=== PATIENT | male | born 1945 | race Caucasian/White ===

== ENCOUNTER 2023-09-05 00:23 | Inpatient (IN) | payer MEDICARE, OTHER, SELFPAY ==
[2023-09-03] VITALS (10 sets, daily range): BP systolic 79–156; BP diastolic 50–70; BMI 25.1
[2023-09-03 11:57] LABS: Glucose - Point of Care 108 mg/dl (70-99)
[2023-09-03 14:53] LABS: % Basophils 0.3 % (0-2); % Eosinophils 0.7 % (0-6); % Lymphocytes 8.3 % (20.5-51.1); % Monocytes 6.4 % (1.7-9.3); % Neutrophils 83.3 % (42.2-75.2); Absolute Basophils 0.1 10^3/uL (0-0.2); Absolute Eosinophils 0.1 10^3/uL (0-0.7); Absolute Immature Granulocytes 0.2 10^3/uL (0-0.05); Absolute Lymphocytes 1.2 10^3/uL (1.2-3.4); Absolute Neutrophils 12.3 10^3/uL (1.4-6.5); Hematocrit 35.5 % (39.0-52.0); Hemoglobin 12.4 g/dL (13.0-18.0); Mean Corp Hgb Conc. 34.9 g/dL (33.0-37.0); Mean Corpuscular Hgb 29.6 pg (27.0-31.0); Mean Corpuscular Volume 84.7 fL (80.0-94.0); Mean Platelet Volume 9.3 fL (7.4-10.4); Nucleated Red Blood Cells % 0 % (-); Platelet Count 219 10^3/uL (130-400); Red Blood Cell Count 4.19 10^6/uL (4.70-6.10); Red Cell Dist. Width 13.7 % (11.5-14.5); White Blood Cell Count 14.8 10^3/uL (4.8-10.8)
[2023-09-03 15:13] LABS: ALT (SGPT) 17 U/L (0-50); AST (SGOT) 15 U/L (17-59); Albumin 3.1 g/dl (3.5-5.0); Alkaline Phosphatase 83 U/L (38-126); Blood Urea Nitrogen 43 mg/dl (9-20); Carbon Dioxide 17 mmol/L (22-30); Chloride 103 mmol/L (98-107); Glucose 116 mg/dl (70-99); Potassium 3.7 mmol/L (3.5-5.1); Sodium 131 mmol/L (135-145); Total Bilirubin 0.8 mg/dl (0.2-1.3); Total Protein 5.5 g/dl (6.3-8.2); eGFR 36.33
--- NOTE | 2023-09-03 15:18 | ED.GENMED ---
History of Present Illness
General
Chief Complaint: Weakness
Source: patient and family
Time Seen by Provider: 09/03/23 14:58
History of Present Illness
History of Present Illness:
77yoM with a history of coronary artery disease status post CABG x 5 and PCI, type 2 diabetes, peripheral artery disease on Xarelto presenting with his for evaluation of generalized weakness. Patient began experiencing diarrhea about 3 days
ago. He reports 6-8 explosive bowel movements daily. He has been extremely weak and fatigued. He had an episode of dizziness 2 days ago while at the grocery store. During the episode, patient reports that he was having difficulty with his
vision. His drove him home and upon getting out of the car, patient had a witnessed syncopal episode. His daughter is a nurse and took his vitals and SBP was reportedly in the 60s at that time. He has had several low blood pressure readings
since then. He denies any visual disturbance currently. He continues to have dizziness with position changes. He denies any chest pain, shortness of breath, vomiting, fevers.
Past History
Past History
ED Past Medical History: CAD, GERD, HTN, Hypercholesterolemia, NIDDM, AR and Other (DVT)
ED Past Surgical History: Cardiac (bypass, stents) and Cholecystectomy
Social History
Tobacco: Former smoker (quit x 22 years)
Alcohol: None
Drug: None
Personal:
Living: with family
Phy Exam
Physical Exam
Physical Exam:
Appears fatigued, non-toxic
General Physical Exam
General Skin: warm and dry
General Habitus: normal
General Mental: alert
Cardiovascular Exam
Cardiovascular Exam: regular rate/rhythm and no murmur
Pulmonary Exam
Pulmonary Exam: lungs clear, no respiratory distress and no crackles
Gastrointestinal Exam
Gastrointestinal Exam: soft and non distended
Palpation: left lower quadrant: Mild tenderness and right lower quadrant: Mild tenderness
Leon Coma Scale
Eye Opening: Spontaneous
Verbal Response: Oriented
Motor Response: Obeys Commands
GCS Total Score: 15
Skin Exam
Skin Exam: normal color and warm/dry
Course
Orders/Labs/Results
Orders:
Orders
09/03/23 11:57
Electrocardiogram (*1) Urgent
Reason for Study: Syncope
EKG- Treatment ONCE
09/03/23 14:41
Complete Blood Count/With Diff Urgent
Comprehensive Metabolic Panel Urgent
Lipase Urgent
Comment: MAG & LIPASE ADDED ON BY FLOOR 3:20PM 09-03-23
Magnesium Urgent
09/03/23 Dinner
NPO
Allow oral meds: Yes
Allow clear liquids: Sips of Clears
09/03/23 15:17
Add On- LAB Urgent
Tests Added?: magnesium, lipase
CT Abd/pel Without Iv Or Oral Urgent
Comment:
Reason For Exam: Abd pain, diarrhea, SUMMER
Stool Culture Urgent
MEKHI Source: Feces/Stool
Specimen Description:
Date Specimen was Collected: 09/03/23
Time Specimen was Collected: 15:57
0.9% Sodium Chloride 1000 ml [Nss] 1,000 ml IV BOLUS
09/03/23 15:58
Magnesium Sulfate 2 Gram/50 ml [Magnesium Sulfate] 2 gram in 50 ml IV NOW
09/03/23 16:08
Lactate Level [Lactic Acid] Urgent
Troponin I Urgent
09/03/23 17:14
CDIFF [C difficile Antigen & Toxins] Urgent
MEKHI Source: Feces/Stool
Specimen Description:
Date Specimen was Collected: 09/03/23
Time Specimen was Collected: 17:16
09/03/23 18:22
Admit/Transfer Patient As Directed
Co-Sign Provider:
Level of Care: Observation services
Assign to:: Telemetry
Physician / Group: mannie
Diagnosis: gastroenteritis
Reason for Telemetry: Arrhythmia
Date to Stop Telemetry: 09/06/23
Time to Stop Telemetry: 11:00
09/03/23 18:23
Code Status As Directed
Resuscitation Status: Full Code
09/03/23 18:24
Norovirus by PCR Urgent
MEKHI Source: Feces/Stool
Specimen Description:
09/03/23 20:02
0.9% Sodium Chloride 1000 ml [Nss] 1,000 ml IV 80 mls/hr
Cilostazol [Pletal] 100 mg PO BID
Cyclobenzaprine HCl [Flexeril] 10 mg PO HSPRN PRN
Dextrose 50%-Water [Dextrose 50% Syringe] 12.5 grams IV [id number] PRN
Glucagon [GlucaGen] 1 mg IM PRN PRN
Ondansetron Injectable [Zofran] 4 mg IV Q6HPRN PRN
Rivaroxaban [Xarelto] 2.5 mg PO BID
09/03/23 20:02
VTE Contraindication Routine
VTE Mechanical Device Contraindication: Medical Contraindication
Pharmocologic Contraindication: Medical Contraindication
Activity As Directed
Activity Level: As Tolerated
Bedside Glucose Monitoring As Directed
Frequency: AC&HS
Additional Instructions:: Change to q6h if pt on TPN, tube feeding or not eating
Vital Signs As Directed
Frequency: Per unit guidelines
09/03/23 20:08
Oxycodone [Roxicodone] 10 mg PO Q8HPRN PRN
09/03/23 22:00
Fenofibrate 145 [Tricor] 145 mg PO HS
Pregabalin [Lyrica] 150 mg PO HS
Rosuvastatin Calcium [Crestor] 40 mg PO HS
09/03/23 22:10
Troponin I Q6H
09/04/23 02:02
Troponin I Q6H
09/04/23 06:00
Complete Blood Count/With Diff IN AM
Comprehensive Metabolic Panel IN AM
Glycohemoglobin (HgbA1c) IN AM
09/04/23 07:30
Insulin Aspart Corrective Low [Novolog Flexpen-Low Resistance] See Protocol SC AC
09/04/23 08:00
Aspirin Low Dose EC [Aspir Low (Enteric Coated)] 81 mg PO DAILY
ISOSORBIDE MONOnitrate [Ismo] 10 mg PO DAILY
ISOSORBIDE MONOnitrate [Ismo] 20 mg PO DAILY
Pregabalin [Lyrica] 300 mg PO DAILY
09/04/23 08:02
Troponin I Q6H
09/04/23 14:02
Troponin I Q6H
09/04/23 18:00
Tamsulosin [Flomax] 0.4 mg PO QPM
09/06/23 11:00
DC Protocol for Telemetry ONCE
Abnormal Lab Results
09/03/23 09/03/23 09/03/23
11:55 14:41 16:08
WBC 14.8 H 10^3/uL
(4.8-10.8)
RBC 4.19 L 10^6/uL
(4.70-6.10)
Hgb 12.4 L g/dL
(13.0-18.0)
Hct 35.5 L %
(39.0-52.0)
Abs Immat Gran (auto) 0.2 H 10^3/uL
(0-0.05)
Absolute Neuts (auto) 12.3 H 10^3/uL
(1.4-6.5)
Absolute Monos (auto) 1.0 H 10^3/uL
(0.1-0.6)
Immature Gran % 1.0 H %
(0-0.5)
Neutrophils % 83.3 H %
(42.2-75.2)
Lymphocytes % 8.3 L %
(20.5-51.1)
Sodium 131 L mmol/L
(135-145)
Carbon Dioxide 17 L mmol/L
(22-30)
BUN 43 H mg/dl
(9-20)
Creatinine 1.9 H mg/dL
(0.7-1.3)
Glucose 116 H mg/dl
(70-99)
Magnesium 1.2 L mg/dl
(1.6-2.3)
AST 15 L U/L
(17-59)
Troponin I 0.074 H* ng/ml
Total Protein 5.5 L g/dl
(6.3-8.2)
Albumin 3.1 L g/dl
(3.5-5.0)
POC Glucose 108 H mg/dl
(70-99)
09/03/23 14:41
09/03/23 14:41
Vital Signs
Initial and Last Documented VS:
Initial Vital Signs
Temp Pulse Resp BP Pulse Ox
100.0 F 95 18 114/70 97
09/03/23 11:52 09/03/23 11:52 09/03/23 11:52 09/03/23 11:52 09/03/23 11:52
Last Documented Vital Signs
Temp Pulse Resp BP Pulse Ox
97.8 F 72 16 129/61 96
09/03/23 23:00 09/03/23 23:00 09/03/23 23:00 09/03/23 23:00 09/03/23 23:00
MDM/Problems Addressed
Differential Diagnosis Includes:
77yoM presenting for diarrhea and generalized weakness x 3 days. Syncopal episode 2 days ago with intermittent episodes of hypotension at home. Temperature is 100 on arrival. Remainder of vitals are stable. Patient appears fatigued but is
nontoxic-appearing. Differential diagnosis includes but is not limited to: Gastroenteritis, dehydration, SUMMER, orthostatic hypotension, ACS
Initial ED plan: Check cardiac labs, lactate, magnesium, stool studies, EKG, and CT abdomen. IV fluid bolus.
*EKG
Interpreted by ED Provider?: Yes
EKG Intrepretation Date: 09/03/23
Heart Rate: 107
Rate: tachycardiac
Rhythm: sinus
[place]: normal axis
QRS Pattern: normal QRS
Ischemia: non-specific ST changes
*Critical Care Note
Total Time (30-74mins, 75-104mins- exclusive of procedures): Not Applicable
Update Note
Update Note:
Labs reveal a leukocytosis with a white count of 14.8. Lactate is normal. Creatinine 1.9, up from baseline of 0.8. Troponin elevated at 0.[address] changes present on EKG. CT abdomen is negative for acute findings. Patient admitted
for further management.
ED Attending Note
-
Portions of this chart may have been created with voice recognition software.� Occasional wrong word or��sound alike� substitutions may have occurred due to the inherent limitations of voice recognition software.
Discharge Plan
Departure
Patient Disposition: Admit
Date of Disposition: 09/03/23
Time of Disposition: 18:09
Presentation/result/management discussed w/ accepting MD/DO: Hospitalist
Discharge Problem:
Generalized weakness, Diarrhea, Acute kidney injury, Elevated troponin
Interventions
Interventions:
*Risk Screen - Suicide Last Done: 09/03/23 17:13
*General Assessment Last Done: 09/03/23 17:13
*Neglect/Abuse Screening Last Done: 09/03/23 17:13
*ED COVID-19 Vaccine History Last Done: 09/03/23 20:51
*Nursing Disposition Last Done: 09/03/23 20:15
ED- Cardiac Assessment Last Done: 09/03/23 14:45
ED- Neurological Assessment Last Done: 09/03/23 14:45
ED- Pulmonary Assessment Last Done: 09/03/23 14:45
Discharge Date and Time
Discharge Date/Time: 09/03/23 20:16
[2023-09-03 15:34] LABS: Lipase 98 U/L (23-300); Magnesium 1.2 mg/dl (1.6-2.3)
[2023-09-03] MEDS: NSS 1000 IV ×2 (16:06→20:39)
[2023-09-03] MEDS: MAGNESIUM SULFATE 50 IV (16:07)
[2023-09-03 16:50] LABS: Troponin I 0.074 ng/ml
--- NOTE | 2023-09-03 18:26 | HPS.HSE ---
Family Physician
-
Family Physician: Magno Khan
Chief Complaint
-
diarrhea
History of Present Illness
77-year-old male past medical history of CAD status post CABG x 5, type 2 diabetes, peripheral arterial disease on Xarelto, hypertension, GERD, hypercholesterolemia, presenting with generalized weakness and diarrhea for 3 days. He has been having
6-8 explosive bowel movements daily. He is extremely weak and fatigued. He had dizziness 2 days ago while at the grocery store. At that time he was having difficulty with vision. His drove him home and upon getting out of the car he had a
syncopal episode. His blood pressures was checked by his daughter who is a nurse blood pressure was 60s at that time. He has had several low blood pressure since then. He has dizziness with positional changes. He denies any chest pain, shortness
of breath, vomiting or fever. He denies any sick contacts. He denies any recent travel or attending events/parties or eating outside food.
She denies smoking or alcohol use.
Medical History
Past Medical History
Past Medical History: Reports Other (CAD status post CABG x 5, type 2 diabetes, peripheral arterial disease on Xarelto, hypertension, GERD, hypercholesterolemia,)
Past Surgical History: Reports None
Social History
Tobacco: Non-smoker
Alcohol: None
Drug: None
Family History
Family History: Not pertinent
Allergies / Home Medications
Allergies reflects when Allergies were last updated in [facility].
Home Medications with original date entered in [facility]
Allergy/Medication List:
Allergies
Allergy/AdvReac Type Severity Reaction Status Date / Time
No Known Allergies Allergy Verified 09/03/23 11:55
Home Medications
alogliptin 25 mg tablet 25 mg PO DAILY Diabetes 08/20/20
fenofibrate nanocrystallized 145 mg tablet 145 mg PO HS High cholesterol 08/20/20
glimepiride 2 mg tablet 2 mg PO BID@0800,1700 Diabetes 08/20/20
metformin 1,000 mg tablet 1,000 mg PO BID@0800,1700 Diabetes 08/20/20
pregabalin 150 mg capsule (Lyrica) 300 mg PO DAILY Pain 08/20/20
rosuvastatin 40 mg tablet (Crestor) 40 mg PO DAILY High cholesterol 08/20/20
cilostazol 100 mg tablet 100 mg PO BID Blood clot prevention/tx 05/16/22
famotidine 20 mg tablet 20 mg PO HS Gastrointestinal issue 05/16/22
lidocaine 5 % topical patch 1 patch topical DAILYPRN PRN to back and/or both feet for pain 05/16/22
metoprolol succinate 25 mg tablet,extended release 24 hr 25 mg PO HS Blood pressure 05/16/22
pantoprazole 40 mg tablet,delayed release 40 mg PO DAILY Gastrointestinal issue 05/16/22
pregabalin 150 mg capsule (Lyrica) 150 mg PO HS Pain 05/16/22
rivaroxaban 2.5 mg tablet (Xarelto) 2.5 mg PO BID Blood clot prevention/tx 05/16/22
amoxicillin 875 mg-potassium clavulanate 125 mg tablet 1 tab PO Q12 #14 tabs 05/19/22
hydrocodone 5 mg-acetaminophen 325 mg tablet 1 tab PO Q4HPRN PRN moderate/severe pain #10 tabs 05/19/22
Review of Systems
-
History Source: Patient
A 12 point ROS was completed and negative except as noted: Yes
Constitutional: Reports No Symptoms
EENT: Reports No Symptoms
Respiratory: Reports No Symptoms
Cardiac: Reports No Symptoms
Abdomen/GI: Reports See HPI
: Reports No Symptoms
Musculoskeletal: Reports No Symptoms
Skin: Reports No Symptoms
Neurological: Reports No Symptoms
Endocrine: Reports No Symptoms
Hematologic/Lymphatic: Reports No Symptoms
Psych: Reports No Symptoms
Physical Exam
Vital Signs
Vital Signs
Temp Pulse Resp BP Pulse Ox
100.0 F 74 14 109/62 98
09/03/23 11:52 09/03/23 17:09 09/03/23 17:09 09/03/23 17:09 09/03/23 17:09
Physical Exam
General: Well Developed, Well Nourished and No Apparent Distress
HEENT: NormoCephalic, Moist mucous membranes and Atraumatic
Respiratory: Clear
Cardiac: S1/S2 and Regular Rhythm; No Murmur or Rub
GI: Soft, Non Distended, Normal Bowel Sounds and Tender; No Organomegaly
Rectal: Deferred by Provider
Musculoskeletal: No Clubbing, No Cyanosis and No Edema
Skin: No Rash
Neuro: Nonfocal/grossly intact
Laboratory Results
-
09/03/23 14:41
09/03/23 14:41
Laboratory Results
Lactic Acid 1.0 mmol/L (0.7-2.0) 09/03/23 16:08
Total Bilirubin 0.8 mg/dl (0.2-1.3) 09/03/23 14:41
AST 15 U/L (17-59) L 09/03/23 14:41
ALT 17 U/L (0-50) 09/03/23 14:41
Alkaline Phosphatase 83 U/L (38-126) 09/03/23 14:41
Troponin I 0.074 ng/ml H* 09/03/23 16:08
Lipase 98 U/L (23-300) 09/03/23 14:41
Data Reviewed
-
Lab Data: Labs Reviewed by me
Old Records: Reviewed
Impression/Plan
-
IMPRESSION:
PLAN:
# Hypovolemia/syncope secondary to acute gastroenteritis
-N.p.o.
-IV fluids
-Check stool culture, C. difficile, norovirus
# Hypomagnesemia
-Replete magnesium
# Acute kidney injury
-IV fluids
# Nonischemic myocardial injury secondary to hypotension
-Troponin 0.074
-EKG shows sinus tachycardia
-Trend troponins
Coronary artery disease status post CABG x 5
Peripheral arterial disease
-Continue Xarelto
-Continue cilostazol
Type 2 diabetes
-Hold alogliptin, glimepiride, metformin
-Insulin sliding scale
Peripheral arterial disease
Essential hypertension
-Hold metoprolol
GERD
-Continue famotidine, Protonix
Hypercholesterolemia
-Continue statin, fenofibrate
Full code
DVT prophylaxis�Xarelto
N.p.o.
[2023-09-03] MEDS: PLETAL 100 MG PO (20:47)
[2023-09-03] MEDS: XARELTO 2.5 MG PO (20:47)
[2023-09-03] MEDS: LYRICA 150 MG PO (21:18)
[2023-09-03] MEDS: CRESTOR 40 MG PO (21:18)
[2023-09-03] MEDS: TRICOR 145 MG PO (21:18)
[2023-09-03 22:02] LABS: Glucose - Point of Care 181 mg/dl (70-99)
[2023-09-03 22:41] LABS: Troponin I 0.043 ng/ml
[2023-09-04 03:00] VITALS: BP 123/61
[2023-09-04 04:49] LABS: % Basophils 0.3 % (0-2); % Eosinophils 0.9 % (0-6); % Immature Granulocytes 1.2 % (0-0.5); % Lymphocytes 8.3 % (20.5-51.1); % Monocytes 6.9 % (1.7-9.3); % Neutrophils 82.4 % (42.2-75.2); Absolute Eosinophils 0.1 10^3/uL (0-0.7); Absolute Immature Granulocytes 0.1 10^3/uL (0-0.05); Absolute Lymphocytes 0.8 10^3/uL (1.2-3.4); Absolute Monocytes 0.7 10^3/uL (0.1-0.6); Absolute Neutrophils 8.2 10^3/uL (1.4-6.5); Hematocrit 33.2 % (39.0-52.0); Hemoglobin 11.7 g/dL (13.0-18.0); Mean Corp Hgb Conc. 35.2 g/dL (33.0-37.0); Mean Corpuscular Hgb 30.2 pg (27.0-31.0); Mean Corpuscular Volume 85.6 fL (80.0-94.0); Mean Platelet Volume 9.7 fL (7.4-10.4); Nucleated Red Blood Cells % 0 % (-); Platelet Count 190 10^3/uL (130-400); Red Blood Cell Count 3.88 10^6/uL (4.70-6.10); Red Cell Dist. Width 13.7 % (11.5-14.5); White Blood Cell Count 9.9 10^3/uL (4.8-10.8)
--- NOTE | 2023-09-04 04:49 | PTCARENOTE ---
Pt admitted from ED. AAOx3, no c/o pain. Pt afebrile, VSS. R AC IV C/D/I, infusing without issues. Lungs clear, pt on R/A. No N/V or stools, good UOP. Pt NPO at this time. Accucheck q6 while NPO. Call grider within reach.
[2023-09-04 05:11] LABS: ALT (SGPT) 14 U/L (0-50); AST (SGOT) 13 U/L (17-59); Albumin 2.9 g/dl (3.5-5.0); Alkaline Phosphatase 59 U/L (38-126); Blood Urea Nitrogen 31 mg/dl (9-20); Calcium 8.9 mg/dl (8.4-10.2); Carbon Dioxide 19 mmol/L (22-30); Chloride 110 mmol/L (98-107); Estimated Creatinine Clearance 74 ml/min; Glucose 107 mg/dl (70-99); Potassium 4.1 mmol/L (3.5-5.1); Sodium 136 mmol/L (135-145); Total Bilirubin 0.5 mg/dl (0.2-1.3); Total Protein 5.3 g/dl (6.3-8.2); eGFR > 60.00
[2023-09-04 05:12] LABS: Troponin I 0.033 ng/ml
[2023-09-04 06:37] LABS: Glucose - Point of Care 90 mg/dl (70-99)
--- NOTE | 2023-09-04 06:54 | W.PN.HOSP.TC ---
Today's Communication/Plan
-
diet as tolerated
stool studies when available
glcyemic control
monitor bp
Assessment / Plan
Assessment / Plan
Physical Exam
General: Well Developed, Well Nourished and No Apparent Distress
HEENT: NormoCephalic, Moist mucous membranes and Atraumatic
Respiratory: Clear
Cardiac: S1/S2 and Regular Rhythm; No Murmur or Rub
GI: Soft, Non Distended, Normal Bowel Sounds and mild Tenderness; No Organomegaly
Musculoskeletal: No Clubbing, No Cyanosis and No Edema
Skin: No Rash
Neuro: Nonfocal/grossly intact
HPI: 77-year-old male past medical history of CAD status post CABG x 5, type 2 diabetes, peripheral arterial disease on Xarelto, hypertension, GERD, hypercholesterolemia, presenting with generalized weakness and diarrhea for 3 days. He has been
having 6-8 explosive bowel movements daily. He is extremely weak and fatigued. He had dizziness 2 days ago while at the grocery store. At that time he was having difficulty with vision. His drove him home and upon getting out of the car he
had a syncopal episode. His blood pressures was checked by his daughter who is a nurse blood pressure was 60s at that time. He has had several low blood pressure since then. He has dizziness with positional changes. He denies any chest pain,
shortness of breath, vomiting or fever. He denies any sick contacts. He denies any recent travel or attending events/parties or eating outside food.
# Hypovolemia/syncope secondary to acute gastroenteritis
-diet resumed tolerating
-IV fluids
-Check stool culture, C. difficile, norovirus
# Hypomagnesemia
-monitor and replete as necessary
# Acute kidney injury
-IV fluids
-resolved
# Nonischemic myocardial injury secondary to hypotension
-Troponin 0.074
-EKG shows sinus tachycardia
-Tachycardia since resolved, troponins trended down
Coronary artery disease status post CABG x 5
Peripheral arterial disease
-Continue Xarelto
-Continue cilostazol
Type 2 diabetes
-Hold alogliptin, glimepiride, metformin
-Insulin sliding scale
Peripheral arterial disease
Essential hypertension
-Hold metoprolol
GERD
-Continue famotidine, Protonix
Hypercholesterolemia
-Continue statin, fenofibrate
Full code
DVT prophylaxis�Xarelto
I spent a total of 50 minutes with the patient or on the floor. More than 50% of this time involved counseling and coordination of care.
Anticipated Discharge: 24 - 48 hours
Subjective/Interval History
-
Date of Service: September 04, 2023
Diarrhea since resolved. Tolerating diet. Symptoms improved.
Objective Data
-
Labs:
Laboratory Results
09/04/23
04:18
WBC 9.9
Hgb 11.7 L
Hct 33.2 L
Plt Count 190
Sodium 136
Potassium 4.1
Chloride 110 H
Carbon Dioxide 19 L
BUN 31 H
Creatinine 1.0
Glucose 107 H
Calcium 8.9
Total Bilirubin 0.5
AST 13 L
ALT 14
Alkaline Phosphatase 59
Vital Signs:
Vital Signs
Temp Pulse Resp BP Pulse Ox
97.7 F 72 18 123/61 96
09/04/23 03:00 09/04/23 03:00 09/04/23 03:00 09/04/23 03:00 09/04/23 03:00
I&O
09/02/23 09/03/23 09/04/23
06:59 06:59 06:59
Output Total 700 / 700
Balance -700 / -700
[2023-09-04 07:00] VITALS: BP 145/81
[2023-09-04] MEDS: LYRICA 300 MG PO (08:43)
[2023-09-04] MEDS: PLETAL 100 MG PO ×2 (08:44→21:18)
[2023-09-04] MEDS: ASPIR LOW (ENTERIC COATED) 81 MG PO (08:44)
[2023-09-04] MEDS: ISMO 20 MG PO (08:44)
[2023-09-04] MEDS: ISMO 10 MG PO (08:44)
[2023-09-04] MEDS: XARELTO 2.5 MG PO ×2 (08:44→21:18)
[2023-09-04 09:08] LABS: Glucose - Point of Care 110 mg/dl (70-99)
[2023-09-04 09:37] LABS: Troponin I 0.028 ng/ml
[2023-09-04 09:41] LABS: Glycohemoglobin (HgbA1c) 7.2 % (4.0-5.6)
[2023-09-04] MEDS: NOVOLOG FLEXPEN-LOW RESISTANCE SC (10:08)
[2023-09-04 11:30] VITALS: BP 129/57
[2023-09-04 12:00] LABS: Glucose - Point of Care 269 mg/dl (70-99)
[2023-09-04] MEDS: NOVOLOG FLEXPEN-LOW RESISTANCE 3 UNITS SC (12:26)
[2023-09-04] MEDS: NSS 1000 IV (14:18)
--- NOTE | 2023-09-04 15:58 | CM ---
Patient seen at bedside. Patient stated that he lives with his in a 2 story home. Patent has no DME at home and was independent prior to admission of ADL's and IADL's. Patient stated that his PCP is Dr. Khan and he uses the [facility] in
[facility]. CM will review with patient status of OBS/ALLISON and continue to follow for discharge planning needs.
Plan; home with no needs anticipated.
[2023-09-04 16:00] VITALS: BP 127/71
[2023-09-04] MEDS: FLOMAX 0.4 MG PO (17:03)
[2023-09-04 18:54] LABS: Glucose - Point of Care 233 mg/dl (70-99)
[2023-09-04] MEDS: NOVOLOG FLEXPEN-LOW RESISTANCE 2 UNITS SC (19:18)
[2023-09-04 19:57] VITALS: BP 137/69
[2023-09-04 20:57] LABS: Glucose - Point of Care 167 mg/dl (70-99)
[2023-09-04] MEDS: TRICOR 145 MG PO (21:18)
[2023-09-04] MEDS: CRESTOR 40 MG PO (21:18)
[2023-09-04] MEDS: LYRICA 150 MG PO (21:19)
[2023-09-04 23:37] VITALS: BP 136/66
[2023-09-05] MEDS: NSS IV (02:03)
[2023-09-05 03:52] VITALS: BP 129/72
[2023-09-05] MEDS: ROXICODONE 10 MG PO ×2 (03:55→20:17)
[2023-09-05] MEDS: TYLENOL 325 MG PO ×2 (03:55→20:17)
[2023-09-05 05:40] LABS: Hematocrit 29.3 % (39.0-52.0); Hemoglobin 10.5 g/dL (13.0-18.0); Mean Corp Hgb Conc. 35.8 g/dL (33.0-37.0); Mean Corpuscular Hgb 29.4 pg (27.0-31.0); Mean Corpuscular Volume 82.1 fL (80.0-94.0); Mean Platelet Volume 9.3 fL (7.4-10.4); Platelet Count 197 10^3/uL (130-400); Red Blood Cell Count 3.57 10^6/uL (4.70-6.10); Red Cell Dist. Width 13.3 % (11.5-14.5); White Blood Cell Count 7.8 10^3/uL (4.8-10.8)
[2023-09-05 06:31] LABS: Blood Urea Nitrogen 17 mg/dl (9-20); Calcium 8.2 mg/dl (8.4-10.2); Carbon Dioxide 23 mmol/L (22-30); Chloride 107 mmol/L (98-107); Estimated Creatinine Clearance 106 ml/min; Glucose 139 mg/dl (70-99); Phosphorus 1.9 mg/dl (2.5-4.5); Potassium 3.9 mmol/L (3.5-5.1); Sodium 134 mmol/L (135-145); eGFR > 60.00
--- NOTE | 2023-09-05 07:17 | W.PN.HOSP.TC ---
Today's Communication/Plan
-
replete mag phosphate
follow stool cultures
likely discharge tomorrow if electrolyte abn's resolve/significantly improve and patient remains stable/cont to improve
Assessment / Plan
Assessment / Plan
Physical Exam
General: Well Developed, Well Nourished and No Apparent Distress
HEENT: NormoCephalic, Moist mucous membranes and Atraumatic
Respiratory: Clear
Cardiac: S1/S2 and Regular Rhythm; No Murmur or Rub
GI: Soft, Non Distended, Normal Bowel Sounds and mild Tenderness; No Organomegaly
Musculoskeletal: No Clubbing, No Cyanosis and No Edema
Skin: No Rash
Neuro: Nonfocal/grossly intact
HPI: 77-year-old male past medical history of CAD status post CABG x 5, type 2 diabetes, peripheral arterial disease on Xarelto, hypertension, GERD, hypercholesterolemia, presenting with generalized weakness and diarrhea for 3 days. He has been
having 6-8 explosive bowel movements daily. He is extremely weak and fatigued. He had dizziness 2 days ago while at the grocery store. At that time he was having difficulty with vision. His drove him home and upon getting out of the car he
had a syncopal episode. His blood pressures was checked by his daughter who is a nurse blood pressure was 60s at that time. He has had several low blood pressure since then. He has dizziness with positional changes. He denies any chest pain,
shortness of breath, vomiting or fever. He denies any sick contacts. He denies any recent travel or attending events/parties or eating outside food.
# Hypovolemia/syncope secondary to acute gastroenteritis
-diet resumed tolerating
-IV fluids completed
-norovirus neg
-cdiff antigen pos but toxin neg (doubt active cdiff infxn given resolution diarrhea)
#Severe Hypomagnesemia
#Hypophosphatemia
-electrolyte abn's likely d/t recent diarrhea
-repleted
-cont to monitor
# Acute kidney injury
-resolved
-IV fluids completed
# Nonischemic myocardial injury secondary to hypotension
-Troponin 0.074
-EKG shows sinus tachycardia
-Tachycardia since resolved, troponins trended down
Coronary artery disease status post CABG x 5
Peripheral arterial disease
-Continue Xarelto
-Continue cilostazol
Type 2 diabetes
-Hold alogliptin, glimepiride, metformin
-Insulin sliding scale
Peripheral arterial disease
Essential hypertension
-Hold metoprolol
GERD
-Continue famotidine, Protonix
Hypercholesterolemia
-Continue statin, fenofibrate
Full code
DVT prophylaxis�Xarelto
I spent a total of 50 minutes with the patient or on the floor. More than 50% of this time involved counseling and coordination of care.
Anticipated Discharge: Within 24 hours
Subjective/Interval History
-
Date of Service: September 05, 2023
Reports overall feeling well. Stools more formed. No further instance of diarrhea.
Objective Data
-
Labs:
Laboratory Results
09/05/23
05:23
WBC 7.8
Hgb 10.5 L
Hct 29.3 L
Plt Count 197
Sodium 134 L
Potassium 3.9
Chloride 107
Carbon Dioxide 23
BUN 17
Creatinine 0.7
Glucose 139 H
Calcium 8.2 L
Vital Signs:
Vital Signs
Temp Pulse Resp BP Pulse Ox
97.9 F 92 20 129/72 93
09/05/23 03:52 09/05/23 03:52 09/05/23 03:52 09/05/23 03:52 09/05/23 03:52
I&O
09/04/23 09/05/23 09/06/23
06:59 06:59 06:59
Intake Total 2320 / 2320
Output Total 700 / 700
Balance -700 / -700 2320 / 2320
[2023-09-05 07:25] LABS: Glucose - Point of Care 121 mg/dl (70-99)
[2023-09-05] MEDS: NOVOLOG FLEXPEN-LOW RESISTANCE SC (07:39)
[2023-09-05] MEDS: LYRICA 300 MG PO (07:41)
[2023-09-05] MEDS: XARELTO 2.5 MG PO ×2 (07:41→20:09)
[2023-09-05] MEDS: PLETAL 100 MG PO ×2 (07:41→20:09)
[2023-09-05] MEDS: ASPIR LOW (ENTERIC COATED) 81 MG PO (07:41)
[2023-09-05] MEDS: ISMO 10 MG PO (07:42)
[2023-09-05] MEDS: ISMO 20 MG PO (07:42)
[2023-09-05 07:58] VITALS: BP 156/80
--- NOTE | 2023-09-05 09:00 | PN.CDI ---
CDI
- -
CDI:
Physician Documentation Request
Admit Date: 09/05/23 00:23
Dear Doctor Kate,
Please review the following and provide your response in the progress notes.
Clinical Indicators:
- 09/02 ER Physician 'experiencing diarrhea about 3 days ago...6-8 explosive bowel movements daily'
- 'extremely weak and fatigued...dizziness...syncope'
- 09/02-09/03 3L IVF NSS
Laboratory Tests
09/03/23 09/04/23 09/05/23
14:41 04:18 05:23
Sodium 131 L 136 134 L
Please provide a diagnosis for the above lab values that were monitored and treatment rendered:
Hyponatremia
Clinically insignificant abnormal lab value
Other
Use of terms such as suspected, likely, concern for, or probable (associated with a specific diagnosis that is being evaluated, monitored, or treated as if it exists) are acceptable and can be coded in the inpatient setting, when documented at the
time of discharge.
Thank you,
Renetta Rivas RN
CDI Specialist
Please use your independent medical judgment in providing your response.
[2023-09-05 11:20] VITALS: BP 131/70
--- NOTE | 2023-09-05 11:22 | CM ---
Patient seen at bedside, patient now changed to INP status and patient updated. CM will continue to follow for discharge planning needs.
Plan; home with no needs anticipated
[2023-09-05] MEDS: MAGNESIUM SULFATE 100 IV (11:36)
[2023-09-05 11:40] LABS: Glucose - Point of Care 153 mg/dl (70-99)
[2023-09-05] MEDS: NOVOLOG FLEXPEN-LOW RESISTANCE 1 UNITS SC ×2 (11:44→17:43)
[2023-09-05] MEDS: SODIUM PHOSPHATE 255 MEQ IV (12:19)
[2023-09-05 15:32] VITALS: BP 140/74
[2023-09-05 16:38] LABS: Glucose - Point of Care 181 mg/dl (70-99)
[2023-09-05] MEDS: FLOMAX 0.4 MG PO (17:43)
[2023-09-05 19:38] VITALS: BP 133/77
[2023-09-05 21:27] LABS: Glucose - Point of Care 193 mg/dl (70-99)
[2023-09-05] MEDS: CRESTOR 40 MG PO (21:39)
[2023-09-05] MEDS: LYRICA 150 MG PO (21:39)
[2023-09-05] MEDS: TRICOR 145 MG PO (21:39)
[2023-09-05 23:00] VITALS: BP 140/75
[2023-09-06 03:00] VITALS: BP 117/73
[2023-09-06 06:46] LABS: Hematocrit 32.7 % (39.0-52.0); Hemoglobin 11.7 g/dL (13.0-18.0); Mean Corp Hgb Conc. 35.8 g/dL (33.0-37.0); Mean Corpuscular Hgb 29.7 pg (27.0-31.0); Mean Platelet Volume 9.3 fL (7.4-10.4); Platelet Count 214 10^3/uL (130-400); Red Blood Cell Count 3.94 10^6/uL (4.70-6.10); Red Cell Dist. Width 13.2 % (11.5-14.5); White Blood Cell Count 6.2 10^3/uL (4.8-10.8)
--- NOTE | 2023-09-06 06:49 | W.PN.HOSP.TC ---
Addendum entered and electronically signed by Vernon Love MD 09/06/23 23:47:
intermittent mild hyponatremia non-significant
Addendum entered and electronically signed by Vernon Love MD 09/06/23 23:44:
Mild Hyponatremia
Original Note:
Today's Communication/Plan
-
discharge
Assessment / Plan
Assessment / Plan
Physical Exam
General: Well Developed, Well Nourished and No Apparent Distress
HEENT: NormoCephalic, Moist mucous membranes and Atraumatic
Respiratory: Clear
Cardiac: S1/S2 and Regular Rhythm; No Murmur or Rub
GI: Soft, Non Distended, Normal Bowel Sounds and mild Tenderness; No Organomegaly
Musculoskeletal: No Clubbing, No Cyanosis and No Edema
Skin: No Rash
Neuro: AOx3
HPI: 77-year-old male past medical history of CAD status post CABG x 5, type 2 diabetes, peripheral arterial disease on Xarelto, hypertension, GERD, hypercholesterolemia, presenting with generalized weakness and diarrhea for 3 days. He has been
having 6-8 explosive bowel movements daily. He is extremely weak and fatigued. He had dizziness 2 days ago while at the grocery store. At that time he was having difficulty with vision. His drove him home and upon getting out of the car he
had a syncopal episode. His blood pressures was checked by his daughter who is a nurse blood pressure was 60s at that time. He has had several low blood pressure since then. He has dizziness with positional changes. He denies any chest pain,
shortness of breath, vomiting or fever. He denies any sick contacts. He denies any recent travel or attending events/parties or eating outside food.
# Hypovolemia/syncope secondary to acute gastroenteritis
-diet resumed tolerating
-IV fluids completed
-norovirus neg
-cdiff antigen pos but toxin neg (doubt active cdiff infxn given resolution diarrhea)
#Severe Hypomagnesemia
#Hypophosphatemia
-electrolyte abn's likely d/t recent diarrhea
-repleted
-will start scheduled oral magnesium on discharge. outpatient follow up with primary for repeat Mg level in 1 week.
# Acute kidney injury
-resolved
-IV fluids completed
# Nonischemic myocardial injury secondary to hypotension
-Troponin 0.074
-EKG shows sinus tachycardia
-Tachycardia since resolved, troponins trended down
Coronary artery disease status post CABG x 5
Peripheral arterial disease
-Continue Xarelto
-Continue cilostazol
Type 2 diabetes
-Hold alogliptin, glimepiride, metformin
-Insulin sliding scale
Peripheral arterial disease
Essential hypertension
-resume metoprolol
GERD
-Continue famotidine, Protonix
Hypercholesterolemia
-Continue statin, fenofibrate
Full code
DVT prophylaxis�Xarelto
Medically stable for discharge home with outpatient follow up recommendations.
I spent a total of 50 minutes with the patient or on the floor. More than 50% of this time involved counseling and coordination of care.
Anticipated Discharge: Today
Subjective/Interval History
-
Date of Service: September 06, 2023
Seen and examined at bedside in no acute distress. Ambulating well. Reports some watery diarrhea interspersed with formed stools. Otherwise reports feeling well. Eager to go home.
Objective Data
-
Labs:
Laboratory Results
09/06/23
06:25
WBC Pending
Hgb Pending
Hct Pending
Plt Count Pending
Sodium Pending
Potassium Pending
Chloride Pending
Carbon Dioxide Pending
BUN Pending
Creatinine Pending
Glucose Pending
Calcium Pending
Vital Signs:
Vital Signs
Temp Pulse Resp BP Pulse Ox
97.7 F 95 18 117/73 96
07/11/24 03:00 09/06/23 03:00 09/06/23 03:00 09/06/23 03:00 09/06/23 03:00
I&O
09/04/23 09/05/23 09/06/23
06:59 06:59 06:59
Intake Total 2320 / 2320 535 / 535
Output Total 700 / 700
Balance -700 / -700 2320 / 2320 535 / 535
[2023-09-06 07:08] LABS: Glucose - Point of Care 138 mg/dl (70-99)
[2023-09-06] MEDS: NOVOLOG FLEXPEN-LOW RESISTANCE SC (07:24)
[2023-09-06] MEDS: LYRICA 300 MG PO (07:27)
[2023-09-06] MEDS: ISMO 10 MG PO (07:27)
[2023-09-06] MEDS: PLETAL 100 MG PO (07:28)
[2023-09-06] MEDS: ASPIR LOW (ENTERIC COATED) 81 MG PO (07:28)
[2023-09-06] MEDS: ISMO 20 MG PO (07:28)
[2023-09-06 07:29] VITALS: BP 159/87
[2023-09-06] MEDS: XARELTO 2.5 MG PO (07:29)
[2023-09-06 07:39] LABS: Blood Urea Nitrogen 14 mg/dl (9-20); Calcium 8.6 mg/dl (8.4-10.2); Carbon Dioxide 26 mmol/L (22-30); Chloride 103 mmol/L (98-107); Estimated Creatinine Clearance 106 ml/min; Glucose 138 mg/dl (70-99); Magnesium 1.3 mg/dl (1.6-2.3); Phosphorus 2.5 mg/dl (2.5-4.5); Potassium 3.9 mmol/L (3.5-5.1); Sodium 135 mmol/L (135-145); eGFR > 60.00
[2023-09-06] MEDS: MAGNESIUM SULFATE 100 IV (09:22)
--- NOTE | 2023-09-06 11:07 | VATNOTE ---
During routine assessment, IV site in pt's L forearm appears red and inflamed. Pt c/o mild pain. IV discontinued and heat applied.
[2023-09-06 11:12] VITALS: BP 156/78
[2023-09-06 11:42] LABS: Glucose - Point of Care 178 mg/dl (70-99)
[2023-09-06] MEDS: NOVOLOG FLEXPEN-LOW RESISTANCE 1 UNITS SC (11:51)
--- NOTE | 2023-09-06 12:47 | CM ---
Patient seen at bedside, IMM completed and patient stated that he would update his about picking him up when he was finished with his IV medication. Patient does not feel that he needs VN supports. CM will continue to follow for discharge
planning needs.
Plan; home with no needs anticipated
--- NOTE | 2023-09-06 14:08 | W.DCSUMMARY ---
Discharge Summary
Discharge Data
Date of Admission: 09/05/23
Date of Discharge: 09/06/23
-
Pending Results: Yes (stool studies)
Discharge Plan
-
Patient Disposition: Home (Routine Discharge)
Discharge Diagnosis/Procedures: Severe diarrhea suspect food poisoning vs viral gastroenteritis (largely resolved, significantly improved)
Hypomagnesemia likely secondary to severe diarrhea episode (improving)
Acute Kidney Injury Resolved
Hypophosphatemia resolved
Diabetes
Hypertension
Peripheral Artery Disease
Hyperlipidemia
GERD
coronary artery disease
Condition: Fair
Diet: Low Residue and Diabetic, Carb Controlled
Additional Diets: Continue with low residue diet for 3 days. Advance as tolerated afterward.
Activity: As tolerated
Driving Restrictions: As prior to admission
Bathing Restrictions: None
Blood Work: Repeat CBC BMP and Magnesium level with primary care provider in 1 week of discharge.
Activity Restrictions/Additional Instructions:
Please follow up with primary care provider in 1 week of discharge.
Magnesium supplementation has been prescribed for low magnesium. This is also available over the counter.
Please take medications as prescribed/recommended and follow up with primary care provider and/or other healthcare provider involved in your care for refills and/or further adjustment to your medication regimen as necessary.
Referrals:
Magno Khan MD [Family Provider] - in one week
Prescriptions:
New
magnesium oxide 500 mg capsule
500 mg PO DAILY 30 Days Qty: 30 0RF
Continued
glimepiride 2 MG tablet
2 mg PO BID@0800,1700
metformin 1,000 MG tablet
1,000 mg PO BID@0800,1700
rosuvastatin [Crestor] 40 MG tablet
40 mg PO HS
pregabalin [Lyrica] 150 MG capsule
300 mg PO DAILY
Patient Comments:
08/20/2020: last filled 08/02/20, 60 tabs for 30 days from [facility]
fenofibrate nanocrystallized 145 MG tablet
145 mg PO HS
alogliptin 25 MG tablet
25 mg PO DAILY
cilostazol 100 mg Tablet
100 mg PO BID
metoprolol succinate 25 mg Tablet Extended Release 24 Hr
25 mg PO HS
pregabalin [Lyrica] 150 mg Capsule
150 mg PO HS
Xarelto 2.5 mg Tablet
2.5 mg PO BID
pantoprazole 40 MG tablet,delayed release (DR/EC)
40 mg PO DAILY
cyclobenzaprine 10 mg tablet
10 mg PO HSPRN PRN (Reason: muscle spasms)
isosorbide mononitrate 20 mg Tablet
20 mg PO DAILY
aspirin 81 mg Tablet,Delayed Release (Dr/Ec)
81 mg PO DAILY
oxycodone-acetaminophen 10-325 mg tablet
1 tab PO Q8HPRN PRN (Reason: moderate pain)
Patient Comments:
09/03/2023: last filled 08/16/23, 90 tabs for 30 days from [facility]
tamsulosin 0.4 mg capsule
0.4 mg PO QPM
isosorbide mononitrate 10 mg Tablet
10 mg PO DAILY
Discharge Orders:
Discharge Patient (As Directed); Ordered 09/06/23
Ordered By: Vernon Love
Discharge Date and Time
Discharge Date/Time: 09/06/23 14:47
Print Language: [place]
== END 2023-09-06 14:47 | disposition home or self-care (01) | DRG 683 ==
LOC: 3 WEST ACU 00:23
PROVIDERS: Emergency Medicine; Physician Assistant; ADMITTING PHYSICIAN Hospitalist; ATTENDING PHYSICIAN Internal Medicine; EMERGENCY PHYSICIAN Emergency Medicine; FAMILY PHYSICIAN Internal Medicine
DX: N17.9 Acute kidney failure, unspecified (principal); E87.1 Hypo-osmolality and hyponatremia; I5A Non-ischemic myocardial injury (non-traumatic); A05.9 Bacterial foodborne intoxication, unspecified; A08.4 Viral intestinal infection, unspecified; E83.42 Hypomagnesemia; E83.39 Other disorders of phosphorus metabolism; E11.51 Type 2 diabetes mellitus with diabetic peripheral angiopathy without gangrene; K21.9 Gastro-esophageal reflux disease without esophagitis; I10 Essential (primary) hypertension; I25.10 Atherosclerotic heart disease of native coronary artery without angina pectoris; E78.00 Pure hypercholesterolemia, unspecified; I95.9 Hypotension, unspecified; E86.1 Hypovolemia; Z95.1 Presence of aortocoronary bypass graft; Z95.5 Presence of coronary angioplasty implant and graft; Z79.01 Long term (current) use of anticoagulants; I25.2 Old myocardial infarction; Z86.718 Personal history of other venous thrombosis and embolism; Z87.891 Personal history of nicotine dependence; Z79.84 Long term (current) use of oral hypoglycemic drugs
CPT/HCPCS: 74176; 80048; 80053; 82962; 83036; 83605; 83690; 83735; 84100; 84484; 85025; 85027; 87045; 87046; 87324; 87427; 87449; 87798; 93005; 96365; 96366; 99285

== ENCOUNTER → 2023-09-28 07:41 | Outpatient (REF) | payer MEDICARE, OTHER, SELFPAY | LOC: HWRAD 07:41 | PROVIDERS: ATTENDING PHYSICIAN Internal Medicine Gastroenterology; FAMILY PHYSICIAN Internal Medicine | DX: K52.9 Noninfective gastroenteritis and colitis, unspecified (principal) | CPT/HCPCS: 74018 ==

== ENCOUNTER 2023-11-22 13:53 | Emergency (ER) | payer MEDICARE, OTHER, SELFPAY ==
[2023-11-22 13:54] VITALS: BP 152/79
[2023-11-22 14:46] LABS: % Basophils 0.7 % (0-2); % Eosinophils 1.5 % (0-6); % Immature Granulocytes 0.9 % (0-0.5); % Lymphocytes 14.2 % (20.5-51.1); % Monocytes 7.7 % (1.7-9.3); Absolute Basophils 0.1 10^3/uL (0-0.2); Absolute Eosinophils 0.2 10^3/uL (0-0.7); Absolute Immature Granulocytes 0.1 10^3/uL (0-0.05); Absolute Lymphocytes 1.4 10^3/uL (1.2-3.4); Absolute Monocytes 0.8 10^3/uL (0.1-0.6); Absolute Neutrophils 7.4 10^3/uL (1.4-6.5); Hemoglobin 12.9 g/dL (13.0-18.0); Mean Corp Hgb Conc. 34.9 g/dL (33.0-37.0); Mean Corpuscular Hgb 29.7 pg (27.0-31.0); Mean Corpuscular Volume 85.1 fL (80.0-94.0); Mean Platelet Volume 9.2 fL (7.4-10.4); Nucleated Red Blood Cells % 0 % (-); Platelet Count 230 10^3/uL (130-400); Red Blood Cell Count 4.35 10^6/uL (4.70-6.10); Red Cell Dist. Width 13.8 % (11.5-14.5); White Blood Cell Count 9.9 10^3/uL (4.8-10.8)
[2023-11-22 14:58] LABS: INR 1.16; PT 14.9 Sec (11.4-14.6)
[2023-11-22 14:59] LABS: ALT (SGPT) 18 U/L (0-50); AST (SGOT) 18 U/L (17-59); Albumin 3.9 g/dl (3.5-5.0); Alkaline Phosphatase 77 U/L (38-126); Blood Urea Nitrogen 13 mg/dl (9-20); Calcium 9.4 mg/dl (8.4-10.2); Carbon Dioxide 22 mmol/L (22-30); Chloride 104 mmol/L (98-107); Creatine Phosphokinase 41 U/L (55-170); Glucose 156 mg/dl (70-99); Sodium 138 mmol/L (135-145); Total Bilirubin 0.5 mg/dl (0.2-1.3); Total Protein 6.3 g/dl (6.3-8.2); eGFR > 60.00
[2023-11-22 15:12] VITALS: BMI 25.3
--- NOTE | 2023-11-22 15:19 | ED.GENMED ---
History of Present Illness
General
Chief Complaint: Swelling
Time Seen by Provider: 11/22/23 13:58
History of Present Illness
History of Present Illness:
78-year-old male with history of peripheral or vascular disease on Xarelto, CAD status post CABG, history of DVT, hypertension, hyperlipidemia, diabetes presenting to the emergency department for right leg pain. Patient reports pain from the knee
down. Reports that pain started about 2 days ago. He went to his doctor today who advised that he come to the hospital for further evaluation. Patient feels that his leg is hot and swollen. Reports baseline neuropathy, denies any increased
numbness. Denies fever. Patient was recently taken off Plavix. Does note preceding his symptoms, he was [place] a lot at the beach, pain started that night. Denies chest pain, difficulty breathing, or additional acute medical complaints
Past History
Past History
ED Past Medical History: CAD, GERD, HTN, Hypercholesterolemia, NIDDM, [place] and Other (DVT)
ED Past Surgical History: Cardiac (bypass, stents) and Cholecystectomy
Social History
Tobacco: Former smoker (quit x 22 years)
Alcohol: None
Drug: None
Personal:
Living: with family
Phy Exam
Physical Exam
Physical Exam:
General: Well-appearing, no clinical signs of dehydration, nontoxic and in no acute distress
HEENT: protecting airway
Neck: appears supple
CV: Normal heart rate
Resp: No accessory muscle use, no increased work of breathing
Abd: No distention
Extremities: No asymmetrical swelling. Mild tenderness to the right calf. No erythema or warmth. Dopplerable pulses bilaterally. Sensation intact
Neuro: alert, no focal neurologic deficit
: deferred
Rectal: deferred
Psych: Normal affect
Skin: Intact
Course
Orders/Labs/Results
Orders:
Orders
11/22/23 14:26
Venous Doppler Lwr Ext Bilat [US Perip Venous LOWER Ext Jero] Urgent
Comment:
Reason For Exam: pain, hx DVT, on xeralto
11/22/23 14:38
CPK [Creatine Phosphokinase] Urgent
Complete Blood Count/With Diff Urgent
Comprehensive Metabolic Panel Urgent
Prothrombin Time Urgent
Abnormal Lab Results
11/22/23
14:38
RBC 4.35 L 10^6/uL
(4.70-6.10)
Hgb 12.9 L g/dL
(13.0-18.0)
Hct 37.0 L %
(39.0-52.0)
Abs Immat Gran (auto) 0.1 H 10^3/uL
(0-0.05)
Absolute Neuts (auto) 7.4 H 10^3/uL
(1.4-6.5)
Absolute Monos (auto) 0.8 H 10^3/uL
(0.1-0.6)
Immature Gran % 0.9 H %
(0-0.5)
Lymphocytes % 14.2 L %
(20.5-51.1)
PT 14.9 H Sec
(11.4-14.6)
Glucose 156 H mg/dl
(70-99)
Creatine Kinase 41 L U/L
(55-170)
11/22/23 14:38
11/22/23 14:38
Vital Signs
Initial and Last Documented VS:
Initial Vital Signs
Temp Pulse Resp BP Pulse Ox
97.9 F 52 20 152/79 99
11/22/23 13:54 11/22/23 13:54 11/22/23 13:54 11/22/23 13:54 11/22/23 13:54
Last Documented Vital Signs
Temp Pulse Resp BP Pulse Ox
97.9 F 52 20 152/79 99
11/22/23 13:54 11/22/23 13:54 11/22/23 13:54 11/22/23 13:54 11/22/23 13:54
MDM/Problems Addressed
MDM/Problems Addressed:
78-year-old male with history of peripheral or vascular disease on Xarelto, CAD status post CABG, history of DVT, hypertension, hyperlipidemia, diabetes presenting to the emergency department for right lower extremity pain. Vital signs on arrival
significant for mild hypertension.
On exam, patient is well-appearing, with relatively benign examination of the right lower extremity. No significant swelling, no asymmetry. No erythema or warmth. No neurovascular compromise. Dopplerable pulses bilaterally. Patient was sent by
primary care doctor to ensure no DVT, given prior history in the past. Will obtain DVT. Suspect possible musculoskeletal quality to symptoms. Preceding pain, patient notes that he had increased activity and walking.
16:10 -patient's labs are unremarkable. Ultrasound without evidence of DVT. Continue to suspect muscular strain. CPK checked, normal. No concern for rhabdo. Compartments are soft. At this time, feel patient is stable for discharge with
continued outpatient follow-up. Recommending vascular surgery follow-up, patient has not seen a vascular surgeon in some time, no claudication. Supportive therapy discussed. Return precautions discussed and patient verbalized understanding
*Critical Care Note
Total Time (30-74mins, 75-104mins- exclusive of procedures): Not Applicable
ED Attending Note
-
Portions of this chart may have been created with voice recognition software.� Occasional wrong word or��sound alike� substitutions may have occurred due to the inherent limitations of voice recognition software.
Discharge Plan
Departure
Prescriptions:
No Action
glimepiride 2 MG tablet
2 mg PO BID@0800,1700
metformin 1,000 MG tablet
1,000 mg PO BID@0800,1700
rosuvastatin [Crestor] 40 MG tablet
40 mg PO HS
pregabalin [Lyrica] 150 MG capsule
300 mg PO DAILY
Patient Comments:
08/20/2020: last filled 08/02/20, 60 tabs for 30 days from [facility]
fenofibrate nanocrystallized 145 MG tablet
145 mg PO HS
alogliptin 25 MG tablet
25 mg PO DAILY
cilostazol 100 mg Tablet
100 mg PO BID
metoprolol succinate 25 mg Tablet Extended Release 24 Hr
25 mg PO HS
pregabalin [Lyrica] 150 mg Capsule
150 mg PO HS
Xarelto 2.5 mg Tablet
2.5 mg PO BID
pantoprazole 40 MG tablet,delayed release (DR/EC)
40 mg PO DAILY
cyclobenzaprine 10 mg tablet
10 mg PO HSPRN PRN (Reason: muscle spasms)
isosorbide mononitrate 20 mg Tablet
20 mg PO DAILY
aspirin 81 mg Tablet,Delayed Release (Dr/Ec)
81 mg PO DAILY
oxycodone-acetaminophen 10-325 mg tablet
1 tab PO Q8HPRN PRN (Reason: moderate pain)
Patient Comments:
09/03/2023: last filled 08/16/23, 90 tabs for 30 days from [facility]
tamsulosin 0.4 mg capsule
0.4 mg PO QPM
isosorbide mononitrate 10 mg Tablet
10 mg PO DAILY
magnesium oxide 500 mg capsule
500 mg PO DAILY 30 Days Qty: 30 0RF
Referrals:
Magno Khan MD [Family Provider] -
Interventions
Interventions:
*Risk Screen - Suicide Last Done: 11/22/23 13:54
*General Assessment Last Done: 11/22/23 13:54
*Neglect/Abuse Screening Last Done: 11/22/23 13:54
ED- Cardiac Assessment Last Done: 11/22/23 15:00
ED- Pulmonary Assessment Last Done: 11/22/23 15:00
ED-Skin Assessment Last Done: 11/22/23 15:00
Discharge Date and Time
Print Language: HUNGARIAN
== END 2023-11-22 16:31 | disposition home or self-care (01) ==
LOC: EMR 13:53
PROVIDERS: EMERGENCY PHYSICIAN Student in an Organized Health Care Education/Training Program; FAMILY PHYSICIAN Internal Medicine
DX: M79.661 Pain in right lower leg (principal); Z86.718 Personal history of other venous thrombosis and embolism; Z79.01 Long term (current) use of anticoagulants; I10 Essential (primary) hypertension
CPT/HCPCS: 99284; 80053; 82550; 85025; 85610; 93970

== ENCOUNTER → 2023-12-21 10:18 | Outpatient (REF) | payer MEDICARE, OTHER, SELFPAY | LOC: RAD 10:18 | PROVIDERS: ATTENDING PHYSICIAN Registered Nurse; FAMILY PHYSICIAN Internal Medicine | DX: I73.9 Peripheral vascular disease, unspecified (principal); I65.9 Occlusion and stenosis of unspecified precerebral artery; I65.23 Occlusion and stenosis of bilateral carotid arteries | CPT/HCPCS: 93880; 93922; 93925 ==

== ENCOUNTER → 2023-12-31 12:03 | Outpatient (REF) | payer MEDICARE, OTHER, SELFPAY | LOC: RAD 12:03 | PROVIDERS: ATTENDING PHYSICIAN Surgery Vascular Surgery; FAMILY PHYSICIAN Internal Medicine | DX: I73.9 Peripheral vascular disease, unspecified (principal); Z01.818 Encounter for other preprocedural examination; M79.661 Pain in right lower leg | CPT/HCPCS: 75635; 93970; Q9967 ==

== ENCOUNTER 2024-01-08 08:16 | Day surgery (SDC) | payer MEDICARE, OTHER, SELFPAY ==
[2024-01-04 11:00] VITALS: BMI 26.1
[2024-01-08] VITALS (23 sets, daily range): BP systolic 85–151; BP diastolic 60–74
[2024-01-08 08:52] LABS: Glucose - Point of Care 156 mg/dl (70-99)
[2024-01-08] MEDS: NSS 500 IV ×2 (08:52→11:13)
--- NOTE | 2024-01-08 09:08 | W.SUR.PREOP ---
Pre-Operative Surgical Note
-
I have examined this patient prior to the performance of the scheduled procedure.
The patient's condition is unchanged from the time of the current History and
Physical and the patient is able to undergo the scheduled procedure.
--- NOTE | 2024-01-08 09:53 | W.IMMPOSTOP ---
Surgical Immed Post Op Note
-
Primary Surgeon: Dr. Panda Spence III, MD
Assisting Surgeon: Joe Robertson MD, PhD (PGY-2)
Pre-op Diagnosis: RLE popliteal artery aneurysm
Post-op Diagnosis: RLE popliteal artery aneurysm
Procedure Performed: RLE diagnostic arteriogram, venous mapping of saphenous vein in RLE
Anesthesia Type: MAC
Specimen / Cultures: None
Estimated Blood Loss: 2cc
Complications: None
Operative Findings: The patient was brought to the OR, positioned, prepped, and draped in usual sterile fashion. Fluoroscopy was used to yamil the superior and inferior aspects of the femoral head. Ultrasound guidance was used to identify the left
common femoral artery. Micropuncture kit was used to access the left common femoral artery. This was upsized to a 5Fr sheath over a [employer] wire. Then a ibanez's hook catheter was advanced over a guidewire. Diagnostic arteriogram showed an ectatic
segment of the distal abdominal aorta and patent iliofemoral system bilaterally. The right common iliac was selected with the guidewire and the catheter was advanced to the contralateral left common femoral artery. Diagnostic arteriogram showed
patent SFA and profunda branches. The aneurysm on the popliteal artery was identified as well as an area with two focal ectatic segments located about 15cm from the median condyle on the RLE. Distally, arteriogram showed a patent segment of distal
popliteal artery for a potential distal anastomosis site. However, there was only single vessel run off (PT artery). The anterior tibial and peroneal arteries were occluded with reconstitution of flow distally due to extensive collaterals. The
posterior tibial artery was patent proximally, but occludes at the mid segment and is reconstituted distally with collateral flow. Ultrasound was used to perform mapping of the RLE saphenous vein to evaluate as conduit for bypass. At the conclusion
of the case, the patient had doppler signals at their distal DP and at their PT. The patient was transported to the PACU in stable condition.
--- NOTE | 2024-01-08 10:41 | OR.RPT ---
Operative Report
Operative Report
Date of Operation: 01/08/2024
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
Procedure:
1.) Selective catheterization of third order lower extremity artery
2.) Diagnostic aortobiiliac arteriogram
3.) Diagnostic right lower extremity arteriogram
4.) Ultrasound-guided percutaneous access to the left common femoral artery
Surgeon: Panda Spence III, MD
Motion Picture Set Grip: Joe Robertson MD PhD, PGY2
Anesthesia: Sedation with local
Complications: None
Estimated Blood Loss: Less than 5 cc
History and Indications for Procedure: 78-year-old male with right popliteal artery aneurysm and suspected distal embolization
Procedure in Detail: Tadeo Choi was correctly identified and placed supine on the operating table. After adequate induction of anesthesia the bilateral groins were prepped and draped in the usual sterile fashion. A timeout was performed with the
nursing and anesthesia staff confirming the patient's identity as well as the nature and laterality of the procedure.
The left common femoral artery was identified under ultrasound guidance. The artery was patent. The superior and inferior aspects of the femoral head were identified with radiographic guidance and marked at the skin level. The proposed puncture site
was infiltrated with local anesthesia. Under ultrasound guidance we accessed the left common femoral artery with a micropuncture needle and upsized to a 5 Fr sheath over a Bentson wire. The wire and a Shepherds hook flush catheter were advanced into
the distal abdominal aorta and a diagnostic aorto-biiliac arteriogram was performed:
AORTO-ILIAC ARTERIOGRAM:
Aorta: Patent with no stenosis identified. Ectasia of the infrarenal abdominal aorta was identified
Right common iliac artery: Patent with no stenosis identified
Right external iliac artery: Patent with no stenosis identified
Left common iliac artery: Patent with no stenosis identified
Left external iliac artery: Patent with no stenosis identified
Under roadmap guidance using a Glidewire and the Shepherds hook catheter we selected the right common iliac artery and then the external iliac artery. A catheter was tracked up and over the aortic bifurcation and placed in the distal external iliac
artery. A diagnostic right lower extremity arteriogram was then performed which demonstrated the following:
RIGHT LOWER EXTREMITY:
Common femoral artery: Patent with no stenosis identified
Profunda femoral artery: Patent with no stenosis identified
Superficial femoral artery: Patent with no stenosis identified. Focal aneurysmal degeneration involving the distal SFA
In order to best visualize the popliteal artery and distal tibial runoff I then selected the superficial femoral artery with the Glidewire and ibanez's hook catheter. The ibanez's hook catheter was advanced over the wire to the mid SFA and the
remainder of the right lower extremity arteriogram was performed with the catheter in this position.
Popliteal artery: Patent. Obvious popliteal artery aneurysm identified behind the knee. Popliteal artery below the knee patent, nonaneurysmal and no stenosis identified.
Anterior tibial artery: Short patent stump but occluded thereafter. Reconstituted dorsalis pedis near the ankle sulcus from distal posterior tibial artery collaterals. DP is patent and supplies flow to the foot.
Tibioperoneal trunk: Short length but patent with no stenosis identified
Peroneal artery: Occluded
Posterior tibial artery: Patent proximal and midportion. Occludes distally with segmental reconstitution at the ankle. Occludes again and severe small vessel occlusive disease is identified in the plantar distribution. Significant
collateralization is identified around the distal posterior tibial artery occlusion. These collaterals reconstitute the dorsalis pedis artery in the foot
Satisfied with this result we concluded the procedure. The catheter was pulled. The 5 Turkish sheath was secured in place with the plan to pull it in the recovery room.
The patient tolerated the procedure well and was taken to the recovery area in stable condition.
Attestation: I was present and responsible for the entire procedure.
Signed:
Panda Spence III, MD
[facility]
[phone] ([phone])
[2024-01-08 11:02] LABS: Glucose - Point of Care 165 mg/dl (70-99)
== END 2024-01-08 15:16 | disposition home or self-care (01) ==
LOC: CATH 08:16
PROVIDERS: ATTENDING PHYSICIAN Surgery Vascular Surgery; FAMILY PHYSICIAN Internal Medicine
DX: I72.8 Aneurysm of other specified arteries (principal); Z79.82 Long term (current) use of aspirin; I70.201 Unspecified atherosclerosis of native arteries of extremities, right leg; Z79.01 Long term (current) use of anticoagulants; Z79.899 Other long term (current) drug therapy; E11.9 Type 2 diabetes mellitus without complications; K21.9 Gastro-esophageal reflux disease without esophagitis; Z86.718 Personal history of other venous thrombosis and embolism; Z95.820 Peripheral vascular angioplasty status with implants and grafts; E78.00 Pure hypercholesterolemia, unspecified
CPT/HCPCS: 36247; 75716; 75625; 82962; C1769; C1894; Q9967

== ENCOUNTER → 2024-01-23 09:09 | Outpatient (REF) | payer MEDICARE, OTHER, SELFPAY | LOC: HWRCS 09:09 | PROVIDERS: ATTENDING PHYSICIAN Internal Medicine Interventional Cardiology; FAMILY PHYSICIAN Internal Medicine | DX: I25.10 Atherosclerotic heart disease of native coronary artery without angina pectoris (principal) | CPT/HCPCS: 93306 ==

== ENCOUNTER 2024-01-28 06:59 | Inpatient (IN) | payer MEDICARE, OTHER, SELFPAY ==
[2024-01-21 09:22] VITALS: BMI 24.4
[2024-01-21 10:00] LABS: % Basophils 0.7 % (0-2); % Eosinophils 0.6 % (0-6); % Lymphocytes 10.5 % (20.5-51.1); % Monocytes 6.6 % (1.7-9.3); % Neutrophils 80.6 % (42.2-75.2); Absolute Basophils 0.1 10^3/uL (0-0.2); Absolute Eosinophils 0.1 10^3/uL (0-0.7); Absolute Immature Granulocytes 0.1 10^3/uL (0-0.05); Absolute Lymphocytes 1.2 10^3/uL (1.2-3.4); Absolute Monocytes 0.8 10^3/uL (0.1-0.6); Absolute Neutrophils 9.3 10^3/uL (1.4-6.5); Hematocrit 47.2 % (39.0-52.0); Hemoglobin 16.3 g/dL (13.0-18.0); Mean Corp Hgb Conc. 34.5 g/dL (33.0-37.0); Mean Corpuscular Hgb 29.4 pg (27.0-31.0); Mean Corpuscular Volume 85.2 fL (80.0-94.0); Mean Platelet Volume 9.6 fL (7.4-10.4); Nucleated Red Blood Cells % 0 % (-); Platelet Count 223 10^3/uL (130-400); Red Blood Cell Count 5.54 10^6/uL (4.70-6.10); Red Cell Dist. Width 13.4 % (11.5-14.5); White Blood Cell Count 11.5 10^3/uL (4.8-10.8)
[2024-01-21 10:01] LABS: Blood Urea Nitrogen 14 mg/dl (9-20); Calcium 9.9 mg/dl (8.4-10.2); Carbon Dioxide 26 mmol/L (22-30); Chloride 104 mmol/L (98-107); Estimated Creatinine Clearance 91 ml/min; Glucose 179 mg/dl (70-99); Potassium 3.9 mmol/L (3.5-5.1); Sodium 142 mmol/L (135-145); eGFR > 60.00
[2024-01-21 10:04] LABS: INR 1.07; PT 14.2 Sec (11.4-14.6)
[2024-01-21 10:05] LABS: APTT 38.4 Sec (23.4-35.0)
[2024-01-28] VITALS (22 sets, daily range): BP systolic 10–139; BP diastolic 59–77
[2024-01-28 08:09] LABS: Glucose - Point of Care 157 mg/dl (70-99)
[2024-01-28] MEDS: BACTROBAN NASAL 1 GRAM NASAL (08:10)
[2024-01-28] MEDS: PERIDEX 0.12% ORAL RINSE 15 ML PO (08:11)
[2024-01-28] MEDS: NSS 500 IV (08:12)
[2024-01-28 12:26] LABS: ACT-LR - POC 255 Seconds (116-155)
[2024-01-28 12:36] LABS: ACT-LR - POC 290 Seconds (116-155)
[2024-01-28 13:32] LABS: ACT-LR - POC 223 Seconds (116-155)
--- NOTE | 2024-01-28 14:31 | CON.INTV ---
Consultation
Consultation Request
Date/Time Consultation Requested: 01/28/2024 - 140
Date/Time Consultation Performed: 01/28/2024 - 1430
Requesting Provider: DARVIN Pearce
Performing Provider: Markus Rushing MD
Reason for Consultation: s/p RLE bypass
Medical History
-
Chief Complaint: Elective right lower extremity vascular bypass
History of Present Illness:
78-year-old male former light tobacco smoker with a past medical history of CAD s/p coronary stents + CABG x 5, PAD s/p stents, peripheral neuropathy, DM type II, hypertension, hypercholesterolemia, history of DVT and GERD who presents with elective
right lower extremity surgical revascularization. Patient known to the vascular surgery service with last visit on 01/03/[address] Spence. 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
cm with a mural thrombus. He also has tibial occlusions bilaterally and it is suspected that the popliteal artery aneurysm is embolizing. Diagnostic arteriogram with plan for aneurysm exclusion and revascularization with its risks and benefits
were discussed. Today he underwent a right superficial femoral artery to below-knee popliteal artery bypass with ipsilateral reverse great saphenous vein with ligation and exclusion of the right popliteal artery aneurysm. There were no
complications with EBL of 100 cc. He was transferred to the ICU postoperatively for further care. Hypo Dipper/pulmonary service is now consulted for additional management/recommendations.
When I saw the patient he was resting in bed in no acute distress. He complains of pain in the right groin site. Currently, heart rate 71, BP via right radial A-line: 141/58, and saturating 96% on room air.
PMHx: DM type II, hypertension, GERD, hypercholesterolemia, history of DVT, CAD s/p coronary stents + CABG x 5 (10/2003), history of dysphagia, PAD s/p stents, feet/hand neuropathy
PSHx: CABG x 5 (10/2003), coronary stents, right popliteal and tibial artery thrombectomy with patch angioplasty (03/2017), cholecystectomy, right popliteal aneurysm repair
Past Medical History
Past Medical History: Other (Above as per HPI)
Past Surgical History: Other (Above as per HPI)
Social History
Tobacco: Former Smoker (Quit 30 years ago, smoked 1-2 cigarettes/day for 10 years))
Alcohol: Occasional (Rare use)
Drug: None
Family History
Family History: Reviewed & Not Pertinent
Allergies / Home Medications
Allergies
Allergy/AdvReac Type Severity Reaction Status Date / Time
No Known Allergies Allergy Verified 01/28/24 08:22
Home Medications
�Medication �Instructions �Recorded �Confirmed �Last Taken �Type
glimepiride 2 mg tablet 2 mg PO BID@0800,1700 Diabetes 08/20/20 01/28/24 01/24/24 20:00 History
rosuvastatin 40 mg tablet (Crestor) 40 mg PO DAILY High cholesterol 08/20/20 01/28/24 01/24/24 20:00 History
cilostazol 100 mg tablet 100 mg PO BID Blood clot 05/16/22 01/28/24 01/24/24 20:00 History
prevention/tx
pantoprazole 40 mg tablet,delayed 40 mg PO DAILY Gastrointestinal 05/16/22 01/28/24 01/24/24 09:00 History
release issue
rivaroxaban 2.5 mg tablet (Xarelto) 2.5 mg PO BID Blood clot 05/16/22 01/28/24 01/24/24 21:00 History
prevention/tx
aspirin 81 mg tablet,delayed 81 mg PO DAILY Blood Clot 09/03/23 01/28/24 01/24/24 08:00 History
release Prevention/Tx
cyclobenzaprine 10 mg tablet 10 mg PO HSPRN PRN back pain 09/03/23 01/16/24 Unknown History
oxycodone-acetaminophen 10 mg-325 1 tab PO PRN PRN back pain 09/03/23 01/28/24 01/27/24 10:00 History
mg tablet
tamsulosin 0.4 mg capsule 0.4 mg PO QPM PRN Urinary Issue 09/03/23 01/28/24 01/23/24 20:00 History
cholestyramine-aspartame 4 gram 4 g PO BID 01/07/24 01/28/24 01/27/24 21:00 History
oral powder (Cholestyramine Light)
empagliflozin 25 mg tablet 12.5 mg PO DAILY 01/07/24 01/28/24 01/24/24 08:00 History
(Jardiance)
irbesartan 300 mg tablet 300 mg PO DAILY 01/07/24 01/28/24 01/24/24 09:00 History
isosorbide mononitrate 30 mg 30 mg PO DAILY 01/07/24 01/28/24 01/28/24 06:00 History
tablet,extended release 24 hr
pregabalin 100 mg capsule (Lyrica) 100 mg PO QPM 01/07/24 01/16/24 01/05/24 19:00 History
pregabalin 100 mg capsule (Lyrica) 200 mg PO DAILY 01/07/24 01/28/24 01/24/24 21:00 History
sitagliptin 100 mg tablet 100 mg PO DAILY 01/07/24 01/28/24 01/24/24 09:00 History
furosemide 40 mg tablet (Lasix) 40 mg PO DAILY PRN fluid retention 01/28/24 01/28/24 Unknown History
Review of Systems
-
History Source: Patient
All other systems: Negative unless noted
Vitals / Labs / Diagnostic Testing
Vital Signs
Temp Pulse Resp BP Pulse Ox
98.1 F 59 20 125/67 96
01/28/24 16:18 01/28/24 18:15 01/28/24 18:15 01/28/24 18:00 01/28/24 18:15
Lab Data
01/28/24 14:36
01/28/24 14:36
Laboratory Results
01/28/24
14:36
PT 15.4 H
INR 1.19
APTT 156.0 H*
Diagnostic Testing:
Physical Exam
-
HEENT: Normocephalic and Anicteric
Cardiovascular: S1/S2 and Peripheral Edema (negative)
Respiratory: Wheeze (negative), Rales (Bibasilar), Rhonchi (negative) and Non-Labored Respirations
GI: Soft, Non Distended, Non Tender and Normal Bowel Sounds
Neurology: AO x 3 and Tremors (negative)
Skin: Warm and Dry
General: Respiratory Distress (negative), Pain (Right groin site), Fever (negative) and Chills (negative)
Assessment
-
Assessment: 78-year-old male non-smoker with a past medical history of CAD s/p coronary stents + CABG x 5, PAD s/p stents, peripheral neuropathy, DM type II, hypertension, hypercholesterolemia, history of DVT and GERD who presents with elective
right lower extremity surgical revascularization. Patient known to the vascular surgery service with last visit on 01/03/[address] Spence. 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
cm with a mural thrombus. He also has tibial occlusions bilaterally and it is suspected that the popliteal artery aneurysm is embolizing. Diagnostic arteriogram with plan for aneurysm exclusion and revascularization with its risks and benefits
were discussed. Today he underwent a right superficial femoral artery to below-knee popliteal artery bypass with ipsilateral reverse great saphenous vein with ligation and exclusion of the right popliteal artery aneurysm. There were no
complications with EBL of 100 cc. He was transferred to the ICU postoperatively for further care. Hypo Dipper/pulmonary service is now consulted for additional management/recommendations.
Chronic conditions [employer]: DM type II, hypertension, GERD, hypercholesterolemia, history of DVT, CAD s/p coronary stents + CABG x 5 (10/2003), history of dysphagia, PAD s/p stents, feet/hand neuropathy
Impression:
#Right lower extremity popliteal artery aneurysm s/p right SFA to below-knee popliteal artery surgical bypass with ligation and exclusion of the right popliteal artery aneurysm (POD #0)
#Leukocytosis likely reactive
# DM type II c/b hyperglycemia (HbA1c: 7.2 on 09/04/2023)
#Subpleural reticular opacities in the bases + posterolateral right middle lobe and inferior lingula seen on CTA abdominal aorta with runoff from 12/31/2023
#Former light tobacco smoker (quit 30 years ago, smoked 1-2 cigarettes/day for 10 years)
#CAD s/p coronary stents + CABG x 5 (10/2003)
#PAD s/p stents
#Peripheral neuropathy
#Hypertension
#Hypercholesterolemia
#GERD
Plan:
Postoperative surgical intensive care unit monitoring
Supplemental oxygen as needed to maintain SpO2 >90-94%
prn nebulized bronchodilators - not currently bronchospastic
Incentive spirometry encouraged 10x per hour for at least 4 hrs a day
Aspiration precautions
Pain control
Neuro and vascular checks per protocol
Maintain MAP>65
Replete electrolytes with K>4, Mg>2
Maintain euglycemia with goal BG 140-180
Vascular surgery following-correspondence and operative notes reviewed
Transfuse blood products as needed to keep Hb>7g/dL, and plt>50k (given post-operative status)
DVT prophylaxis
Early nutrition
Early mobilization
Given his subpleural reticular opacities/interstitial lung changes seen on lung bases from CTA abdominal aorta from 12/31/2023, this is concerning for early ILD. Would recommend outpatient dedicated CT chest to further evaluate for this as well as
PFTs to assess for presence of restrictive lung disease. He currently denies a bothersome cough or shortness of breath. He says he does have frequent throat clearing but again this is not bothersome to him. Also denies any history of autoimmune
disease (RA, SLE, scleroderma, dermatomyositis, etc.) I will arrange for outpatient office follow-up to discuss this further.
Critical care statement: A total of 44 minutes of critical care time was provided for this patient today. This includes management of unstable vital signs, evaluation of the patient at bedside, reviewing the patient's pertinent medical records
including radiographs, microbiology, laboratory evaluations, and discussion with primary team, consultants, pharmacy, nutrition, physical therapy, case management, charge nurse, critical care nursing, and respiratory therapy.
[2024-01-28 14:39] LABS: Glucose - Point of Care 224 mg/dl (70-99)
--- NOTE | 2024-01-28 14:40 | W.IMMPOSTOP ---
Surgical Immed Post Op Note
-
Primary Surgeon: Dr. Panda Spence III, MD
Assisting Surgeon: Joe Robertson MD, PhD (PGY-2)
Pre-op Diagnosis: Right lower extremity popliteal artery aneurysm
Post-op Diagnosis: Right lower extremity popliteal artery aneurysm
Procedure Performed: Right SFA to below knee popliteal artery surgical bypass with SVG, right lower extremity saphenous vein harvest, ultrasound mapping of right lower extremity saphenous vein
Anesthesia Type: General
Specimen / Cultures: None
Estimated Blood Loss: 100cc
Complications: None
Operative Findings: The patient was brought to the OR and placed in the supine position. After induction of general anesthesia and placement of a right radial artery line, the patient was prepped and draped in usual sterile fashion. Ultrasound was
used to map the course of the right lower extremity saphenous vein. Incision was made over the right SFA proximal to two foci of aneurysmal segments seen on previous arteriogram. A separate incision was made on the right calf above the below knee
popliteal artery distal anastomosis site. A combination of electrocautery and sharp dissection was used to expose the right SFA and below knee popliteal artery. Proximal and distal control of these sites was obtained with vessel loops. Then a
separate incision was made overlying the right saphenous vein. Electrocautery and sharp dissection was performed to expose the saphenous vein from the SFJ to the above knee vein. Branches of the vein were ligated with silk ties and small clips.
After the vein was circumferentially dissected, it was transected and filled with heparinized saline. Proximal anastomosis was performed with 5-0 prolene suture using a running end-to-side anastomosis technique. The distal anastomosis was then
performed with a 6-0 prolene suture using a running end-to-side anastomosis technique. The proximal and distal segments of the aneurysmal popliteal artery were ligated with silk ties and multiple clips to yamil the sites, this ensured that there was
not continued flow to the aneurysmal segment. At the completion of the anastomosis, doppler signals were noted in the SVG and beyond the distal anastomosis. There was also doppler signal noted in the right DP and PT. All wound beds were irrigated
and closed with 2-0, 3-0 suture and ynes at the skin. Dressings were applied to all incision sites as well as the patient's previous wound on the right tate. The patient was transported to the PACU in stable condition.
[2024-01-28 14:44] LABS: Hematocrit 39.3 % (39.0-52.0); Hemoglobin 13.3 g/dL (13.0-18.0); Mean Corp Hgb Conc. 33.8 g/dL (33.0-37.0); Mean Corpuscular Hgb 29.1 pg (27.0-31.0); Mean Platelet Volume 9.3 fL (7.4-10.4); Platelet Count 203 10^3/uL (130-400); Red Blood Cell Count 4.57 10^6/uL (4.70-6.10); White Blood Cell Count 11.6 10^3/uL (4.8-10.8)
[2024-01-28 14:53] LABS: INR 1.19; PT 15.4 Sec (11.4-14.6)
[2024-01-28] MEDS: NOVOLOG vial 2 UNITS SC (14:54)
[2024-01-28 14:59] LABS: Blood Urea Nitrogen 10 mg/dl (9-20); Calcium 8.4 mg/dl (8.4-10.2); Carbon Dioxide 24 mmol/L (22-30); Chloride 107 mmol/L (98-107); Estimated Creatinine Clearance 122 ml/min; Glucose 233 mg/dl (70-99); Potassium 4.6 mmol/L (3.5-5.1); Sodium 138 mmol/L (135-145); eGFR > 60.00
[2024-01-28] MEDS: HEPARIN 25000 UNITS/250 ML IV (15:00)
[2024-01-28] MEDS: DILAUDID 0.5 MG IV ×2 (15:05→21:17)
--- NOTE | 2024-01-28 15:17 | OR.RPT ---
Operative Report
Operative Report
Date of Operation: January 28, 2024
Pre Op Diagnosis:
1.) Right popliteal artery aneurysm with mural thrombus and suspected distal embolic events
2.) Severe tibial artery occlusive disease
Post Op Diagnosis:
1.) Right popliteal artery aneurysm with mural thrombus and suspected distal embolic events
2.) Severe tibial artery occlusive disease
Procedure:
1.) RIGHT superficial femoral artery to below knee popliteal artery bypass with ipsilateral reversed great saphenous vein.
2.) Ligation and exclusion of right popliteal artery aneurysm
3.) Reoperative surgery, right below the knee popliteal artery exposure
Surgeon: Panda Spence III, MD
Accounts Collector: Joe Robertson MD PhD, PGY2
Anesthesia: General
Complications: None
Estimated Blood Loss: 100 cc
History and Indications for Procedure: 78-year-old male with right popliteal artery aneurysm and symptoms of disabling claudication and rest pain. Recent CT angiogram and lower extremity arteriogram demonstrated a right popliteal artery aneurysm
with mural thrombus along with severe tibial artery occlusive disease. I brought him to the operating room for exclusion of the popliteal artery aneurysm and lower extremity bypass.
Procedure in Detail: Tadeo Choi was correctly identified and placed supine on the operating table. After adequate induction of anesthesia the right greater saphenous vein was imaged with ultrasound and marked. The abdomen pelvis and right lower
extremity were then positioned, prepped and draped in the usual sterile fashion. Preoperative antibiotics were administered. A timeout procedure was performed with the nursing and anesthesia staff confirming the patients identity as well as the
nature and laterality of the procedure.
An incision was made from the groin to the knee over the right greater saphenous vein yamil. The vein was harvested along this entire course. All branches were ligated and divided between ties and clips. The vein appeared to be of adequate caliber
and quality to be used as a bypass conduit.
The mid superficial femoral artery was also imaged with ultrasound guidance. The normal-appearing superficial femoral artery segment in the mid thigh was marked at the skin level. This was proximal to an area of ectasia seen on recent arteriogram.
An incision was made over the mid thigh. Electrocautery and sharp dissection were used to expose the superficial femoral artery. Proximal and distal control was obtained with vessel loops.
The below-knee popliteal artery was chosen as the distal target and was sharply exposed through a proximal medial calf incision. Proximal and distal control was obtained with vessel loops. This was a reoperative field and the exposure was somewhat
challenging due to previous scar. The distal aspect of the suture line from a prior patch angioplasty repair that was done at [facility] on the popliteal artery behind the knee was visualized.
A tunnel was then created an anatomic plane between the below the knee popliteal artery and the mid thigh superficial femoral artery. The distal end of the vein was ligated with a silk tie and clip. The distal end of the vein was transected and then
the vein was dilated with heparinized saline. All branch points were closely inspected. The vein was marked for proper orientation. A clamp was placed at the sapheno-femoral junction and the proximal end of the vein was transected. The SFJ stump was
ligated with a silk suture ligature.
The vein was reversed and carefully brought through the tunnel, taking great care to keep proper orientation.
The patient was systemically heparinized.
The proximal and distal vessel loops on the superficial femoral artery were secured. An arteriotomy was made in the superficial femoral artery and extended proximally and distally with Edmonds scissors. The proximal end of the vein was spatulated and
an end-to-side anastomosis was created with a running 5-0 Prolene suture. The anastomosis was completed and the vessel loops were released. There was excellent pulsatile bleeding from the distal end of the vein conduit. The proximal suture line was
inspected for hemostasis and was achieved. A bulldog clamp was placed on the proximal end of the vein just off of the anastomosis.
The below-knee popliteal artery proximal and distal vessel loops were secured. The vein was temporarily pressurized and shortened appropriately. An arteriotomy was made in the popliteal artery and extended proximally and distally with Edmonds
scissors. The proximal and distal artery was flushed with heparinized saline. The end of the vein conduit was spatulated and an end-to-side anastomosis created with a running 6-0 Prolene suture. Prior to the completion of the anastomosis the
proximal bulldog clamp was temporarily released and the vein flushed. The area under the anastomosis was irrigated with heparinized saline and the anastomosis completed. The proximal bulldog and then the vessel loops on the popliteal artery were
released. Immediately there was a pulse in the vein conduit and the distal popliteal artery beyond the distal anastomosis. The suture lines were both inspected and hemostasis achieved.
0 silk ties were then used to ligate and exclude the popliteal artery aneurysm. A silk tie was placed around the superficial femoral artery distal to our proximal anastomosis and secured. Another silk tie was placed around the below the knee
popliteal artery proximal to our distal anastomosis and secured.
Hemostasis was achieved in the wound beds. A #10 SANJU drain was left in the right thigh saphenectomy site and secured in place at the skin with a Nylon suture. The wounds were irrigated with warm saline solution. The wounds were closed in layers.
Sterile dressings were applied.
The patient tolerated the procedure well and was taken to the PACU in stable condition. The patient had Doppler signals present at the posterior tibial and dorsalis pedis locations in the right ankle and foot, respectively. These were marked at
the skin.
Attestation: I was present and responsible for the entire procedure
Signed:
Panda Spence III, MD
[facility] Vascular Surgery
[phone] (tkcr)
[2024-01-28] MEDS: DILAUDID 0.25 MG IV ×2 (15:51→19:53)
[2024-01-28] MEDS: NSS 1000 IV (16:00)
[2024-01-28] MEDS: ROXICODONE 10 MG PO ×2 (17:02→22:04)
[2024-01-28] MEDS: LYRICA 100 MG PO (17:02)
[2024-01-28] MEDS: AMARYL 2 MG PO (17:05)
[2024-01-28] MEDS: NOVOLOG FLEXPEN-LOW RESISTANCE 2 UNITS SC (17:11)
[2024-01-28 17:21] LABS: Glucose - Point of Care 219 mg/dl (70-99)
--- NOTE | 2024-01-28 18:21 | PTCARENOTE ---
1534-Received pt from PACU via bed.Pt is awake and alert.Speech is appropriate.+DIGGS.Pt c/o right leg pain at site of incision. Requested and received pain medication.Bedrest maintained.SR with 1st degree AVB noted.Right radial A Line intact,zeroed
and maintained at mid axillary level.IVF and Heparin gtt maintained.Right leg with + Doppler PT and DP pulses.Lungs CTA.POX 96% on RA.Appetite good.Spence draining yellow urine.Right leg with incision and ynes intact with scant drainage on
Primseal.Pt's and son at bedside.Plan of care discussed.
--- NOTE | 2024-01-28 20:34 | PTCARENOTE ---
Assumed care of pt at 1900. Pt is A/O x4, pleasant and cooperative with care. Neurovascular checks to RLE Q1 hour ongoing, done at shift change in tandem with offgoing RN, see neurovascular assessment flowsheet for full details. Reports severe pain
to right groin, PRN pain meds given, see EMAR for details. Heparin drip infusing at 500 units/hr (not titrating). See nursing shift assessment flowsheet for full physical assessment details. SR 60s on monitor, SpO2 96% on RA.
[2024-01-28 21:38] LABS: Glucose - Point of Care 189 mg/dl (70-99)
[2024-01-29] VITALS (19 sets, daily range): BP systolic 91–153; BP diastolic 42–78; PULSE 67; BMI 25.0
[2024-01-29] MEDS: DILAUDID 0.5 MG IV ×6 (00:25→22:47)
--- NOTE | 2024-01-29 00:30 | PTCARENOTE ---
Midnight assessment unchanged, strong doppler signals for right DP and PT pulses, neurovascular assessment unchanged as well. Medicated for pain with PRN Dilaudid and Oxycodone, see EMAR. SR 60s on monitor.
[2024-01-29] MEDS: ROXICODONE 10 MG PO ×3 (03:45→20:11)
[2024-01-29] MEDS: NSS 1000 IV (03:45)
[2024-01-29 04:10] LABS: Hematocrit 35.5 % (39.0-52.0); Hemoglobin 12.5 g/dL (13.0-18.0); Mean Corp Hgb Conc. 35.2 g/dL (33.0-37.0); Mean Corpuscular Hgb 29.6 pg (27.0-31.0); Mean Corpuscular Volume 84.1 fL (80.0-94.0); Mean Platelet Volume 9.4 fL (7.4-10.4); Platelet Count 202 10^3/uL (130-400); Red Blood Cell Count 4.22 10^6/uL (4.70-6.10); Red Cell Dist. Width 13.7 % (11.5-14.5); White Blood Cell Count 12.4 10^3/uL (4.8-10.8)
[2024-01-29 04:20] LABS: INR 1.06; PT 14.1 Sec (11.4-14.6)
[2024-01-29 04:21] LABS: APTT 35.5 Sec (23.4-35.0)
[2024-01-29 04:32] LABS: Blood Urea Nitrogen 11 mg/dl (9-20); Calcium 8.5 mg/dl (8.4-10.2); Carbon Dioxide 21 mmol/L (22-30); Chloride 108 mmol/L (98-107); Estimated Creatinine Clearance 122 ml/min; Glucose 143 mg/dl (70-99); Sodium 137 mmol/L (135-145); eGFR > 60.00
--- NOTE | 2024-01-29 05:48 | PTCARENOTE ---
Physical and neurovascular assessments unchanged from previous. Has received Dilaudid x4 doses this shift and Oxycodone x2 this shift, see EMAR for details. Pt able to reach 2500 on I.S. CHG cloth bath done. SR 60s/SB 50s on monitor.
[2024-01-29] MEDS: IMDUR (EXTENDED RELEASE) 30 MG PO (06:19)
--- NOTE | 2024-01-29 06:20 | PTCARENOTE ---
Pt's arterial BP starting to sustain in 160s, at times up to 170s. Discussed with Luann BOSTON, ok to give pt's AM dose of Imdur at this time.
[2024-01-29 07:46] LABS: Glucose - Point of Care 121 mg/dl (70-99)
--- NOTE | 2024-01-29 08:00 | PTCARENOTE ---
Received pt awake and alert.Speech is appropriate.+DIGGS.c/o cramping pain in right leg.SR with 1st degree AVB noted.IVF and Heparin gtt infusing.POX 96% on RA.Lungs CTA.Appetite excellent.No BM.Spence draining yellow urine.Skin integrity as
documented.Plan of care discussed.
--- NOTE | 2024-01-29 08:28 | W.PN.INTV ---
Today's Communication / Plan
Recommendations
Pain control
Up OOB as tolerated
Encourage incentive spirometer
Postoperative management as per vascular surgery
Maintain SpO2 >90-94%
PT/OT
Heparin drip as per vascular surgery
Assessment
-
Assessment: 78-year-old male non-smoker with a past medical history of CAD s/p coronary stents + CABG x 5, PAD s/p stents, peripheral neuropathy, DM type II, hypertension, hypercholesterolemia, history of DVT and GERD who presents with elective
right lower extremity surgical revascularization. Patient known to the vascular surgery service with last visit on 01/03/[address] Spence. 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
cm with a mural thrombus. He also has tibial occlusions bilaterally and it is suspected that the popliteal artery aneurysm is embolizing. Diagnostic arteriogram with plan for aneurysm exclusion and revascularization with its risks and benefits
were discussed. Today he underwent a right superficial femoral artery to below-knee popliteal artery bypass with ipsilateral reverse great saphenous vein with ligation and exclusion of the right popliteal artery aneurysm. There were no
complications with EBL of 100 cc. He was transferred to the ICU postoperatively for further care. Engine Cowling Installer/pulmonary service is now consulted for additional management/recommendations.
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
Impression:
#Right lower extremity popliteal artery aneurysm s/p right SFA to below-knee popliteal artery surgical bypass with ligation and exclusion of the right popliteal artery aneurysm (POD #1)
#Leukocytosis likely reactive
#DM type II c/b hyperglycemia (HbA1c: 7.2 on 09/04/2023)
#Subpleural reticular opacities in the bases + posterolateral right middle lobe and inferior lingula seen on CTA abdominal aorta with runoff from 12/31/2023
#Former light tobacco smoker (quit 30 years ago, smoked 1-2 cigarettes/day for 10 years)
#CAD s/p coronary stents + CABG x 5 (10/2003)
#PAD s/p stents
#Peripheral neuropathy
#Hypertension
#Hypercholesterolemia
#GERD
Plan:
Postoperative surgical intensive care unit monitoring
Supplemental oxygen as needed to maintain SpO2 >90-94%
prn nebulized bronchodilators - not currently bronchospastic
Incentive spirometry encouraged 10x per hour for at least 4 hrs a day
Aspiration precautions
Pain control
Neuro and vascular checks per protocol
Maintain MAP>65
Replete electrolytes with K>4, Mg>2
Maintain euglycemia with goal BG 140-180
Vascular surgery following-correspondence and operative notes reviewed
Transfuse blood products as needed to keep Hb>7g/dL, and plt>50k (given post-operative status)
DVT prophylaxis: currently on heparin gtt
Early nutrition
Early mobilization/PT and OT
Given his subpleural reticular opacities/interstitial lung changes seen on lung bases from CTA abdominal aorta from 12/31/2023, this is concerning for early ILD. Would recommend outpatient dedicated CT chest to further evaluate for this as well as
PFTs to assess for presence of restrictive lung disease. He currently denies a bothersome cough or shortness of breath. He says he does have frequent throat clearing but again this is not bothersome to him. Also denies any history of autoimmune
disease (RA, SLE, scleroderma, dermatomyositis, etc.) I will arrange for outpatient office follow-up to discuss this further.
Total time spent today was 76 minutes for this encounter. Time includes reviewing laboratory test/imaging results, reviewing pertinent medical records, obtaining and reviewing medical history, performing an appropriate exam, ordering medications,
tests and procedures. Time also includes documentation of this encounter, coordinating patient care and communicating with other healthcare professionals. Total time does not include separately billed tests performed on this date of service.
Subjective Dataa
Subjective Data
Date of Service:
Date of Service: January 29, 2024
Chief Complaint: Engine Cowling Installer Follow Up
Subjective:
Pt seen and evaluated this AM. Remains on heparin gtt. Sitting in a chair in NAD on RA breathing comfortably. Heart rate 60, BP 136/67 and saturating 95% on room air. He says he did not sleep well due to right groin pain and right calf muscle
spasm. He currently denies chest pain, TYLER, abdominal pain, nausea, fevers/chills.
Review of Systems
General: Other (negative unless mentioned above)
Objective Data
Data Reviewed
Vital Signs / I&O / Oxygen:
Vital Signs
Temp Pulse Resp BP Pulse Ox
97.8 F 67 14 142/73 96
01/29/24 08:03 01/29/24 06:05 01/29/24 06:05 01/29/24 06:05 01/29/24 06:05
Intake and Output
01/28/24 01/29/24 01/30/24
06:59 06:59 06:59
Intake Total 1855 / 1855
Output Total 1597 / 1597
Balance 258 / 258
SaO2 96
Physical Exam
General: Respiratory Distress (negative), Comfortable, Chills (negative) and Sweats (negative)
HEENT: Normocephalic and Anicteric
Cardiovascular: S1-S2 and Peripheral Edema (negative)
Respiratory: Wheeze (negative), Crackles (negative), Rhonchi (negative) and Non-Labored Respirations
GI: Soft, Non Distended, Non Tender and Normal Bowel Sounds
Neurology: AO x 3 and Tremors (negative)
Skin: Warm, Dry, Cyanosis (negative) and Jaundice (negative)
Labs/Micro/Reports
Lab Data
01/29/24 03:53
01/29/24 03:53
Laboratory Results
01/28/24 01/29/24
14:36 03:53
PT 15.4 H 14.1
INR 1.19 1.06
APTT 156.0 H* 35.5 H
[2024-01-29] MEDS: NOVOLOG FLEXPEN-LOW RESISTANCE SC ×3 (08:39→16:38)
[2024-01-29] MEDS: ASPIR LOW (ENTERIC COATED) 81 MG PO (08:40)
[2024-01-29] MEDS: AMARYL 2 MG PO ×2 (08:40→16:27)
[2024-01-29] MEDS: FARXIGA 10 MG PO (08:40)
[2024-01-29] MEDS: LYRICA 200 MG PO (08:40)
[2024-01-29] MEDS: JANUVIA 100 MG PO (08:40)
[2024-01-29] MEDS: PROTONIX 40 MG PO (08:40)
[2024-01-29] MEDS: CRESTOR 40 MG PO (08:40)
[2024-01-29] MEDS: AVAPRO 300 MG PO (08:43)
--- NOTE | 2024-01-29 08:46 | W.PN.VS ---
Addendum entered and electronically signed by Panda Spence III, MD 01/29/24 11:01:
This patient was seen and examined with DARVIN Parish. I agree with the history and physical exam as well as the assessment and plan.
Signed:
Panda Spence III, MD
[facility] Vascular Surgery
[phone] (xrll)
Original Note:
Today's Communication / Plan
-
Patient seen and assessed with Dr. Panda Spence III, below plan reviewed with attending.
Assessment/Plan
-
Assessment: 78 year old male POD#1 RIGHT superficial femoral artery to below knee popliteal artery bypass with ipsilateral reversed great saphenous vein. 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 Reoperative surgery, right below the
knee popliteal artery exposure.
Plan:
Discontinue Spence catheter
Discontinue arterial line
Continue heparin infusion at standing rate
OOB to chair
Continue SANJU drain
Continue ICU level care
Subjective Data
-
Date of Service: January 29, 2024
Patient seen and examined at bedside, reports well managed post operative pain. Denies nausea, vomiting, fever, and chills.
Objective Data
-
Vital Signs
Temp Pulse Resp BP Pulse Ox
97.8 F 67 14 142/73 96
01/29/24 08:03 01/29/24 06:05 01/29/24 06:05 01/29/24 06:05 01/29/24 06:05
Intake and Output
01/28/24 01/29/24 01/30/24
06:59 06:59 06:59
Intake Total 1855 / 1855
Output Total 1597 / 1597
Balance 258 / 258
Intake:
Oral fluids 480 / 480
IV fluids (Total) 1375 / 1375
Heparin 75 / 75
Nss 1,000 ml @ 80 mls/hr IV . 1200 / 1200
[id number] [facility] Rx#:[id number]
normal saline 100 / 100
Output:
Drain Output (Total)
Right Leg Julien-Rand A
Urine, Spence 1562 / 1562
Lab Results
01/29/24 03:53
01/29/24 03:53
Calcium 8.5 mg/dl (8.4-10.2) 01/29/24 03:53
Physical Exam
-
AAOx3, NAD
No tachycardia
No dyspnea
ABD flat, non-tender, non-distended
RLE dressing CDI, all soft, SANJU drain with minimal serosanguineous output, right foot warm, right DP and PT by doppler
[2024-01-29 08:58] LABS: Glycohemoglobin (HgbA1c) 7.3 % (4.0-5.6)
--- NOTE | 2024-01-29 09:15 | PTCARENOTE ---
A Line,IVF and Spence discontinued as ordered.Pt assisted OOB to chair with 1 person minimal assist. Heparin gtt maintained.
--- NOTE | 2024-01-29 10:05 | CM ---
CM following re: discharge planning.
Reviewed pt's chart, met with pt.
Pt is a 78 year old male, admitted with primary dx of POD#1 RIGHT superficial femoral artery to below knee popliteal artery bypass. Pt reports he feels better. Vascular surgery following.
Pt reports he lives with spouse 2SH, 2 steps to enter, has 2 supportive children. 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 No DME, VN or SNF history. 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
Pt stated his Dr Anastacio Arriaga from [place] [facility] requested medical record at discharge. phone: [phone], fax: [phone]
PCP: Magno Khan
Pharmacy: [facility].
D/C plan: home with anticipated no needs. Family to transport at discharge.
CM will follow with discharge plan updates as hospitalization progresses
[2024-01-29 11:53] LABS: Glucose - Point of Care 136 mg/dl (70-99)
[2024-01-29] MEDS: QUESTRAN 4 GRAM PO ×2 (12:02→21:57)
--- NOTE | 2024-01-29 12:30 | PTCARENOTE ---
Pt assessed.No change in assessment noted.
[2024-01-29] MEDS: FLEXERIL 5 MG PO (14:41)
--- NOTE | 2024-01-29 16:12 | PTCARENOTE ---
Pt assessed.No change in assessment noted.Pt voided in bathroom.Gait is steady.
[2024-01-29] MEDS: SENOKOT-S 1 TABLET PO (16:27)
[2024-01-29 16:44] LABS: Glucose - Point of Care 122 mg/dl (70-99)
[2024-01-29] MEDS: LYRICA 100 MG PO (17:10)
--- NOTE | 2024-01-29 19:43 | PTCARENOTE ---
On assessment pt AAOX3, c/o pain the RLE, SR on the monitor, hep gtt infusing per orders, weak RLE pulses, good with Doppler, RA, denies SOB, good appetite today per pt, voids in urinal, R groin with post op dressing, SANJU with minimal drainage noted,
ambulated back to bed X1 assist with walker, call grider in reach.
[2024-01-29] MEDS: SENOKOT-S PO (20:10)
[2024-01-29 22:15] LABS: Glucose - Point of Care 150 mg/dl (70-99)
[2024-01-30] VITALS (19 sets, daily range): BP systolic 89–134; BP diastolic 51–72; PULSE 66; BMI 25.6
--- NOTE | 2024-01-30 00:30 | PTCARENOTE ---
Pt had to stand at bedside to void x2, pain in RLE per meds given see APR, call grider in reach
[2024-01-30] MEDS: ROXICODONE 10 MG PO ×3 (03:49→20:17)
[2024-01-30 04:27] LABS: Hematocrit 34.3 % (39.0-52.0); Hemoglobin 11.7 g/dL (13.0-18.0); Mean Corp Hgb Conc. 34.1 g/dL (33.0-37.0); Mean Corpuscular Hgb 29.8 pg (27.0-31.0); Mean Corpuscular Volume 87.3 fL (80.0-94.0); Platelet Count 205 10^3/uL (130-400); Red Blood Cell Count 3.93 10^6/uL (4.70-6.10); Red Cell Dist. Width 14.3 % (11.5-14.5); White Blood Cell Count 9.2 10^3/uL (4.8-10.8)
[2024-01-30 04:35] LABS: APTT 35.3 Sec (23.4-35.0)
[2024-01-30 04:59] LABS: Blood Urea Nitrogen 15 mg/dl (9-20); Calcium 8.3 mg/dl (8.4-10.2); Carbon Dioxide 23 mmol/L (22-30); Chloride 106 mmol/L (98-107); Estimated Creatinine Clearance 122 ml/min; Glucose 123 mg/dl (70-99); Potassium 3.7 mmol/L (3.5-5.1); Sodium 138 mmol/L (135-145); eGFR > 60.00
[2024-01-30] MEDS: NOVOLOG FLEXPEN-LOW RESISTANCE SC ×3 (07:34→16:55)
[2024-01-30] MEDS: JANUVIA 100 MG PO (07:35)
[2024-01-30] MEDS: FARXIGA 10 MG PO (07:35)
[2024-01-30] MEDS: LYRICA 200 MG PO (07:35)
[2024-01-30] MEDS: AMARYL 2 MG PO ×2 (07:35→17:31)
[2024-01-30] MEDS: SENOKOT-S 1 TABLET PO (07:35)
[2024-01-30] MEDS: QUESTRAN 4 GRAM PO ×2 (07:36→22:09)
[2024-01-30] MEDS: IMDUR (EXTENDED RELEASE) 30 MG PO (07:36)
[2024-01-30] MEDS: AVAPRO 300 MG PO (07:36)
[2024-01-30] MEDS: ASPIR LOW (ENTERIC COATED) 81 MG PO (07:36)
[2024-01-30] MEDS: CRESTOR 40 MG PO (07:36)
[2024-01-30] MEDS: PROTONIX 40 MG PO (07:36)
--- NOTE | 2024-01-30 07:57 | W.PN.VS ---
Addendum entered and electronically signed by Christophe Daniel MD 01/30/24 10:43:
Seen and examined with MADDI Luke. Agree with findings as noted below. Right lower extremity dressings clean dry and intact. SANJU minimal drainage. Foot warm with excellent dopplerable signals. Plan/as discussed and noted below.
Original Note:
Today's Communication / Plan
-
Patient seen at bedside this a.m. with Dr. Daniel
Assessment/Plan
-
Assessment: 78 year old male POD#2 RIGHT superficial femoral artery to below knee popliteal artery bypass with ipsilateral reversed great saphenous vein. 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 Reoperative surgery, right below the
knee popliteal artery exposure.
Plan:
I will return to DC drain and change dressings this morning
Physical therapy consult
Transfer to 2 N., 2 S.
Subjective Data
-
Date of Service: January 30, 2024
Patient seen at bedside exam with Dr. Daniel. Patient offers no complaints at this time. No events overnight.
Objective Data
-
Vital Signs
Temp Pulse Resp BP Pulse Ox
98.1 F 87 14 110/58 96
01/30/24 07:45 01/30/24 07:36 01/30/24 06:00 01/30/24 07:36 01/30/24 00:29
Intake and Output
01/29/24 01/30/24 01/31/24
06:59 06:59 06:59
Intake Total 1855 / 1940 1535 / 1535
Output Total 1597 / 1657 1155 / 1155
Balance 258 / 283 380 / 380
Intake:
Oral fluids 480 / 480 1260 / 1260
IV fluids (Total) 1375 / 1460 275 / 275
Heparin 75 / 80 115 / 115
Nss 1,000 ml @ 80 mls/hr IV . 1200 / 1280 160 / 160
[id number] [facility] Rx#:[id number]
normal saline 100 / 100
Output:
Drain Output (Total) 0 / 0
Right Leg Julien-Rand A 35 0 / 0
Urine, Spence 1562 / 1622 60 / 60
Urine, Voided 1095 / 1095
Other:
Number of approximated MODERATE 1
amounts of urine
Lab Results
01/30/24 03:47
01/30/24 03:47
Calcium 8.3 mg/dl (8.4-10.2) L 01/30/24 03:47
Physical Exam
-
AAOx3, NAD
No tachycardia
No dyspnea
ABD flat, non-tender, non-distended
RLE dressing CDI, all soft, SANJU drain with minimal serosanguineous output, right foot warm, right DP and PT by doppler
--- NOTE | 2024-01-30 08:27 | W.PN.INTV ---
Today's Communication / Plan
Recommendations
Pain control
Up OOB as tolerated
Encourage incentive spirometer
Postoperative management as per vascular surgery
Maintain SpO2 >90-94%
PT/OT
Heparin drip as per vascular surgery
Outpatient office follow-up for discussion of interstitial lung changes seen on CT chest imaging + PFTs
Patient is stable for downgrade out of ICU to telemetry. No additional recommendations at this time. Red Lead Burner/Pulmonary service will now sign off. Please reconsult if there are any additional questions/concerns, or if patient's respiratory
status deteriorates.
Assessment
-
Assessment: 78-year-old male non-smoker with a past medical history of CAD s/p coronary stents + CABG x 5, PAD s/p stents, peripheral neuropathy, DM type II, hypertension, hypercholesterolemia, history of DVT and GERD who presents with elective
right lower extremity surgical revascularization. Patient known to the vascular surgery service with last visit on 01/03/[address] Spence. 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
cm with a mural thrombus. He also has tibial occlusions bilaterally and it is suspected that the popliteal artery aneurysm is embolizing. Diagnostic arteriogram with plan for aneurysm exclusion and revascularization with its risks and benefits
were discussed. Today he underwent a right superficial femoral artery to below-knee popliteal artery bypass with ipsilateral reverse great saphenous vein with ligation and exclusion of the right popliteal artery aneurysm. There were no
complications with EBL of 100 cc. He was transferred to the ICU postoperatively for further care. Red Lead Burner/pulmonary service is now consulted for additional management/recommendations.
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
Impression:
#Right lower extremity popliteal artery aneurysm s/p right SFA to below-knee popliteal artery surgical bypass with ligation and exclusion of the right popliteal artery aneurysm (POD #2)
#Leukocytosis likely reactive - WBC now normalized
#DM type II c/b hyperglycemia (HbA1c: 7.2 on 09/04/2023) - now euglycemic
#Subpleural reticular opacities in the bases + posterolateral right middle lobe and inferior lingula seen on CTA abdominal aorta with runoff from 12/31/2023
#Former light tobacco smoker (quit 30 years ago, smoked 1-2 cigarettes/day for 10 years)
#CAD s/p coronary stents + CABG x 5 (10/2003)
#PAD s/p stents
#Peripheral neuropathy
#Hypertension
#Hypercholesterolemia
#GERD
Plan:
Postoperative surgical intensive care unit monitoring
Supplemental oxygen as needed to maintain SpO2 >90-94%
prn nebulized bronchodilators - not currently bronchospastic
Incentive spirometry encouraged 10x per hour for at least 4 hrs a day
Aspiration precautions
Pain control
Neuro and vascular checks per protocol
Maintain MAP>65
Replete electrolytes with K>4, Mg>2
Maintain euglycemia with goal BG 140-180
Vascular surgery following-correspondence and operative notes reviewed
Transfuse blood products as needed to keep Hb>7g/dL, and plt>50k (given post-operative status)
DVT prophylaxis: currently on heparin gtt
Early nutrition
Early mobilization/PT and OT
Given his subpleural reticular opacities/interstitial lung changes seen on lung bases from CTA abdominal aorta from 12/31/2023, this is concerning for early ILD. Would recommend outpatient dedicated CT chest to further evaluate for this as well as
PFTs to assess for presence of restrictive lung disease. He currently denies a bothersome cough or shortness of breath. He says he does have frequent throat clearing but again this is not bothersome to him. Also denies any history of autoimmune
disease (RA, SLE, scleroderma, dermatomyositis, etc.) I will arrange for outpatient office follow-up to discuss this further.
Patient is stable for downgrade out of ICU to telemetry. No additional recommendations at this time. Red Lead Burner/Pulmonary service will now sign off. Thank you for allowing us to be involved in the care of this patient. Please reconsult if there
are any additional questions/concerns, or if patient's respiratory status deteriorates.
Total time spent today was 36 minutes for this encounter. Time includes reviewing laboratory test/imaging results, reviewing pertinent medical records, obtaining and reviewing medical history, performing an appropriate exam, ordering medications,
tests and procedures. Time also includes documentation of this encounter, coordinating patient care and communicating with other healthcare professionals. Total time does not include separately billed tests performed on this date of service.
Subjective Dataa
Subjective Data
Date of Service:
Date of Service: January 30, 2024
Chief Complaint: Red Lead Burner Follow Up
Subjective:
Patient seen and evaluated this morning. Heart rate 82, BP 110/54 and room air in no acute distress. Remains on heparin drip. No acute events reported overnight. He denies chest pain, TYLER, nausea, fevers or chills. He is being downgraded today
to telemetry.
Review of Systems
General: Other (Negative unless mentioned above)
Objective Data
Data Reviewed
Vital Signs / I&O / Oxygen:
Vital Signs
Temp Pulse Resp BP Pulse Ox
98.1 F 77 13 89/51 97
01/30/24 07:45 01/30/24 09:11 01/30/24 09:11 01/30/24 09:11 01/30/24 08:43
Intake and Output
01/29/24 01/30/24 01/31/24
06:59 06:59 06:59
Intake Total 1855 / 1940 1535 / 1780 615 / 615
Output Total 1597 / 1657 1155 / 1155
Balance 258 / 283 380 / 625 615 / 615
SaO2 97
Physical Exam
General: Respiratory Distress (negative), Comfortable, Chills (negative) and Sweats (negative)
HEENT: Normocephalic and Anicteric
Cardiovascular: S1-S2 and Peripheral Edema (negative)
Respiratory: Clear, Wheeze (negative), Crackles (negative), Rhonchi (negative) and Non-Labored Respirations
GI: Soft, Non Distended, Non Tender and Normal Bowel Sounds
Neurology: AO x 3 and Tremors (negative)
Skin: Warm, Dry, Cyanosis (negative) and Jaundice (negative)
Labs/Micro/Reports
Lab Data
01/30/24 03:47
01/30/24 03:47
Laboratory Results
01/30/24
03:47
APTT 35.3 H
--- NOTE | 2024-01-30 09:29 | PTCARENOTE ---
Update this am with vascular team. Continue PT/OT plan of cares and reinforcement. Ambulate with rolling walker one person assist to bathroom. Continue vital sign trends, assessment trends ongoing and as documented. Presently out of bed to chair
this am with breakfast. Update plan of care with dispensary clerk team. Continue with post op teaching and post op recovery cares.
--- NOTE | 2024-01-30 09:47 | PN.CDI ---
CDI
- -
CDI:
Physician Documentation Request
Admit Date: 01/28/24 06:59
Dear Vascular Surgery,
Patient admitted for popliteal artery aneurysm.
01/27 Operative Report:'RIGHT superficial femoral artery to below knee popliteal artery bypass with ipsilateral reversed great saphenous vein. 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
01/27 Anesthesia with graphs: 'Input...Total Fluid (mL): 1450....Output Blood Loss: 100 mL'
Laboratory Tests
01/21/24 01/29/24 01/30/24
09:33 03:53 03:47
Hgb 16.3 12.5 L 11.7 L
Hct 47.2 35.5 L 34.3 L
Based on the above, could you clarify in the progress notes, the appropriate diagnosis, if significant, that supports the above abnormalities and additional evaluation, monitoring and/or treatment rendered:
Acute anemia multifactorial hemodilution and blood loss
Acute blood loss anemia
Hemodilution
Other
Use of terms such as suspected, likely, concern for, or probable (associated with a specific diagnosis that is being evaluated, monitored, or treated as if it exists) are acceptable and can be coded in the inpatient setting, when documented at the
time of discharge.
Thank you,
Yahaira García RN, BSN
CDI Specialist
Available via [place] text
Please use your independent medical judgment in providing your response.
--- NOTE | 2024-01-30 10:32 | PTCARENOTE ---
Update in am rounds with critical care team. PT/OT at bedside working with patient. Continue to follow and update plan of cares.
--- NOTE | 2024-01-30 10:33 | CM ---
CM following re: discharge planning.
Discussed in Rounds, reviewed pt's chart, met with pt. per MD, pt will be downgraded from ICU level of care.
IMM reviewed, placed on chart, pt has a copy.
PT and OT evaluations noted - home PT/OT recommended. Pt is aware, expressed his agreement. A list of VN vendors provided, pt preferred [facility]. A referral to [facility] made.
Per pt's request, please fax pt's medical record at discharge to Dr Anastacio Arriaga from [place] [facility] phone: [phone], fax: [phone]
Please fax discharge instructions to [facility] at [phone]
D/C plan: home with [facility] and family support.
CM will follow with discharge plan updates as hospitalization progresses
[2024-01-30] MEDS: DILAUDID 0.5 MG IV ×4 (10:53→21:45)
--- NOTE | 2024-01-30 11:23 | W.PN.UPDATE ---
Update Note
Progress Note Update
SANJU drain DC'd at bedside. Patient tolerated well. All sites dressings removed and redressed. No drainage noted.
[2024-01-30 11:45] LABS: Glucose - Point of Care 127 mg/dl (70-99)
--- NOTE | 2024-01-30 11:58 | VNURNOTE ---
Home Health Liaison met with patient and spouse at bedside to discuss [facility] nurse/therapy, visits, schedule and homebound status. Patient and spouse agreeable and understand that visits at home will be 2-3 x per week to assess and teach medical
management. [facility] brochure provided with contact information. Patient and spouse aware that [facility] will contact them for start of care in 1-2 days after discharge from .
[facility] referral completed in [facility].
--- NOTE | 2024-01-30 12:18 | PTCARENOTE ---
No noted assessment changes. VSS. SANJU dc'd and site redressed as per vascular team. updated at bedside. Review plan of transfer await report update. Continue with teaching and supportive cares.
[2024-01-30] MEDS: HEPARIN 25000 UNITS/250 ML IV (15:09)
[2024-01-30 16:54] LABS: Glucose - Point of Care 127 mg/dl (70-99)
[2024-01-30] MEDS: LYRICA 100 MG PO (17:32)
[2024-01-30] MEDS: SENOKOT-S PO (20:19)
[2024-01-30 22:29] LABS: Glucose - Point of Care 128 mg/dl (70-99)
[2024-01-31] VITALS (8 sets, daily range): BP systolic 106–136; BP diastolic 65–93; PULSE 100; O2SAT 97; BMI 25.0
[2024-01-31] MEDS: DILAUDID 0.5 MG IV ×4 (01:27→20:15)
[2024-01-31] MEDS: ROXICODONE 10 MG PO ×3 (02:58→15:19)
[2024-01-31 06:35] LABS: Hematocrit 34.5 % (39.0-52.0); Hemoglobin 11.8 g/dL (13.0-18.0); Mean Corp Hgb Conc. 34.2 g/dL (33.0-37.0); Mean Corpuscular Hgb 30.4 pg (27.0-31.0); Mean Corpuscular Volume 88.9 fL (80.0-94.0); Platelet Count 206 10^3/uL (130-400); Red Blood Cell Count 3.88 10^6/uL (4.70-6.10); Red Cell Dist. Width 14.3 % (11.5-14.5); White Blood Cell Count 9.4 10^3/uL (4.8-10.8)
[2024-01-31 07:02] LABS: Blood Urea Nitrogen 17 mg/dl (9-20); Calcium 8.4 mg/dl (8.4-10.2); Carbon Dioxide 24 mmol/L (22-30); Chloride 102 mmol/L (98-107); Estimated Creatinine Clearance 104 ml/min; Glucose 108 mg/dl (70-99); Potassium 3.8 mmol/L (3.5-5.1); Sodium 136 mmol/L (135-145); eGFR > 60.00
[2024-01-31] MEDS: AVAPRO 300 MG PO (08:34)
[2024-01-31] MEDS: CRESTOR 40 MG PO (08:35)
[2024-01-31] MEDS: PROTONIX 40 MG PO (08:35)
[2024-01-31] MEDS: LYRICA 200 MG PO (08:35)
[2024-01-31] MEDS: FARXIGA 10 MG PO (08:35)
[2024-01-31] MEDS: JANUVIA 100 MG PO (08:35)
[2024-01-31] MEDS: AMARYL 2 MG PO ×2 (08:35→16:34)
[2024-01-31] MEDS: IMDUR (EXTENDED RELEASE) 30 MG PO (08:35)
[2024-01-31] MEDS: ASPIR LOW (ENTERIC COATED) 81 MG PO (08:35)
[2024-01-31] MEDS: QUESTRAN PO ×2 (08:37→20:17)
[2024-01-31] MEDS: SENOKOT-S PO ×2 (08:37→20:16)
[2024-01-31] MEDS: NOVOLOG FLEXPEN-LOW RESISTANCE SC ×3 (08:47→16:37)
[2024-01-31 08:49] LABS: Glucose - Point of Care 98 mg/dl (70-99)
--- NOTE | 2024-01-31 10:54 | W.PN.VS ---
Addendum entered and electronically signed by DARVIN Parish 01/31/24 15:28:
Patient refuses SNF. Would like to go home with home health as recommended per PT as well. Seen by case management, home health set up. Rolling walker prescription on chart.
Addendum entered and electronically signed by Christophe Daniel MD 01/31/24 14:35:
Seen and examined with CONTACT LENS EDGE BUFFER earlier this AM. Late entry. Agree with findings and plan as noted below. RLE inc all c/d/i. Foot warm, good doppler signals. Plan/ As discussed and noted below.
Original Note:
Today's Communication / Plan
-
Seen and assessed with Dr Daniel
Assessment/Plan
-
Assessment: 78 year old male POD#3 RIGHT superficial femoral artery to below knee popliteal artery bypass with ipsilateral reversed great saphenous vein. 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 Reoperative surgery, right below the
knee popliteal artery exposure.
Plan:
CM per patient request for rehab placement d/t lack of support at home
OK for DC when placement ready
Restart xarelto
Subjective Data
-
Date of Service: January 31, 2024
Pt seen at bedside this am with Dr Daniel. Pt offers no complaints at this time. No events overnight.
Objective Data
-
Vital Signs
Temp Pulse Resp BP Pulse Ox
98.2 F 75 18 122/66 95
01/31/24 07:15 01/31/24 08:34 01/31/24 07:15 01/31/24 08:34 01/31/24 07:15
Intake and Output
01/30/24 01/31/24 02/01/24
06:59 06:59 06:59
Intake Total 1535 / 1780 1230 / 1230
Output Total 1155 / 1155 300 / 300
Balance 380 / 625 930 / 930
Intake:
Oral fluids 1260 / 1500 1200 / 1200
IV fluids (Total) 275 / 280 30 / 30
Heparin 115 / 120 30 / 30
Nss 1,000 ml @ 80 mls/hr IV . 160 / 160
[id number] [facility] Rx#:[id number]
Output:
Drain Output (Total) 0 / 0
Right Leg Julien-Rand A 0 / 0
Urine, Spence 60 / 60
Urine, Voided 1095 / 1095 300 / 300
Other:
Number of approximated MODERATE 1 3
amounts of urine
Number of approximated LARGE 1
amounts of urine
How many times incontinent 1
MODERATE amount urine
Lab Results
01/31/24 05:11
01/31/24 05:11
Calcium 8.4 mg/dl (8.4-10.2) 01/31/24 05:11
Physical Exam
-
AAOx3, NAD
No tachycardia
No dyspnea
ABD flat, non-tender, non-distended
RLE dressing removed, moderate drainage noted, all soft, redressed at medial knee for scant drainage
right foot warm, right DP and PT by doppler
[2024-01-31 12:02] LABS: Glucose - Point of Care 115 mg/dl (70-99)
--- NOTE | 2024-01-31 15:03 | CM ---
Patient seen at bedside.
PT rec HH, OT rec SNF
Patient declining SNF, wants HH
[facility].
PLAN: home, [facility] - declines SNF
to transport
[2024-01-31 16:34] LABS: Glucose - Point of Care 141 mg/dl (70-99)
[2024-01-31] MEDS: DILAUDID 2 MG PO (16:35)
--- NOTE | 2024-01-31 16:57 | W.PN.UPDATE ---
Update Note
Progress Note Update
CDI:
Physician Documentation Request
Admit Date: 01/28/24 06:5
Patient admitted for popliteal artery aneurysm.
01/27 Operative Report:'RIGHT superficial femoral artery to below knee popliteal artery bypass with ipsilateral reversed great saphenous vein. 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
01/27 Anesthesia with graphs: 'Input...Total Fluid (mL): 1450....Output Blood Loss: 100 mL'
Laboratory Tests
01/21/24 01/29/24 01/30/24
09:33 03:53 03:47
Hgb 16.3 12.5 L 11.7 L
Hct 47.2 35.5 L 34.3 L
Based on the above, could you clarify in the progress notes, the appropriate diagnosis, if significant, that supports the above abnormalities and additional evaluation, monitoring and/or treatment rendered:
Acute anemia multifactorial hemodilution and blood loss
.
[2024-01-31] MEDS: LYRICA 100 MG PO (17:03)
[2024-01-31] MEDS: XARELTO 2.5 MG PO (20:13)
[2024-01-31] MEDS: TYLENOL 650 MG PO (20:16)
[2024-01-31 21:58] LABS: Glucose - Point of Care 203 mg/dl (70-99)
[2024-02-01] VITALS (7 sets, daily range): BP systolic 107–129; BP diastolic 59–74; PULSE 91; O2SAT 97; BMI 24.7
[2024-02-01] MEDS: DILAUDID 0.5 MG IV ×5 (00:31→16:45)
[2024-02-01] MEDS: TYLENOL 650 MG PO ×6 (00:32→20:30)
[2024-02-01 06:54] LABS: Blood Urea Nitrogen 21 mg/dl (9-20); Calcium 8.5 mg/dl (8.4-10.2); Carbon Dioxide 26 mmol/L (22-30); Chloride 101 mmol/L (98-107); Estimated Creatinine Clearance 91 ml/min; Glucose 122 mg/dl (70-99); Magnesium 1.8 mg/dl (1.6-2.3); Potassium 3.8 mmol/L (3.5-5.1); Sodium 135 mmol/L (135-145); eGFR > 60.00
[2024-02-01 08:18] LABS: Glucose - Point of Care 111 mg/dl (70-99)
[2024-02-01] MEDS: NOVOLOG FLEXPEN-LOW RESISTANCE SC ×4 (08:22→16:22)
[2024-02-01] MEDS: LYRICA 200 MG PO (08:25)
[2024-02-01] MEDS: AVAPRO 300 MG PO (08:25)
[2024-02-01] MEDS: IMDUR (EXTENDED RELEASE) 30 MG PO (08:25)
[2024-02-01] MEDS: JANUVIA 100 MG PO (08:25)
[2024-02-01] MEDS: ASPIR LOW (ENTERIC COATED) 81 MG PO (08:25)
[2024-02-01] MEDS: XARELTO 2.5 MG PO ×2 (08:26→20:31)
[2024-02-01] MEDS: AMARYL 2 MG PO ×2 (08:26→16:09)
[2024-02-01] MEDS: PROTONIX 40 MG PO (08:26)
[2024-02-01] MEDS: FARXIGA 10 MG PO (08:26)
[2024-02-01] MEDS: CRESTOR 40 MG PO (08:26)
[2024-02-01] MEDS: QUESTRAN PO ×2 (08:27→20:40)
--- NOTE | 2024-02-01 09:39 | W.PN.VS ---
Addendum entered and electronically signed by Panda Spence III, MD 02/01/24 10:19:
This patient was seen and examined with DARVIN Cohen. I agree with the history and physical exam as well as the assessment and plan. I have the following additions:
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
Some serous drainage from the right thigh saphenectomy site
No erythema
Robust DP/PT dopp signals right foot/ankle
Incisions intact x 3
Discussed discharge planning with patient and his daughter Dayan via telephone
I explained to him that I think it would be best for him to either go to a senior living facility or have Dayan, who is a nurse, provide daily care for him. I explained to Dayan the needs that would be required for her to address. She feels
comfortable with this and is okay with having him home.
Would like to watch drainage from the thigh today start
Prophylactic antibiotics given drainage (Augmentin twice daily x 10 days)
PT/OT
Compass protocol
Potential discharge 02/02/24
Signed:
Panda Spence III, MD
[facility]
[phone] (mifo)
Original Note:
Today's Communication / Plan
-
Patient seen and examined at bedside Dr. Panda Spence III, below plan reviewed with attending.
Assessment/Plan
-
Assessment: 78 year old male POD#4 RIGHT superficial femoral artery to below knee popliteal artery bypass with ipsilateral reversed great saphenous vein. 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 Reoperative surgery, right below the
knee popliteal artery exposure.
Plan:
Given pitting edema and scant drainage noted at right lower extremity will give 1 dose of IV Lasix 1 mg today
Patient is again unclear if he feels he can be discharged to home, he is requested that we speak to his daughter Dayan who is a nurse and may be able to help care for him at which case then he will feels comfortable with the idea of going home
versus senior living facility. Dr. Spence will reach out to his daughter Dayan.
Continue Compass protocol of Xarelto 2.5 mg twice daily and aspirin 81 mg p.o. daily
Continue to encourage incentive spirometry
Likely will discharge tomorrow in order to establish discharge planning of senior living facility versus home with aid of daughter
Subjective Data
-
Date of Service: February 01, 2024
Patient seen and examined at bedside, reports well-managed postoperative pain. Now indicates concern for discharge as he is unclear if he can manage his postoperative surgical sites at home, since his will likely not be able to help him. He
is unclear if his daughter who is a nurse can help, if she can then he would like to go home if not he is now agreeable again to SNF versus rehab placement. Denies nausea, vomiting, fever, and chills.
Objective Data
-
Vital Signs
Temp Pulse Resp BP Pulse Ox
98.2 F 61 17 112/60 96
02/01/24 07:05 02/01/24 08:25 02/01/24 07:05 02/01/24 08:25 02/01/24 07:05
Intake and Output
01/31/24 02/01/24 02/02/24
06:59 06:59 06:59
Intake Total 1230 / 1230 1240 / 1240
Output Total 300 / 300
Balance 930 / 930 1240 / 1240
Intake:
Oral fluids 1200 / 1200 1240 / 1240
IV fluids (Total) 30 / 30
Heparin 30 / 30
Output:
Urine, Voided 300 / 300
Other:
Number of approximated MODERATE 3 2
amounts of urine
Number of approximated LARGE 1 1
amounts of urine
How many times incontinent 1
MODERATE amount urine
Lab Results
01/31/24 05:11
02/01/24 05:19
Calcium 8.5 mg/dl (8.4-10.2) 02/01/24 05:19
Magnesium 1.8 mg/dl (1.6-2.3) 02/01/24 05:19
Physical Exam
-
AAOx3, NAD
No tachycardia
No dyspnea
ABD flat, non-tender, non-distended
RLE dressing removed, moderate drainage noted, all soft, redressed at medial knee for scant drainage, +1 pitting edema
Right foot warm, right DP and PT by doppler
[2024-02-01] MEDS: KCL 20 MEQ PO (10:02)
[2024-02-01] MEDS: LASIX 20 MG IV (10:02)
[2024-02-01] MEDS: AUGMENTIN 500 MG/125 MG 1 TABLET PO ×2 (10:02→20:30)
--- NOTE | 2024-02-01 10:11 | CM ---
Patient seen at bedside.
IMM explained & signed.
Patient agreeable with [facility]-referral in [facility].
States his daughter Dayan is a nurse & also will assist
[facility] accepted. Notified liaison
Script for walker on chart.
PLAN: Home with [facility]
family to transport
[2024-02-01 11:40] LABS: Glucose - Point of Care 158 mg/dl (70-99)
[2024-02-01] MEDS: DILAUDID 2 MG PO ×3 (14:40→23:40)
--- NOTE | 2024-02-01 15:17 | W.[place]-PDMP ---
[place]
-
Checked the [place]- Prescription Drug Monitoring Program website, no red flags identified; safe to proceed with prescription. Patient does follow with a pain management provider where he regularly receives oxycodone 10 mg with 325 mgTylenol. He has
endorsed to me that he does not believe he has any pills left from his last supply which was picked up on 12/10/2023 and per PDMP the prescription was for a 30-day supply. Provided explicit instructions to not take short 0 refill prescription for
p.o. Dilaudid 2 mg with oxycodone 10 mg with 325 mg Tylenol (if he were to have any remaining pills at home of the oxycodone). Patient verbalizes understanding, out of an abundance of caution we will also prescribe as needed Narcan.
[2024-02-01 16:23] LABS: Glucose - Point of Care 145 mg/dl (70-99)
[2024-02-01] MEDS: COLACE 100 MG PO (16:46)
[2024-02-01] MEDS: LYRICA 100 MG PO (17:21)
[2024-02-01 21:24] LABS: Glucose - Point of Care 155 mg/dl (70-99)
[2024-02-01] MEDS: ROXICODONE 10 MG PO (22:22)
[2024-02-02] MEDS: TYLENOL PO ×2 (00:01→04:02)
[2024-02-02 03:46] VITALS: BP 113/62
[2024-02-02] MEDS: DILAUDID 2 MG PO ×2 (03:55→13:22)
[2024-02-02 06:00] VITALS: BMI 24.7
[2024-02-02 07:04] LABS: Hematocrit 34.7 % (39.0-52.0); Hemoglobin 11.6 g/dL (13.0-18.0); Mean Corp Hgb Conc. 33.4 g/dL (33.0-37.0); Mean Corpuscular Hgb 29.4 pg (27.0-31.0); Mean Corpuscular Volume 87.8 fL (80.0-94.0); Mean Platelet Volume 10.2 fL (7.4-10.4); Platelet Count 232 10^3/uL (130-400); Red Blood Cell Count 3.95 10^6/uL (4.70-6.10); Red Cell Dist. Width 14.2 % (11.5-14.5); White Blood Cell Count 10.8 10^3/uL (4.8-10.8)
[2024-02-02 07:25] VITALS: BP 115/69
[2024-02-02 07:28] LABS: Blood Urea Nitrogen 26 mg/dl (9-20); Calcium 8.6 mg/dl (8.4-10.2); Carbon Dioxide 26 mmol/L (22-30); Chloride 101 mmol/L (98-107); Estimated Creatinine Clearance 91 ml/min; Glucose 118 mg/dl (70-99); Potassium 4.2 mmol/L (3.5-5.1); Sodium 137 mmol/L (135-145); eGFR > 60.00
[2024-02-02 07:37] LABS: Glucose - Point of Care 113 mg/dl (70-99)
[2024-02-02] MEDS: ROXICODONE 10 MG PO (08:27)
[2024-02-02] MEDS: ASPIR LOW (ENTERIC COATED) 81 MG PO (08:28)
[2024-02-02] MEDS: LYRICA 200 MG PO (08:28)
[2024-02-02] MEDS: IMDUR (EXTENDED RELEASE) 30 MG PO (08:28)
[2024-02-02] MEDS: PROTONIX 40 MG PO (08:28)
[2024-02-02] MEDS: LASIX 20 MG PO (08:28)
[2024-02-02] MEDS: AVAPRO 300 MG PO (08:28)
[2024-02-02] MEDS: CRESTOR 40 MG PO (08:29)
[2024-02-02] MEDS: FARXIGA 10 MG PO (08:29)
[2024-02-02] MEDS: JANUVIA 100 MG PO (08:29)
[2024-02-02] MEDS: XARELTO 2.5 MG PO (08:29)
[2024-02-02] MEDS: VISBIOME 1 CAP PO (08:29)
[2024-02-02] MEDS: KCL 10 MEQ PO (08:29)
[2024-02-02] MEDS: AMARYL 2 MG PO (08:29)
[2024-02-02] MEDS: AUGMENTIN 500 MG/125 MG 1 TABLET PO (08:29)
[2024-02-02] MEDS: TYLENOL 650 MG PO ×2 (08:29→13:07)
[2024-02-02] MEDS: QUESTRAN PO (08:30)
[2024-02-02] MEDS: NOVOLOG FLEXPEN-LOW RESISTANCE SC (08:45)
[2024-02-02] MEDS: DILAUDID 0.5 MG IV (10:42)
[2024-02-02 11:00] VITALS: BP 102/52
[2024-02-02 11:27] LABS: Glucose - Point of Care 182 mg/dl (70-99)
[2024-02-02] MEDS: NOVOLOG FLEXPEN-LOW RESISTANCE 1 UNITS SC (13:08)
--- NOTE | 2024-02-02 14:32 | CM ---
Pt for discharge today
Family to transport
Plan - Home with [facility]
family to transport
--- NOTE | 2024-02-02 14:35 | W.PN.VS ---
Today's Communication / Plan
-
see plan below for today 02/02/24
Assessment/Plan
-
Assessment: POD#5
Plan:
Discharge home.
Extensively discussed instructions with patient and his . Discussed indications to call office. Went through many other questions including Lasix. This was added by Dr. Spence for a couple days. Discussed that with them. Only a couple days
prescription has been given. We discussed pain medicines. He has been given a prescription for Dilaudid but only limited amount. Discussed that we will not be giving Percocet as likely should not need that. We discussed all other questions and
answered to their satisfaction.
-
Total Time Spent with Patient (in minutes): 20
Subjective Data
-
Date of Service: February 02, 2024
Seen and examined. Patient without significant complaints. He is without any new complaints. His family was concerned about swelling in his right calf. I discussed with patient he notes that it is stable/slightly improved. No pain in the foot.
He notes that he ambulated.
Objective Data
-
Vital Signs
Temp Pulse Resp BP Pulse Ox
97.8 F 67 16 102/52 96
02/02/24 11:00 02/02/24 11:00 02/02/24 11:00 02/02/24 11:00 02/02/24 11:00
Intake and Output
02/01/24 02/02/24 02/03/24
06:59 06:59 06:59
Intake Total 1240 / 1240 1140 / 1140
Output Total
Balance 1240 / 1240 945 / 945
Intake:
Oral fluids 1240 / 1240 1140 / 1140
Output:
Urine, Voided
Other:
Number of approximated MODERATE 2 1
amounts of urine
Number of approximated LARGE 1 1
amounts of urine
Lab Results
02/02/24 05:55
02/02/24 05:55
Calcium 8.6 mg/dl (8.4-10.2) 02/02/24 05:55
Magnesium 1.8 mg/dl (1.6-2.3) 02/01/24 05:19
Physical Exam
-
Afebrile.
Awake and alert.
Right lower extremity incisions all clean dry and intact. Small serous drainage on one of the dressings. Appears dry.
Palpable graft pulse behind the knee. Foot is warm and pink.
[2024-02-02 15:00] VITALS: BP 136/69
== END 2024-02-02 15:58 | disposition home health service (06) | DRG 253 ==
LOC: 2 NORTH 06:59
PROVIDERS: Nurse Practitioner; Nurse Practitioner Acute Care; Nurse Practitioner Gerontology; ADMITTING PHYSICIAN Surgery Vascular Surgery; CONSULT PHYSICIAN Internal Medicine Critical Care Medicine; FAMILY PHYSICIAN Internal Medicine
PROC: 041K09L Bypass Right Femoral Artery to Popliteal Artery with Autologous Venous Tissue, Open Approach (ICD-10-PCS; 2024-01-28)
PROC: 06BP0ZZ Excision of Right Saphenous Vein, Open Approach (ICD-10-PCS; 2024-01-28)
DX: I72.4 Aneurysm of artery of lower extremity (principal); D62 Acute posthemorrhagic anemia; J84.9 Interstitial pulmonary disease, unspecified; I74.3 Embolism and thrombosis of arteries of the lower extremities; E11.51 Type 2 diabetes mellitus with diabetic peripheral angiopathy without gangrene; I70.221 Atherosclerosis of native arteries of extremities with rest pain, right leg; E11.42 Type 2 diabetes mellitus with diabetic polyneuropathy; I10 Essential (primary) hypertension; I25.10 Atherosclerotic heart disease of native coronary artery without angina pectoris; K21.9 Gastro-esophageal reflux disease without esophagitis; E78.2 Mixed hyperlipidemia; Z79.01 Long term (current) use of anticoagulants; Z86.718 Personal history of other venous thrombosis and embolism; Z87.891 Personal history of nicotine dependence; Z95.1 Presence of aortocoronary bypass graft; Z95.5 Presence of coronary angioplasty implant and graft; Z79.899 Other long term (current) drug therapy; Z79.84 Long term (current) use of oral hypoglycemic drugs; Z79.82 Long term (current) use of aspirin
CPT/HCPCS: 35151; 36415; 71046; 80048; 82962; 83036; 83735; 85025; 85027; 85610; 85730; 86850; 86900; 86901; 97116; 97163; 97167; 97530; 97535

== ENCOUNTER → 2024-03-04 10:27 | Outpatient (REF) | payer MEDICARE, OTHER, SELFPAY | LOC: RAD 10:27 | PROVIDERS: ATTENDING PHYSICIAN Registered Nurse; FAMILY PHYSICIAN Internal Medicine | DX: I73.9 Peripheral vascular disease, unspecified (principal) | CPT/HCPCS: 93922; 93925 ==

== ENCOUNTER → 2024-05-05 08:06 | Outpatient (REF) | payer MEDICARE, OTHER, SELFPAY | LOC: HWRCS 08:06 | PROVIDERS: ATTENDING PHYSICIAN Internal Medicine Interventional Cardiology; FAMILY PHYSICIAN Internal Medicine | DX: I95.9 Hypotension, unspecified (principal); I25.10 Atherosclerotic heart disease of native coronary artery without angina pectoris; I10 Essential (primary) hypertension; Z95.1 Presence of aortocoronary bypass graft | CPT/HCPCS: 78452; 93017; A9500; J2785 ==

== ENCOUNTER → 2024-05-21 11:07 | Outpatient (REF) | payer MEDICARE, OTHER, SELFPAY | LOC: RAD 11:07 | PROVIDERS: ATTENDING PHYSICIAN Internal Medicine | DX: I73.9 Peripheral vascular disease, unspecified (principal); R22.41 Localized swelling, mass and lump, right lower limb | CPT/HCPCS: 93971 ==

== ENCOUNTER → 2024-06-18 13:09 | Outpatient (REF) | payer MEDICARE, OTHER, SELFPAY | LOC: RAD 13:09 | PROVIDERS: ATTENDING PHYSICIAN Surgery Vascular Surgery; FAMILY PHYSICIAN Internal Medicine | DX: I73.9 Peripheral vascular disease, unspecified (principal) | CPT/HCPCS: 93922; 93925 ==

== ENCOUNTER → 2024-06-26 06:57 | Outpatient (REF) | payer MEDICARE, OTHER, SELFPAY | LOC: MRI 3T 06:57 | PROVIDERS: ATTENDING PHYSICIAN Anesthesiology; FAMILY PHYSICIAN Internal Medicine | DX: M54.12 Radiculopathy, cervical region (principal) | CPT/HCPCS: 72141 ==

== ENCOUNTER 2024-09-12 04:51 | Inpatient (IN) | payer MEDICARE, OTHER, SELFPAY ==
[2024-09-12] VITALS (19 sets, daily range): BP systolic 87–148; BP diastolic 47–83; BMI 26.5; BMI 26.8
[2024-09-12 00:57] LABS: Hematocrit 36.4 % (39.0-52.0); Hemoglobin 12.7 g/dL (13.0-18.0); Mean Corp Hgb Conc. 34.9 g/dL (33.0-37.0); Mean Corpuscular Volume 83.3 fL (80.0-94.0); Nucleated Red Blood Cells % 0 % (-); Platelet Count 216 10^3/uL (130-400); Red Cell Dist. Width 15.7 % (11.5-14.5)
[2024-09-12 01:20] LABS: ALT (SGPT) 259 U/L (0-50); AST (SGOT) 420 U/L (17-59); Albumin 3.3 g/dl (3.5-5.0); Alkaline Phosphatase 382 U/L (38-126); Blood Urea Nitrogen 24 mg/dl (9-20); Calcium 9.0 mg/dl (8.4-10.2); Carbon Dioxide 20 mmol/L (22-30); Chloride 108 mmol/L (98-107); Estimated Creatinine Clearance 66 ml/min; Glucose 244 mg/dl (70-99); Potassium 3.5 mmol/L (3.5-5.1); Sodium 138 mmol/L (135-145); Total Protein 5.8 g/dl (6.3-8.2); eGFR > 60.00
--- NOTE | 2024-09-12 01:34 | ED.GENMED ---
History of Present Illness
<Davion Rlaph DO - Last Filed: 09/12/24 23:13>
General
Chief Complaint: Fever
Source: patient, records and spouse
Exam Limitations: none
Time Seen by Provider: 09/12/24 00:52
Nursing documentation reviewed up to this point in time: agreed with
History of Present Illness
History of Present Illness:
78-year-old male presents with fever and chills onset late this afternoon, feeling well until then, no cough no vomiting, no dysuria or frequency is diabetic history CAD status post bypass surgery history of peripheral vascular disease, prior stroke,
Past History
<Davion Ralph DO - Last Filed: 09/12/24 23:13>
Past History
ED Past Medical History: CAD, CVA, GERD, HTN, Hypercholesterolemia, NIDDM, PA and Other (DVT)
ED Past Surgical History: Cardiac (bypass, stents) and Cholecystectomy
Social History
Tobacco: Former smoker (quit x 22 years)
Alcohol: None
Drug: None
Personal:
Living: with family
Employment: Retired
Phy Exam
<Davion Ralph DO - Last Filed: 09/12/24 23:13>
Physical Exam
Physical Exam:
Physical Exam
General: Ill-appearing male
Neck: Dry lips no jaw
Heart: Tachycardia
Lungs: No wheeze
Abdomen: Soft without guarding or
Neuro: alert and oriented. no focal neurological deficits
Skin: no rash
Psychiatric: well kept. interactive and cooperative
Extremities: No edema
Course
<Davion Ralph DO - Last Filed: 09/12/24 23:13>
Orders/Labs/Results
Orders:
Orders
09/12/24 00:32
EKG [Electrocardiogram (*1)] Urgent
Reason for Study: Tachycardia
09/12/24 00:33
EKG- Treatment ONCE
09/12/24 00:35
Cardiac Monitoring- Treatment ONCE
IV Insert/Care/Rem.- Treatment PRN
Pulse Ox/cont/shift [RESP] Urgent
Quantity: 1
Special Instructions: CONTINUOUS
09/12/24 00:41
Complete Blood Count/With Diff Urgent
Comprehensive Metabolic Panel Urgent
Lactic Acid Q4H
Comment: ON ICE, CANCEL 2ND ORDER IF FIRST LACTIC ACID LEVEL <2
Lipase Urgent
Comment: ADD ON
Blood Culture Q20M
MEKHI Source: Blood/Venous
Specimen Description:
Comment: Urgent from separate sites. If patient screens positive for possible sepsis
09/12/24 01:03
0.9% Sodium Chloride 1000 ml [Nss] 2,800 ml IV NOW STA
CR Chest Portable - 1 View Urgent
Comment:
Reason For Exam: sepsis
Reason Study Needs to be Portable: Patient Unstable
09/12/24 01:04
Piperacillin/Tazo 3.375 Gram [Zosyn] 3.375 gram in 50 ml IV NOW
09/12/24 01:05
Blood Culture Q20M
MEKHI Source: Blood/Venous
Specimen Description:
Comment: Urgent from separate sites. If patient screens positive for possible sepsis
09/12/24 01:25
CT Abd/Pel (IV only)-[facility] only Urgent
Comment:
Reason For Exam: Fever LFTs elevated
09/12/24 01:30
COVID-19 Antigen Urgent
Source: Nasal Swab
Influenza A+B Rapid Molecular Urgent
MEKHI Source: Nasal Swab
Specimen Description:
09/12/24 01:31
Blood Culture Q30M
MEKHI Source: Blood/Venous
Specimen Description:
09/12/24 02:30
NORepinephrine 4 MG/250 ML [Levophed] 4 mg in 250 ml IV PER PROTOCOL
Initial dose in mcg/min, then titrate:: 2
Titrate to keep:: MAP > 65 mmHg
Titrate by mcg/min:: 1-2 mcg/min
Frequency of titrations (minutes):: 5
Maximum dose in ICU in mcg/min:: 30
Maximum dose in IMU in mcg/min:: 8
Maximum dose in IVU in mcg/min:: 4
Begin to taper infusion when:: Remained at goal for 4hrs
Taper by mcg/min:: 1-2 mcg/min
Frequency of taper (minutes) if patient maintains goal:: 30
Taper to off?: Yes
If infusion off & no longer maintaining goal:: Contact Provider
09/12/24 02:45
Add On- LAB Urgent
Tests Added?: lipase
09/12/24 04:19
Admit/Transfer Patient As Directed
Co-Sign Provider:
Level of Care: Inpatient admission
Assign to:: Medical/Surgical
Physician / Group: [facility]
Diagnosis: Fever
Reason for Hospitalization: fever of unknown source
Expected length of stay greater than two midnights?: Yes
ELOS- Estimated Length of Stay in days: 2
I certify the patient meets the requirements for IP care: Yes
PRN Pain Medication Management As Directed
May give lesser potent ordered pain med per pt: Yes
preference::
Protocol:: Medication orders for pain may be administered in a
manner that supports deferring to patient preference
when the pt is:
- Requesting an ordered lesser potent pain medication.
Least to most potent pain medications are defined
as: acetaminophen < NSAID < tramadol < opioids
(morphine, oxycodone, hydromorphone).
- Requesting a lesser dose of the same medication IF
ORDERED.
- Requesting a less intrusive route of administration
if both routes are prescribed by the provider (PO <
IV).
09/12/24 04:21
Code Status As Directed
Resuscitation Status: Full Code
09/12/24 04:23
Lactic Acid Q4H
Comment: ON ICE, CANCEL 2ND ORDER IF FIRST LACTIC ACID LEVEL <2
09/12/24 04:24
Urinalysis Reflex To Culture Urgent
Date Specimen was Collected: 09/12/24
Time Specimen was Collected: 04:21
Urine Microscopic Reflex Cult Urgent
09/12/24 04:26
0.9% Sodium Chloride 500 ml [Nss] 500 ml IV BOLUS
09/12/24 Breakfast
1800 calorie (15 carb) Diabetic
At Your Request: Full Participation
Does patient need a safe tray?: No
09/12/24 06:30
Acetaminophen [Tylenol] 650 mg PO Q4HPRN PRN
Bisacodyl [Dulcolax] 10 mg RECTAL [id number] PRN
Cyclobenzaprine HCl [Flexeril] 10 mg PO HSPRN PRN back pain
Docusate W/Senna [Senokot-S] 1 tablet PO BIDPRN PRN
Lactated Ringers [Lr] 1,000 ml IV 80 mls/hr
Ondansetron Injectable [Zofran] 4 mg IV Q6HPRN PRN
Oxycodone [Roxicodone] 5 mg PO Q4HPRN PRN
Polyethylene Glycol Powder [Miralax] 17 grams PO DAILYPRN PRN
Tamsulosin [Flomax] 0.4 mg PO QPM PRN Urinary Issue
09/12/24 06:30
Consult Notification Routine
Specialty to Notify: Gastroenterology
Date consulting provider notified: 09/12/24
Time consulting provider notified: 07:16
Notified:: Provider
Comment: TT
GASTROINTESTINAL CONSULT Routine
Consulting Provider: Coral Cary
Was physician already notified: No
Reason for consult: transaminitis, suspected choledocholithiasis/cholangitis
VTE Contraindication Routine
VTE Mechanical Device Contraindication: Medical Contraindication
Pharmocologic Contraindication: Medical Contraindication
MR Abdomen W/o & W Contrast Routine
Comment:
Reason For Exam: transaminitis,mrcp possible biliary stone on CT ap
Recent pill cam endoscopy?: No
Activity As Directed
Activity Level: With Assistance
Bedside Glucose Monitoring As Directed
Frequency: AC&HS
Vital Signs As Directed
Frequency: Per unit guidelines
09/12/24 07:30
Insulin Aspart Corrective Low [Novolog Flexpen-Low Resistance] See Protocol SC AC
09/12/24 08:00
Aspirin Low Dose EC [Aspir Low (Enteric Coated)] 81 mg PO DAILY
ISOSORBIDE MONOnitrate ER [Imdur (Extended Release)] 30 mg PO DAILY
Pantoprazole [Protonix] 40 mg PO DAILY
Piperacillin/Tazo 3.375 Gram [Zosyn] 3.375 gram in 50 ml IV Q6H
Pregabalin [Lyrica] 200 mg PO DAILY
Rivaroxaban [Xarelto] 2.5 mg PO BID
Rosuvastatin Calcium [Crestor] 40 mg PO DAILY
Sitagliptin Phosphate [Januvia] 100 mg PO DAILY
cilostazol See Dose Instructions PO BID
09/12/24 09:00
Cholestyramine [Questran] 4 gram PO BID@0900,2100
09/12/24 18:00
Pregabalin [Lyrica] 100 mg PO QPM
Abnormal Lab Results
09/12/24 09/12/24
00:41 04:24
WBC 12.6 H 10^3/uL
(4.8-10.8)
RBC 4.37 L 10^6/uL
(4.70-6.10)
Hgb 12.7 L g/dL
(13.0-18.0)
Hct 36.4 L %
(39.0-52.0)
RDW 15.7 H %
(11.5-14.5)
Abs Immat Gran (auto) 0.1 H 10^3/uL
(0-0.05)
Absolute Neuts (auto) 11.2 H 10^3/uL
(1.4-6.5)
Absolute Lymphs (auto) 0.4 L 10^3/uL
(1.2-3.4)
Absolute Monos (auto) 0.9 H 10^3/uL
(0.1-0.6)
Immature Gran % 0.7 H %
(0-0.5)
Neutrophils % 88.7 H %
(42.2-75.2)
Lymphocytes % 3.1 L %
(20.5-51.1)
Chloride 108 H mmol/L
(98-107)
Carbon Dioxide 20 L mmol/L
(22-30)
BUN 24 H mg/dl
(9-20)
Glucose 244 H mg/dl
(70-99)
Lactic Acid 2.1 H mmol/L
(0.7-2.0)
Total Bilirubin 2.9 H mg/dl
(0.2-1.3)
AST 420 H U/L
(17-59)
ALT 259 H U/L
(0-50)
Alkaline Phosphatase 382 H U/L
(38-126)
Total Protein 5.8 L g/dl
(6.3-8.2)
Albumin 3.3 L g/dl
(3.5-5.0)
Urine Glucose 4+ A
(Negative)
Urine Albumin (Reflex) 1+ A
(Neg - Trace)
09/12/24 00:41
09/12/24 00:41
Vital Signs
Initial and Last Documented VS:
Initial Vital Signs
Temp Pulse Resp BP Pulse Ox
99.6 F 110 20 89/49 94
09/12/24 00:28 09/12/24 00:28 09/12/24 00:28 09/12/24 00:28 09/12/24 00:28
Last Documented Vital Signs
Temp Pulse Resp BP Pulse Ox
99 F 75 16 127/64 97
09/12/24 19:00 09/12/24 19:00 09/12/24 19:00 09/12/24 19:00 09/12/24 19:00
<Alia Spence MD - Last Filed: 09/12/24 02:59>
Orders/Labs/Results
Orders:
Orders
09/12/24 00:32
EKG [Electrocardiogram (*1)] Urgent
Reason for Study: Tachycardia
09/12/24 00:33
EKG- Treatment ONCE
09/12/24 00:35
Cardiac Monitoring- Treatment ONCE
IV Insert/Care/Rem.- Treatment PRN
Pulse Ox/cont/shift [RESP] Urgent
Quantity: 1
Special Instructions: CONTINUOUS
09/12/24 00:41
Complete Blood Count/With Diff Urgent
Comprehensive Metabolic Panel Urgent
Lactic Acid Q4H
Comment: ON ICE, CANCEL 2ND ORDER IF FIRST LACTIC ACID LEVEL <2
Lipase Urgent
Comment: ADD ON
Blood Culture Q20M
MEKHI Source: Blood/Venous
Specimen Description:
Comment: Urgent from separate sites. If patient screens positive for possible sepsis
09/12/24 01:03
0.9% Sodium Chloride 1000 ml [Nss] 2,800 ml IV NOW STA
CR Chest Portable - 1 View Urgent
Comment:
Reason For Exam: sepsis
Reason Study Needs to be Portable: Patient Unstable
09/12/24 01:04
Piperacillin/Tazo 3.375 Gram [Zosyn] 3.375 gram in 50 ml IV NOW
09/12/24 01:05
Blood Culture Q20M
MEKHI Source: Blood/Venous
Specimen Description:
Comment: Urgent from separate sites. If patient screens positive for possible sepsis
09/12/24 01:25
CT Abd/Pel (IV only)-[facility] only Urgent
Comment:
Reason For Exam: Fever LFTs elevated
09/12/24 01:30
COVID-19 Antigen Urgent
Source: Nasal Swab
Influenza A+B Rapid Molecular Urgent
MEKHI Source: Nasal Swab
Specimen Description:
09/12/24 01:31
Blood Culture Q30M
MEKHI Source: Blood/Venous
Specimen Description:
09/12/24 02:30
NORepinephrine 4 MG/250 ML [Levophed] 4 mg in 250 ml IV PER PROTOCOL
Initial dose in mcg/min, then titrate:: 2
Titrate to keep:: MAP > 65 mmHg
Titrate by mcg/min:: 1-2 mcg/min
Frequency of titrations (minutes):: 5
Maximum dose in ICU in mcg/min:: 30
Maximum dose in IMU in mcg/min:: 8
Maximum dose in IVU in mcg/min:: 4
Begin to taper infusion when:: Remained at goal for 4hrs
Taper by mcg/min:: 1-2 mcg/min
Frequency of taper (minutes) if patient maintains goal:: 30
Taper to off?: Yes
If infusion off & no longer maintaining goal:: Contact Provider
09/12/24 02:45
Add On- LAB Urgent
Tests Added?: lipase
09/12/24 04:19
Admit/Transfer Patient As Directed
Co-Sign Provider:
Level of Care: Inpatient admission
Assign to:: Medical/Surgical
Physician / Group: Raymond
Diagnosis: Fever
Reason for Hospitalization: fever of unknown source
Expected length of stay greater than two midnights?: Yes
ELOS- Estimated Length of Stay in days: 2
I certify the patient meets the requirements for IP care: Yes
PRN Pain Medication Management As Directed
May give lesser potent ordered pain med per pt: Yes
preference::
Protocol:: Medication orders for pain may be administered in a
manner that supports deferring to patient preference
when the pt is:
- Requesting an ordered lesser potent pain medication.
Least to most potent pain medications are defined
as: acetaminophen < NSAID < tramadol < opioids
(morphine, oxycodone, hydromorphone).
- Requesting a lesser dose of the same medication IF
ORDERED.
- Requesting a less intrusive route of administration
if both routes are prescribed by the provider (PO <
IV).
09/12/24 04:21
Code Status As Directed
Resuscitation Status: Full Code
09/12/24 04:23
Lactic Acid Q4H
Comment: ON ICE, CANCEL 2ND ORDER IF FIRST LACTIC ACID LEVEL <2
09/12/24 04:24
Urinalysis Reflex To Culture Urgent
Date Specimen was Collected: 09/12/24
Time Specimen was Collected: 04:21
Urine Microscopic Reflex Cult Urgent
09/12/24 04:26
0.9% Sodium Chloride 500 ml [Nss] 500 ml IV BOLUS
09/12/24 Breakfast
1800 calorie (15 carb) Diabetic
At Your Request: Full Participation
Does patient need a safe tray?: No
09/12/24 06:30
Acetaminophen [Tylenol] 650 mg PO Q4HPRN PRN
Bisacodyl [Dulcolax] 10 mg RECTAL [id number] PRN
Cyclobenzaprine HCl [Flexeril] 10 mg PO HSPRN PRN back pain
Docusate W/Senna [Senokot-S] 1 tablet PO BIDPRN PRN
Lactated Ringers [Lr] 1,000 ml IV 80 mls/hr
Ondansetron Injectable [Zofran] 4 mg IV Q6HPRN PRN
Oxycodone [Roxicodone] 5 mg PO Q4HPRN PRN
Polyethylene Glycol Powder [Miralax] 17 grams PO DAILYPRN PRN
Tamsulosin [Flomax] 0.4 mg PO QPM PRN Urinary Issue
09/12/24 06:30
Consult Notification Routine
Specialty to Notify: Gastroenterology
Date consulting provider notified: 09/12/24
Time consulting provider notified: 07:16
Notified:: Provider
Comment: TT
GASTROINTESTINAL CONSULT Routine
Consulting Provider: Coral Cary
Was physician already notified: No
Reason for consult: transaminitis, suspected choledocholithiasis/cholangitis
VTE Contraindication Routine
VTE Mechanical Device Contraindication: Medical Contraindication
Pharmocologic Contraindication: Medical Contraindication
MR Abdomen W/o & W Contrast Routine
Comment:
Reason For Exam: transaminitis,mrcp possible biliary stone on CT ap
Recent pill cam endoscopy?: No
Activity As Directed
Activity Level: With Assistance
Bedside Glucose Monitoring As Directed
Frequency: AC&HS
Vital Signs As Directed
Frequency: Per unit guidelines
09/12/24 07:30
Insulin Aspart Corrective Low [Novolog Flexpen-Low Resistance] See Protocol SC AC
09/12/24 08:00
Aspirin Low Dose EC [Aspir Low (Enteric Coated)] 81 mg PO DAILY
ISOSORBIDE MONOnitrate ER [Imdur (Extended Release)] 30 mg PO DAILY
Pantoprazole [Protonix] 40 mg PO DAILY
Piperacillin/Tazo 3.375 Gram [Zosyn] 3.375 gram in 50 ml IV Q6H
Pregabalin [Lyrica] 200 mg PO DAILY
Rivaroxaban [Xarelto] 2.5 mg PO BID
Rosuvastatin Calcium [Crestor] 40 mg PO DAILY
Sitagliptin Phosphate [Januvia] 100 mg PO DAILY
cilostazol See Dose Instructions PO BID
09/12/24 09:00
Cholestyramine [Questran] 4 gram PO BID@0900,2100
09/12/24 18:00
Pregabalin [Lyrica] 100 mg PO QPM
Abnormal Lab Results
09/12/24 09/12/24
00:41 04:24
WBC 12.6 H 10^3/uL
(4.8-10.8)
RBC 4.37 L 10^6/uL
(4.70-6.10)
Hgb 12.7 L g/dL
(13.0-18.0)
Hct 36.4 L %
(39.0-52.0)
RDW 15.7 H %
(11.5-14.5)
Abs Immat Gran (auto) 0.1 H 10^3/uL
(0-0.05)
Absolute Neuts (auto) 11.2 H 10^3/uL
(1.4-6.5)
Absolute Lymphs (auto) 0.4 L 10^3/uL
(1.2-3.4)
Absolute Monos (auto) 0.9 H 10^3/uL
(0.1-0.6)
Immature Gran % 0.7 H %
(0-0.5)
Neutrophils % 88.7 H %
(42.2-75.2)
Lymphocytes % 3.1 L %
(20.5-51.1)
Chloride 108 H mmol/L
(98-107)
Carbon Dioxide 20 L mmol/L
(22-30)
BUN 24 H mg/dl
(9-20)
Glucose 244 H mg/dl
(70-99)
Lactic Acid 2.1 H mmol/L
(0.7-2.0)
Total Bilirubin 2.9 H mg/dl
(0.2-1.3)
AST 420 H U/L
(17-59)
ALT 259 H U/L
(0-50)
Alkaline Phosphatase 382 H U/L
(38-126)
Total Protein 5.8 L g/dl
(6.3-8.2)
Albumin 3.3 L g/dl
(3.5-5.0)
Urine Glucose 4+ A
(Negative)
Urine Albumin (Reflex) 1+ A
(Neg - Trace)
09/12/24 00:41
09/12/24 00:41
Vital Signs
Initial and Last Documented VS:
Initial Vital Signs
Temp Pulse Resp BP Pulse Ox
99.6 F 110 20 89/49 94
09/12/24 00:28 09/12/24 00:28 09/12/24 00:28 09/12/24 00:28 09/12/24 00:28
Last Documented Vital Signs
Temp Pulse Resp BP Pulse Ox
99 F 75 16 127/64 97
09/12/24 19:00 09/12/24 19:00 09/12/24 19:00 09/12/24 19:00 09/12/24 19:00
<Davion Ralph, DO - Last Filed: 09/12/24 23:13>
MDM/Problems Addressed
Differential Diagnosis Includes:
Bacteremia pneumonia UTI urinary tract pathology biliary tract pathology viral syndrome
MDM/Problems Addressed:
Fever low blood pressure
Chronic conditions affecting care: DM, HTN, CAD, PVD and Neurological disorder
Acute Exacerbation and/or Progression of Chronic Illness: DM, HTN, CAD, PVD and Neurological disorder
<Davion Ralph DO - Last Filed: 09/12/24 23:13>
*Radiology
Radiology exam reviewed: radiology read reviewed
*Pulse Oximetry
SaO2: 94
Oxygen Mode of Delivery: Room air
Patient hypoxic: no
*EKG
Interpreted by ED Provider?: Yes
Interpretation: abnormal
Comparison EKG: no comparison EKG present
Rate: normal
Rhythm: sinus
Ischemia: non-specific ST changes
*[employer]illing [employer] Operator Interpretation
Rate: normal
Interpretation: normal
Heart Rate: 78
Rhythm: sinus
*Critical Care Note
Total Time (30-74mins, 75-104mins- exclusive of procedures): 32
Data Reviewed
Review of Other/Old Records Reveals: Labs and Radiology Studies
Source: patient, records and spouse
<Davion Ralph DO - Last Filed: 09/12/24 23:13>
Update Note
Update Note:
Patient with signs of sepsis of sepsis, labs are noted patient gallbladder has been removed, will check CT scan, started on antibiotics, blood cultures, volume resuscitation, chest x-ray urine
2:15 AM update chest x-ray noted question of infiltrate CT noted full report pending patient's mental status appears to be improved resuscitation urine pending
<Alia Spence MD - Last Filed: 09/12/24 02:59>
Update Note
Update Note:
Patient with signs of sepsis of sepsis, labs are noted patient gallbladder has been removed, will check CT scan, started on antibiotics, blood cultures, volume resuscitation, chest x-ray urine
2:15 AM update chest x-ray noted question of infiltrate CT noted full report pending patient's mental status appears to be improved resuscitation urine pending
[address] vision report communicated to hospitalist: 'CT abd report suggest distal CBD stone (less likely mass)...maybe was also there in 2023. Given sepsis and lft abnl, I am thinking we need to talk to GI, consider MRCP, treat for cholangitis in
meantime? Let me know if you need me to help out. Thanks'
ED Attending Note
<Davion Ralph DO - Last Filed: 09/12/24 23:13>
-
Portions of this chart may have been created with voice recognition software.� Occasional wrong word or��sound alike� substitutions may have occurred due to the inherent limitations of voice recognition software.
Discharge Plan
Departure
Patient Disposition: Admit
Date of Disposition: 09/12/24
Time of Disposition: 02:27
Admit to: ICU
Presentation/result/management discussed w/ accepting MD/DO: Hospitalist
Patient with high blood pressure during this ER visit?: No
Condition: Critical
Covid-19: Negative COVID-19
Discharge Problem:
Septic shock
Interventions
Interventions:
*Risk Screen - Suicide Last Done: 09/12/24 00:38
*General Assessment Last Done: 09/12/24 00:38
*Neglect/Abuse Screening Last Done: 09/12/24 00:38
*ED- Fall Risk Assessment Last Done: 09/12/24 00:38
*ED COVID-19 Vaccine History Last Done: 09/12/24 00:38
*Nursing Disposition Last Done: 09/12/24 06:03
ED- Neurological Assessment Last Done: 09/12/24 01:00
Discharge Date and Time
Discharge Date/Time: 09/12/24 06:03
[2024-09-12] MEDS: NSS 2800 ML IV (01:44)
[2024-09-12 01:58] LABS: COVID-19 Antigen Negative (Negative)
[2024-09-12] MEDS: ZOSYN 50 IV ×4 (02:59→20:48)
[2024-09-12 03:20] LABS: Lipase 182 U/L (23-300)
--- NOTE | 2024-09-12 03:54 | HPS.HSE ---
Family Physician
-
Family Physician: Magno Khan
Chief Complaint
-
Fever of unknown source
History of Present Illness
This is a 78-year-old with past medical history significant for ovx-zwrnutr-[id number] diabetes, hypertension, hyperlipidemia, CAD, eripheral vascular disease status post prior bypass surgery, BPH presenting to the emergency department with episode
of fever and chills.
Patient reports sudden onset of fever and chills late in the afternoon. He denied any prior symptoms. Denied having any cough. He denied any shortness of breath. He denies any abdominal pain and nausea or vomiting. He denies having any
diarrhea. Denies any rash. Patient denies any headache or neck stiffness or neck pain. He denies any urinary symptoms.
Spouse reported that the time he had just had a chicken sandwich and had some nausea. Denied any vomiting. Denies any abdominal pain. He was also found to have low blood pressure when he was tachycardic at home. He was weak and irritable. He
was brought to the emergency department.
In the emergency department he had a temp of 99.6, he was tachycardic to 100 with a blood pressure of 116/67 and a oxygen saturation of 91.
Chest x-ray shows increased cephalization of the blood vessels. ECG shows sinus tachycardia with PVCs.
WBC was 10.6 rest of the CBC was unremarkable stop electrolytes BUN/creatinine were all unremarkable.
Patient had a lactic acid of 2.1.
He did have elevations in AST to 420 ALT to 259 and alk phos to 380.
Patient had a CT of the abdomen pelvis showing:
Moderate dilation of the bile duct up to 15.4 mm and moderate intrahepatic biliary rotation related to prior cholecystectomy, there is some suspicion of subtle stone or mass possibly measuring up to 12 mm in diameter. Pancreatic duct is within
normal limits.
Medical History
Past Medical History
Past Medical History: Reports Other (CAD status post CABG x 5, type 2 diabetes, peripheral arterial disease on Xarelto, hypertension, GERD, hypercholesterolemia,)
Past Surgical History: Reports None
Social History
Tobacco: Non-smoker
Alcohol: None
Drug: None
Family History
Family History: Not pertinent
Allergies / Home Medications
Allergies reflects when Allergies were last updated in [facility].
Home Medications with original date entered in [facility]
Allergy/Medication List:
Allergies
Allergy/AdvReac Type Severity Reaction Status Date / Time
No Known Allergies Allergy Verified 09/03/23 11:55
Home Medications
alogliptin 25 mg tablet 25 mg PO DAILY Diabetes 08/20/20
fenofibrate nanocrystallized 145 mg tablet 145 mg PO HS High cholesterol 08/20/20
glimepiride 2 mg tablet 2 mg PO BID@0800,1700 Diabetes 08/20/20
metformin 1,000 mg tablet 1,000 mg PO BID@0800,1700 Diabetes 08/20/20
pregabalin 150 mg capsule (Lyrica) 300 mg PO DAILY Pain 08/20/20
rosuvastatin 40 mg tablet (Crestor) 40 mg PO DAILY High cholesterol 08/20/20
cilostazol 100 mg tablet 100 mg PO BID Blood clot prevention/tx 05/16/22
famotidine 20 mg tablet 20 mg PO HS Gastrointestinal issue 05/16/22
lidocaine 5 % topical patch 1 patch topical DAILYPRN PRN to back and/or both feet for pain 05/16/22
metoprolol succinate 25 mg tablet,extended release 24 hr 25 mg PO HS Blood pressure 05/16/22
pantoprazole 40 mg tablet,delayed release 40 mg PO DAILY Gastrointestinal issue 05/16/22
pregabalin 150 mg capsule (Lyrica) 150 mg PO HS Pain 05/16/22
rivaroxaban 2.5 mg tablet (Xarelto) 2.5 mg PO BID Blood clot prevention/tx 05/16/22
amoxicillin 875 mg-potassium clavulanate 125 mg tablet 1 tab PO Q12 #14 tabs 05/19/22
hydrocodone 5 mg-acetaminophen 325 mg tablet 1 tab PO Q4HPRN PRN moderate/severe pain #10 tabs 05/19/22
Review of Systems
-
History Source: Patient
Constitutional: Reports Fever
EENT: Reports No Symptoms
Respiratory: Reports No Symptoms
Cardiac: Reports No Symptoms
Abdomen/GI: Reports No Symptoms
: Reports No Symptoms
Musculoskeletal: Reports No Symptoms
Skin: Reports No Symptoms
Neurological: Reports No Symptoms
Endocrine: Reports No Symptoms
Hematologic/Lymphatic: Reports No Symptoms
Psych: Reports No Symptoms
Physical Exam
Vital Signs
Vital Signs
Temp Pulse Resp BP Pulse Ox
99.5 F 100 17 116/67 91
09/12/24 00:30 09/12/24 03:15 09/12/24 03:15 09/12/24 03:00 09/12/24 03:15
Physical Exam
General: Well Developed, Well Nourished and No Apparent Distress
HEENT: NormoCephalic, Moist mucous membranes and Atraumatic
Respiratory: Clear
Cardiac: S1/S2 and Regular Rhythm; No Murmur or Rub
GI: Soft, Non Distended, Normal Bowel Sounds and Tender; No Organomegaly
Rectal: Deferred by Provider
Musculoskeletal: No Clubbing, No Cyanosis and No Edema
Skin: No Rash
Neuro: Nonfocal/grossly intact
Laboratory Results
-
09/12/24 00:41
09/12/24 00:41
Laboratory Results
Lactic Acid 2.1 mmol/L (0.7-2.0) H 09/12/24 00:41
Total Bilirubin 2.9 mg/dl (0.2-1.3) H 09/12/24 00:41
AST 420 U/L (17-59) H 09/12/24 00:41
ALT 259 U/L (0-50) H 09/12/24 00:41
Alkaline Phosphatase 382 U/L (38-126) H 09/12/24 00:41
Lipase 182 U/L (23-300) 09/12/24 00:41
Data Reviewed
-
CT Scan: Report Reviewed by me
Medical Tests (Nuc Med, Echo, EKG etc): Image Personally Visualized and interpreted
Lab Data: Labs Reviewed by me
Old Records: Reviewed
Impression/Plan
-
IMPRESSION:
Acute onset of fevers and chills with leukocytosis without any other localizing signs or symptoms. He has signs of sepsis including weakness, tachycardia and slightly altered mental status. Patient found to have elevated AST and ALT as well as
moderate biliary ductal dilatation despite status post cholecystectomy. UA is pending. Viral panel was negative.
PLAN:
1. Fever -source unclear, still considering urinary source despite lack of classic symptoms. h/o bph Cannot rule out biliary source
- Admit to med/surg
- Status post 30 cc/kg, continue with 500 mL bolus and LR at 75 ml/hr
- Blood cultures sent
- Urine cultures pending, UA pending
- Will continue with Zosyn for now
- Hold irbesartan for now, hold furosemide
2. Transaminitis�elevated LFTs alk phos but normal lipase. CT abdomen pelvis concerning for biliary ductal dilation and suspicion of subtle stone or mass measuring 12 mm in diameter.
- mrcp
- diet as tolerated for now
- GI consultation
3. DM II
- Sliding scale insulin, hold Jardiance
- Continue sitagliptin
4. CAD / PAD
- Continue Imdur with hold parameters
- Continue aspirin and statin
- continue cilostazol
DVT PPX - lovenox sq
Code status - Full Code
[2024-09-12 04:38] LABS: Urine Character Clear (Clear)
[2024-09-12 04:49] LABS: Urine Red Blood Cell None Seen /HPF (0-2); Urine Squamous Cell 0-2 /LPF (Few)
[2024-09-12] MEDS: NSS 500 IV (04:50)
--- NOTE | 2024-09-12 06:13 | PTCARENOTE ---
Pt arrived onto floor @0613. Pt AAOx3 and able to walk into room with minimal assistance. Pt with no complaints of pain or SOB at this time. Pt oriented to room and call grider; will continue to monitor
--- NOTE | 2024-09-12 07:29 | CON.GI ---
Addendum entered and electronically signed by Coral Ridley Do, MD 09/12/24 16:57:
I saw and evaluated the patient. I reviewed the resident�s note and agree with findings and plan as documented in the resident�s note.
Tadeo is a 78yo M with h/o CAD s/p CABG, PAD and DM who was admitted for fever, chills and abd discomfort. He has h/o CYY done 20yrs ago. Vitals AF HR 79 BP 112/63 95% on RA. Exam obese mildly TTP in RUQ. No jaundice. Imaging reviewed. CTAP
done IV only contrast with CBD 15 and possible 1.2cm lesion adjacent to CBD.
Impression
- Cholangitis with Ecoli bacteremia
- Dilated CBD
- S/p CYY
- DM
- PAD
- CAD
- CABG
- Chronic AC last xarelto 7 AM
Recommendations
- C/w zosyn
- Repeat BC
- Await MRI/MRCP
- Ok to have low fat diet post MRI
- Serial LFTs
- Anticipate ERCP sunday after xarelto washout. IF clinical picture changes over weekend can do it more urgently
Will follow with you
Original Note:
Consultation
-
Date/Time Consultation Requested: 09/12/2024
Date/Time Consultation Performed: 09/12/2024
Medical History
Chief Complaint / HPI
Chief Complaint: Fever and chills
History of Present Illness:
Mr. Choi is a 78-year-old male former smoker with a past medical history of coronary artery disease s/p coronary stents/CABG x 5, peripheral arterial disease s/p stents, peripheral neuropathy, diabetes mellitus type 2, hypertension,
hypercholesterolemia, history of DVT and GERD who, was in in usual state of health yesterday afternoon, he had a home prepared chicken sandwich around 1 PM yesterday and then he started to feel that his stomach was upset causing nausea and then he
felt a little bit warm which escalated to high-grade fever of 104 �F, was associated with chills. As per the , when she felt that he was warm she went out to look for a thermometer and when she came back she found him curled up in blanket and
he was shivering and appeared confused. She called her primary care physician after trying Tylenol at home who suggested that patient should go to the ER for further evaluation.
He denied any symptoms prior to that, denies any diarrhea, vomiting, cough, shortness of breath, burning of urine, chest pain, palpitations, skin changes, headaches, or any other issues.
At the time of arrival in ER, he had a blood pressure of 80 /40 and he was tachycardic with a heart rate of 110 and fever of 99.6.On further evaluation he had leukocytosis on lab work along with elevated liver enzymes. CT abdomen done that showed
dilatation of the common bile duct suspected stone. Patient has had cholecystectomy done about 20 years ago and has been on cholestyramine for chronic diarrhea.
Past Medical History
Past Medical History: Other (CAD status post CABG x 5, type 2 diabetes, History of DVT, peripheral arterial disease on Xarelto, hypertension, GERD, hypercholesterolemia, chronic cerebellar infarct, neuropathy of feet and hands)
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
Social History
Tobacco: Former Smoker (Quit 30 years ago, smoked 1 to 2 cigarettes/day for approximately 10 years)
Alcohol: Occasional (Very rare use)
Drug: None
Personal:
Living: With Family (Lives with his and a rescue dog named debra)
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
Family History
Family History: Reviewed & Not Pertinent
Allergies / Home Medications
Allergy/AdvReac Type Severity Reaction Status Date / Time
No Known Allergies Allergy Verified 01/28/24 08:22
�Medication �Instructions �Recorded
glimepiride 2 mg tablet 2 mg PO BID@0800,1700 Diabetes 08/20/20
rosuvastatin 40 mg tablet (Crestor) 40 mg PO DAILY High cholesterol 08/20/20
cilostazol 100 mg tablet 100 mg PO BID Blood clot 05/16/22
prevention/tx
pantoprazole 40 mg tablet,delayed 40 mg PO DAILY Gastrointestinal 05/16/22
release issue
rivaroxaban 2.5 mg tablet (Xarelto) 2.5 mg PO BID Blood clot 05/16/22
prevention/tx
aspirin 81 mg tablet,delayed 81 mg PO DAILY Blood Clot 09/03/23
release Prevention/Tx
cyclobenzaprine 10 mg tablet 10 mg PO HSPRN PRN back pain 09/03/23
oxycodone-acetaminophen 10 mg-325 1 tab PO PRN PRN back pain 09/03/23
mg tablet
Held on 02/01/24.
Instructions: DO NOT TAKE
WHILE USING POST OPERATIVE
PAIN NARCOTIC MEDICATION
(DILAUDID).
tamsulosin 0.4 mg capsule 0.4 mg PO QPM PRN Urinary Issue 09/03/23
cholestyramine-aspartame 4 gram 4 g PO BID High Cholesterol 01/07/24
oral powder (Cholestyramine Light)
empagliflozin 25 mg tablet 12.5 mg PO DAILY Diabetes 01/07/24
(Jardiance)
irbesartan 300 mg tablet 300 mg PO DAILY Blood Pressure 01/07/24
isosorbide mononitrate 30 mg 30 mg PO DAILY Heart 01/07/24
tablet,extended release 24 hr Disease/Condition
pregabalin 100 mg capsule (Lyrica) 100 mg PO QPM Pain 01/07/24
pregabalin 100 mg capsule (Lyrica) 200 mg PO DAILY Pain 01/07/24
sitagliptin 100 mg tablet 100 mg PO DAILY Diabetes 01/07/24
furosemide 40 mg tablet (Lasix) 40 mg PO DAILY PRN fluid retention 01/28/24
Held on 02/01/24.
Instructions: Resume on
02/05/24.
Lactobac/Bifidobac [Visbiome] 1 cap PO DAILY 14 days 02/01/24
amoxicillin 500 mg-potassium 1 tab PO Q12 9 days #18 tabs 02/01/24
clavulanate 125 mg tablet
furosemide 20 mg tablet 20 mg PO DAILY 2 days #2 tabs 02/01/24
hydromorphone 2 mg tablet 2 mg PO Q6HPRN PRN moderate pain 02/01/24
#10 tabs
naloxone 4 mg/actuation nasal 4 mg intranasal Q3M PRN opioid 02/01/24
spray (Narcan) overdose #2 ea
potassium chloride 10 mEq 10 meq PO DAILY 3 days #3 tabs 02/01/24
tablet,extended release(part/cryst)
Review of Systems
-
All other systems: A 12 pt ROS was Negative except as stated above in HPI
Vital Signs
Temp Pulse Resp BP Pulse Ox
98.7 F 98 16 129/82 95
09/12/24 06:13 09/12/24 06:13 09/12/24 06:13 09/12/24 06:13 09/12/24 06:13
Physical Exam
Exam
General: No Apparent Distress and Comfortable
HEENT: Anicteric
Respiratory: Clear
Cardiac: S1/S2 and Regular Rhythm
GI: Soft, Non Tender, Non Distended and Normal Bowel Sounds
Musculoskeletal: No Clubbing, No Cyanosis and No Edema
Neuro: Awake and Nonfocal/Grossly Intact
Psych: Calm
Results
WBC 12.6 10^3/uL (4.8-10.8) H 09/12/24 00:41
Hgb 12.7 g/dL (13.0-18.0) L 09/12/24 00:41
Hct 36.4 % (39.0-52.0) L 09/12/24 00:41
MCV 83.3 fL (80.0-94.0) 09/12/24 00:41
Plt Count 216 10^3/uL (130-400) 09/12/24 00:41
Absolute Neuts (auto) 11.2 10^3/uL (1.4-6.5) H 09/12/24 00:41
Sodium 138 mmol/L (135-145) 09/12/24 00:41
Potassium 3.5 mmol/L (3.5-5.1) 09/12/24 00:41
Chloride 108 mmol/L (98-107) H 09/12/24 00:41
Carbon Dioxide 20 mmol/L (22-30) L 09/12/24 00:41
BUN 24 mg/dl (9-20) H 09/12/24 00:41
Creatinine 1.1 mg/dL (0.7-1.3) 09/12/24 00:41
Calcium 9.0 mg/dl (8.4-10.2) 09/12/24 00:41
Total Bilirubin 2.9 mg/dl (0.2-1.3) H 09/12/24 00:41
AST 420 U/L (17-59) H 09/12/24 00:41
ALT 259 U/L (0-50) H 09/12/24 00:41
Alkaline Phosphatase 382 U/L (38-126) H 09/12/24 00:41
Lipase 182 U/L (23-300) 09/12/24 00:41
Diagnostic Image Results:
CT A/P 09/12/2024
Moderate dilation of the bile duct up to 15.4 mm and moderate intrahepatic biliary rotation related to prior cholecystectomy, there is some suspicion of subtle stone or mass possibly measuring up to 12 mm in diameter. Pancreatic duct is within
normal limits.
Prior GI Procedures:
EGD:
2020 for dysphagia
Impression: - Normal mucosa was found in the entire esophagus.
Several biopsies were obtained for evaluation of
eosinophilic esophagitis.
- Z-line irregular, 40 cm from the incisors. Biopsied.
- Moderate antral gastritis. Biopsied.
- Normal examined duodenum. Biopsied.
Mild to moderate gastritis on pathology
Colonoscopy:
Last colonoscopy was in 2017 at [facility] and showed a normal colon with biopsies that were negative for microscopic colitis
Assessment / Plan
-
Impression
78-year-old male, with history of cholecystectomy presenting with fever of unknown origin, elevated liver enzymes and common bile duct dilatation on CT abdomen/pelvis requiring further investigation by GI to determine cause of CBD dilatation and
management for suspected CBD stone.
Assessment/plan
Leukocytosis
Hemoconcentration and mild elevation in BUN secondary to dehydration
Elevated liver enzymes with a total bilirubin of 2.9, AST 420, ALT 259, ALP 382, hypoalbuminemia
Urine analysis negative for any UTI
Lactic acidosis resolved
Blood cultures pending
CT abdomen/pelvis 09/13/2019
Moderate dilation of the bile duct up to 15.4 mm and moderate intrahepatic biliary rotation related to prior cholecystectomy, there is some suspicion of subtle stone or mass possibly measuring up to 12 mm in diameter. Pancreatic duct is within
normal limits.
Plan
CBD dilation noted on CT A/P-could be [id number], sepsis, postcholecystectomy
Check fractionated sharlene
Continue Zosyn
Hold Xarelto
Follow-up blood culture results
Trend liver enzymes
MRCP to confirm choledocholithiasis-if positive-consider ERCP
If liver enzymes trending down-consider hypoxic elevation of liver enzymes-no further workup needed
If liver enzymes continue to trend up-will consider screening for hepatitis A, B and C, ferritin levels and transferrin saturation, autoimmune profile, EUS for pancreatic cancer
DVT prophylaxis-SCDs
CODE STATUS-full code
-
-
Thank you for consultation and allowing me to participate in the patient's care. Please call the residential construction instructor GI physician during the after hours with any questions or concerns.
[2024-09-12] MEDS: LR 1000 IV (07:30)
[2024-09-12 07:40] LABS: Glucose - Point of Care 135 mg/dl (70-99)
[2024-09-12] MEDS: NOVOLOG FLEXPEN-LOW RESISTANCE SC ×2 (07:54→17:26)
[2024-09-12] MEDS: LYRICA 200 MG PO (07:59)
[2024-09-12] MEDS: JANUVIA 100 MG PO (08:00)
[2024-09-12] MEDS: QUESTRAN 4 GRAM PO ×2 (08:02→20:51)
[2024-09-12] MEDS: IMDUR (EXTENDED RELEASE) 30 MG PO (08:02)
[2024-09-12] MEDS: CRESTOR 40 MG PO (08:02)
[2024-09-12] MEDS: PROTONIX 40 MG PO (08:03)
[2024-09-12] MEDS: ASPIR LOW (ENTERIC COATED) 81 MG PO (08:03)
[2024-09-12 11:17] LABS: Glucose - Point of Care 169 mg/dl (70-99)
--- NOTE | 2024-09-12 12:10 | PTCARENOTE ---
Pt's meds were not confirmed in the ER, when asking the pt if he new his meds he stated, 'that I don't know my med list, my does;' currently waiting for his to bring in his med list so we can confirm his meds. The MD called the and
she did not answer.
--- NOTE | 2024-09-12 12:24 | W.PN.HOSP.TC ---
Addendum entered and electronically signed by Jl Parrish MD 09/12/24 14:45:
Blood culture gram-positive gram-negative rods. GI made aware. Will put patient n.p.o. for now. MRI pending. ID evaluation
Original Note:
Today's Communication/Plan
-
Monitor vital signs see plan
Nonbillable note
Med rec
MRI
Monitor LFTs
GI
Continue antibiotic
Assessment / Plan
Assessment / Plan
General: Well Developed, Well Nourished and No Apparent Distress
HEENT: NormoCephalic, Moist mucous membranes and Atraumatic
Respiratory: Clear
Cardiac: S1/S2 and Regular Rhythm; No Murmur or Rub
GI: Soft, Non Distended, Normal Bowel Sounds and Tender
Musculoskeletal: No Edema
Neuro: Nonfocal/grossly intact
Fever, chills at home suspect secondary to sepsis
Suspect biliary source given elevated LFTs and CT scan with intra next hepatic ductal dilation
MRI pending
Continue with fluids
Blood culture pending
UA not suggestive of UTI
Do not suspect pneumonia on chest x-ray, denies any cough
Continue with Zosyn for now
- Hold irbesartan for now, hold furosemide
Transaminitis�elevated LFTs alk phos but normal lipase. CT abdomen pelvis concerning for biliary ductal dilation
- mrcp
- diet as tolerated for now
- GI following
DM II
- Sliding scale insulin, hold Jardiance
- Continue sitagliptin
CAD / PAD
Known right lower extremity lymphedema
History of right superficial femoral artery to below knee popliteal artery bypass with ipsilateral reversed great saphenous vein
- Continue Imdur with hold parameters
- Continue aspirin and statin
- continue cilostazol
DVT PPX - lovenox sq
Code status - Full Code
Anticipated Discharge: > 48 hours
Subjective/Interval History
-
Date of Service: September 12, 2024
Denies nausea
Objective Data
-
Labs:
Laboratory Results
09/12/24 09/12/24
00:41 10:25
WBC 12.6 H
Hgb 12.7 L
Hct 36.4 L
Plt Count 216
Sodium 138
Potassium 3.5
Chloride 108 H
Carbon Dioxide 20 L
BUN 24 H
Creatinine 1.1
Glucose 244 H
Calcium 9.0
Total Bilirubin 2.9 H 4.0 H
AST 420 H
ALT 259 H
Alkaline Phosphatase 382 H
Vital Signs:
Vital Signs
Temp Pulse Resp BP Pulse Ox
97.8 F 80 18 111/64 96
09/12/24 11:17 09/12/24 11:17 09/12/24 11:17 09/12/24 11:17 09/12/24 11:17
I&O
09/11/24 09/12/24 09/13/24
06:59 06:59 06:59
Intake Total 320 / 320
Output Total 600 / 600
Balance -600 / -600 320 / 320
[2024-09-12] MEDS: NOVOLOG FLEXPEN-LOW RESISTANCE 1 UNITS SC (13:02)
--- NOTE | 2024-09-12 15:58 | CON.ID ---
Consultation
-
Date/Time Consultation Requested: 09/12/2024 1415
Date/Time Consultation Performed: 09/12/2024 1547
Requesting Provider: Dr. Parrish
Performing Provider: Dr. Andrade
Reason for Consultation: Bacteremia
Chief Complaint / Past History
History of Present Illness
Tadeo Choi is a 78-year-old man with a significant past medical history of CAD and DM being evaluated at the request of Dr. Parrish in regards to bacteremia. History is obtained from chart review, along with patient interview.
The patient reports that he was in his usual state of health until yesterday around 4 PM when he had the acute onset of fevers, with associated chills. He recalls that his teeth were chattering. He states that the episode lasted several hours.
Ultimately he came to the emergency room for further evaluation. Here, he was found to have a leukocytosis. Distal common bile duct abnormality. The patient was started on empiric antibiotics. Infectious Diseases asked to comment upon further
antimicrobial management.
At present, the patient continues to feel weak although somewhat improved. He admits to some diffuse abdominal discomfort, but nothing especially focal. He denies any nausea or vomiting. He denies any diarrhea. He denies any dysuria.
Past History
Additional Past Medical History:
CAD; Hx KS
Hx CVA
GERD
HTN
HLD
NIDDM
DVT
Additional Past Surgical History:
CABG
PCI with stenting
Cholecystectomy (~2004)
Allergy History:
No Known Allergies Allergy (Verified 01/28/24 08:22)
Medications Reviewed: Yes
Current Antibiotics:
Zosyn 3.375 gm IV q.6 hours
Social History
Tobacco: Former Smoker
Alcohol: None
Drug: None
Personal:
Living: With Family
Employment: Retired
Family History
Family History: Not Pertinent
Review of Systems
Vital Signs
Temp Pulse Resp BP Pulse Ox
98.5 F 79 20 112/63 95
09/12/24 15:22 09/12/24 15:22 09/12/24 15:22 09/12/24 15:22 09/12/24 15:22
Physical Exam
Physical Exam
Constitutional: No Acute Distress, Comfortable and Non-toxic
Eyes: No Conjunctival Hemorrhage and Sclera Anicteric
Cardiovascular: Regular Rate and S1/S2; Negative S3/S4
Pulmonary: Clear; Negative Wheezes, Rales or Rhonchi
Gastrointestinal: Soft, Tender (Mild; diffuse), Non Distended and Normal Bowel Sounds
Genito-Urinary: Negative Suprapubic Tenderness
Extremities: Edema (Left lower extremity); Negative Erythema
Skin: Warm and Dry; Negative Rash or Jaundice
Neurological: Awake, Alert and Oriented
Lab / Diagnostic Study Results
09/12/24 00:41
09/12/24 00:41
Abs Immat Gran (auto) 0.1 10^3/uL (0-0.05) H 09/12/24 00:41
Absolute Neuts (auto) 11.2 10^3/uL (1.4-6.5) H 09/12/24 00:41
Absolute Lymphs (auto) 0.4 10^3/uL (1.2-3.4) L 09/12/24 00:41
Absolute Monos (auto) 0.9 10^3/uL (0.1-0.6) H 09/12/24 00:41
Absolute Basos (auto) 0.0 10^3/uL (0-0.2) 09/12/24 00:41
Immature Gran % 0.7 % (0-0.5) H 09/12/24 00:41
Neutrophils % 88.7 % (42.2-75.2) H 09/12/24 00:41
Lymphocytes % 3.1 % (20.5-51.1) L 09/12/24 00:41
Monocytes % 7.0 % (1.7-9.3) 09/12/24 00:41
Eosinophils % 0.2 % (0-6) 09/12/24 00:41
Basophils % 0.3 % (0-2) 09/12/24 00:41
Lactic Acid Cancelled 09/12/24 05:15
Ur Squamous Epith Cells 0-2 /LPF (Few) 09/12/24 04:24
Microbiology Results
Micro:
09/12/24 00:41 Blood Culture - Preliminary
Blood/Venous Escherichia coli
Gram Stain - Preliminary
09/12/24 01:31 Blood Culture - Pending
Blood/Venous
09/12/24 01:30 Influenza Types A & B (DWAYNE) - Final
Nasal Swab Negative for Influenza A & B, NAAT
Negative results must be combined with clinical observations
and patient history.
Nucleic Acid Amplification test (NAAT)performed on the
[employer] platform.
Imaging:
09/12/2024 CT abdomen/pelvis: 1. Dilation of the intra and extrahepatic bile ducts, new compared to prior CT dated 12/31/2023. Tapering of the distal common bile duct, and possible 1.2 cm soft tissue lesion adjacent to the distal common bile duct on
coronal image 28. Consider contrast-enhanced MRI and MRCP for further evaluation.
2. Given history of fevers and sepsis, cholangitis should also be considered.
Assessment / Plan
E. coli bacteremia
Suspected ascending cholangitis
Leukocytosis
Fever
CAD; Hx KS
Hx CVA
GERD
HTN
HLD
NIDDM
DVT
Recommendations:
Continue with empiric Zosyn.
Await further susceptibility data from recovered blood culture to guide additional antibiotic selection and potential de-escalation
Monitor white count and temperature curve.
Await abdominal MRI to further evaluate abnormality seen on CT.
Further recommendations as additional data is returned.
--- NOTE | 2024-09-12 16:33 | PHANOTE ---
med rec note- left message with to call back. [facility] but when i talked to the patient he stated that he takes Imdur 30mg daily but the [facility] appointment show discontinue. [facility] also did
not give me Flomax but patient stated he takes it
[2024-09-12 16:55] LABS: Glucose - Point of Care 138 mg/dl (70-99)
[2024-09-12] MEDS: LYRICA 100 MG PO (17:26)
[2024-09-12] MEDS: HEPARIN 5000 UNITS SC (20:47)
[2024-09-12 22:03] LABS: Glucose - Point of Care 112 mg/dl (70-99)
[2024-09-12] MEDS: ROXICODONE 10 MG PO (22:29)
[2024-09-12] MEDS: FLOMAX 0.4 MG PO (22:30)
[2024-09-13] MEDS: HEPARIN SC (01:58)
[2024-09-13] MEDS: ZOSYN 50 IV ×4 (01:59→19:53)
[2024-09-13 03:00] VITALS: BP 117/71
[2024-09-13 07:00] VITALS: BP 148/83
[2024-09-13 08:05] LABS: Hematocrit 36.7 % (39.0-52.0); Hemoglobin 12.4 g/dL (13.0-18.0); Mean Corp Hgb Conc. 33.8 g/dL (33.0-37.0); Mean Corpuscular Volume 85.9 fL (80.0-94.0); Nucleated Red Blood Cells % 0 % (-); Platelet Count 196 10^3/uL (130-400); Red Cell Dist. Width 16.3 % (11.5-14.5)
[2024-09-13] MEDS: NOVOLOG FLEXPEN-LOW RESISTANCE SC ×3 (08:31→17:02)
[2024-09-13 08:32] LABS: Glucose - Point of Care 111 mg/dl (70-99)
[2024-09-13 08:39] LABS: ALT (SGPT) 240 U/L (0-50); AST (SGOT) 132 U/L (17-59); Albumin 3.1 g/dl (3.5-5.0); Alkaline Phosphatase 310 U/L (38-126); Blood Urea Nitrogen 13 mg/dl (9-20); Calcium 8.6 mg/dl (8.4-10.2); Carbon Dioxide 24 mmol/L (22-30); Chloride 108 mmol/L (98-107); Estimated Creatinine Clearance 90 ml/min; Glucose 115 mg/dl (70-99); Potassium 3.9 mmol/L (3.5-5.1); Sodium 136 mmol/L (135-145); Total Protein 5.7 g/dl (6.3-8.2); eGFR > 60.00
[2024-09-13] MEDS: QUESTRAN 4 GRAM PO ×2 (08:44→22:57)
[2024-09-13] MEDS: CRESTOR 40 MG PO (08:45)
[2024-09-13] MEDS: LYRICA 200 MG PO (08:45)
[2024-09-13] MEDS: ASPIR LOW (ENTERIC COATED) 81 MG PO (08:46)
[2024-09-13] MEDS: PROTONIX 40 MG PO (08:46)
[2024-09-13] MEDS: IMDUR (EXTENDED RELEASE) 30 MG PO (08:46)
[2024-09-13] MEDS: HEPARIN 5000 UNITS SC ×3 (08:47→23:00)
[2024-09-13 11:45] VITALS: BP 126/63
[2024-09-13 12:15] LABS: Glucose - Point of Care 116 mg/dl (70-99)
--- NOTE | 2024-09-13 12:24 | W.PN.HOSP.TC ---
Today's Communication/Plan
-
Monitor vital signs see plan
MRI pending
Low-fat diet after MRI per GI
Continue with antibiotics
Follow cultures
Assessment / Plan
Assessment / Plan
General: Well Developed, Well Nourished and No Apparent Distress
HEENT: NormoCephalic, Moist mucous membranes and Atraumatic
Respiratory: Clear
Cardiac: S1/S2 and Regular Rhythm; No Murmur or Rub
GI: Soft, Non Distended, Normal Bowel Sounds and Tender
Musculoskeletal: No Edema
Neuro: Nonfocal/grossly intact
Fever, chills at home suspect secondary to sepsis
Suspect biliary source given elevated LFTs and CT scan with intra and extra hepatic ductal dilation
MRI pending
Continue with fluids
Blood culture positive for gram-negative rods, ID following. Repeat blood cultures 09/13 pending
Discussed with GI, plan for possible ERCP Sunday +/-EUS 09/15
UA not suggestive of UTI
Do not suspect pneumonia on chest x-ray, denies any cough
Continue with Zosyn for now
- Hold irbesartan for now, hold furosemide
Transaminitis�elevated LFTs alk phos but normal lipase. CT abdomen pelvis concerning for biliary ductal dilation
- mrcp pending
- low fat diet after MRI if ok with GI
- GI following
DM II
- Sliding scale insulin, hold Jardiance
- hold sitagliptin
HTN
Restart irbesartan
CAD / PAD
Known right lower extremity lymphedema
History of right superficial femoral artery to below knee popliteal artery bypass with ipsilateral reversed great saphenous vein
- Continue Imdur with hold parameters
- Continue aspirin and statin
- continue cilostazol
also on xarelto
DVT PPX -heparin
Code status - Full Code
I spent a total of 52 minutes with the patient or on the floor. More than 50% of this time involved counseling and coordination of care.
Anticipated Discharge: > 48 hours
Subjective/Interval History
-
Date of Service: September 13, 2024
Denies nausea
Objective Data
-
Labs:
Laboratory Results
09/13/24
06:57
WBC 8.8
Hgb 12.4 L
Hct 36.7 L
Plt Count 196
Sodium 136
Potassium 3.9
Chloride 108 H
Carbon Dioxide 24
BUN 13
Creatinine 0.8
Glucose 115 H
Calcium 8.6
Total Bilirubin 3.4 H
AST 132 H
ALT 240 H
Alkaline Phosphatase 310 H
Vital Signs:
Vital Signs
Temp Pulse Resp BP Pulse Ox
98.9 F 83 16 148/83 92
09/13/24 07:00 09/13/24 07:00 09/13/24 07:00 09/13/24 07:00 09/13/24 07:00
I&O
09/12/24 09/13/24 09/14/24
06:59 06:59 06:59
Intake Total 620 / 620
Output Total 600 / 600
Balance -600 / -600 620 / 620
--- NOTE | 2024-09-13 12:38 | W.PN.GI.CBS2 ---
Addendum entered and electronically signed by Coral Ridley Do, MD 09/13/24 13:29:
I saw and evaluated the patient. I reviewed the resident�s note and agree with findings and plan as documented in the resident�s note.
Luis had no acute events overnight. He did complete his MRI today. It [birth year] also [birth year] today. Some abd discomfort but no nausea/vomiting Vitals stable, obese mildly TTP RUQ no guarding rebound. Labs LFTs slightly downtrending. BC Ecoli
bacteremia now on repeat thus far NGTD. WBC now normalized.
Recommendations
- C/w zosyn appreciate ID recs
- Repeat BC pending thus far no growth
- Serial LFTs
- Continue to hold xarelto
- MRI reviewed and confirms choledocholithiasis without soft tissue mass. He is already s/p CYY 20yrs ago
- Anticipate ERCP on Sunday (EUS not needed)
- Adv to low fat diet today
Will follow with you.
Original Note:
Today's Communication / Plan
-
Low-fat diet
Assessment / Plan
-
Impression
78-year-old male, with history of cholecystectomy presenting with fever of unknown origin, elevated liver enzymes and common bile duct dilatation on CT abdomen/pelvis requiring further investigation by GI to determine cause of CBD dilatation and
management for suspected CBD stone.
Assessment/plan
Cholangitis with E. coli bacteremia
Choledocholithiasis
Remote history of cholecystectomy
On chronic anticoagulation-Xarelto on hold, last dose 09/11 AM
BILE DUCTS: There are approximately 3-4 stones within the mid to distal common bile duct, largest measuring up to 12 mm in size. The proximal common bile duct measures up to 14 mm. There is diffuse intrahepatic ductal dilatation, worse within the
main left hepatic duct measuring up to 15 mm. Additional stone in the remnant cystic duct measures up to [address] abdomen/pelvis 09/13/2019
Moderate dilation of the bile duct up to 15.4 mm and moderate intrahepatic biliary rotation related to prior cholecystectomy, there is some suspicion of subtle stone or mass possibly measuring up to 12 mm in diameter. Pancreatic duct is within
normal limits.
Plan
Continue Zosyn
ERCP on 09/15/2024
Trend liver enzymes
Low-fat diet
Symptomatic management
DVT prophylaxis-SCDs
CODE STATUS-full code
Subjective
Subjective
Date of Service: September 13, 2024
Patient seen and examined at bedside
Feeling well, no fevers overnight
Objective
Data Reviewed
Laboratory Data:
Laboratory Results
09/13/24 06:57
09/13/24 06:57
Laboratory Results
Total Bilirubin 3.4 mg/dl (0.2-1.3) H 09/13/24 06:57
AST 132 U/L (17-59) H 09/13/24 06:57
ALT 240 U/L (0-50) H 09/13/24 06:57
Alkaline Phosphatase 310 U/L (38-126) H 09/13/24 06:57
Lipase 182 U/L (23-300) 09/12/24 00:41
Vital Signs and I&O:
Vital Signs
Temp Pulse Resp BP Pulse Ox
98.9 F 83 16 148/83 92
09/13/24 07:00 09/13/24 07:00 09/13/24 07:00 09/13/24 07:00 09/13/24 07:00
I&O
09/12/24 09/13/24 09/14/24
06:59 06:59 06:59
Intake Total 620 / 620
Output Total 600 / 600
Balance -600 / -600 620 / 620
Physical Exam
Physical Exam
HEENT: Anicteric and Moist mucous membranes
Cardiology: Normal Sinus Rhythm, S1 and S2
Pulmonary: Clear
GI: Soft, Non Distended, Non Tender and Normal Bowel Sounds
[2024-09-13 16:00] VITALS: BP 117/68
[2024-09-13 17:00] LABS: Glucose - Point of Care 241 mg/dl (70-99)
[2024-09-13] MEDS: LYRICA 100 MG PO (17:02)
--- NOTE | 2024-09-13 17:07 | PTCARENOTE ---
Patient blood sugar 240 post dinner, refused insulin coverage. Stated he would call prior to eating next time .
[2024-09-13 19:00] VITALS: BP 127/67
[2024-09-13] MEDS: ROXICODONE 10 MG PO (19:53)
[2024-09-13 21:34] LABS: Glucose - Point of Care 220 mg/dl (70-99)
[2024-09-13] MEDS: FLOMAX 0.4 MG PO (22:57)
[2024-09-13 23:00] VITALS: BP 114/68
[2024-09-14] MEDS: ZOSYN 50 IV ×3 (01:57→13:25)
[2024-09-14 03:00] VITALS: BP 132/62
[2024-09-14 07:12] LABS: Hematocrit 35.8 % (39.0-52.0); Hemoglobin 12.5 g/dL (13.0-18.0); Mean Corp Hgb Conc. 34.9 g/dL (33.0-37.0); Mean Corpuscular Volume 84.2 fL (80.0-94.0); Nucleated Red Blood Cells % 0 % (-); Platelet Count 203 10^3/uL (130-400); Red Cell Dist. Width 15.9 % (11.5-14.5)
[2024-09-14 07:32] LABS: Alkaline Phosphatase 312 U/L (38-126); Blood Urea Nitrogen 11 mg/dl (9-20); Calcium 9.0 mg/dl (8.4-10.2); Carbon Dioxide 23 mmol/L (22-30); Chloride 109 mmol/L (98-107); Estimated Creatinine Clearance 120 ml/min; Glucose 158 mg/dl (70-99); Potassium 3.8 mmol/L (3.5-5.1); Sodium 136 mmol/L (135-145); Total Protein 5.6 g/dl (6.3-8.2); eGFR > 60.00
[2024-09-14 07:33] LABS: ALT (SGPT) 155 U/L (0-50); AST (SGOT) 46 U/L (17-59); Albumin 2.9 g/dl (3.5-5.0)
[2024-09-14 07:38] LABS: Glucose - Point of Care 153 mg/dl (70-99)
[2024-09-14 08:00] VITALS: BP 139/69
[2024-09-14] MEDS: NOVOLOG FLEXPEN-LOW RESISTANCE 1 UNITS SC (08:29)
[2024-09-14] MEDS: ROXICODONE 10 MG PO ×2 (08:30→18:38)
[2024-09-14] MEDS: QUESTRAN 4 GRAM PO ×2 (08:33→20:07)
[2024-09-14] MEDS: IMDUR (EXTENDED RELEASE) 30 MG PO (08:33)
[2024-09-14] MEDS: AVAPRO 300 MG PO (08:33)
[2024-09-14] MEDS: CRESTOR 40 MG PO (08:34)
[2024-09-14] MEDS: LYRICA 200 MG PO (08:34)
[2024-09-14] MEDS: PROTONIX 40 MG PO (08:34)
[2024-09-14] MEDS: ASPIR LOW (ENTERIC COATED) 81 MG PO (08:34)
[2024-09-14] MEDS: HEPARIN 5000 UNITS SC ×3 (08:35→22:54)
--- NOTE | 2024-09-14 10:00 | CM ---
rental manager reviewed patient's chart and met with patient and patient lives with his spouse in a 2 story home, patient is independent with adl's and ambulation, no dme, patient drives, home when stable no needs.
PCP: Dr Magno Khan
Pharmacy: [facility] in [place]
[2024-09-14 11:00] VITALS: BP 94/56
--- NOTE | 2024-09-14 11:07 | PTCARENOTE ---
Francis Tran initiated via Right midline. Pt stated her nausea was better this am, drank 4 oz milk , 8 oz applejuice and 1 cup orange slices . Family visiting at present .
--- NOTE | 2024-09-14 11:09 | W.PN.GI.CBS2 ---
Today's Communication / Plan
-
NPO at [facility] for ERCP tomorrow 09/15
Results of MRI d/w pt
Assessment / Plan
-
Tadeo is a 78yo M with h/o CAD s/p CABG, PAD and DM who was admitted for fever, chills and abd discomfort. He has h/o CYY done 20yrs ago. Vitals AF HR 79 BP 112/63 95% on RA. Exam obese mildly TTP in RUQ. No jaundice. Imaging reviewed. CTAP
done IV only contrast with CBD 15 and possible 1.2cm lesion adjacent to CBD.
Impression
- Cholangitis with Ecoli bacteremia
- Dilated CBD
- S/p CYY
- DM
- PAD
- CAD
- CABG
- Chronic AC last xarelto 09/11 AM
Recommendations
- C/w zosyn
- Repeat BC no growth
- Results of MRI/MRCP d/w patient no soft tissue mass
- C/w low fat diet, NPO at [facility] for ERCP tomorrow
- Serial LFTs currently downtrending
Will follow with you
Subjective
Subjective
Date of Service: September 14, 2024
He is tolerating low fat diet. No abd pain, N/V no fever
Objective
Data Reviewed
Laboratory Data:
Laboratory Results
09/14/24 06:54
09/14/24 06:54
Laboratory Results
Total Bilirubin 1.8 mg/dl (0.2-1.3) H D 09/14/24 06:54
AST 46 U/L (17-59) 09/14/24 06:54
ALT 155 U/L (0-50) H 09/14/24 06:54
Alkaline Phosphatase 312 U/L (38-126) H 09/14/24 06:54
Lipase 182 U/L (23-300) 09/12/24 00:41
Vital Signs and I&O:
Vital Signs
Temp Pulse Resp BP Pulse Ox
98.3 F 65 18 139/69 96
09/14/24 08:00 09/14/24 08:00 09/14/24 08:00 09/14/24 08:00 09/14/24 08:00
I&O
09/13/24 09/14/24 09/15/24
06:59 06:59 06:59
Intake Total 620 / 620 360 / 360
Balance 620 / 620 360 / 360
Physical Exam
Physical Exam
GEN: No acute distress, conversant, pleasant
HEENT: anicteric, extraocular movements intact, clear oropharynx without exudates
GI: soft, obese non-distended, not tender to palpation, normal active bowel sounds, no hepatosplenomegaly
EXT: warm, well perfused, no edema bilaterally
NEURO: AAOx3, non-focal
[2024-09-14 11:25] LABS: Glucose - Point of Care 265 mg/dl (70-99)
[2024-09-14] MEDS: NOVOLOG FLEXPEN-LOW RESISTANCE 3 UNITS SC (12:12)
--- NOTE | 2024-09-14 12:14 | W.PN.HOSP.TC ---
Today's Communication/Plan
-
By monitor vital signs see plan
Follow cultures
N.p.o. past midnight for ERCP tomorrow
Monitor LFT's
Assessment / Plan
Assessment / Plan
General: Well Developed, Well Nourished and No Apparent Distress
HEENT: NormoCephalic, Moist mucous membranes and Atraumatic
Respiratory: Clear
Cardiac: S1/S2 and Regular Rhythm; No Murmur or Rub
GI: Soft, Non Distended, Normal Bowel Sounds and Tender
Musculoskeletal: No Edema
Neuro: Nonfocal/grossly intact
Fever, chills at home suspect secondary to sepsis
Suspect biliary source given elevated LFTs and CT scan with intra and extra hepatic ductal dilation
MRI suggestive of cholelithiasis
Blood culture positive for ecoli, ID following. Repeat blood cultures 09/13 NGTD
Discussed with GI, plan for ERCP Friday 09/15
UA not suggestive of UTI
Do not suspect pneumonia on chest x-ray, denies any cough
cw abx per ID
- Hold irbesartan for now, hold furosemide
Transaminitis�elevated LFTs alk phos but normal lipase. CT abdomen pelvis concerning for biliary ductal dilation
- MRI 8 with cholelithiasis.
- GI following
DM II
- Sliding scale insulin, hold Jardiance
- hold sitagliptin
HTN
Restart irbesartan
CAD / PAD
Known right lower extremity lymphedema
History of right superficial femoral artery to below knee popliteal artery bypass with ipsilateral reversed great saphenous vein
- Continue Imdur with hold parameters
- Continue aspirin and statin
- continue cilostazol
also on xarelto which is held for ERCP
DVT PPX -heparin
Code status - Full Code
Anticipated Discharge: 24 - 48 hours
Subjective/Interval History
-
Date of Service: September 14, 2024
Denies pain
Objective Data
-
Labs:
Laboratory Results
09/14/24
06:54
WBC 7.0
Hgb 12.5 L
Hct 35.8 L
Plt Count 203
Sodium 136
Potassium 3.8
Chloride 109 H
Carbon Dioxide 23
BUN 11
Creatinine 0.6 L
Glucose 158 H
Calcium 9.0
Total Bilirubin 1.8 H D
AST 46
ALT 155 H
Alkaline Phosphatase 312 H
Vital Signs:
Vital Signs
Temp Pulse Resp BP Pulse Ox
98.0 F 91 16 94/56 96
09/14/24 11:00 09/14/24 11:00 09/14/24 11:00 09/14/24 11:00 09/14/24 11:00
I&O
09/13/24 09/14/24 09/15/24
06:59 06:59 06:59
Intake Total 620 / 620 360 / 360
Balance 620 / 620 360 / 360
[2024-09-14 15:00] VITALS: BP 101/60
--- NOTE | 2024-09-14 15:47 | W.PN.ID1 ---
Date of Service
Date of Service: September 14, 2024
Today's Communication
Continue antibiotics. Narrow to Unasyn.
Assessment / Plan
E. coli bacteremia
Suspected ascending cholangitis
Leukocytosis
Fever
CAD; Hx [place]
Hx CVA
GERD
HTN
HLD
NIDDM
DVT
Recommendations:
Susceptibilities of E. coli reviewed. Narrow to Unasyn.
Monitor white count and temperature curve.
Patient for ERCP tomorrow.
����������������������������������������������������������
Chief Complaint
-: Bacteremia
Subjective / Review of Systems
Review of Systems: No Fever and No Chills
Vital Signs / Physical Exam
Vital Signs
Vital Signs
Temp Pulse Resp BP Pulse Ox
98.0 F 91 16 94/56 96
09/14/24 11:00 09/14/24 11:00 09/14/24 11:00 09/14/24 11:00 09/14/24 11:00
Physical Exam
Constitutional: No Acute Distress, Comfortable and Non-toxic
Eyes: No Conjunctival Hemorrhage and Sclera Anicteric
Cardiovascular: S1/S2; Negative S3/S4
Pulmonary: Non Labored
Gastrointestinal: Soft, Non Tender and Non Distended
Extremities: Negative Edema, Cyanosis or Erythema
Neurological: Awake and Alert
Psychological: Calm
Objective Data
Lab Data
Lab Results
09/14/24 06:54
09/14/24 06:54
Estimated Creat Clear 120 ml/min 09/14/24 06:54
Lactic Acid Cancelled 09/12/24 05:15
Total Bilirubin 1.8 mg/dl (0.2-1.3) H D 09/14/24 06:54
AST 46 U/L (17-59) 09/14/24 06:54
ALT 155 U/L (0-50) H 09/14/24 06:54
Alkaline Phosphatase 312 U/L (38-126) H 09/14/24 06:54
Most recent labs reviewed.
Micro Results:
09/12/24 00:41 Blood Culture - Preliminary
Blood/Venous Escherichia coli
Gram Stain - Preliminary
09/13/24 08:10 Blood Culture - Preliminary
Blood/Venous No Growth in 24 hours- Final report to follow
09/13/24 06:57 Blood Culture - Preliminary
Blood/Venous No Growth in 24 hours- Final report to follow
09/12/24 01:31 Blood Culture - Preliminary
Blood/Venous No Growth in 48 hours- Final report to follow
09/12/24 01:30 Influenza Types A & B (DWAYNE) - Final
Nasal Swab Negative for Influenza A & B, NAAT
Negative results must be combined with clinical observations
and patient history.
Nucleic Acid Amplification test (NAAT)performed on the
[employer] platform.
Imaging:
09/13/2024 MRI abdomen: Choledocholithiasis with biliary dilatation, as described. No suspicious soft tissue mass.
09/12/2024 CT abdomen/pelvis: 1. Dilation of the intra and extrahepatic bile ducts, new compared to prior CT dated 12/31/2023. Tapering of the distal common bile duct, and possible 1.2 cm soft tissue lesion adjacent to the distal common bile duct on
coronal image 28. Consider contrast-enhanced MRI and MRCP for further evaluation.
2. Given history of fevers and sepsis, cholangitis should also be considered.
[2024-09-14] MEDS: UNASYN IV ×2 (16:28→22:54)
[2024-09-14 16:49] LABS: Glucose - Point of Care 315 mg/dl (70-99)
[2024-09-14] MEDS: NOVOLOG FLEXPEN-LOW RESISTANCE 4 UNITS SC (17:15)
[2024-09-14] MEDS: LYRICA 100 MG PO (17:16)
[2024-09-14 19:00] VITALS: BP 140/72
[2024-09-14 21:11] LABS: Glucose - Point of Care 271 mg/dl (70-99)
[2024-09-14] MEDS: FLOMAX 0.4 MG PO (22:54)
[2024-09-14 23:15] VITALS: BP 140/73
[2024-09-15] VITALS (8 sets, daily range): BP systolic 115–151; BP diastolic 65–82
[2024-09-15] MEDS: ROXICODONE 10 MG PO ×2 (03:26→16:49)
[2024-09-15] MEDS: UNASYN IV ×4 (03:26→23:04)
[2024-09-15 05:54] LABS: Glucose - Point of Care 166 mg/dl (70-99)
[2024-09-15 08:08] LABS: Hematocrit 37.8 % (39.0-52.0); Hemoglobin 12.9 g/dL (13.0-18.0); Mean Corp Hgb Conc. 34.1 g/dL (33.0-37.0); Mean Corpuscular Volume 85.1 fL (80.0-94.0); Nucleated Red Blood Cells % 0 % (-); Platelet Count 213 10^3/uL (130-400); Red Cell Dist. Width 15.9 % (11.5-14.5)
[2024-09-15 08:51] LABS: ALT (SGPT) 115 U/L (0-50); AST (SGOT) 30 U/L (17-59); Albumin 3.2 g/dl (3.5-5.0); Alkaline Phosphatase 326 U/L (38-126); Blood Urea Nitrogen 12 mg/dl (9-20); Calcium 8.8 mg/dl (8.4-10.2); Carbon Dioxide 26 mmol/L (22-30); Chloride 105 mmol/L (98-107); Estimated Creatinine Clearance 103 ml/min; Glucose 170 mg/dl (70-99); Potassium 3.9 mmol/L (3.5-5.1); Sodium 135 mmol/L (135-145); Total Protein 5.8 g/dl (6.3-8.2); eGFR > 60.00
[2024-09-15] MEDS: PROTONIX 40 MG PO (09:09)
[2024-09-15] MEDS: NOVOLOG FLEXPEN-LOW RESISTANCE SC ×2 (09:09→12:29)
[2024-09-15] MEDS: IMDUR (EXTENDED RELEASE) 30 MG PO (09:09)
[2024-09-15] MEDS: ASPIR LOW (ENTERIC COATED) 81 MG PO (09:09)
[2024-09-15] MEDS: CRESTOR 40 MG PO (09:09)
[2024-09-15] MEDS: HEPARIN 5000 UNITS SC ×3 (09:10→23:04)
[2024-09-15] MEDS: QUESTRAN 4 GRAM PO ×2 (09:11→20:07)
[2024-09-15] MEDS: LYRICA 200 MG PO (09:11)
--- NOTE | 2024-09-15 11:43 | CM ---
Chart reviewed and plan is to home no needs, when stable.
Plan; Home no needs when stable.
[2024-09-15 11:56] LABS: Glucose - Point of Care 164 mg/dl (70-99)
--- NOTE | 2024-09-15 14:15 | VATNOTE ---
Routine rounds: pt's IV site appears red and swollen, pt describes feeling of soreness. IV discontinued and heat applied to area. New PIV established, see documentation. Will continue to monitor.
--- NOTE | 2024-09-15 14:55 | W.PN.HOSP.TC ---
Today's Communication/Plan
-
recheck labs in AM
IV abx to continue for now as per GI/ID timing of stopping
Assessment / Plan
Assessment / Plan
Fever, chills at home suspect secondary to sepsis
Suspect biliary source given elevated LFTs and CT scan with intra and extra hepatic ductal dilation
MRI suggestive of cholelithiasis
Blood culture positive for ecoli, ID following. Repeat blood cultures 09/13 NGTD
Discussed with GI, plan for ERCP Friday 09/15
UA not suggestive of UTI
Do not suspect pneumonia on chest x-ray, denies any cough
cw abx per ID
WBC 12.6-->8.8-->7.0-->7.5
Transaminitis�elevated LFTs alk phos but normal lipase. CT abdomen pelvis concerning for biliary ductal dilation
- MRI 09/13: Choledocholithiasis with biliary dilatation, as described. No suspicious soft tissue mass.
- GI following
DM II
- Sliding scale insulin, hold Jardiance
- hold sitagliptin
HTN
Restart irbesartan
CAD / PAD
Known right lower extremity lymphedema
History of right superficial femoral artery to below knee popliteal artery bypass with ipsilateral reversed great saphenous vein
- Continue Imdur with hold parameters
- Continue aspirin and statin
- continue cilostazol
also on xarelto which is held for ERCP
DVT PPX -heparin
Code status - Full Code
Anticipated Discharge: 24 - 48 hours
Subjective/Interval History
-
Date of Service: September 15, 2024
Awake, alert, awaiting ERCP
Objective Data
-
Labs:
Laboratory Results
09/15/24
07:48
WBC 7.5
Hgb 12.9 L
Hct 37.8 L
Plt Count 213
Sodium 135
Potassium 3.9
Chloride 105
Carbon Dioxide 26
BUN 12
Creatinine 0.7
Glucose 170 H
Calcium 8.8
Total Bilirubin 1.1
AST 30
ALT 115 H
Alkaline Phosphatase 326 H
Vital Signs:
Vital Signs
Temp Pulse Resp BP Pulse Ox
98.6 F 79 18 115/65 97
09/15/24 11:00 09/15/24 11:00 09/15/24 11:00 09/15/24 11:00 09/15/24 11:00
I&O
09/14/24 09/15/24 09/16/24
06:59 06:59 06:59
Intake Total 360 / 360 480 / 480
Output Total 0 / 0
Balance 360 / 360 480 / 480
Review of Systems
-
History Source: Patient and Coordinated Provider
Constitutional: Denies Fever
EENT: Reports No Symptoms Reported
Respiratory: Reports No Symptoms
Cardiac: Reports No Symptoms
Abdomen/GI: Reports Abdominal Pain (minimal) and Constipated (had BM yesterday)
Neuro: Reports No Symptoms
Physical Exam
-
General: Well Developed, Well Nourished and No Apparent Distress
HEENT: Normocephalic, Atraumatic and Moist Mucous Membranes
Respiratory: Clear to Auscultation; Negative Wheezes, Rales or Rhonchi
Cardiac: Regular Rhythm and S1/S2
GI: Soft, Normal Bowel Sounds and Tender
[2024-09-15 15:02] LABS: Glucose - Point of Care 157 mg/dl (70-99)
--- NOTE | 2024-09-15 15:10 | W.PN.UPDATE ---
Update Note
Progress Note Update
s/p ERCP w/ multiple large calculi extraction. resume xarelto after 48 hours, will need repeat EGD in 6-8 weeks for biliary stent removal.
--- NOTE | 2024-09-15 15:34 | W.PN.ID1 ---
Date of Service
Date of Service: September 15, 2024
Today's Communication
Continue antibiotics. See below�
Assessment / Plan
E. coli bacteremia
Suspected ascending cholangitis
Choledocholithiasis s/p ERCP
Leukocytosis
Fever
CAD; Hx [place]
Hx CVA
GERD
HTN
HLD
NIDDM
DVT
Recommendations:
Susceptibilities of E. coli reviewed. Narrow to Unasyn.
Monitor white count and temperature curve.
Successful ERCP today with recovery of several stones and stent placement.
Repeat blood cultures negative thus far.
At time of discharge, can transition to cephalexin 500 mg p.o. QID, to continue therapy through 09/27/2024
����������������������������������������������������������
Chief Complaint
-: Bacteremia
Subjective / Review of Systems
Review of Systems: No Fever and No Chills
Vital Signs / Physical Exam
Vital Signs
Vital Signs
Temp Pulse Resp BP Pulse Ox
97.0 F 76 15 127/66 93
09/15/24 15:17 09/15/24 15:15 09/15/24 15:15 09/15/24 15:15 09/15/24 15:15
Physical Exam
Constitutional: No Acute Distress
Eyes: No Conjunctival Hemorrhage and Sclera Anicteric
Cardiovascular: S1/S2; Negative S3/S4
Pulmonary: Non Labored
Gastrointestinal: Soft, Non Tender and Non Distended
Extremities: Negative Edema, Cyanosis or Erythema
Neurological: Awake and Alert
Psychological: Calm
Objective Data
Lab Data
Lab Results
09/15/24 07:48
09/15/24 07:48
Estimated Creat Clear 103 ml/min 09/15/24 07:48
Lactic Acid Cancelled 09/12/24 05:15
Total Bilirubin 1.1 mg/dl (0.2-1.3) 09/15/24 07:48
AST 30 U/L (17-59) 09/15/24 07:48
ALT 115 U/L (0-50) H 09/15/24 07:48
Alkaline Phosphatase 326 U/L (38-126) H 09/15/24 07:48
Most recent labs reviewed.
Micro Results:
09/13/24 08:10 Blood Culture - Preliminary
Blood/Venous No Growth in 48 hours- Final report to follow
09/13/24 06:57 Blood Culture - Preliminary
Blood/Venous No Growth in 48 hours- Final report to follow
09/12/24 01:31 Blood Culture - Preliminary
Blood/Venous No Growth in 72 hours- Final report to follow
09/12/24 00:41 Blood Culture - Preliminary
Blood/Venous Escherichia coli
Gram Stain - Preliminary
09/12/24 01:30 Influenza Types A & B (DWAYNE) - Final
Nasal Swab Negative for Influenza A & B, NAAT
Negative results must be combined with clinical observations
and patient history.
Nucleic Acid Amplification test (NAAT)performed on the
[employer] platform.
Imaging:
09/13/2024 MRI abdomen: Choledocholithiasis with biliary dilatation, as described. No suspicious soft tissue mass.
09/12/2024 CT abdomen/pelvis: 1. Dilation of the intra and extrahepatic bile ducts, new compared to prior CT dated 12/31/2023. Tapering of the distal common bile duct, and possible 1.2 cm soft tissue lesion adjacent to the distal common bile duct on
coronal image 28. Consider contrast-enhanced MRI and MRCP for further evaluation.
2. Given history of fevers and sepsis, cholangitis should also be considered.
[2024-09-15 16:35] LABS: Glucose - Point of Care 230 mg/dl (70-99)
[2024-09-15] MEDS: NOVOLOG FLEXPEN-LOW RESISTANCE 2 UNITS SC (16:40)
[2024-09-15] MEDS: LYRICA 100 MG PO (16:41)
[2024-09-15 20:53] LABS: Glucose - Point of Care 348 mg/dl (70-99)
[2024-09-15] MEDS: FLOMAX 0.4 MG PO (23:04)
[2024-09-16] MEDS: ROXICODONE 10 MG PO ×2 (00:45→12:45)
--- NOTE | 2024-09-16 03:42 | DOWNTIME ---
There was a [employer] Downtime on 09/16/2024 from 0100 to 09/16/2024 at 0220. Downtime documentation of patient's care, including medication administrations, has been reconciled in the electronic record per guidelines. Refer to the
patient's paper chart under the miscellaneous tab to see printed paper medication records and downtime forms.
[2024-09-16] MEDS: UNASYN IV ×3 (04:13→16:06)
[2024-09-16 07:36] LABS: Glucose - Point of Care 211 mg/dl (70-99)
[2024-09-16 08:02] LABS: Hematocrit 39.4 % (39.0-52.0); Hemoglobin 13.4 g/dL (13.0-18.0); Mean Corp Hgb Conc. 34.0 g/dL (33.0-37.0); Mean Corpuscular Volume 84.7 fL (80.0-94.0); Nucleated Red Blood Cells % 0 % (-); Platelet Count 242 10^3/uL (130-400); Red Cell Dist. Width 15.6 % (11.5-14.5)
[2024-09-16 08:18] VITALS: BP 142/71
[2024-09-16 08:29] LABS: ALT (SGPT) 92 U/L (0-50); AST (SGOT) 31 U/L (17-59); Albumin 3.2 g/dl (3.5-5.0); Alkaline Phosphatase 297 U/L (38-126); Blood Urea Nitrogen 15 mg/dl (9-20); Calcium 8.8 mg/dl (8.4-10.2); Carbon Dioxide 26 mmol/L (22-30); Chloride 104 mmol/L (98-107); Estimated Creatinine Clearance 103 ml/min; Glucose 223 mg/dl (70-99); Lipase 65 U/L (23-300); Potassium 4.4 mmol/L (3.5-5.1); Sodium 136 mmol/L (135-145); Total Protein 5.8 g/dl (6.3-8.2); eGFR > 60.00
[2024-09-16] MEDS: NOVOLOG FLEXPEN-LOW RESISTANCE 2 UNITS SC (08:31)
[2024-09-16] MEDS: IMDUR (EXTENDED RELEASE) 30 MG PO (08:32)
[2024-09-16] MEDS: PROTONIX 40 MG PO (08:33)
[2024-09-16] MEDS: HEPARIN 5000 UNITS SC (08:33)
[2024-09-16] MEDS: ASPIR LOW (ENTERIC COATED) 81 MG PO (08:33)
[2024-09-16] MEDS: LYRICA 200 MG PO (08:33)
[2024-09-16] MEDS: CRESTOR 40 MG PO (08:33)
[2024-09-16] MEDS: QUESTRAN 4 GRAM PO (08:34)
--- NOTE | 2024-09-16 11:33 | W.PN.GI.CBS2 ---
Today's Communication / Plan
-
stable for discharge today
LFT's trending down, no fever, no abdominal pain and tolerating diet
ok for resume 48 hour post procedure 09/17 PM
office will call pt to schedule 6-8 week sent removal
cont abx course to transition to PO dosing per review with Dr. Sargent
Pt also to schedule routine follow up for general GI care-- in several months
reviewed with Dr. Sargent
Assessment / Plan
-
Tadeo is a 78yo M with h/o CAD s/p CABG, PAD and DM who was admitted for fever, chills and abd discomfort. He has h/o CYY done 20yrs ago. Vitals AF HR 79 BP 112/63 95% on RA. Exam obese mildly TTP in RUQ. No jaundice. Imaging reviewed. CTAP
done IV only contrast with CBD 15 and possible 1.2cm lesion adjacent to CBD.
Impression
- Cholangitis with Ecoli bacteremia
- Dilated CBD
- S/p CYY
- DM
- PAD
- CAD
- CABG
- Chronic AC last xarelto 7 AM
Recommendations
stable for discharge today
LFT's trending down, no fever, no abdominal pain and tolerating diet
office will call pt to schedule 6-8 week sent removal
ok for resume 48 hour post procedure 09/17 PM
cont abx course to transition to PO dosing per review with Dr. Sargent
Pt also to schedule routine follow up for general GI care-- in several months
reviewed with Dr. Sargent
Subjective
Subjective
Date of Service: September 16, 2024
pt feeling well post procedure tolerating diet, asking about discharge
Objective
Data Reviewed
Laboratory Data:
Laboratory Results
09/16/24 07:38
09/16/24 07:38
Laboratory Results
Total Bilirubin 1.1 mg/dl (0.2-1.3) 09/16/24 07:38
AST 31 U/L (17-59) 09/16/24 07:38
ALT 92 U/L (0-50) H 09/16/24 07:38
Alkaline Phosphatase 297 U/L (38-126) H 09/16/24 07:38
Lipase 65 U/L (23-300) 09/16/24 07:38
Vital Signs and I&O:
Vital Signs
Temp Pulse Resp BP Pulse Ox
97.7 F 59 16 142/71 97
09/16/24 08:18 09/16/24 08:18 09/16/24 08:18 09/16/24 08:18 09/16/24 10:59
I&O
09/15/24 09/16/24 09/17/24
06:59 06:59 06:59
Intake Total 480 / 480 590 / 590 480 / 480
Output Total 0 / 0 500 / 500 200 / 200
Balance 480 / 480 90 / 90 280 / 280
Physical Exam
Physical Exam
HEENT: Anicteric and Moist mucous membranes
Cardiology: Normal Sinus Rhythm
Pulmonary: Clear
GI: Soft, Non Distended and Non Tender
Extremities: No Edema
Neuro: Non Focal
[2024-09-16 12:12] LABS: Glucose - Point of Care 266 mg/dl (70-99)
--- NOTE | 2024-09-16 12:22 | VATNOTE ---
Patient with reported right forearm phlebitis from a previous IV site. Area red and swollen, warm to touch. Minimal cord palpated. Patient states area is 'much better' since yesterday. No drainage noted.
[2024-09-16] MEDS: NOVOLOG FLEXPEN-LOW RESISTANCE 3 UNITS SC (12:45)
--- NOTE | 2024-09-16 14:03 | CM ---
Patient seen bedside.
Patient denies home care needs.
IMM completed.
If patient is d/c home, son will transport.
Plan: home no needs.
--- NOTE | 2024-09-16 15:42 | W.PN.HOSP.TC ---
Today's Communication/Plan
-
dc to home
Assessment / Plan
Assessment / Plan
Fever, chills at home suspect secondary to sepsis
biliary source given elevated LFTs and CT scan with intra and extra hepatic ductal dilation
MRI suggestive of cholelithiasis
Blood culture positive for ecoli, ID following. Repeat blood cultures 09/13 NGTD
Discussed with GI, underwent ERCP Friday 09/15
UA not suggestive of UTI
Do not suspect pneumonia on chest x-ray, denies any cough
cw abx per ID
WBC 12.6-->8.8-->7.0-->7.5-->9.5
Transaminitis�elevated LFTs alk phos but normal lipase. CT abdomen pelvis concerning for biliary ductal dilation
- MRI 09/13: Choledocholithiasis with biliary dilatation, as described. No suspicious soft tissue mass.
- GI following
DM II
- Sliding scale insulin, hold Jardiance
- hold sitagliptin
HTN
Restart irbesartan
CAD / PAD
Known right lower extremity lymphedema
History of right superficial femoral artery to below knee popliteal artery bypass with ipsilateral reversed great saphenous vein
- Continue Imdur with hold parameters
- Continue aspirin and statin
- continue cilostazol
also on xarelto which is held for ERCP, to be resumed 09/17 PM
DVT PPX -heparin
Code status - Full Code
More than 30 minutes spent in discharge including
Final examination of the patient
Summarizing hospital stay
Instructions for continuing care to all relevant caregivers
Preparation of discharge records, prescriptions, and referral forms
Total time spent (in minutes): 45
Anticipated Discharge: Today
Subjective/Interval History
-
Date of Service: September 16, 2024
Feels much better, tolerating diet and is anxiously awaiting dc
Objective Data
-
Labs:
Laboratory Results
09/16/24
07:38
WBC 9.5
Hgb 13.4
Hct 39.4
Plt Count 242
Sodium 136
Potassium 4.4
Chloride 104
Carbon Dioxide 26
BUN 15
Creatinine 0.7
Glucose 223 H
Calcium 8.8
Total Bilirubin 1.1
AST 31
ALT 92 H
Alkaline Phosphatase 297 H
Vital Signs:
Vital Signs
Temp Pulse Resp BP Pulse Ox
97.7 F 59 16 142/71 97
09/16/24 08:18 09/16/24 08:18 09/16/24 08:18 09/16/24 08:18 09/16/24 10:59
I&O
09/15/24 09/16/24 09/17/24
06:59 06:59 06:59
Intake Total 480 / 480 590 / 590 480 / 480
Output Total 0 / 0 500 / 500 200 / 200
Balance 480 / 480 90 / 90 280 / 280
Review of Systems
-
History Source: Patient and Coordinated Provider
Constitutional: Denies Fever
EENT: Reports No Symptoms Reported
Respiratory: Reports No Symptoms
Cardiac: Reports No Symptoms
Abdomen/GI: Denies Abdominal Pain (resolved) or Constipated
Neuro: Reports No Symptoms
Physical Exam
-
General: Well Developed, Well Nourished and No Apparent Distress
HEENT: Normocephalic, Atraumatic and Moist Mucous Membranes
Respiratory: Clear to Auscultation; Negative Wheezes, Rales or Rhonchi
Cardiac: Regular Rhythm and S1/S2
GI: Soft and Normal Bowel Sounds; Negative Tender
[2024-09-16 15:49] VITALS: BP 117/88
[2024-09-16] MEDS: HEPARIN SC (16:06)
--- NOTE | 2024-09-16 16:49 | W.DS.TRANS ---
DC Summary - [employer]
-
Discharge Instructions:
Discharge Diagnosis/Procedures Cholangitis, Septic Shock, Bacteremia
Diet Low Fat,Low Residue
Activity No strenuous activity
Driving Restrictions Not until seen by your Dr
Bathing Restrictions None
Blood Work CBC, CMP
Instructions:
Stand-Alone Forms:
Changes to Home Medications: Yes
Discharge Medications:
DC Medications w/original date entered in [email or web address]
glimepiride 2 mg tablet 2 mg PO BID@0800,1700 Diabetes 08/20/20
rosuvastatin 40 mg tablet (Crestor) 40 mg PO DAILY High cholesterol 08/20/20
cilostazol 100 mg tablet 100 mg PO BID Blood clot prevention/tx 05/16/22
pantoprazole 40 mg tablet,delayed release 40 mg PO DAILY Gastrointestinal issue 05/16/22
rivaroxaban 2.5 mg tablet (Xarelto) 2.5 mg PO BID Blood clot prevention/tx 05/16/22
tamsulosin 0.4 mg capsule 0.4 mg PO QPM Urinary Issue 09/03/23
empagliflozin 25 mg tablet (Jardiance) 12.5 mg PO DAILY Diabetes 01/07/24
irbesartan 300 mg tablet 300 mg PO DAILY Blood Pressure 01/07/24
pregabalin 100 mg capsule (Lyrica) 100 mg PO QPM Pain 01/07/24
pregabalin 100 mg capsule (Lyrica) 200 mg PO DAILY Pain 01/07/24
sitagliptin 100 mg tablet 100 mg PO DAILY Diabetes 01/07/24
isosorbide mononitrate 30 mg tablet,extended release 24 hr 30 mg PO DAILY 09/12/24
lidocaine 5 % topical patch 1 patch topical DAILYPRN PRN lower back pain 09/12/24
oxycodone-acetaminophen 10 mg-325 mg tablet 1 tab PO Q8HPRN PRN severe pains 09/12/24
aspirin 81 mg tablet,delayed release 81 mg PO DAILY #0 tabs 09/16/24
cephalexin 500 mg capsule 500 mg PO QID 10 days #40 caps 09/16/24
cholestyramine (with sugar) 4 gram powder for susp in a packet 1 ea PO BID@0900,2100 #0 ea 09/16/24
cyclobenzaprine 10 mg tablet 10 mg PO HSPRN PRN back pain #0 tabs 09/16/24
isosorbide mononitrate 30 mg tablet,extended release 24 hr 30 mg PO DAILY #30 tabs 09/16/24
Home Medication Changes
Keflex added
Pending Results: No
== END 2024-09-16 17:44 | disposition home or self-care (01) | DRG 871 ==
LOC: 4 WEST ACU 04:51
PROVIDERS: Emergency Medicine; Internal Medicine; Internal Medicine Gastroenterology; ADMITTING PHYSICIAN Internal Medicine; ATTENDING PHYSICIAN Internal Medicine; CONSULT PHYSICIAN Internal Medicine Gastroenterology; CONSULT PHYSICIAN Internal Medicine Infectious Disease; EMERGENCY PHYSICIAN Emergency Medicine; FAMILY PHYSICIAN Internal Medicine
PROC: 0FC98ZZ Extirpation of Matter from Common Bile Duct, Via Natural or Artificial Opening Endoscopic (ICD-10-PCS; 2024-09-15)
PROC: BF141ZZ Fluoroscopy of Gallbladder, Bile Ducts and Pancreatic Ducts using Low Osmolar Contrast (ICD-10-PCS; 2024-09-15)
PROC: 0F798DZ Dilation of Common Bile Duct with Intraluminal Device, Via Natural or Artificial Opening Endoscopic (ICD-10-PCS; 2024-09-15)
DX: A41.51 Sepsis due to Escherichia coli [E. coli] (principal); R65.21 Severe sepsis with septic shock; K80.30 Calculus of bile duct with cholangitis, unspecified, without obstruction; E87.20 Acidosis, unspecified; E11.42 Type 2 diabetes mellitus with diabetic polyneuropathy; Z79.84 Long term (current) use of oral hypoglycemic drugs; I25.10 Atherosclerotic heart disease of native coronary artery without angina pectoris; E78.00 Pure hypercholesterolemia, unspecified; Z87.891 Personal history of nicotine dependence; Z90.49 Acquired absence of other specified parts of digestive tract; I10 Essential (primary) hypertension; E11.51 Type 2 diabetes mellitus with diabetic peripheral angiopathy without gangrene; E86.0 Dehydration; E88.09 Other disorders of plasma-protein metabolism, not elsewhere classified; I25.2 Old myocardial infarction; I49.3 Ventricular premature depolarization; K21.9 Gastro-esophageal reflux disease without esophagitis; K29.70 Gastritis, unspecified, without bleeding; N40.0 Benign prostatic hyperplasia without lower urinary tract symptoms; Z79.01 Long term (current) use of anticoagulants; Z79.02 Long term (current) use of antithrombotics/antiplatelets; Z79.82 Long term (current) use of aspirin; Z86.718 Personal history of other venous thrombosis and embolism; Z86.73 Personal history of transient ischemic attack (TIA), and cerebral infarction without residual deficits; Z95.1 Presence of aortocoronary bypass graft; Z95.5 Presence of coronary angioplasty implant and graft; Z95.820 Peripheral vascular angioplasty status with implants and grafts
CPT/HCPCS: 71045; 74177; 74183; 74330; 76000; 80053; 81003; 81015; 82247; 82248; 82962; 83605; 83690; 85025; 87040; 87077; 87154; 87186; 87205; 87502; 87811; 93005; 96361; 96365; 99291; A9575; C1769; C2625; Q9967

== ENCOUNTER 2024-09-22 13:49 | Inpatient (IN) | payer MEDICARE, OTHER, SELFPAY ==
[2024-09-22] VITALS (10 sets, daily range): BP systolic 131–155; BP diastolic 68–87; BMI 26.1
[2024-09-22] MEDS: DILAUDID 0.5 MG IV ×4 (09:31→19:53)
[2024-09-22 09:38] LABS: Hematocrit 42.5 % (39.0-52.0); Hemoglobin 14.5 g/dL (13.0-18.0); Mean Corp Hgb Conc. 34.1 g/dL (33.0-37.0); Mean Corpuscular Volume 85.9 fL (80.0-94.0); Nucleated Red Blood Cells % 0 % (-); Platelet Count 283 10^3/uL (130-400); Red Cell Dist. Width 15.9 % (11.5-14.5)
[2024-09-22] MEDS: ZOFRAN 4 MG IV (09:41)
[2024-09-22 10:02] LABS: Blood Urea Nitrogen 11 mg/dl (9-20); Calcium 9.5 mg/dl (8.4-10.2); Carbon Dioxide 23 mmol/L (22-30); Chloride 106 mmol/L (98-107); Estimated Creatinine Clearance 120 ml/min; Glucose 272 mg/dl (70-99); Lipase 151 U/L (23-300); Sodium 135 mmol/L (135-145); eGFR > 60.00
--- NOTE | 2024-09-22 11:27 | ED.GENMED ---
History of Present Illness
General
Chief Complaint: Abdominal Pain
Time Seen by Provider: 09/22/24 09:02
History of Present Illness
History of Present Illness:
see MDM
Past History
Past History
ED Past Medical History: CAD, CVA, GERD, HTN, Hypercholesterolemia, NIDDM, SC and Other (DVT)
ED Past Surgical History: Cardiac (bypass, stents) and Cholecystectomy
Social History
Tobacco: Former smoker (quit x 22 years)
Alcohol: None
Drug: None
Personal:
Living: with family
Employment: Retired
Phy Exam
Physical Exam
Physical Exam:
GENERAL: Alert , in no apparent distress, generally weak, pale
EYE: pupils equal and reactive
NECK: Supple
ENT: o/p clr, mmm.
CARDIAC: Ectopy on the monitor, no murmur appreciated
LUNGS: Clear breath sounds bilaterally, no acute respiratory distress, no wheezes/rales/rhonchi
ABDOMEN: Soft, moderate lower abdominal tenderness, mild guarding, no r/g, no cvat, normal bowel sounds
NEUROLOGICAL: Alert and oriented, no focal neuro deficits but seems to be delayed in answering questions, he is otherwise oriented
SKIN: Warm and dry, skin intact.
MUSCULOSKELETAL: No edema, well perfused. neg sanya's sign
PSYCH: Normal and appropriate interaction.
Course
Orders/Labs/Results
Orders:
Orders
09/22/24 09:15
Electrocardiogram (*1) Urgent
Reason for Study: Abdominal Pain
EKG- Treatment ONCE
HYDROmorphone [Dilaudid] 0.5 mg IV NOW STA
09/22/24 09:26
Basic Metabolic Panel Urgent
Complete Blood Count/With Diff Urgent
Lactic Acid Urgent
Lipase Urgent
09/22/24 09:39
Ondansetron Injectable [Zofran] 4 mg .ROUTE .STK-MED ONE
09/22/24 09:40
Ondansetron Injectable [Zofran] 4 mg IV NOW STA
09/22/24 10:04
CT Abd/Pel (IV only)-DH only Urgent
Comment:
Reason For Exam: abd pain, h/o cholangitis recently ercp
09/22/24 11:04
HYDROmorphone [Dilaudid] 0.5 mg .ROUTE .STK-MED ONE
09/22/24 11:06
HYDROmorphone [Dilaudid] 0.5 mg IV NOW STA
09/22/24 11:33
STOOL [C difficile Antigen & Toxins] Urgent
MEKHI Source: Feces/Stool
Specimen Description:
Stool Culture Urgent
MEKHI Source: Feces/Stool
Specimen Description:
09/22/24 12:20
Comprehensive Metabolic Panel Urgent
09/22/24 12:28
Bladder Scan- Treatment ONCE
0.9% Sodium Chloride 1000 ml [Nss] 1,000 ml IV BOLUS
09/22/24 13:05
Admit/Transfer Patient As Directed
Co-Sign Provider:
Level of Care: Inpatient admission
Assign to:: Medical/Surgical
Physician / Group: mannie
Diagnosis: cdif
Reason for Hospitalization: cdif
Expected length of stay greater than two midnights?: Yes
ELOS- Estimated Length of Stay in days: 2
I certify the patient meets the requirements for IP care: Yes
Code Status As Directed
Resuscitation Status: Full Code
PRN Pain Medication Management As Directed
May give lesser potent ordered pain med per pt: Yes
preference::
Protocol:: Medication orders for pain may be administered in a
manner that supports deferring to patient preference
when the pt is:
- Requesting an ordered lesser potent pain medication.
Least to most potent pain medications are defined
as: acetaminophen < NSAID < tramadol < opioids
(morphine, oxycodone, hydromorphone).
- Requesting a lesser dose of the same medication IF
ORDERED.
- Requesting a less intrusive route of administration
if both routes are prescribed by the provider (PO <
IV).
09/22/24 13:40
HYDROmorphone [Dilaudid] 0.5 mg IV Q4HPRN PRN
09/22/24 13:45
Vancomycin HCl [Firvanq] 125 mg PO Q6
09/22/24 14:00
Flush (0.9% Sodium Chloride) [Flush (Nss)] See Dose Instructions IV PER PROTOCOL
09/22/24 14:21
Urinalysis Reflex To Culture Urgent
Date Specimen was Collected: 09/22/24
Time Specimen was Collected: 14:20
Abnormal Lab Results
09/22/24 09/22/24
09:26 12:20
RDW 15.9 H %
(11.5-14.5)
Abs Immat Gran (auto) 0.2 H 10^3/uL
(0-0.05)
Absolute Neuts (auto) 7.1 H 10^3/uL
(1.4-6.5)
Absolute Monos (auto) 0.8 H 10^3/uL
(0.1-0.6)
Immature Gran % 1.9 H %
(0-0.5)
Neutrophils % 76.1 H %
(42.2-75.2)
Lymphocytes % 12.3 L %
(20.5-51.1)
Creatinine 0.5 L mg/dL 0.5 L mg/dL
(0.7-1.3) (0.7-1.3)
Glucose 272 H mg/dl 259 H mg/dl
(70-99) (70-99)
Alkaline Phosphatase 211 H U/L
(38-126)
09/22/24 09:26
09/22/24 12:20
Vital Signs
Initial and Last Documented VS:
Initial Vital Signs
Temp Pulse Resp BP Pulse Ox
36.9 C 72 15 133/80 97
09/22/24 09:10 09/22/24 09:10 09/22/24 09:10 09/22/24 09:10 09/22/24 09:10
Last Documented Vital Signs
Temp Pulse Resp BP Pulse Ox
36.7 C 65 13 131/81 97
09/22/24 12:25 09/22/24 13:00 09/22/24 13:00 09/22/24 12:00 09/22/24 13:00
MDM/Problems Addressed
Differential Diagnosis Includes:
see MDM
MDM/Problems Addressed:
Note:
CHIEF COMPLAINT(S)
Fever, chills, abdominal pain, and diarrhea.
HISTORY OF PRESENT ILLNESS
The patient, a male, with recent hospitalization for choledocholithiasis/cholangitis s/p ERCP
here with abd pain and chills. He reports a feeling of being unwell and states these symptoms are similar to those experienced during a recent procedure for gallstones removal from his bile duct performed a few weeks ago. The patient denies any
cough but complains of abdominal pain localized to the lower abdomen which i smoderate. He describes experiencing severe yellow diarrhea, occurring at least five times daily, which is a new symptom for him. The diarrhea is not overly foul-smelling.
The patient has been taking antibiotic keflex since discharge. He denies any history of colitis, infectious diarrhea, or diabetes and reports normal urination without dysuria. Despite these symptoms, the patient has a measured temperature of
approximately 97 degrees Fahrenheit, although he states he felt feverish. He denies any chest pain. The patient also reports feeling weak and emotionally distressed due to fear of his current condition.
ADDITIONAL HISTORY OBTAINED FROM SOURCES OTHER THAN THE PATIENT
Not applicable.
EXTERNAL RECORDS REVIEWED
Not applicable.
CHRONIC MEDICAL CONDITIONS SIGNIFICANTLY AFFECTING CARE
The patient has a history of a coronary artery bypass grafting (CABG) performed 20 years ago. He mentions having been managed by his primary care provider and sap solution manager consultant for episodes of extra beats, described as atrial fibrillation, though they
reassured it was not concerning.
SOCIAL DETERMINANTS AFFECTING HEALTH
Not applicable.
ALLERGIES
The patient reports no known allergies.
PHYSICAL EXAM
- General: The patient appears uncomfortable.
- Abdomen: Tenderness noted in the lower abdomen.
Nursing notes reviewed and vital signs reviewed.
PROBLEM LIST
- Acute Problems:
- Fever and chills
- Lower abdominal pain
- Severe yellow diarrhea
- Weakness
- Emotional distress
- Chronic Problems:
- History of coronary artery bypass grafting
- History of atrial fibrillation
PLAN
- Complete blood work and imaging of the abdomen to evaluate potential pancreatitis or colon infection.
- Collect a urine sample for analysis.
- Administer intravenous pain medication.
- Continue monitoring symptoms and provide reassurance.
DIFFERENTIAL DIAGNOSIS
The Differential Diagnosis includes, in no particular order and is not limited to:
1. Pancreatitis
2. Infection from recent gallstone removal
3. Antibiotic-associated colitis
4. Viral gastroenteritis
5. Cholecystitis
6. Biliary tract infection
7. Diverticulitis
8. Clostridioides difficile infection
9. Gastroesophageal reflux disease
10. Stress-related gastrointestinal symptoms
09/22/24 - 12:19
The patient presents with persistent abdominal pain and has not had a bowel movement since admission. Imaging results indicate colitis, suggesting inflammation of the colon, potentially linked to recent antibiotic use and the risk of C. difficile
infection. There is a need to confirm this diagnosis with stool testing, which is pending. His current condition, characterized by significant pain, fatigue, and altered cognition, suggests he needs continued hospitalization for supportive care,
including IV fluids and pain management. pt has yet to give urine, bladder scan 280; will have pt try again.
.The treatment plan includes awaiting stool culture results before modifying antibiotics, as the condition could also be viral or bacterial in origin, with possibilities including norovirus, E. coli, or salmonella. Further monitoring of his
cognition and responsiveness to questions will be necessary, given the noted changes since his hospital discharge.
given his continued pain despite m,jennifer rounds pain meds, will admit
*Pulse Oximetry
SaO2: 94
Oxygen Mode of Delivery: Room air
Patient hypoxic: no (97)
*Critical Care Note
Total Time (30-74mins, 75-104mins- exclusive of procedures): Not Applicable
ED Attending Note
-
Portions of this chart may have been created with voice recognition software.� Occasional wrong word or��sound alike� substitutions may have occurred due to the inherent limitations of voice recognition software.
Discharge Plan
Departure
Patient Disposition: Admit
Date of Disposition: 09/22/24
Time of Disposition: 12:25
Admit to: Med/Surg
Presentation/result/management discussed w/ accepting MD/DO: Hospitalist
Discharge Problem:
Pancolitis
Interventions
Interventions:
*Risk Screen - Suicide Last Done: 09/22/24 09:10
*General Assessment Last Done: 09/22/24 09:10
*Neglect/Abuse Screening Last Done: 09/22/24 09:10
*ED- Fall Risk Assessment Last Done: 09/22/24 09:10
BK-Bdybvy-Visltvxdiz Assessment Last Done: 09/22/24 09:45
[2024-09-22 12:44] LABS: ALT (SGPT) 41 U/L (0-50); AST (SGOT) 27 U/L (17-59); Albumin 3.8 g/dl (3.5-5.0); Alkaline Phosphatase 211 U/L (38-126); Blood Urea Nitrogen 11 mg/dl (9-20); Calcium 9.5 mg/dl (8.4-10.2); Carbon Dioxide 25 mmol/L (22-30); Chloride 104 mmol/L (98-107); Estimated Creatinine Clearance 120 ml/min; Glucose 259 mg/dl (70-99); Potassium 4.2 mmol/L (3.5-5.1); Sodium 137 mmol/L (135-145); Total Protein 6.6 g/dl (6.3-8.2); eGFR > 60.00
[2024-09-22] MEDS: NSS 1000 IV ×2 (12:56→16:23)
--- NOTE | 2024-09-22 13:15 | HPS.HSE ---
Family Physician
-
Family Physician: Magno Khan
Chief Complaint
-
abdominal pain
History of Present Illness
79-year-old male past medical history of C. difficile 2 years ago, sepsis secondary to E. coli bacteremia secondary to suspected biliary source, choledocholithiasis, diabetes, hypertension, CAD, PAD on Xarelto, known lower extremity lymphedema,
right superficial femoral artery to below-knee popliteal artery bypass with ipsilateral reversed great saphenous vein, presenting with fatigue, chills, diffuse abdominal pain starting few days ago associated multiple episodes of diarrhea per day
nonbloody with yellow mucus and watery. Denies nausea or vomiting. His last diarrhea episode was this morning he did not have any in the emergency room.
Patient was recently admitted from 09/12 to 09/16 for septic shock and E. coli bacteremia suspected secondary to cholangitis. He underwent ERCP with sweeping of the biliary duct and removal of multiple stones. He was treated with Zosyn transition to
Keflex.
He had an episode of C. difficile 2 years ago.
Denies smoking or alcohol use.
Medical History
Past Medical History
Past Medical History: Reports Other (C. difficile 2 years ago, sepsis secondary to E. coli bacteremia secondary to suspected biliary source, choledocholithiasis, diabetes, hypertension, CAD, PAD on Xarelto, known lower extremity lymphedema, right
superficial femoral artery to below-knee popliteal artery bypass with ipsilateral reversed)
Past Surgical History: Reports Other (Cardiac (bypass, stents) and Cholecystectomy)
Social History
Tobacco: Non-smoker
Alcohol: None
Drug: None
Family History
Family History: Not pertinent
Allergies / Home Medications
Allergies reflects when Allergies were last updated in [employer].
Home Medications with original date entered in [employer]
Allergy/Medication List:
Allergies
Allergy/AdvReac Type Severity Reaction Status Date / Time
No Known Allergies Allergy Verified 09/22/24 09:19
Home Medications
glimepiride 2 mg tablet 2 mg PO BID@0800,1700 Diabetes 08/20/20
rosuvastatin 40 mg tablet (Crestor) 40 mg PO DAILY High cholesterol 08/20/20
cilostazol 100 mg tablet 100 mg PO BID Blood clot prevention/tx 05/16/22
pantoprazole 40 mg tablet,delayed release 40 mg PO DAILY Gastrointestinal issue 05/16/22
tamsulosin 0.4 mg capsule 0.4 mg PO QPM Urinary Issue 09/03/23
empagliflozin 25 mg tablet (Jardiance) 12.5 mg PO DAILY Diabetes 01/07/24
irbesartan 300 mg tablet 300 mg PO DAILY Blood Pressure 01/07/24
pregabalin 100 mg capsule (Lyrica) 100 mg PO QPM Pain 01/07/24
pregabalin 100 mg capsule (Lyrica) 200 mg PO DAILY Pain 01/07/24
sitagliptin 100 mg tablet 100 mg PO DAILY Diabetes 01/07/24
isosorbide mononitrate 30 mg tablet,extended release 24 hr 30 mg PO DAILY 09/12/24
lidocaine 5 % topical patch 1 patch topical DAILYPRN PRN lower back pain 09/12/24
oxycodone-acetaminophen 10 mg-325 mg tablet 1 tab PO Q8HPRN PRN severe pains 09/12/24
aspirin 81 mg tablet,delayed release 81 mg PO DAILY #0 tabs 09/16/24
cephalexin 500 mg capsule 500 mg PO QID 10 days #40 caps 09/16/24
cholestyramine (with sugar) 4 gram powder for susp in a packet 1 ea PO BID@0900,2100 #0 ea 09/16/24
cyclobenzaprine 10 mg tablet 10 mg PO HSPRN PRN back pain #0 tabs 09/16/24
rivaroxaban 2.5 mg tablet (Xarelto) 2.5 mg PO BID 09/22/24
Review of Systems
-
History Source: Patient
A 12 point ROS was completed and negative except as noted: Yes
Constitutional: Reports No Symptoms
EENT: Reports No Symptoms
Respiratory: Reports No Symptoms
Cardiac: Reports No Symptoms
Abdomen/GI: Reports See HPI
: Reports No Symptoms
Musculoskeletal: Reports No Symptoms
Skin: Reports No Symptoms
Neurological: Reports No Symptoms
Endocrine: Reports No Symptoms
Hematologic/Lymphatic: Reports No Symptoms
Psych: Reports No Symptoms
Physical Exam
Vital Signs
Vital Signs
Temp Pulse Resp BP Pulse Ox
98.1 F 65 13 131/81 97
09/22/24 12:25 09/22/24 13:00 09/22/24 13:00 09/22/24 12:00 09/22/24 13:00
Physical Exam
General: Well Developed, Well Nourished and No Apparent Distress
HEENT: NormoCephalic, Moist mucous membranes and Atraumatic
Respiratory: Clear
Cardiac: S1/S2 and Regular Rhythm; No Murmur or Rub
GI: Soft, Non Distended, Normal Bowel Sounds and Tender (diffusely ); No Organomegaly
Rectal: Deferred by Provider
Musculoskeletal: No Clubbing, No Cyanosis and No Edema
Skin: No Rash
Neuro: Nonfocal/grossly intact
Laboratory Results
-
09/22/24 09:26
09/22/24 12:20
Laboratory Results
Lactic Acid 1.6 mmol/L (0.7-2.0) 09/22/24 09:26
Total Bilirubin 1.1 mg/dl (0.2-1.3) 09/22/24 12:20
AST 27 U/L (17-59) 09/22/24 12:20
ALT 41 U/L (0-50) 09/22/24 12:20
Alkaline Phosphatase 211 U/L (38-126) H 09/22/24 12:20
Lipase 151 U/L (23-300) 09/22/24 09:26
Data Reviewed
-
Lab Data: Labs Reviewed by me
Old Records: Reviewed
Impression/Plan
-
IMPRESSION:
PLAN:
# Pancolitis likely infectious likely secondary to C. difficile given recent antibiotic
# History of C. difficile 2 years ago
-CT scan shows thickening and enhancement of the wall of the colon which appears to involve the entire colon new from previously, suggesting diffuse colitis, infectious colitis possible, inflammatory bowel disease also possible,
- Stool culture, C. difficile pending
- IV fluids
- Start oral vancomycin 125 mg 4 times daily
- N.p.o. for now, advance diet as tolerated
- Dilaudid for pain
- Infectious disease consulted
#Recent septic shock secondary to E. coli bacteremia secondary to suspected cholangitis
Choledocholithiasis status post ERCP with sweeping of biliary tract/removal of stones
History of cholecystectomy
- Underwent ERCP status post sweeping of the biliary duct and removal of multiple stones
- Continue Keflex, has 4 more days to finish 10-day course
- Continue cholestyramine
#Hyperglycemia secondary to infection
Type 2 diabetes
-Blood sugar 259
- Hold glimepiride, Jardiance, sitagliptin
- Insulin sliding scale
Essential hypertension
- Continue irbesartan
CAD status post CABG
- Continue aspirin
- Continue isosorbide mononitrate
- Continue statin
PAD
- Continue cilostazol
- Continue Xarelto
Known lower extremity lymphedema
Right superficial femoral artery to below-knee popliteal artery bypass with ipsilateral reversed great saphenous vein
BPH
-continue tamsulosin
Chronic back pain
- Continue pregabalin
Full code
DVT prophylaxis�Xarelto
N.p.o.
[2024-09-22] MEDS: FIRVANQ 125 MG PO ×2 (14:03→17:57)
[2024-09-22 14:35] LABS: Urine Character Clear (Clear)
--- NOTE | 2024-09-22 14:57 | CON.ID ---
Consultation
-
Date/Time Consultation Requested: September 22, 2024 1415
Date/Time Consultation Performed: September 22, 2024 1500
Requesting Provider: Dr. Anatoly Rivero
Performing Provider: Dr. Ann-Marie Veliz
Reason for Consultation: Pancolitis
Chief Complaint / Past History
Chief Complaint
Abdominal pain
History of Present Illness
79-year-old male with history of diabetes mellitus, CAD, PAD, remote history of cholecystectomy who was recently hospitalized from September 12 - September 16 with E. coli bacteremia from cholangitis and found to have choledocholithiasis. September 15 he
underwent ERCP status post common bile duct stent placement. He was on IV Unasyn in the hospital then discharged on cephalexin till September 27. Two days ago, patient developed chills and abdominal pain located central abdomen. Also with diarrhea
about 4 times a day. Stool is mucous and yellow. He came to the ER today. Last bowel movement was this morning. Afebrile. White count normal. CT of the abdomen and pelvis shows new pancolitis. He was started on oral vancomycin. He states he
had history of C. diff x 1 in 2022. He has not eaten restaurant food recently.
Past History
Additional Past Medical History:
NIDDM
Neuropathy
HTN
HLD
CAD s/p CABG x 5
CVA
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
GERD
DVT
hx C. difficile
E. coli cholangitis, choledocholithiasis s/p CBD stent 09/15/24
Cholecystectomy (~2004)
Allergy History:
No Known Allergies Allergy (Verified 09/22/24 09:19)
Medications Reviewed: Yes
Current Antibiotics:
Vancomycin 125 mg p.o. every 6, day 1
Cephalexin 500 mg p.o. 4 times daily
Social History
Tobacco: Former Smoker
Alcohol: None
Drug: None
Personal:
Living: With Family
Employment: Retired
Family History
Family History: Not Pertinent
Review of Systems
Review of Systems
General: Chills and Change in Appetite; Negative Fever
HEENT: Negative Sinus Problems, Headache or Pharyngitis
Cardiovascular: Negative Chest Pain or Dyspnea
Respiratory: Negative Dyspnea or Cough
Gasteroenterology: Diarrhea; Negative Nausea or Vomiting
Genital / Urological: Negative Dysuria or Flank Pain
Endocrine: Weakness
All systems: All other systems were reviewed and were negative
Vital Signs
Temp Pulse Resp BP Pulse Ox
98.1 F 65 13 131/81 97
09/22/24 12:25 09/22/24 13:00 09/22/24 13:00 09/22/24 12:00 09/22/24 13:00
Physical Exam
Physical Exam
Constitutional: No Acute Distress
Eyes: No Conjunctival Hemorrhage and Sclera Anicteric
Cardiovascular: Regular Rate and S1/S2
Pulmonary: Clear
Gastrointestinal: Soft, Tender (Diffuse), Non Distended and Normal Bowel Sounds
Genito-Urinary: Negative CVA Tenderness
Extremities: Negative Edema
Skin: Negative Jaundice
Neurological: AO x 3
Lab / Diagnostic Study Results
09/22/24 09:26
09/22/24 12:20
Abs Immat Gran (auto) 0.2 10^3/uL (0-0.05) H 09/22/24 09:26
Absolute Neuts (auto) 7.1 10^3/uL (1.4-6.5) H 09/22/24 09:26
Absolute Lymphs (auto) 1.2 10^3/uL (1.2-3.4) 09/22/24 09:26
Absolute Monos (auto) 0.8 10^3/uL (0.1-0.6) H 09/22/24 09:26
Absolute Basos (auto) 0.1 10^3/uL (0-0.2) 09/22/24 09:
Immature Gran % 1.9 % (0-0.5) H 09/22/24 09:26
Neutrophils % 76.1 % (42.2-75.2) H 09/22/24 09:
Lymphocytes % 12.3 % (20.5-51.1) L 09/22/24 09:
Monocytes % 8.0 % (1.7-9.3) 09/22/24 09:
Eosinophils % 1.1 % (0-6) 09/22/24 09:
Basophils % 0.6 % (0-2) 09/22/24 09:
Lactic Acid 1.6 mmol/L (0.7-2.0) 09/22/24 09:
Microbiology Results
09/22/24 CT a/p: Thickening and enhancement of the wall the colon, which appears to involve the entire colon and is new from previous CT examination.
Assessment / Plan
# Acute zimmer-colitis
# Diarrhea
# hx of C. diff x 1
# Recent hx C. diff colonization
- Suspect C. diff colitis, with recent abx exposure
- Await stool for C. diff and culture.
- Agree with empiric po vancomycin.
# Recent E. coli bacteremia/cholangitis s/p ERCP 09/15/24
- Continue cephalexin to complete on 09/27.
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
NIDDM
Neuropathy
HTN
HLD
CAD s/p CABG x 5
CVA
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
GERD
DVT
hx C. difficile
E. coli cholangitis, choledocholithiasis s/p CBD stent 09/15/24
Cholecystectomy (~2004)
[2024-09-22 15:11] LABS: Urine Red Blood Cell 0-2 /HPF (0-2); Urine White Cell 0-2 /HPF (0-5)
[2024-09-22 16:26] LABS: Glucose - Point of Care 196 mg/dl (70-99)
[2024-09-22] MEDS: NOVOLOG FLEXPEN-LOW RESISTANCE SC (16:27)
[2024-09-22] MEDS: FLOMAX 0.4 MG PO (17:54)
[2024-09-22] MEDS: KEFLEX 500 MG PO ×2 (17:55→22:20)
[2024-09-22] MEDS: LYRICA 100 MG PO (17:56)
--- NOTE | 2024-09-22 19:24 | PTCARENOTE ---
Received pt from ED at 1820. Pt did a stand pivot from stretcher to bed. Vitals taken, pt orientated to unit/room, urinal at bedside. Patient has no current complaints, plan of care ongoing.
[2024-09-22] MEDS: XARELTO 2.5 MG PO (20:50)
[2024-09-22] MEDS: QUESTRAN PO (21:12)
[2024-09-22 23:59] LABS: Glucose - Point of Care 157 mg/dl (70-99)
[2024-09-23] MEDS: FIRVANQ 125 MG PO ×4 (00:40→17:04)
[2024-09-23] MEDS: DILAUDID 0.5 MG IV ×5 (00:46→20:54)
[2024-09-23] MEDS: NSS 1000 IV ×3 (02:42→22:16)
[2024-09-23 06:07] LABS: Glucose - Point of Care 160 mg/dl (70-99)
[2024-09-23 06:34] LABS: Hematocrit 37.3 % (39.0-52.0); Hemoglobin 12.6 g/dL (13.0-18.0); Mean Corp Hgb Conc. 33.8 g/dL (33.0-37.0); Mean Corpuscular Volume 86.7 fL (80.0-94.0); Nucleated Red Blood Cells % 0 % (-); Platelet Count 239 10^3/uL (130-400); Red Cell Dist. Width 15.8 % (11.5-14.5)
[2024-09-23 06:52] LABS: ALT (SGPT) 34 U/L (0-50); AST (SGOT) 27 U/L (17-59); Albumin 3.1 g/dl (3.5-5.0); Alkaline Phosphatase 175 U/L (38-126); Blood Urea Nitrogen 8 mg/dl (9-20); Calcium 8.5 mg/dl (8.4-10.2); Carbon Dioxide 25 mmol/L (22-30); Chloride 107 mmol/L (98-107); Estimated Creatinine Clearance 120 ml/min; Glucose 181 mg/dl (70-99); Potassium 4.1 mmol/L (3.5-5.1); Sodium 136 mmol/L (135-145); Total Protein 5.5 g/dl (6.3-8.2); eGFR > 60.00
[2024-09-23 07:24] VITALS: BP 140/82
[2024-09-23] MEDS: IMDUR (EXTENDED RELEASE) 30 MG PO (07:42)
[2024-09-23] MEDS: KEFLEX 500 MG PO ×4 (07:43→21:03)
[2024-09-23] MEDS: PROTONIX 40 MG PO (07:43)
[2024-09-23] MEDS: LYRICA 200 MG PO (07:43)
[2024-09-23] MEDS: CRESTOR 40 MG PO (07:43)
[2024-09-23] MEDS: XARELTO 2.5 MG PO ×2 (07:43→20:55)
[2024-09-23] MEDS: LIDOCAINE 4% PATCH 1 PATCH TOPICAL (07:44)
[2024-09-23] MEDS: ASPIR LOW (ENTERIC COATED) 81 MG PO (07:44)
[2024-09-23 08:42] LABS: Glucose - Point of Care 179 mg/dl (70-99)
[2024-09-23] MEDS: QUESTRAN 4 GRAM PO ×2 (08:42→22:14)
[2024-09-23] MEDS: NOVOLOG FLEXPEN-LOW RESISTANCE 1 UNITS SC (08:43)
[2024-09-23 10:16] LABS: Glycohemoglobin (HgbA1c) 8.6 % (4.0-5.6)
--- NOTE | 2024-09-23 11:51 | W.PN.HOSP.TC ---
Today's Communication/Plan
-
Monitor vital signs see plan
Continue with vancomycin
Follow cultures
N.p.o. currently, if improving later today then possibly can start clears
If symptoms do not improve then will need GI evaluation
Assessment / Plan
Assessment / Plan
General: Well Developed, Well Nourished and No Apparent Distress
HEENT: NormoCephalic, Moist mucous membranes and Atraumatic
Respiratory: Clear
Cardiac: S1/S2 and Regular Rhythm; No Murmur or Rub
GI: Soft, Non Distended, Normal Bowel Sounds and Tender (diffusely )
Musculoskeletal: No Edema
Neuro: Nonfocal/grossly intact
Pancolitis likely infectious likely secondary to C. difficile given recent antibiotic and hospitalization
# History of C. difficile 2 years ago
-CT scan shows thickening and enhancement of the wall of the colon which appears to involve the entire colon new from previously, suggesting diffuse colitis, infectious colitis possible, inflammatory bowel disease also possible,
- Stool studies pending, C. difficile antigen positive however toxin negative
- IV fluids
- Started oral vancomycin 125 mg 4 times daily
- N.p.o. for now, if symptoms improved later today then can initiate clears
- Dilaudid for pain
- Infectious disease following
If symptoms do not improve then will need GI evaluation
#Recent septic shock secondary to E. coli bacteremia secondary to suspected cholangitis
Choledocholithiasis status post ERCP with sweeping of biliary tract/removal of stones
History of cholecystectomy
- Underwent ERCP status post sweeping of the biliary duct and removal of multiple stones
- Continue Keflex, has 4 more days to finish 10-day course per ID
- Continue cholestyramine
#Hyperglycemia secondary to infection
Type 2 diabetes
- Hold glimepiride, Jardiance, sitagliptin
- Insulin sliding scale
Essential hypertension
- Continue irbesartan
CAD status post CABG
- Continue aspirin
- Continue isosorbide mononitrate
- Continue statin
PAD
- Continue cilostazol
- Continue Xarelto
Known lower extremity lymphedema
Right superficial femoral artery to below-knee popliteal artery bypass with ipsilateral reversed great saphenous vein
BPH
-continue tamsulosin
Chronic back pain
- Continue pregabalin
Full code
DVT prophylaxis�Xarelto
I spent a total of 52 minutes with the patient or on the floor. More than 50% of this time involved counseling and coordination of care.
Anticipated Discharge: 24 - 48 hours
Subjective/Interval History
-
Date of Service: September 23, 2024
denies nausea
Objective Data
-
Labs:
Laboratory Results
09/23/24
06:09
WBC 7.8
Hgb 12.6 L
Hct 37.3 L
Plt Count 239
Sodium 136
Potassium 4.1
Chloride 107
Carbon Dioxide 25
BUN 8 L
Creatinine 0.5 L
Glucose 181 H
Calcium 8.5
Total Bilirubin 1.1
AST 27
ALT 34
Alkaline Phosphatase 175 H
Vital Signs:
Vital Signs
Temp Pulse Resp BP Pulse Ox
98.3 F 64 17 140/82 98
09/23/24 07:24 09/23/24 07:24 09/23/24 07:24 09/23/24 07:24 09/23/24 07:24
[2024-09-23 11:59] LABS: Glucose - Point of Care 213 mg/dl (70-99)
[2024-09-23] MEDS: NOVOLOG FLEXPEN-LOW RESISTANCE 2 UNITS SC (12:16)
--- NOTE | 2024-09-23 13:34 | W.PN.ID1 ---
Date of Service
Date of Service: September 23, 2024
Today's Communication
- Treat with empiric po vancomycin 125mg qid x 10d.
Assessment / Plan
# Acute zimmer-colitis
# Diarrhea, improving
# hx of C. diff x 1
# Recent hx C. diff colonization
- Stool: no wbc; cx pending
- C. diff antigen positive, toxin negative.
- Treat with empiric po vancomycin 125mg qid x 10d.
# Recent E. coli bacteremia/cholangitis s/p ERCP 09/15/24
- Continue cephalexin to complete on 09/27.
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
NIDDM
Neuropathy
HTN
HLD
CAD s/p CABG x 5
CVA
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
GERD
DVT
hx C. difficile
E. coli cholangitis, choledocholithiasis s/p CBD stent 09/15/24
Cholecystectomy (~2004)
Chief Complaint
-: Other (Abd pain and diarrhea)
Subjective / Review of Systems
Diarrhea improving.
Still with abdominal pain.
Vital Signs / Physical Exam
Vital Signs
Vital Signs
Temp Pulse Resp BP Pulse Ox
98.3 F 64 17 140/82 98
09/23/24 07:24 09/23/24 07:24 09/23/24 07:24 09/23/24 07:24 09/23/24 07:24
Physical Exam
Constitutional: No Acute Distress
Cardiovascular: Regular Rate and S1/S2
Pulmonary: Clear
Gastrointestinal: Soft, Tender (diffuse, more so mid abd) and Non Distended
Extremities: Negative Edema
Neurological: AO x 3
Objective Data
Lab Data
Lab Results
09/23/24 06:09
09/23/24 06:09
Estimated Creat Clear 120 ml/min 09/23/24 06:09
Lactic Acid 1.6 mmol/L (0.7-2.0) 09/22/24 09:26
Total Bilirubin 1.1 mg/dl (0.2-1.3) 09/23/24 06:09
AST 27 U/L (17-59) 09/23/24 06:09
ALT 34 U/L (0-50) 09/23/24 06:09
Alkaline Phosphatase 175 U/L (38-126) H 09/23/24 06:09
Most recent labs reviewed.
Micro Results:
09/23/24 09:34 Stool Leukocytes - Final
Feces/Stool
09/23/24 09:34 C. difficile GDH Antigen & Toxins - Final
Feces/Stool C. difficile antigen positive, toxin negative.
Clostridium difficile present, but toxin not detected.
Patient may be a carrier, colonized with nontoxinogenic
strain or the level of toxin in sample is below detection
limits. This information should be used in conjunction with
the patient's clinical history.
09/23/24 09:34 Salmonella/Shigella Culture - Pending
Feces/Stool Campylobacter Culture - Pending
Shiga Toxin Test - Pending
09/22/24 CT a/p: Thickening and enhancement of the wall the colon, which appears to involve the entire colon and is new from previous CT examination.
[2024-09-23 14:58] VITALS: BP 119/67
--- NOTE | 2024-09-23 15:21 | CM ---
Patient seen at bedside
IA completed
Lives with in a 2 story home, 2 steps to enter
PLOF: Independent
DME: [employer]
Has had [facility] in past, had [facility] outpatient lymphedema therapy in past
PCP: Magno Khan
Pharmacy: [facility] [place], [place]
PLAN: home, no needs when stable
[2024-09-23] MEDS: LYRICA 100 MG PO (17:04)
[2024-09-23] MEDS: FLOMAX 0.4 MG PO (17:04)
[2024-09-23] MEDS: NOVOLOG FLEXPEN-LOW RESISTANCE SC (17:07)
[2024-09-23 17:08] LABS: Glucose - Point of Care 136 mg/dl (70-99)
[2024-09-23] MEDS: REMOVE LIDOCAINE PATCH 1 PATCH REMOVE (20:55)
[2024-09-23] MEDS: AVAPRO 300 MG PO (20:56)
[2024-09-23 23:00] VITALS: BP 130/64
[2024-09-24] MEDS: FIRVANQ 125 MG PO ×4 (00:09→17:35)
[2024-09-24 00:14] LABS: Glucose - Point of Care 133 mg/dl (70-99)
[2024-09-24] MEDS: NOVOLOG FLEXPEN-LOW RESISTANCE SC ×3 (00:14→16:47)
[2024-09-24 05:46] LABS: Glucose - Point of Care 135 mg/dl (70-99)
[2024-09-24 07:26] LABS: ALT (SGPT) 29 U/L (0-50); AST (SGOT) 23 U/L (17-59); Albumin 3.2 g/dl (3.5-5.0); Alkaline Phosphatase 154 U/L (38-126); Blood Urea Nitrogen 6 mg/dl (9-20); Calcium 8.8 mg/dl (8.4-10.2); Carbon Dioxide 22 mmol/L (22-30); Chloride 109 mmol/L (98-107); Estimated Creatinine Clearance 120 ml/min; Glucose 144 mg/dl (70-99); Potassium 4.0 mmol/L (3.5-5.1); Sodium 138 mmol/L (135-145); Total Protein 5.7 g/dl (6.3-8.2); eGFR > 60.00
[2024-09-24 07:37] LABS: Hematocrit 37.1 % (39.0-52.0); Hemoglobin 12.6 g/dL (13.0-18.0); Mean Corp Hgb Conc. 34.0 g/dL (33.0-37.0); Mean Corpuscular Volume 86.5 fL (80.0-94.0); Nucleated Red Blood Cells % 0 % (-); Platelet Count 249 10^3/uL (130-400); Red Cell Dist. Width 15.5 % (11.5-14.5)
[2024-09-24 07:41] VITALS: BP 142/63
[2024-09-24] MEDS: PROTONIX 40 MG PO (08:34)
[2024-09-24] MEDS: IMDUR (EXTENDED RELEASE) 30 MG PO (08:34)
[2024-09-24] MEDS: ASPIR LOW (ENTERIC COATED) 81 MG PO (08:34)
[2024-09-24] MEDS: CRESTOR 40 MG PO (08:34)
[2024-09-24] MEDS: LYRICA 200 MG PO (08:35)
[2024-09-24] MEDS: KEFLEX 500 MG PO ×4 (08:35→21:15)
[2024-09-24] MEDS: LIDOCAINE 4% PATCH TOPICAL ×2 (08:36→08:50)
[2024-09-24] MEDS: DILAUDID 0.5 MG IV ×4 (08:36→21:03)
[2024-09-24] MEDS: NSS 1000 IV ×2 (08:39→18:30)
[2024-09-24] MEDS: XARELTO 2.5 MG PO ×2 (08:51→21:02)
--- NOTE | 2024-09-24 10:32 | PTCARENOTE ---
patient refused lidocaine patch to lower back as ordered and requested lidocaine patches for b/l feet for c/o 10/05 'neuropathy pain'. he reports at home he cuts lidocaine patch in half for both feet. Dr. Parrish notified and requested lidocaine
patch for b/l feet and he will order, will continue to monitor.
[2024-09-24] MEDS: LIDOCAINE 4% PATCH 1 PATCH TOPICAL ×2 (10:54)
[2024-09-24] MEDS: QUESTRAN 4 GRAM PO ×2 (10:56→21:03)
--- NOTE | 2024-09-24 12:11 | W.PN.HOSP.TC ---
Today's Communication/Plan
-
Monitor vital signs
see plan
Trial of clears
If symptoms do not improve then will need GI evaluation
Continue with oral vancomycin
ID following
Assessment / Plan
Assessment / Plan
General: Well Developed, Well Nourished and No Apparent Distress
HEENT: NormoCephalic, Moist mucous membranes and Atraumatic
Respiratory: Clear
Cardiac: S1/S2 and Regular Rhythm; No Murmur or Rub
GI: Soft, Non Distended, Normal Bowel Sounds and Tender (diffusely )
Musculoskeletal: No Edema
Neuro: Nonfocal/grossly intact
Pancolitis likely infectious likely secondary to C. difficile given recent antibiotic and hospitalization
# History of C. difficile 2 years ago
-CT scan shows thickening and enhancement of the wall of the colon which appears to involve the entire colon new from previously, suggesting diffuse colitis, infectious colitis possible, inflammatory bowel disease also possible,
- Stool studies pending, C. difficile antigen positive however toxin negative
- IV fluids
- Started oral vancomycin 125 mg 4 times daily, discussed with infectious disease and will treated as C. difficile. Patient will need GI follow-up outpatient if improves here for colonoscopy. If symptoms do not improve then will need GI evaluation
inpatient
Trial of clears
- Dilaudid for pain
- Infectious disease following
If symptoms do not improve then will need GI evaluation
#Recent septic shock secondary to E. coli bacteremia secondary to suspected cholangitis
Choledocholithiasis status post ERCP with sweeping of biliary tract/removal of stones
History of cholecystectomy
- Underwent ERCP status post sweeping of the biliary duct and removal of multiple stones
- cephalexin to complete on 09/27
- Continue cholestyramine
#Hyperglycemia secondary to infection
Type 2 diabetes
- Hold glimepiride, Jardiance, sitagliptin
- Insulin sliding scale
Essential hypertension
- Continue irbesartan
CAD status post CABG
- Continue aspirin
- Continue isosorbide mononitrate
- Continue statin
PAD
- Continue cilostazol
- Continue Xarelto
Known lower extremity lymphedema
Right superficial femoral artery to below-knee popliteal artery bypass with ipsilateral reversed great saphenous vein
BPH
-continue tamsulosin
Chronic back pain
- Continue pregabalin
Full code
DVT prophylaxis�Xarelto
Anticipated Discharge: > 48 hours
Subjective/Interval History
-
Date of Service: September 24, 2024
Still has some pain
Objective Data
-
Labs:
Laboratory Results
09/24/24
06:24
WBC 8.1
Hgb 12.6 L
Hct 37.1 L
Plt Count 249
Sodium 138
Potassium 4.0
Chloride 109 H
Carbon Dioxide 22
BUN 6 L
Creatinine 0.6 L
Glucose 144 H
Calcium 8.8
Total Bilirubin 1.0
AST 23
ALT 29
Alkaline Phosphatase 154 H
Vital Signs:
Vital Signs
Temp Pulse Resp BP Pulse Ox
97.4 F 58 15 142/63 99
09/24/24 07:41 09/24/24 07:41 09/24/24 07:41 09/24/24 07:41 09/24/24 07:41
I&O
09/23/24 09/24/24 09/25/24
06:59 06:59 06:59
Intake Total 1200 / 1200
Output Total 750 / 750
Balance 450 / 450
[2024-09-24 12:13] LABS: Glucose - Point of Care 150 mg/dl (70-99)
[2024-09-24] MEDS: NOVOLOG FLEXPEN-LOW RESISTANCE 1 UNITS SC (12:47)
--- NOTE | 2024-09-24 13:34 | PTCARENOTE ---
patient receiving PRN Dilaudid for c/o lower abd pain more so in lower to mid abdomen with diffuse tenderness. ALso, now reporting left posterior back pain/under rib area. He reports moderate yellow loose stool x1 today. ordered clear liquids.
Francois updated via tiger text. he will consult GI, will continue to monitor.
--- NOTE | 2024-09-24 14:00 | CON.GI ---
Addendum entered and electronically signed by Jean Pierre Corea MD 09/24/24 16:52:
Patient seen and examined, agree with nurse practitioner note. The patient is a 78-year-old male with past medical history as noted who presents with increasing pain and diarrhea. He had recent admission for cholangitis, and underwent ERCP with
sphincterotomy, stone removal and stent placement. He was discharged on antibiotics and was having some diarrhea at home though yesterday he started develop more severe lower crampy abdominal pain. On admission he was found to have no significant
white count or fever. Stool studies were positive for C. difficile though toxin was negative. He does have a history of C. difficile in the past, last was 2 years ago. He denies any bloody diarrhea, fever. Overall he is feeling better since
admission. On exam he has mild diffuse tenderness, more in the suprapubic/left lower quadrant, though without rebound. CT scan suggested colitis, though pneumobilia suggesting patency of stent.
1. Diarrhea : Consistent with C. difficile given recent antibiotics, history of C. difficile in the past, despite toxin being negative. He is currently improving on empiric vancomycin per ID and will continue this and await other stool studies.
2. Cholangitis : Status post recent ERCP with sphincterotomy, stone removal and stent placement. His LFTs are overall improved and pneumobilia imply stent patency. He will follow-up as planned for stent removal in the future.
Original Note:
Consultation
-
Date/Time Consultation Requested: 09/24/24 1343
Date/Time Consultation Performed: 09/24/24 1400
Requesting Provider: Jl Parrish MD
Performing Provider: DARVIN Rubalcava, Phil Oconnor DO
Reason for Consultation: colitis
Medical History
Chief Complaint / HPI
Chief Complaint: Fever and chills
History of Present Illness:
Mr. Choi is a 78-year-old male former smoker with a past medical history of prior c-diff 2 years ago, kodi 20 years ago coronary artery disease s/p coronary stents/CABG x 5, peripheral arterial disease with prior bypass, thrombectomy on Xarelto,
peripheral neuropathy, diabetes mellitus type 2, hypertension, hypercholesterolemia, history of DVT and GERD with admission 09/12- 09/16 with sepsis shock, hypotension requiring pressors, Ecoli bacteremia with concern for cholangitis. Pt proceeded to
ERCP with removal of multiple large stones with Sphincterotomy with balloon extraction, biliary tree was swept and CBD stent was placed. Pt was to repeat EGD in 6-8 weeks for stent removal and OP follow up for general GI care. He was also treated
with course of Zosyn then Keflex. Pt now returns with fatigue, chills, abdominal pain with diarrhea. On admission c-diff ag + tox neg with no WBC's seen. CT on admission with thickening and enhancement of wall of colon appears to be entire colon
and new from prior CT. Note biliary stent with air suggesting patency.
In review with patient he admits to diarrhea on discharge with antibiotics but on Sunday began with pain. Diarrhea was loose about 4 times per day. He otherwise denies dysphagia, GERD, vomiting, blood or black in stools. but admits to some
decrease appetite. Hx colonoscopy years ago at [facility] recalls as clear. Pt with possible low BP but noted 130-140 on admission.
Past Medical History
Past Medical History: Other (CAD status post CABG x 5, type 2 diabetes, History of DVT, peripheral arterial disease on Xarelto, prior c-diff, hypertension, GERD, hypercholesterolemia, chronic cerebellar infarct, neuropathy of feet and hands)
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
Social History
Tobacco: Former Smoker (Quit 30 years ago, smoked 1 to 2 cigarettes/day for approximately 10 years)
Alcohol: Occasional (Very rare use)
Drug: None
Personal:
Living: With Family (Lives with his and a rescue dog named debra)
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
Family History
Family History: Other (no family hx GI issues )
Allergies / Home Medications
Allergy/AdvReac Type Severity Reaction Status Date / Time
No Known Allergies Allergy Verified 09/22/24 09:19
�Medication �Instructions �Recorded
glimepiride 2 mg tablet 2 mg PO BID@0800,1700 Diabetes 08/20/20
rosuvastatin 40 mg tablet (Crestor) 40 mg PO DAILY High cholesterol 08/20/20
cilostazol 100 mg tablet 100 mg PO BID Blood clot 05/16/22
prevention/tx
pantoprazole 40 mg tablet,delayed 40 mg PO DAILY Gastrointestinal 05/16/22
release issue
tamsulosin 0.4 mg capsule 0.4 mg PO QPM Urinary Issue 09/03/23
empagliflozin 25 mg tablet 12.5 mg PO DAILY Diabetes 01/07/24
(Jardiance)
irbesartan 300 mg tablet 300 mg PO DAILY@2000 Blood Pressure 01/07/24
pregabalin 100 mg capsule (Lyrica) 100 mg PO QPM Pain 01/07/24
pregabalin 100 mg capsule (Lyrica) 200 mg PO DAILY Pain 01/07/24
sitagliptin 100 mg tablet 100 mg PO DAILY Diabetes 01/07/24
isosorbide mononitrate 30 mg 30 mg PO DAILY Heart 09/12/24
tablet,extended release 24 hr Disease/Condition
lidocaine 5 % topical patch 1 patch topical DAILYPRN PRN lower 09/12/24
back pain
oxycodone-acetaminophen 10 mg-325 1 tab PO Q8HPRN PRN severe pain 09/12/24
mg tablet
aspirin 81 mg tablet,delayed 81 mg PO DAILY #0 tabs 09/16/24
release
cephalexin 500 mg capsule 500 mg PO QID 10 days #40 caps 09/16/24
cholestyramine (with sugar) 4 gram 1 ea PO BID@0900,2100 #0 ea 09/16/24
powder for susp in a packet
cyclobenzaprine 10 mg tablet 10 mg PO HSPRN PRN back pain #0 09/16/24
tabs
rivaroxaban 2.5 mg tablet (Xarelto) 2.5 mg PO BID Blood Clot 09/22/24
Prevention/Tx
Review of Systems
-
History Source: Patient
Constitutional: Reports Chills
EENT: Reports No Symptoms
Respiratory: Reports No Symptoms
Abdomen/GI: Reports Abdominal Pain, Nausea and Diarrhea
: Reports No Symptoms
Musculoskeletal: Reports No Symptoms
Skin: Reports No Symptoms
Endocrine: Reports No Symptoms
Hematologic/Lymphatic: Reports No Symptoms
Vital Signs
Temp Pulse Resp BP Pulse Ox
97.4 F 58 15 142/63 99
09/24/24 07:41 09/24/24 07:41 09/24/24 07:41 09/24/24 07:41 09/24/24 07:41
Physical Exam
Results
WBC 8.1 10^3/uL (4.8-10.8) 09/24/24 06:24
Hgb 12.6 g/dL (13.0-18.0) L 09/24/24 06:24
Hct 37.1 % (39.0-52.0) L 09/24/24 06:24
MCV 86.5 fL (80.0-94.0) 09/24/24 06:24
Plt Count 249 10^3/uL (130-400) 09/24/24 06:24
Absolute Neuts (auto) 6.0 10^3/uL (1.4-6.5) 09/24/24 06:24
Sodium 138 mmol/L (135-145) 09/24/24 06:24
Potassium 4.0 mmol/L (3.5-5.1) 09/24/24 06:24
Chloride 109 mmol/L (98-107) H 09/24/24 06:24
Carbon Dioxide 22 mmol/L (22-30) 09/24/24 06:24
BUN 6 mg/dl (9-20) L 09/24/24 06:24
Creatinine 0.6 mg/dL (0.7-1.3) L 09/24/24 06:24
Calcium 8.8 mg/dl (8.4-10.2) 09/24/24 06:24
Total Bilirubin 1.0 mg/dl (0.2-1.3) 09/24/24 06:24
AST 23 U/L (17-59) 09/24/24 06:24
ALT 29 U/L (0-50) 09/24/24 06:24
Alkaline Phosphatase 154 U/L (38-126) H 09/24/24 06:24
Lipase 151 U/L (23-300) 09/22/24 09:26
Diagnostic Image Results:
09/12/24 CT Abd/Pel (IV only)-DH only
1. Dilation of the intra and extrahepatic bile ducts, new compared to prior CT dated 12/31/2023. Tapering of the distal common bile duct, and possible 1.2 cm soft tissue lesion adjacent to the distal common bile duct on coronal image 28. Consider
contrast-enhanced MRI and MRCP for further evaluation.
2. Given history of fevers and sepsis, cholangitis should also be considered.
09/13/24 MRI with and without
Choledocholithiasis with biliary dilatation, as described. No suspicious soft tissue mass.
Mild hepatic steatosis. Splenomegaly.
09/22/24 CT Abd/Pel (IV only)-DH only
IMPRESSION: Thickening and enhancement of the wall the colon, which appears to involve the entire colon and is new from previous CT examination. Findings would suggest diffuse colitis. Infectious colitis would be a leading consideration, including
C. difficile colitis. Inflammatory bowel disease such as ulcerative colitis could have a similar appearance.
The appendix appears normal. No evidence for bowel obstruction or free intraperitoneal air.
Status post cholecystectomy. There is a bile duct stent present. Biliary air is noted, suggesting a patent biliary stent.
3 mm cyst within the right lobe of the liver. No other focal abnormality of the liver.
Mild changes of interstitial fibrosis, stable.
Moderate vascular calcification. Abdominal aorta has maximum AP dimension of 2.7 cm, stable.
Prior GI Procedures:
2020 for dysphagia
Impression: - Normal mucosa was found in the entire esophagus.
Several biopsies were obtained for evaluation of
eosinophilic esophagitis.
- Z-line irregular, 40 cm from the incisors. Biopsied.
- Moderate antral gastritis. Biopsied.
- Normal examined duodenum. Biopsied.
Mild to moderate gastritis on pathology
Colonoscopy:
Last colonoscopy was in 2016 at [facility] and showed a normal colon with biopsies that were negative for microscopic colitis
09/15/24 ERCP: [facility] - Normal esophagus.
- No gross lesions in the entire stomach.
- Normal duodenal bulb, first portion of the duodenum
and second portion of the duodenum.
- The major papilla was located partially within a
diverticulum.
- A filling defect consistent with a stone was seen on
the cholangiogram.
- The common bile duct was moderately dilated.
- Multiple large choledocholithiases were found.
Complete removal was accomplished by biliary
sphincterotomy and balloon extraction.
- A biliary sphincterotomy was performed.
- The biliary tree was swept.
- One plastic stent was placed into the common bile
duct.
Assessment / Plan
-
Mr. Choi is a 78-year-old male former smoker with a past medical history of prior c-diff 2 years ago, kodi 20 years ago coronary artery disease s/p coronary stents/CABG x 5, peripheral arterial disease with prior bypass, thrombectomy on Xarelto,
peripheral neuropathy, diabetes mellitus type 2, hypertension, hypercholesterolemia, history of DVT and GERD with admission 09/12- 09/16 with sepsis shock, hypotension requiring pressors, Ecoli bacteremia with concern for cholangitis. Pt proceeded to
ERCP with removal of multiple large stones with Sphincterotomy with balloon extraction, biliary tree was swept and CBD stent was placed. Pt was to repeat EGD in 6-8 weeks for stent removal and OP follow up for general GI care. He was also treated
with course of Zosyn then Keflex. Pt now returns with fatigue, chills, abdominal pain with diarrhea. On admission c-diff ag + tox neg with no WBC's seen. CT on admission with thickening and enhancement of wall of colon appears to be entire colon
and new from prior CT. Note biliary stent with air suggesting patency. Hx colonoscopy years ago at [facility] recalls as clear
-pancolitis
-hx prior c-diff current ag + tox neg with no WBC's
-recent ecoli sepsis with cholangitis with stone removal and stent placement was on OP abx til 09/27
-hx prior kodi
other med problems:
-coronary artery disease s/p coronary stents/CABG x 5
- peripheral arterial disease with prior bypass thrombectomy on Xarelto
- peripheral neuropathy
-diabetes mellitus type 2
- hypertension
- hypercholesterolemia
-history of DVT
-GERD
-BPH
PLAN:
etiology of pancolitis related to infectious etiology, ischemia, less likely IBD vs other
agree with stool studies c-diff with prior exposure
s/p ID eval on Emperic vanco
supportive care with IVF, pain control
remains on Keflex with recent cholangitis
maintain adequate blood pressure
clear diet advance as tolerated
consider OP colonoscopy when improved
will need follow up for stent removal 6-8 week post placement
-
-
Thank you for consultation and allowing me to participate in the patient's care. Please call the surgeon chief GI physician during the after hours with any questions or concerns.
--- NOTE | 2024-09-24 14:37 | CM ---
Patient chart reviewed
Trial of clears
If symptoms do not improve then will need GI evaluation
PLAN: home, no needs, when stable
[2024-09-24 15:37] VITALS: BP 126/70
--- NOTE | 2024-09-24 16:11 | W.PN.ID1 ---
Date of Service
Date of Service: September 24, 2024
Today's Communication
await stool cx's
Continue empiric po vanco x 10d.
Assessment / Plan
# Acute zimmer-colitis
# Diarrhea, improving
# Abdominal pain
# hx of C. diff x 1
# Recent hx C. diff colonization
- Unclear etiology of zimmer-colitis.
- Stool: no wbc; stool cx pending
- C. diff antigen positive, toxin negative.
- Treat with empiric po vancomycin 125mg qid x 10d through 10/01.
# Recent E. coli bacteremia/cholangitis s/p ERCP 09/15/24
- Continue cephalexin to complete on 09/27.
# Conditions [employer]
NIDDM
Neuropathy
HTN
HLD
CAD s/p CABG x 5
CVA
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
GERD
DVT
hx C. difficile
E. coli cholangitis, choledocholithiasis s/p CBD stent 09/15/24
Cholecystectomy (~2004)
Chief Complaint
-: Other (Abd pain and diarrhea)
Subjective / Review of Systems
Abdominal pain still present, slightly improved. Diarrhea improving.
c/o sharp pain with palpation over left flank/back.
Vital Signs / Physical Exam
Vital Signs
Vital Signs
Temp Pulse Resp BP Pulse Ox
97.8 F 56 14 126/70 98
09/24/24 15:37 09/24/24 15:37 09/24/24 15:37 09/24/24 15:37 09/24/24 15:37
Physical Exam
Constitutional: No Acute Distress
Cardiovascular: Regular Rate and S1/S2
Pulmonary: Clear
Gastrointestinal: Soft, Tender (diffuse), Distended (mild) and Normal Bowel Sounds
Extremities: Negative Edema
Musculoskeletal: Other (left lower lumbar area with point tenderness. )
Neurological: AO x 3
Objective Data
Lab Data
Lab Results
09/24/24 06:24
09/24/24 06:24
Estimated Creat Clear 120 ml/min 09/24/24 06:24
Lactic Acid 1.6 mmol/L (0.7-2.0) 09/22/24 09:26
Total Bilirubin 1.0 mg/dl (0.2-1.3) 09/24/24 06:24
AST 23 U/L (17-59) 09/24/24 06:24
ALT 29 U/L (0-50) 09/24/24 06:24
Alkaline Phosphatase 154 U/L (38-126) H 09/24/24 06:24
Most recent labs reviewed.
Micro Results:
09/23/24 09:34 Salmonella/Shigella Culture - Preliminary
Feces/Stool Culture in Progress
Campylobacter Culture - Preliminary
Culture in Progress
Shiga Toxin Test - Pending
09/23/24 09:34 Stool Leukocytes - Final
Feces/Stool
09/23/24 09:34 C. difficile [facility] Antigen & Toxins - Final
Feces/Stool C. difficile antigen positive, toxin negative.
Clostridium difficile present, but toxin not detected.
Patient may be a carrier, colonized with nontoxinogenic
strain or the level of toxin in sample is below detection
limits. This information should be used in conjunction with
the patient's clinical history.
09/22/24 CT a/p: Thickening and enhancement of the wall the colon, which appears to involve the entire colon and is new from previous CT examination.
Care Review
Plan reviewed with: Physician (Dr. Parrish)
[2024-09-24 16:44] LABS: Glucose - Point of Care 116 mg/dl (70-99)
[2024-09-24] MEDS: FLOMAX 0.4 MG PO (17:35)
[2024-09-24] MEDS: LYRICA 100 MG PO (17:35)
--- NOTE | 2024-09-24 17:41 | PTCARENOTE ---
pt tolerating 100% clear liquids, will continue to monitor.
[2024-09-24] MEDS: AVAPRO 300 MG PO (21:02)
[2024-09-24] MEDS: REMOVE LIDOCAINE PATCH 1 PATCH REMOVE ×2 (21:03)
[2024-09-24 21:43] LABS: Glucose - Point of Care 120 mg/dl (70-99)
[2024-09-24 23:08] VITALS: BP 136/67
[2024-09-25] MEDS: FIRVANQ 125 MG PO ×4 (00:46→17:27)
[2024-09-25] MEDS: DILAUDID 0.5 MG IV ×4 (05:06→20:36)
[2024-09-25] MEDS: NSS 1000 IV ×2 (05:10→15:25)
--- NOTE | 2024-09-25 05:28 | W.PN.GI.CBS2 ---
Today's Communication / Plan
-
Ongoing improvement with p.o Vancomycin for treatment of his suspected C Diff. Continue CLD and may advance slowly to low-fiber, low-residue diet as tolerated. See rest of care as outlined below. GI team will sign-off, please re-contact with any
questions or concerns.
Assessment / Plan
-
#Pancolitis felt 2/2
#Suspected C Diff
#Non-bloody, Watery Diarrhea- Improving
#Hx of Prior C Diff
#Hx of Cholangitis (s/p previous ERCP with stent 08/2024)
Mr. Choi is a 78-year-old male former smoker with a past medical history of prior c-diff 2 years ago, kodi 20 years ago coronary artery disease s/p coronary stents/CABG x 5, peripheral arterial disease with prior bypass, thrombectomy on Xarelto,
peripheral neuropathy, diabetes mellitus type 2, hypertension, hypercholesterolemia, history of DVT and GERD with admission 09/12- 09/16 with sepsis shock, hypotension requiring pressors, Ecoli bacteremia with concern for cholangitis. Pt proceeded to
ERCP with removal of multiple large stones with Sphincterotomy with balloon extraction, biliary tree was swept and CBD stent was placed. Pt was to repeat EGD in 6-8 weeks for stent removal and OP follow up for general GI care. He was also treated
with course of Zosyn then Keflex. Pt now returns with fatigue, chills, abdominal pain with diarrhea. On admission c-diff ag + tox neg with no WBC's seen. CT on admission with thickening and enhancement of wall of colon appears to be entire colon
and new from prior CT. Note biliary stent with air suggesting patency. Hx colonoscopy years ago at [place] recalls as clear.
Clinically, seems consistent with C. difficile given recent antibiotics, history of C. difficile in the past, despite toxin being negative. He continues to improve on empiric vancomycin per ID with reassuring abdominal exam and having less diarrhea
and more semi-formed stools with less frequency further supporting this is likely related to CDI. Regarding his hx of prior cholangitis, he is now s/p ERCP with sphincterotomy, stone removal and stent placement. His LFTs are overall improved and
pneumobilia imply stent patency. He will follow-up as planned for stent removal in the future.
Recommendations:
- Tolerating CLD, may advance slowly to low-fiber, low-residue diet
- Await rest of stool culture- pending. Fecal leukocytes (-)
- Agree with empiric p.o Vancomycin as per ID
- Monitor with serial abdominal exams
- Continue supportive care, pain control and anti-emetics PRN
- Ultimately, would benefit from an eventual colonoscopy as an outpatient
- In regards to his biliary stent, he has been scheduled for a stent removal with Dr. Guerin in 6-8 weeks
- Rest of care as per primary team
Discussed with primary internal medicine team. GI team will sign-off, please re-contact with any questions or concerns.
Subjective
Subjective
Date of Service: September 25, 2024
- Remains on empiric oral Vanco 125 mg qid, ID following
- Stool studies: (-) fecal leukocytes, C Diff [facility] Ag (+), toxin (-), pending stool culture
- Otherwise, no acute events overnight
Feeling better this AM, reports less abdominal pain although still with some discomfort. Reports having less diarrhea with more semi-formed stools overnight with total of 2 bowel movements without any blood. Tolerating clears without any nausea or
vomiting. No other fevers/chills or other constitutional symptoms.
Objective
Data Reviewed
Laboratory Data:
Laboratory Results
Total Bilirubin 1.0 mg/dl (0.2-1.3) 09/24/24 06:24
AST 23 U/L (17-59) 09/24/24 06:24
ALT 29 U/L (0-50) 09/24/24 06:24
Alkaline Phosphatase 154 U/L (38-126) H 09/24/24 06:24
Lipase 151 U/L (23-300) 09/22/24 09:26
Vital Signs and I&O:
Vital Signs
Temp Pulse Resp BP Pulse Ox
97.4 F 58 14 136/67 97
09/24/24 23:08 09/24/24 23:08 09/24/24 23:08 09/24/24 23:08 09/24/24 23:08
I&O
09/23/24 09/24/24 09/25/24
06:59 06:59 06:59
Intake Total 1200 / 1200 540 / 540
Output Total 750 / 750
Balance 450 / 450 540 / 540
Physical Exam
Physical Exam
HEENT: Anicteric and Moist mucous membranes
Pulmonary: Other (Normal WOB on room air)
GI: Soft, Non Distended and Non Tender
Extremities: No Edema
Neuro: Non Focal
[2024-09-25 07:08] LABS: Hematocrit 37.0 % (39.0-52.0); Hemoglobin 12.5 g/dL (13.0-18.0); Mean Corp Hgb Conc. 33.8 g/dL (33.0-37.0); Mean Corpuscular Volume 86.4 fL (80.0-94.0); Nucleated Red Blood Cells % 0 % (-); Platelet Count 242 10^3/uL (130-400); Red Cell Dist. Width 15.5 % (11.5-14.5)
[2024-09-25 07:50] VITALS: BP 157/78
[2024-09-25 07:58] LABS: Glucose - Point of Care 131 mg/dl (70-99)
[2024-09-25 08:15] LABS: ALT (SGPT) 25 U/L (0-50); AST (SGOT) 22 U/L (17-59); Albumin 3.2 g/dl (3.5-5.0); Alkaline Phosphatase 137 U/L (38-126); Blood Urea Nitrogen 4 mg/dl (9-20); Calcium 8.7 mg/dl (8.4-10.2); Carbon Dioxide 24 mmol/L (22-30); Chloride 110 mmol/L (98-107); Estimated Creatinine Clearance 120 ml/min; Glucose 137 mg/dl (70-99); Potassium 4.1 mmol/L (3.5-5.1); Sodium 139 mmol/L (135-145); Total Protein 5.7 g/dl (6.3-8.2); eGFR > 60.00
[2024-09-25] MEDS: LIDOCAINE 4% PATCH 1 PATCH TOPICAL ×2 (08:29→08:30)
[2024-09-25] MEDS: XARELTO 2.5 MG PO ×2 (08:30→20:36)
[2024-09-25] MEDS: PROTONIX 40 MG PO (08:30)
[2024-09-25] MEDS: NOVOLOG FLEXPEN-LOW RESISTANCE SC ×3 (08:30→16:54)
[2024-09-25] MEDS: LYRICA 200 MG PO (08:30)
[2024-09-25] MEDS: IMDUR (EXTENDED RELEASE) 30 MG PO (08:30)
[2024-09-25] MEDS: ASPIR LOW (ENTERIC COATED) 81 MG PO (08:30)
[2024-09-25] MEDS: KEFLEX 500 MG PO ×4 (08:30→21:25)
[2024-09-25] MEDS: CRESTOR 40 MG PO (08:30)
[2024-09-25 08:39] VITALS: BMI 26.1
[2024-09-25] MEDS: QUESTRAN 4 GRAM PO ×2 (10:03→21:25)
--- NOTE | 2024-09-25 11:32 | W.PN.HOSP.TC ---
Today's Communication/Plan
-
Monitor vital signs see plan
Monitor diarrhea
Continue with vancomycin, ID following
If continues to improve then advance diet to fulls with dinner
Assessment / Plan
Assessment / Plan
General: Well Developed, Well Nourished and No Apparent Distress
HEENT: NormoCephalic, Moist mucous membranes and Atraumatic
Respiratory: Clear
Cardiac: S1/S2 and Regular Rhythm; No Murmur or Rub
GI: Soft, Non Distended, Normal Bowel Sounds and Tender (diffusely )
Musculoskeletal: No Edema
Neuro: Nonfocal/grossly intact
Pancolitis likely infectious likely secondary to presumed C. difficile given recent antibiotic and hospitalization
# History of C. difficile 2 years ago
-CT scan shows thickening and enhancement of the wall of the colon which appears to involve the entire colon new from previously, suggesting diffuse colitis, infectious colitis possible, inflammatory bowel disease also possible,
- Stool studies pending, C. difficile antigen positive however toxin negative
- IV fluids
- Started oral vancomycin 125 mg 4 times daily, discussed with infectious disease and will treated as C. difficile. Seen by GI and signed off. Patient will need GI follow-up outpatient if improves here for colonoscopy.
Trial of clears, if continues to improve then likely advance to fulls with dinner
- Pain control
- Infectious disease following
#Recent septic shock secondary to E. coli bacteremia secondary to suspected cholangitis
Choledocholithiasis status post ERCP with sweeping of biliary tract/removal of stones
History of cholecystectomy
- Underwent ERCP status post sweeping of the biliary duct and removal of multiple stones
- cephalexin to complete on 09/27
- Continue cholestyramine
#Hyperglycemia secondary to infection
Type 2 diabetes
- Hold glimepiride, Jardiance, sitagliptin
- Insulin sliding scale
Essential hypertension
- Continue irbesartan
CAD status post CABG
- Continue aspirin
- Continue isosorbide mononitrate
- Continue statin
PAD
- Continue cilostazol
- Continue Xarelto
Known lower extremity lymphedema
Right superficial femoral artery to below-knee popliteal artery bypass with ipsilateral reversed great saphenous vein
BPH
-continue tamsulosin
Chronic back pain
- Continue pregabalin
Full code
DVT prophylaxis�Xarelto
I spent a total of 52 minutes with the patient or on the floor. More than 50% of this time involved counseling and coordination of care.
Anticipated Discharge: 24 - 48 hours
Subjective/Interval History
-
Date of Service: September 25, 2024
Feeling little better
Objective Data
-
Labs:
Laboratory Results
09/25/24 09/25/24
06:35 06:36
WBC 7.3
Hgb 12.5 L
Hct 37.0 L
Plt Count 242
Sodium 139
Potassium 4.1
Chloride 110 H
Carbon Dioxide 24
BUN 4 L
Creatinine 0.6 L
Glucose 137 H
Calcium 8.7
Total Bilirubin 0.9
AST 22
ALT 25
Alkaline Phosphatase 137 H
Vital Signs:
Vital Signs
Temp Pulse Resp BP Pulse Ox
98 F 53 16 157/78 96
09/25/24 07:50 09/25/24 07:50 09/25/24 07:50 09/25/24 07:50 09/25/24 07:50
I&O
09/24/24 09/25/24 09/26/24
06:59 06:59 06:59
Intake Total 1200 / 1200 540 / 540
Output Total 750 / 750 625 / 625
Balance 450 / 450 -85 / -85
--- NOTE | 2024-09-25 11:55 | W.PN.ID1 ---
Date of Service
Date of Service: September 25, 2024
Today's Communication
Continue current management.
Assessment / Plan
# Acute zimmer-colitis, unclear etiology
# Diarrhea, improving
# Abdominal pain
# hx of C. diff x 1
# C. diff colonization
- Stool: no wbc; stool cx negative
- C. diff antigen positive, toxin negative.
- Continue empiric po vancomycin 125mg qid x 10d through 10/01, 4 to 5 days past completion of systemic abx.
# Recent E. coli bacteremia/cholangitis s/p ERCP 09/15/24
- Continue cephalexin to complete on 09/27.
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
NIDDM
Neuropathy
HTN
HLD
CAD s/p CABG x 5
CVA
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
GERD
DVT
hx C. difficile
E. coli cholangitis, choledocholithiasis s/p CBD stent 09/15/24
Cholecystectomy (~2004)
Chief Complaint
-: Other (Abd pain and diarrhea)
Subjective / Review of Systems
2 episodes of diarrhea overnight.
Abd pain continues to slowly improve.
Vital Signs / Physical Exam
Vital Signs
Vital Signs
Temp Pulse Resp BP Pulse Ox
98 F 53 16 157/78 96
09/25/24 07:50 09/25/24 07:50 09/25/24 07:50 09/25/24 07:50 09/25/24 07:50
Physical Exam
Constitutional: No Acute Distress
Cardiovascular: Regular Rate and S1/S2
Gastrointestinal: Soft, Tender (moderate diffuse), Distended (mild) and Normal Bowel Sounds
Extremities: Negative Edema
Neurological: AO x 3
Objective Data
Lab Data
Lab Results
09/25/24 06:35
09/25/24 06:36
Estimated Creat Clear 120 ml/min 09/25/24 06:36
Lactic Acid 1.6 mmol/L (0.7-2.0) 09/22/24 09:26
Total Bilirubin 0.9 mg/dl (0.2-1.3) 09/25/24 06:36
AST 22 U/L (17-59) 09/25/24 06:36
ALT 25 U/L (0-50) 09/25/24 06:36
Alkaline Phosphatase 137 U/L (38-126) H 09/25/24 06:36
Most recent labs reviewed.
Micro Results:
09/23/24 09:34 Salmonella/Shigella Culture - Final
Feces/Stool No Salmonella, Shigella, Aeromonas or Plesiomonas species
isolated.
Campylobacter Culture - Final
No Campylobacter species isolated.
Shiga Toxin Test - Final
No E. coli Shiga Toxin 1 or 2 detected.
09/23/24 09:34 Stool Leukocytes - Final
Feces/Stool
09/23/24 09:34 C. difficile GDH Antigen & Toxins - Final
Feces/Stool C. difficile antigen positive, toxin negative.
Clostridium difficile present, but toxin not detected.
Patient may be a carrier, colonized with nontoxinogenic
strain or the level of toxin in sample is below detection
limits. This information should be used in conjunction with
the patient's clinical history.
09/22/24 CT a/p: Thickening and enhancement of the wall the colon, which appears to involve the entire colon and is new from previous CT examination.
[2024-09-25 12:11] LABS: Glucose - Point of Care 116 mg/dl (70-99)
--- NOTE | 2024-09-25 14:21 | CM ---
Patient seen at bedside
continue antibiotic
IMM explained & signed. In chart
PLAN: home, no needs when stable
[2024-09-25 15:12] VITALS: BP 151/77; PULSE 63; O2SAT 98
[2024-09-25 15:27] VITALS: BP 151/77
[2024-09-25 16:41] LABS: Glucose - Point of Care 149 mg/dl (70-99)
[2024-09-25] MEDS: FLOMAX 0.4 MG PO (17:26)
[2024-09-25] MEDS: LYRICA 100 MG PO (17:27)
[2024-09-25] MEDS: AVAPRO 300 MG PO (20:36)
[2024-09-25] MEDS: REMOVE LIDOCAINE PATCH 1 PATCH REMOVE ×2 (20:37)
[2024-09-25 21:27] LABS: Glucose - Point of Care 209 mg/dl (70-99)
[2024-09-25 23:00] VITALS: BP 121/58
[2024-09-26] MEDS: FIRVANQ 125 MG PO ×4 (00:17→17:10)
[2024-09-26 07:00] VITALS: BP 145/74
[2024-09-26] MEDS: DILAUDID 0.5 MG IV ×4 (07:26→22:59)
[2024-09-26] MEDS: NSS 1000 IV (07:30)
[2024-09-26 07:34] LABS: Hematocrit 37.9 % (39.0-52.0); Hemoglobin 13.0 g/dL (13.0-18.0); Mean Corp Hgb Conc. 34.3 g/dL (33.0-37.0); Mean Corpuscular Volume 84.0 fL (80.0-94.0); Nucleated Red Blood Cells % 0 % (-); Platelet Count 246 10^3/uL (130-400); Red Cell Dist. Width 15.4 % (11.5-14.5)
[2024-09-26 07:46] LABS: Glucose - Point of Care 149 mg/dl (70-99)
[2024-09-26 08:34] LABS: ALT (SGPT) 22 U/L (0-50); AST (SGOT) 19 U/L (17-59); Albumin 3.3 g/dl (3.5-5.0); Alkaline Phosphatase 139 U/L (38-126); Blood Urea Nitrogen 4 mg/dl (9-20); Calcium 8.7 mg/dl (8.4-10.2); Carbon Dioxide 22 mmol/L (22-30); Chloride 111 mmol/L (98-107); Estimated Creatinine Clearance 120 ml/min; Glucose 144 mg/dl (70-99); Potassium 3.9 mmol/L (3.5-5.1); Sodium 139 mmol/L (135-145); Total Protein 5.9 g/dl (6.3-8.2); eGFR > 60.00
[2024-09-26 09:50] VITALS: BP 150/73; PULSE 60; O2SAT 98
--- NOTE | 2024-09-26 09:56 | PTOTSP ---
pt currently requires supervision to no assistance to complete simple ADLs, functional transfers, ambulation. pt reports some discomfort in abdomen, though no overt pain. no acute OT deficits noted, no skilled needs identified at this time. will
sign off.
[2024-09-26] MEDS: NOVOLOG FLEXPEN-LOW RESISTANCE SC ×2 (09:57→16:30)
[2024-09-26] MEDS: XARELTO 2.5 MG PO ×2 (10:01→20:50)
[2024-09-26] MEDS: CRESTOR 40 MG PO (10:02)
[2024-09-26] MEDS: IMDUR (EXTENDED RELEASE) 30 MG PO (10:02)
[2024-09-26] MEDS: KEFLEX 500 MG PO ×4 (10:02→21:54)
[2024-09-26] MEDS: PROTONIX 40 MG PO (10:02)
[2024-09-26] MEDS: ASPIR LOW (ENTERIC COATED) 81 MG PO (10:03)
[2024-09-26] MEDS: LYRICA 200 MG PO (10:03)
[2024-09-26] MEDS: LIDOCAINE 4% PATCH 1 PATCH TOPICAL ×2 (10:04)
--- NOTE | 2024-09-26 11:08 | CM ---
Patient seen at bedside
no needs
PLAN: home, no needs when stable
--- NOTE | 2024-09-26 11:19 | W.PN.HOSP.TC ---
Today's Communication/Plan
-
Monitor vitals
See plan
Continue with oral vancomycin
Currently on full liquids, likely transition to low res later today
Monitor abdominal exam
Assessment / Plan
Assessment / Plan
General: Well Developed, Well Nourished and No Apparent Distress
HEENT: NormoCephalic, Moist mucous membranes and Atraumatic
Respiratory: Clear
Cardiac: S1/S2 and Regular Rhythm; No Murmur or Rub
GI: Soft, Non Distended, Normal Bowel Sounds and Tender (diffusely )
Musculoskeletal: No Edema
Neuro: Nonfocal/grossly intact
Pancolitis likely infectious likely secondary to presumed C. difficile given recent antibiotic and hospitalization
# History of C. difficile 2 years ago
-CT scan shows thickening and enhancement of the wall of the colon which appears to involve the entire colon new from previously, suggesting diffuse colitis, infectious colitis possible, inflammatory bowel disease also possible,
- Stool studies pending, C. difficile antigen positive however toxin negative
DC further IV fluids
- Started oral vancomycin 125 mg 4 times daily, discussed with infectious disease and will treated as C. difficile. Seen by GI and signed off. Patient will need GI follow-up outpatient if improves here for colonoscopy.
Continue with folds, likely transition to low residue later today
- Pain control
- Infectious disease following
#Recent septic shock secondary to E. coli bacteremia secondary to suspected cholangitis
Choledocholithiasis status post ERCP with sweeping of biliary tract/removal of stones
History of cholecystectomy
- Underwent ERCP status post sweeping of the biliary duct and removal of multiple stones
- cephalexin to complete on 09/27
- Continue cholestyramine
#Hyperglycemia secondary to infection
Type 2 diabetes
- Hold glimepiride, Jardiance, sitagliptin
- Insulin sliding scale
Essential hypertension
- Continue irbesartan
CAD status post CABG
- Continue aspirin
- Continue isosorbide mononitrate
- Continue statin
PAD
- Continue cilostazol
- Continue Xarelto
Known lower extremity lymphedema
Right superficial femoral artery to below-knee popliteal artery bypass with ipsilateral reversed great saphenous vein
BPH
-continue tamsulosin
Chronic back pain
- Continue pregabalin
Full code
DVT prophylaxis�Xarelto
Anticipated Discharge: Within 24 hours
Subjective/Interval History
-
Date of Service: September 26, 2024
Still has some abdominal tenderness
Objective Data
-
Labs:
Laboratory Results
09/26/24
06:57
WBC 7.8
Hgb 13.0
Hct 37.9 L
Plt Count 246
Sodium 139
Potassium 3.9
Chloride 111 H
Carbon Dioxide 22
BUN 4 L
Creatinine 0.6 L
Glucose 144 H
Calcium 8.7
Total Bilirubin 0.9
AST 19
ALT 22
Alkaline Phosphatase 139 H
Vital Signs:
Vital Signs
Temp Pulse Resp BP Pulse Ox
98.1 F 59 19 145/74 97
09/26/24 07:00 09/26/24 07:00 09/26/24 07:00 09/26/24 07:00 09/26/24 07:00
I&O
09/25/24 09/26/24 09/27/24
06:59 06:59 06:59
Intake Total 540 / 540 2040 / 2040
Output Total 625 / 625 1330 / 1330
Balance -85 / -85 710 / 710
[2024-09-26] MEDS: QUESTRAN 4 GRAM PO (11:31)
[2024-09-26 12:09] LABS: Glucose - Point of Care 256 mg/dl (70-99)
[2024-09-26] MEDS: NOVOLOG FLEXPEN-LOW RESISTANCE 3 UNITS SC (12:14)
--- NOTE | 2024-09-26 14:11 | W.PN.ID1 ---
Date of Service
Date of Service: September 26, 2024
Today's Communication
Tomorrow last day of cephalexin.
Continue po Vancomycin through 10/01.
Assessment / Plan
# Acute zimmer-colitis, unclear etiology
# Diarrhea, improving
# Abdominal pain
# hx of C. diff x 1
# C. diff colonization
- Stool: no wbc; stool cx negative
- C. diff antigen positive, toxin negative.
- Continue empiric po vancomycin 125mg qid x 10d through 10/01, 4 to 5 days past completion of systemic abx.
# Recent E. coli bacteremia/cholangitis s/p ERCP 09/15/24
- Continue cephalexin to complete on 09/27.
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
NIDDM
Neuropathy
HTN
HLD
CAD s/p CABG x 5
CVA
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
GERD
DVT
hx C. difficile
E. coli cholangitis, choledocholithiasis s/p CBD stent 09/15/24
Cholecystectomy (~2004)
Chief Complaint
-: Other (Abd pain and diarrhea)
Subjective / Review of Systems
Continues to improve.
Vital Signs / Physical Exam
Vital Signs
Vital Signs
Temp Pulse Resp BP Pulse Ox
98.1 F 59 19 145/74 97
09/26/24 07:00 09/26/24 07:00 09/26/24 07:00 09/26/24 07:00 09/26/24 07:00
Physical Exam
Constitutional: No Acute Distress
Cardiovascular: Regular Rate and S1/S2
Gastrointestinal: Soft, Tender (mild ) and Normal Bowel Sounds
Extremities: Negative Edema
Neurological: AO x 3
Objective Data
Lab Data
Lab Results
09/26/24 06:57
09/26/24 06:57
Estimated Creat Clear 120 ml/min 09/26/24 06:57
Lactic Acid 1.6 mmol/L (0.7-2.0) 09/22/24 09:26
Total Bilirubin 0.9 mg/dl (0.2-1.3) 09/26/24 06:57
AST 19 U/L (17-59) 09/26/24 06:57
ALT 22 U/L (0-50) 09/26/24 06:57
Alkaline Phosphatase 139 U/L (38-126) H 09/26/24 06:57
Most recent labs reviewed.
Micro Results:
09/23/24 09:34 Salmonella/Shigella Culture - Final
Feces/Stool No Salmonella, Shigella, Aeromonas or Plesiomonas species
isolated.
Campylobacter Culture - Final
No Campylobacter species isolated.
Shiga Toxin Test - Final
No E. coli Shiga Toxin 1 or 2 detected.
09/23/24 09:34 Stool Leukocytes - Final
Feces/Stool
09/23/24 09:34 C. difficile GDH Antigen & Toxins - Final
Feces/Stool C. difficile antigen positive, toxin negative.
Clostridium difficile present, but toxin not detected.
Patient may be a carrier, colonized with nontoxinogenic
strain or the level of toxin in sample is below detection
limits. This information should be used in conjunction with
the patient's clinical history.
09/22/24 CT a/p: Thickening and enhancement of the wall the colon, which appears to involve the entire colon and is new from previous CT examination.
--- NOTE | 2024-09-26 14:23 | PTCARENOTE ---
patient with improved pain, tolerating diet, no stool,abdomen still with tenderness, vss, independent in room, will continue to monitor.
[2024-09-26 15:00] VITALS: BP 110/67
[2024-09-26 16:30] LABS: Glucose - Point of Care 143 mg/dl (70-99)
[2024-09-26] MEDS: FLOMAX 0.4 MG PO (17:08)
[2024-09-26] MEDS: LYRICA 100 MG PO (17:14)
[2024-09-26 20:38] LABS: Glucose - Point of Care 169 mg/dl (70-99)
[2024-09-26] MEDS: QUESTRAN PO (20:41)
[2024-09-26] MEDS: AVAPRO 300 MG PO (20:42)
[2024-09-26] MEDS: REMOVE LIDOCAINE PATCH 1 PATCH REMOVE ×2 (20:50)
[2024-09-26 23:34] VITALS: BP 151/105
[2024-09-27] MEDS: FIRVANQ 125 MG PO ×4 (00:02→17:40)
[2024-09-27] MEDS: DILAUDID 0.5 MG IV ×4 (03:00→20:08)
[2024-09-27] MEDS: QUESTRAN 4 GRAM PO ×3 (03:17→22:30)
[2024-09-27 07:37] LABS: Glucose - Point of Care 135 mg/dl (70-99)
[2024-09-27 07:43] VITALS: BP 150/74
[2024-09-27] MEDS: NOVOLOG FLEXPEN-LOW RESISTANCE SC (07:46)
[2024-09-27] MEDS: LIDOCAINE 4% PATCH 1 PATCH TOPICAL ×2 (08:09→08:10)
[2024-09-27] MEDS: PROTONIX 40 MG PO (08:10)
[2024-09-27] MEDS: XARELTO 2.5 MG PO ×2 (08:11→20:08)
[2024-09-27] MEDS: KEFLEX 500 MG PO ×4 (08:11→22:30)
[2024-09-27] MEDS: IMDUR (EXTENDED RELEASE) 30 MG PO (08:11)
[2024-09-27] MEDS: ASPIR LOW (ENTERIC COATED) 81 MG PO (08:11)
[2024-09-27] MEDS: CRESTOR 40 MG PO (08:11)
[2024-09-27] MEDS: LYRICA 200 MG PO (08:11)
[2024-09-27] MEDS: ROXICODONE 10 MG PO ×2 (08:19→17:46)
[2024-09-27 09:10] LABS: Hematocrit 36.7 % (39.0-52.0); Hemoglobin 12.5 g/dL (13.0-18.0); Mean Corp Hgb Conc. 34.1 g/dL (33.0-37.0); Mean Corpuscular Volume 87.0 fL (80.0-94.0); Nucleated Red Blood Cells % 0 % (-); Platelet Count 235 10^3/uL (130-400); Red Cell Dist. Width 15.5 % (11.5-14.5)
[2024-09-27 09:37] LABS: ALT (SGPT) 20 U/L (0-50); AST (SGOT) 19 U/L (17-59); Albumin 3.2 g/dl (3.5-5.0); Alkaline Phosphatase 125 U/L (38-126); Blood Urea Nitrogen 5 mg/dl (9-20); Calcium 8.4 mg/dl (8.4-10.2); Carbon Dioxide 23 mmol/L (22-30); Chloride 111 mmol/L (98-107); Estimated Creatinine Clearance 120 ml/min; Glucose 132 mg/dl (70-99); Potassium 3.7 mmol/L (3.5-5.1); Sodium 139 mmol/L (135-145); Total Protein 5.6 g/dl (6.3-8.2); eGFR > 60.00
[2024-09-27] MEDS: FLUSH (NSS) 2 FLUSH IV ×2 (09:54→14:26)
[2024-09-27 11:15] LABS: Glucose - Point of Care 173 mg/dl (70-99)
[2024-09-27 11:29] VITALS: BP 102/56
--- NOTE | 2024-09-27 11:53 | W.PN.HOSP.TC ---
Today's Communication/Plan
-
Monitor vital signs and see plan
Last day of cephalexin today
Continue with oral vancomycin
Appears could not tolerate low residue diet overnight, transition back to full liquids
Monitor bowel movements
Assessment / Plan
Assessment / Plan
General: Well Developed, Well Nourished and No Apparent Distress
HEENT: NormoCephalic, Moist mucous membranes and Atraumatic
Respiratory: Clear
Cardiac: S1/S2 and Regular Rhythm; No Murmur or Rub
GI: Soft, Non Distended, Normal Bowel Sounds and Tender (diffusely )
Musculoskeletal: No Edema
Neuro: Nonfocal/grossly intact
Pancolitis likely infectious likely secondary to presumed C. difficile given recent antibiotic and hospitalization
# History of C. difficile 2 years ago
-CT scan shows thickening and enhancement of the wall of the colon which appears to involve the entire colon new from previously, suggesting diffuse colitis, infectious colitis possible, inflammatory bowel disease also possible,
- Stool studies pending, C. difficile antigen positive however toxin negative
DC further IV fluids
- Started oral vancomycin 125 mg 4 times daily, discussed with infectious disease and will treated as C. difficile. Seen by GI and signed off. Patient will need GI follow-up outpatient if improves here for colonoscopy.
Could not tolerate low residue diet overnight, transition back to full liquid. Monitor bowel movements
- Pain control
- Infectious disease following
#Recent septic shock secondary to E. coli bacteremia secondary to suspected cholangitis
Choledocholithiasis status post ERCP with sweeping of biliary tract/removal of stones
History of cholecystectomy
- Underwent ERCP status post sweeping of the biliary duct and removal of multiple stones
- cephalexin to complete on 09/27
- Continue cholestyramine
#Hyperglycemia secondary to infection
Type 2 diabetes
- Hold glimepiride, Jardiance, sitagliptin
- Insulin sliding scale
Essential hypertension
- Continue irbesartan
CAD status post CABG
- Continue aspirin
- Continue isosorbide mononitrate
- Continue statin
PAD
- Continue cilostazol
- Continue Xarelto
Known lower extremity lymphedema
Right superficial femoral artery to below-knee popliteal artery bypass with ipsilateral reversed great saphenous vein
BPH
-continue tamsulosin
Chronic back pain
- Continue pregabalin
Full code
DVT prophylaxis�Xarelto
I spent a total of 52 minutes with the patient or on the floor. More than 50% of this time involved counseling and coordination of care.
Anticipated Discharge: 24 - 48 hours
Subjective/Interval History
-
Date of Service: September 27, 2024
Has pain overnight with diarrhea
Objective Data
-
Labs:
Laboratory Results
09/27/24
07:01
WBC 8.0
Hgb 12.5 L
Hct 36.7 L
Plt Count 235
Sodium 139
Potassium 3.7
Chloride 111 H
Carbon Dioxide 23
BUN 5 L
Creatinine 0.6 L
Glucose 132 H
Calcium 8.4
Total Bilirubin 0.8
AST 19
ALT 20
Alkaline Phosphatase 125
Vital Signs:
Vital Signs
Temp Pulse Resp BP Pulse Ox
97.5 F 55 21 102/56 98
09/27/24 11:29 09/27/24 11:29 09/27/24 11:29 09/27/24 11:29 09/27/24 11:29
I&O
09/26/24 09/27/24 09/28/24
06:59 06:59 06:59
Intake Total 2039
Output Total 1330 / 1330
Balance 710 / 710 2039
[2024-09-27] MEDS: NOVOLOG FLEXPEN-LOW RESISTANCE 1 UNITS SC ×2 (12:39→17:58)
[2024-09-27 15:55] VITALS: BP 113/65
[2024-09-27] MEDS: FLOMAX 0.4 MG PO (17:40)
[2024-09-27] MEDS: LYRICA 100 MG PO (17:40)
[2024-09-27 17:49] LABS: Glucose - Point of Care 178 mg/dl (70-99)
[2024-09-27 17:55] VITALS: BP 113/65
[2024-09-27] MEDS: AVAPRO 300 MG PO (20:02)
[2024-09-27 21:02] LABS: Glucose - Point of Care 224 mg/dl (70-99)
[2024-09-27] MEDS: REMOVE LIDOCAINE PATCH 1 PATCH REMOVE ×2 (22:30→22:31)
[2024-09-27 23:13] VITALS: BP 117/64
[2024-09-28] MEDS: DILAUDID 0.5 MG IV ×5 (00:27→23:22)
[2024-09-28] MEDS: FIRVANQ 125 MG PO ×5 (00:27→23:43)
[2024-09-28 06:37] LABS: Hematocrit 35.6 % (39.0-52.0); Hemoglobin 12.3 g/dL (13.0-18.0); Mean Corp Hgb Conc. 34.6 g/dL (33.0-37.0); Mean Corpuscular Volume 85.4 fL (80.0-94.0); Nucleated Red Blood Cells % 0 % (-); Platelet Count 241 10^3/uL (130-400); Red Cell Dist. Width 15.4 % (11.5-14.5)
[2024-09-28 06:58] LABS: ALT (SGPT) 19 U/L (0-50); AST (SGOT) 18 U/L (17-59); Albumin 3.1 g/dl (3.5-5.0); Alkaline Phosphatase 114 U/L (38-126); Blood Urea Nitrogen 5 mg/dl (9-20); Calcium 8.9 mg/dl (8.4-10.2); Carbon Dioxide 24 mmol/L (22-30); Chloride 108 mmol/L (98-107); Estimated Creatinine Clearance 103 ml/min; Glucose 124 mg/dl (70-99); Potassium 4.2 mmol/L (3.5-5.1); Sodium 137 mmol/L (135-145); Total Protein 5.6 g/dl (6.3-8.2); eGFR > 60.00
[2024-09-28 07:33] VITALS: BP 114/62
[2024-09-28] MEDS: PROTONIX 40 MG PO (08:03)
[2024-09-28] MEDS: ASPIR LOW (ENTERIC COATED) 81 MG PO (08:03)
[2024-09-28] MEDS: CRESTOR 40 MG PO (08:03)
[2024-09-28] MEDS: KEFLEX 500 MG PO (08:03)
[2024-09-28] MEDS: LYRICA 200 MG PO (08:04)
[2024-09-28] MEDS: IMDUR (EXTENDED RELEASE) 30 MG PO (08:04)
[2024-09-28] MEDS: XARELTO 2.5 MG PO ×2 (08:05→21:26)
[2024-09-28] MEDS: ROXICODONE 10 MG PO ×2 (08:11→16:27)
[2024-09-28 09:02] LABS: Glucose - Point of Care 160 mg/dl (70-99)
[2024-09-28] MEDS: QUESTRAN 4 GRAM PO ×2 (09:46→23:22)
[2024-09-28] MEDS: LIDOCAINE 4% PATCH 1 PATCH TOPICAL ×2 (09:46)
[2024-09-28] MEDS: NOVOLOG FLEXPEN-LOW RESISTANCE 1 UNITS SC ×2 (09:47→16:26)
--- NOTE | 2024-09-28 10:32 | W.PN.HOSP.TC ---
Today's Communication/Plan
-
Monitor vital signs
see plan
Trial of low res again
Continue with oral vancomycin
If symptoms continues to improve possible discharge tomorrow
Assessment / Plan
Assessment / Plan
General: Well Developed, Well Nourished and No Apparent Distress
HEENT: NormoCephalic, Moist mucous membranes and Atraumatic
Respiratory: Clear
Cardiac: S1/S2 and Regular Rhythm; No Murmur or Rub
GI: Soft, Non Distended, Normal Bowel Sounds and Tender
Musculoskeletal: No Edema
Neuro: Nonfocal/grossly intact
Pancolitis likely infectious likely secondary to presumed C. difficile given recent antibiotic and hospitalization
# History of C. difficile 2 years ago
-CT scan shows thickening and enhancement of the wall of the colon which appears to involve the entire colon new from previously, suggesting diffuse colitis, infectious colitis possible, inflammatory bowel disease also possible,
- Campylobacter, Shigella, Salmonella negative, C. difficile antigen positive however toxin negative
DC further IV fluids
- Started oral vancomycin 125 mg 4 times daily, discussed with infectious disease and will treated as C. difficile. Seen by GI and signed off. Patient will need GI follow-up outpatient if improves here for colonoscopy.
Could not tolerate low residue diet, not tolerating full liquid. Transition back to low residue for dinner if continues to improve. If tolerates diet then possible discharge tomorrow. Monitor bowel movements
- Pain control
- Infectious disease following
#Recent septic shock secondary to E. coli bacteremia secondary to suspected cholangitis
Choledocholithiasis status post ERCP with sweeping of biliary tract/removal of stones
History of cholecystectomy
- Underwent ERCP status post sweeping of the biliary duct and removal of multiple stones
- cephalexin to complete on 09/27, completed
- Continue cholestyramine
#Hyperglycemia secondary to infection
Type 2 diabetes
- Restart glimepiride, hold Jardiance, sitagliptin
- Insulin sliding scale
Essential hypertension
- Continue irbesartan
CAD status post CABG
- Continue aspirin
- Continue isosorbide mononitrate
- Continue statin
PAD
- Continue cilostazol
- Continue Xarelto
Known lower extremity lymphedema
Right superficial femoral artery to below-knee popliteal artery bypass with ipsilateral reversed great saphenous vein
BPH
-continue tamsulosin
Chronic back pain
- Continue pregabalin
Full code
DVT prophylaxis�Xarelto
Anticipated Discharge: Within 24 hours
Subjective/Interval History
-
Date of Service: September 28, 2024
Still has some pain but improving
Objective Data
-
Labs:
Laboratory Results
09/28/24
06:00
WBC 8.0
Hgb 12.3 L
Hct 35.6 L
Plt Count 241
Sodium 137
Potassium 4.2
Chloride 108 H
Carbon Dioxide 24
BUN 5 L
Creatinine 0.7
Glucose 124 H
Calcium 8.9
Total Bilirubin 1.0
AST 18
ALT 19
Alkaline Phosphatase 114
Vital Signs:
Vital Signs
Temp Pulse Resp BP Pulse Ox
97.7 F 58 23 114/62 97
09/28/24 07:33 09/28/24 07:33 09/28/24 07:33 09/28/24 07:33 09/28/24 07:33
I&O
09/27/24 09/28/24 09/29/24
06:59 06:59 06:59
Intake Total 2039
Balance 2039
[2024-09-28] MEDS: FLUSH (NSS) 2 FLUSH IV ×2 (11:44→18:25)
[2024-09-28 12:10] LABS: Glucose - Point of Care 210 mg/dl (70-99)
[2024-09-28] MEDS: NOVOLOG FLEXPEN-LOW RESISTANCE 2 UNITS SC (12:58)
[2024-09-28 15:55] VITALS: BP 126/68
[2024-09-28 16:15] LABS: Glucose - Point of Care 193 mg/dl (70-99)
[2024-09-28] MEDS: AMARYL 2 MG PO (16:26)
[2024-09-28] MEDS: LYRICA 100 MG PO (18:24)
[2024-09-28] MEDS: FLOMAX 0.4 MG PO (18:24)
[2024-09-28] MEDS: REMOVE LIDOCAINE PATCH 1 PATCH REMOVE ×2 (21:21)
[2024-09-28] MEDS: AVAPRO 300 MG PO (21:26)
[2024-09-28 23:00] VITALS: BP 136/65
[2024-09-29] MEDS: ROXICODONE 10 MG PO ×2 (01:43→10:19)
[2024-09-29 02:06] LABS: Glucose - Point of Care 113 mg/dl (70-99)
[2024-09-29] MEDS: FIRVANQ 125 MG PO ×2 (06:00→12:47)
[2024-09-29 06:56] LABS: Hematocrit 36.7 % (39.0-52.0); Hemoglobin 12.4 g/dL (13.0-18.0); Mean Corp Hgb Conc. 33.8 g/dL (33.0-37.0); Mean Corpuscular Volume 87.2 fL (80.0-94.0); Nucleated Red Blood Cells % 0 % (-); Platelet Count 243 10^3/uL (130-400); Red Cell Dist. Width 15.3 % (11.5-14.5)
[2024-09-29 07:14] LABS: ALT (SGPT) 21 U/L (0-50); AST (SGOT) 25 U/L (17-59); Albumin 3.4 g/dl (3.5-5.0); Alkaline Phosphatase 113 U/L (38-126); Blood Urea Nitrogen 9 mg/dl (9-20); Calcium 9.0 mg/dl (8.4-10.2); Carbon Dioxide 25 mmol/L (22-30); Chloride 108 mmol/L (98-107); Estimated Creatinine Clearance 103 ml/min; Glucose 107 mg/dl (70-99); Potassium 4.3 mmol/L (3.5-5.1); Sodium 137 mmol/L (135-145); Total Protein 5.9 g/dl (6.3-8.2); eGFR > 60.00
[2024-09-29 07:47] VITALS: BP 151/70
[2024-09-29 07:55] LABS: Glucose - Point of Care 112 mg/dl (70-99)
[2024-09-29] MEDS: LIDOCAINE 4% PATCH 1 PATCH TOPICAL ×2 (08:20→08:21)
[2024-09-29] MEDS: NOVOLOG FLEXPEN-LOW RESISTANCE SC (08:20)
[2024-09-29] MEDS: AMARYL 2 MG PO (08:23)
[2024-09-29] MEDS: PROTONIX 40 MG PO (08:23)
[2024-09-29] MEDS: IMDUR (EXTENDED RELEASE) 30 MG PO (08:23)
[2024-09-29] MEDS: LYRICA 200 MG PO (08:23)
[2024-09-29] MEDS: XARELTO 2.5 MG PO (08:23)
[2024-09-29] MEDS: CRESTOR 40 MG PO (08:23)
[2024-09-29] MEDS: ASPIR LOW (ENTERIC COATED) 81 MG PO (08:23)
[2024-09-29] MEDS: DILAUDID 0.5 MG IV (08:32)
[2024-09-29] MEDS: QUESTRAN 4 GRAM PO (10:06)
--- NOTE | 2024-09-29 11:12 | W.PN.HOSP.TC ---
Today's Communication/Plan
-
dc
Assessment / Plan
Assessment / Plan
79yo M with PMHX of DM, HTN, CAD s/p CABG, PAD s/p bypass of femoral on R, BPH, chronic back pain, recent admission for septick shock for E.coli bacteremia due to cholangitis came with multiple episodes of diarrhea on admission described as watery
with mucus, but patient reported some black, tar-like consistency occasionally, CT bd found patient biliary stent, but diffuse pancolitis. Stool Cx and leukocytes neg, found C.diff carrier without toxin, so started on Vanco oral. ID evaluated -
recommended to complete bacteremia treatment and Vanco oral till 10/01/24. Symptoms were improving. Patient was recommended to have colonoscopy as outpatient and will schedule it with his existent GI - . Message also sent to GI. Able to tolerate
solid food. Medcially stable for d/c
A/P:
#DIffuse colitis
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
As per ID - Vanco oral till 10/05
Cx neg
outpatient colonoscopy
#DM type 2 with neuropathy
Accuchecks, Insuin SS, DM diet
#Mild interstitial fibrosis, chronic
#s/p cholecystectomy
#Recent colangitis s/p stent
#Hx of back pain s/p Sx
#DJD
#CAD s/p CABG
#PAD
#Essential HTN
cont home meds
DVT ppx Xarelto
Full code
I have spent at least 38min reviewing chart, test results, and providing direct patient care
Anticipated Discharge: Today
Subjective/Interval History
-
Date of Service: September 29, 2024
Objective Data
-
Labs:
Laboratory Results
09/29/24
06:16
WBC 7.5
Hgb 12.4 L
Hct 36.7 L
Plt Count 243
Sodium 137
Potassium 4.3
Chloride 108 H
Carbon Dioxide 25
BUN 9
Creatinine 0.7
Glucose 107 H
Calcium 9.0
Total Bilirubin 1.2
AST 25
ALT 21
Alkaline Phosphatase 113
Vital Signs:
Vital Signs
Temp Pulse Resp BP Pulse Ox
98.5 F 61 15 151/70 98
09/29/24 07:47 09/29/24 07:47 09/29/24 07:47 09/29/24 07:47 09/29/24 07:47
I&O
09/28/24 09/29/24 09/30/24
06:59 06:59 06:59
Intake Total 1919
Balance 1919
Review of Systems
-
History Source: Patient
All other systems: Reviewed and negative
Physical Exam
-
General: No Apparent Distress
HEENT: Normocephalic
Respiratory: Clear to Auscultation
GI: Soft, Nontender and Nondistended
Musculoskeletal: No Clubbing, No Cyanosis and No Edema
Neuro: Awake, Alert, Oriented and AO x 3
Psych: Calm
--- NOTE | 2024-09-29 11:36 | W.DCSUMMARY ---
Discharge Summary
Discharge Data
Date of Admission: 09/22/24
Date of Discharge: 09/29/24
-
Pending Results: No
Hospital Course
79yo M with PMHX of DM, HTN, CAD s/p CABG, PAD s/p bypass of femoral on R, BPH, chronic back pain, recent admission for septick shock for E.coli bacteremia due to cholangitis came with multiple episodes of diarrhea on admission described as watery
with mucus, but patient reported some black, tar-like consistency occasionally, CT bd found patient biliary stent, but diffuse pancolitis. Stool Cx and leukocytes neg, found C.diff carrier without toxin, so started on Vanco oral. ID evaluated -
recommended to complete bacteremia treatment and Vanco oral till 10/01/24. Symptoms were improving. Patient was recommended to have colonoscopy as outpatient and will schedule it with his existent GI - . Message also sent to GI. Able to tolerate
solid food. Medcially stable for d/c
I have spent at least 38min reviewing chart, test results, and providing direct patient care
PAtient was managed for:
#DIffuse colitis
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
#DM type 2 with neuropathy
#Mild interstitial fibrosis, chronic
#s/p cholecystectomy
#Recent colangitis s/p stent
#Hx of back pain s/p Sx
#DJD
#CAD s/p CABG
#PAD
#Essential HTN
Discharge Plan
-
Patient Disposition: Home with Home Care
Discharge Diagnosis/Procedures: Colitis suspect C. difficile
Condition: Fair
Diet: Low Residue
Activity: As tolerated
Driving Restrictions: As prior to admission
Bathing Restrictions: None
Referrals:
Magno Khan MD [Family Provider, Internal Medicine] - in less than 1 week
Phil Oconnor DO [Active, Gastroenterology] - in two weeks
Prescriptions:
New
vancomycin 50 mg/mL Recon Soln
125 mg PO Q6 Qty: 30 0RF
Rx Instructions:
last dose on 10/01/24
Probiotic 3 billion cell capsule
3,000 mmu cells PO DAILY Qty: 30 0RF
Continued
glimepiride 2 MG tablet
2 mg PO BID@0800,1700
rosuvastatin [Crestor] 40 MG tablet
40 mg PO DAILY
cilostazol 100 mg Tablet
100 mg PO BID
pantoprazole 40 MG tablet,delayed release (DR/EC)
40 mg PO DAILY
tamsulosin 0.4 mg capsule
0.4 mg PO QPM
irbesartan 300 mg Tablet
300 mg PO DAILY@1999
pregabalin [Lyrica] 100 mg Capsule
200 mg PO DAILY
pregabalin [Lyrica] 100 mg Capsule
100 mg PO QPM
Jardiance 25 mg Tablet
12.5 mg PO DAILY
sitagliptin 100 mg Tablet
100 mg PO DAILY
lidocaine 5 % Adhesive Patch,Medicated
1 patch TOPICAL DAILYPRN PRN (Reason: lower back pain)
oxycodone-acetaminophen 10-325 mg Tablet
1 tab PO Q8HPRN PRN (Reason: severe pain)
isosorbide mononitrate 30 mg Tablet Extended Release 24 Hr
30 mg PO DAILY
Patient Comments:
[facility] physician has this as stopped but patient stated he still takes this
cyclobenzaprine 10 mg Tablet
10 mg PO HSPRN PRN (Reason: back pain) Qty: 0 0RF
aspirin 81 mg Tablet,Delayed Release (Dr/Ec)
81 mg PO DAILY Qty: 0 0RF
cholestyramine (with sugar) 4 gram Powder In Packet
1 ea PO BID@0900,2100 Qty: 0 0RF
rivaroxaban [Xarelto] 2.5 mg Tablet
2.5 mg PO BID
Discontinued
cephalexin 500 mg capsule
500 mg PO QID 10 Days Qty: 40 0RF
Discharge Orders:
Discharge Patient (As Directed); Ordered 09/29/24
Ordered By: Pepito Aceves
Discharge Date and Time
Print Language: CHILEAN
--- NOTE | 2024-09-29 12:25 | CM ---
Patient seen at bedside
IMM explained & signed. In chart
Declined home health
PLAN: Home, no needs
to transport
[2024-09-29 12:54] VITALS: BP 108/61
== END 2024-09-29 13:35 | disposition home or self-care (01) | DRG 373 ==
LOC: 3 WEST ACU 13:49
PROVIDERS: Internal Medicine; Physician Assistant; ADMITTING PHYSICIAN Hospitalist; ATTENDING PHYSICIAN Internal Medicine; EMERGENCY PHYSICIAN Emergency Medicine; FAMILY PHYSICIAN Internal Medicine; OTHER PHYSICIAN Internal Medicine Gastroenterology; OTHER PHYSICIAN Internal Medicine Infectious Disease
DX: A04.72 Enterocolitis due to Clostridium difficile, not specified as recurrent (principal); E11.42 Type 2 diabetes mellitus with diabetic polyneuropathy; G89.29 Other chronic pain; I10 Essential (primary) hypertension; I25.10 Atherosclerotic heart disease of native coronary artery without angina pectoris; Z95.1 Presence of aortocoronary bypass graft; N40.0 Benign prostatic hyperplasia without lower urinary tract symptoms; E11.51 Type 2 diabetes mellitus with diabetic peripheral angiopathy without gangrene; M19.90 Unspecified osteoarthritis, unspecified site; Z90.49 Acquired absence of other specified parts of digestive tract; Z79.84 Long term (current) use of oral hypoglycemic drugs; Z79.899 Other long term (current) drug therapy; Z79.01 Long term (current) use of anticoagulants; E11.65 Type 2 diabetes mellitus with hyperglycemia; E78.00 Pure hypercholesterolemia, unspecified; I89.0 Lymphedema, not elsewhere classified; Z87.891 Personal history of nicotine dependence; Z79.82 Long term (current) use of aspirin; Z79.02 Long term (current) use of antithrombotics/antiplatelets; Z86.73 Personal history of transient ischemic attack (TIA), and cerebral infarction without residual deficits; K21.9 Gastro-esophageal reflux disease without esophagitis; K76.0 Fatty (change of) liver, not elsewhere classified; K76.89 Other specified diseases of liver; Z22.1 Carrier of other intestinal infectious diseases; Z86.718 Personal history of other venous thrombosis and embolism; Z95.5 Presence of coronary angioplasty implant and graft
CPT/HCPCS: 74177; 80048; 80053; 81003; 81015; 82962; 83036; 83605; 83690; 85025; 87045; 87046; 87324; 87427; 87449; 89055; 93005; 96374; 96375; 96376; 97161; 97166; 99285; Q9967

== ENCOUNTER → 2024-10-01 06:55 | Outpatient (REF) | payer MEDICARE, OTHER, SELFPAY | LOC: MRI 3T 06:55 | PROVIDERS: ATTENDING PHYSICIAN Anesthesiology; FAMILY PHYSICIAN Internal Medicine | DX: M54.16 Radiculopathy, lumbar region (principal) | CPT/HCPCS: 72148 ==

== ENCOUNTER 2024-10-08 23:32 | Inpatient (IN) | payer MEDICARE, OTHER, SELFPAY ==
[2024-10-08] VITALS (7 sets, daily range): BP systolic 97–126; BP diastolic 53–65; BMI 25.9
[2024-10-08 13:53] LABS: Hematocrit 34.3 % (39.0-52.0); Hemoglobin 11.5 g/dL (13.0-18.0); Mean Corp Hgb Conc. 33.5 g/dL (33.0-37.0); Mean Corpuscular Volume 85.8 fL (80.0-94.0); Nucleated Red Blood Cells % 0 % (-); Platelet Count 284 10^3/uL (130-400); Red Cell Dist. Width 14.9 % (11.5-14.5)
[2024-10-08 14:04] LABS: ALT (SGPT) 14 U/L (0-50); AST (SGOT) 19 U/L (17-59); Albumin 3.7 g/dl (3.5-5.0); Alkaline Phosphatase 105 U/L (38-126); Blood Urea Nitrogen 18 mg/dl (9-20); Calcium 8.9 mg/dl (8.4-10.2); Carbon Dioxide 17 mmol/L (22-30); Chloride 101 mmol/L (98-107); Glucose 166 mg/dl (70-99); Potassium 4.1 mmol/L (3.5-5.1); Sodium 134 mmol/L (135-145); Total Protein 6.5 g/dl (6.3-8.2); eGFR > 60.00
--- NOTE | 2024-10-08 14:44 | ED.GENMED ---
History of Present Illness
<Nico Kaminski PA-C - Last Filed: 10/09/24 22:36>
General
Chief Complaint: Weakness
Source: patient
Exam Limitations: none
Time Seen by Provider: 10/08/24 13:58
History of Present Illness
History of Present Illness:
79-year-old male presents from [facility] with his who states that the patient since being discharged about a week ago has declined. Is progressively gotten more weak. He saw the family doctor today and had a temperature of 101 in the
office. He notes pain in his upper neck and back between his shoulder blades. He is anticoagulated. He does note that he try to scrub the pool about 4 days ago. He notes ongoing abdominal pain and had episode of diarrhea while waiting in the
waiting room. He has been in and out of the hospital recently had sepsis secondary to choledocholithiasis had a stent was placed at that time. After receiving antibiotics for this she developed colitis and C. difficile. He just finished course of
vancomycin for C. difficile. At this time he cannot ambulate where typically at baseline he ambulates without any assistance. He denies a cough.
Past History
<Nico Kaminski PA-C - Last Filed: 10/09/24 22:36>
Past History
ED Past Medical History: CAD, CVA, GERD, HTN, Hypercholesterolemia, NIDDM, [place] and Other (DVT)
ED Past Surgical History: Cardiac (bypass, stents) and Cholecystectomy
Social History
Tobacco: Former smoker (quit x 22 years)
Alcohol: None
Drug: None
Personal:
Living: with family
Employment: Retired
Phy Exam
<Nico Kaminski PA-C - Last Filed: 10/09/24 22:36>
Physical Exam
Physical Exam:
General: Well-appearing male no acute distress
HEENT normocephalic atraumatic
Heart: Tachycardic
Lungs: Clear no wheeze
Abdomen is soft and tender diffusely
Extremities: No cyanosis or edema
Sepsis
<Nico Kaminski PA-C - Last Filed: 10/09/24 22:36>
Sepsis Screening
Sepsis Assessment: Sepsis
Sepsis Screen
Sepsis Screen: Sepsis
Date: 10/09/24
Time: 22:35
Course
<Nico Kaminski PA-C - Last Filed: 10/09/24 22:36>
Orders/Labs/Results
Orders:
Orders
10/08/24 12:52
Electrocardiogram (*1) Urgent
Reason for Study: Other
Other Reason for Exam: Possible Sepsis
EKG- Treatment ONCE
10/08/24 13:08
Complete Blood Count/With Diff Urgent
Comprehensive Metabolic Panel Urgent
Creatine Phosphokinase Urgent
Comment: ADD ON
Lactic Acid Q4H
Comment: ON ICE, CANCEL 2ND ORDER IF FIRST LACTIC ACID LEVEL <2
Blood Culture Q20M
MEKHI Source: Blood/Venous
Specimen Description:
Comment: Urgent from separate sites. If patient screens positive for possible sepsis
10/08/24 14:32
Add On- LAB Urgent
Tests Added?: cpk
CT Abd/pelvis W Iv Cont Urgent
Comment:
Reason For Exam: abdominal pain, fever
STOOL [C difficile Antigen & Toxins] Urgent
MEKHI Source: Feces/Stool
Specimen Description:
Stool Culture Urgent
MEKHI Source: Feces/Stool
Specimen Description:
CR Chest - 2 Views Urgent
Comment:
Reason For Exam: fever
10/08/24 14:33
Tetanus/Diphth/Acelpertussis [Adacel] 0.5 ml IM .ONCE ONE
10/08/24 14:45
0.9% Sodium Chloride 1000 ml [Nss] 1,000 ml IV BOLUS
10/08/24 15:10
Acetaminophen [Tylenol] 1,000 mg .ROUTE .STK-MED ONE
Acetaminophen [Tylenol] 1,000 mg PO NOW STA
10/08/24 15:12
Blood Culture Q20M
MEKHI Source: Blood/Venous
Specimen Description:
Comment: Urgent from separate sites. If patient screens positive for possible sepsis
10/08/24 16:49
HYDROmorphone [Dilaudid] 0.5 mg IV NOW STA
10/08/24 16:53
COVID-19 Antigen Urgent
Source: Nasal Swab
10/08/24 18:19
CRP [C-Reactive Protein] Urgent
Ehrlichia/Anaplasma by PCR [S] Urgent
Lyme Progressive Urgent
[facility] Spotted Fever IgG&IgM [S] Urgent
Sed Rate [Erythrocyte Sed Rate] Urgent
Blood Parasites Urgent
MEKHI Source: Blood/Venous
Specimen Description:
10/08/24 19:25
HYDROmorphone [Dilaudid] 0.5 mg .ROUTE .STK-MED ONE
10/08/24 19:26
Straight cath- Treatment ONCE
HYDROmorphone [Dilaudid] 0.5 mg IV NOW STA
10/08/24 19:35
MR Cervical Spine Without & W Urgent
Comment:
Reason For Exam: upper back/neck pain, fever, urinary retention
Recent pill cam endoscopy?: No
MR Lumbar W/o & With Contrast Urgent
Comment:
Reason For Exam: back pain, fever, urinary retention
Recent pill cam endoscopy?: No
MR Thoracic Spine W/o & With Urgent
Comment:
Reason For Exam: back pain, fever, urinary retention
Recent pill cam endoscopy?: No
10/08/24 19:41
Urinalysis Reflex To Culture Urgent
Date Specimen was Collected: 10/08/24
Time Specimen was Collected: 17:32
Urine Microscopic Reflex Cult Urgent
10/08/24 23:23
Admit/Transfer Patient As Directed
Co-Sign Provider:
Level of Care: Inpatient admission
Assign to:: Telemetry
Physician / Group: Anatoly Aguilar
Diagnosis: generalized weakness, severe pain, acute urinary retention
Reason for Telemetry: Arrhythmia
Date to Stop Telemetry: 10/11/24
Time to Stop Telemetry: 11:00
Reason for Hospitalization: generalized weakness, severe pain, acute urinary retention
Expected length of stay greater than two midnights?: Yes
ELOS- Estimated Length of Stay in days: 3
I certify the patient meets the requirements for IP care: Yes
PRN Pain Medication Management As Directed
May give lesser potent ordered pain med per pt: Yes
preference::
Protocol:: Medication orders for pain may be administered in a
manner that supports deferring to patient preference
when the pt is:
- Requesting an ordered lesser potent pain medication.
Least to most potent pain medications are defined
as: acetaminophen < NSAID < tramadol < opioids
(morphine, oxycodone, hydromorphone).
- Requesting a lesser dose of the same medication IF
ORDERED.
- Requesting a less intrusive route of administration
if both routes are prescribed by the provider (PO <
IV).
10/08/24 23:25
Code Status As Directed
Resuscitation Status: Full Code
10/09/24 00:59
Acetaminophen [Tylenol] 650 mg PO Q4HPRN PRN
Cyclobenzaprine HCl [Flexeril] 10 mg PO HSPRN PRN back pain
Dextrose 50%-Water [Dextrose 50% Syringe] 12.5 grams IV [id number] PRN
Glucagon [GlucaGen] 1 mg IM PRN PRN
HYDROmorphone [Dilaudid] 0.5 mg IV Q4HPRN PRN
Lidocaine [Lidocaine 4% Patch] 1 patch TOPICAL DAILYPRN PRN lower back pain
Apply Lidocaine patch(s) to:: lower back
Pregabalin [Lyrica] 100 mg PO QPM
10/09/24 00:59
Consult Notification Routine
Specialty to Notify: Infectious Disease
Date consulting provider notified: 10/09/24
Time consulting provider notified: :
Notified:: Provider
Comment: TT'd Physician On-Call(Raymond)
INFECTIOUS DISEASE CONSULT Routine
Consulting Provider: Ann-Marie Veliz
Was physician already notified: No
Reason for consult: Recent sepsis E.Coli, c. diff, now generalized weakness unknown origin
Activity As Directed
Activity Level: As Tolerated
Bedside Glucose Monitoring As Directed
Frequency: AC&HS
Additional Instructions:: Change to q6h if pt on TPN, tube feeding or not eating
Intake/ Output As Directed
Frequency: Per unit guidelines
Vital Signs As Directed
Frequency: Per unit guidelines
Weight As Directed
Frequency: Once
Comment: on admission
10/09/24 06:02
Basic Metabolic Panel IN AM
Complete Blood Count/No Diff IN AM
10/09/24 07:30
Insulin Aspart Corrective Low [Novolog Flexpen-Low Resistance] See Protocol SC AC
10/09/24 08:00
Aspirin Low Dose EC [Aspir Low (Enteric Coated)] 81 mg PO DAILY
ISOSORBIDE MONOnitrate ER [Imdur (Extended Release)] 30 mg PO DAILY
Lactobac/Bifidobac [Visbiome] 1 cap PO DAILY
Pantoprazole [Protonix] 40 mg PO DAILY
Pregabalin [Lyrica] 200 mg PO DAILY
Rivaroxaban [Xarelto] 2.5 mg PO BID
Rosuvastatin Calcium [Crestor] 40 mg PO DAILY
cilostazol 100 mg PO BID
10/09/24 09:00
Cholestyramine [Questran] 4 gram PO BID@0900,2100
10/09/24 Dinner
2200 calorie (18 carb) Diabetic
At Your Request: Full Participation
Does patient need a safe tray?: No
10/09/24 18:00
Tamsulosin [Flomax] 0.4 mg PO QPM
10/09/24 20:00
Irbesartan [Avapro] 300 mg PO DAILY@2000
10/11/24 11:00
DC Protocol for Telemetry ONCE
Abnormal Lab Results
10/08/24 10/08/24 10/08/24
13:08 18:19 19:41
WBC 13.6 H 10^3/uL
(4.8-10.8)
RBC 4.00 L 10^6/uL
(4.70-6.10)
Hgb 11.5 L g/dL
(13.0-18.0)
Hct 34.3 L %
(39.0-52.0)
RDW 14.9 H %
(11.5-14.5)
Abs Immat Gran (auto) 0.1 H 10^3/uL
(0-0.05)
Absolute Neuts (auto) 11.2 H 10^3/uL
(1.4-6.5)
Absolute Lymphs (auto) 0.7 L 10^3/uL
(1.2-3.4)
Absolute Monos (auto) 1.5 H 10^3/uL
(0.1-0.6)
Immature Gran % 0.9 H %
(0-0.5)
Neutrophils % 82.5 H %
(42.2-75.2)
Lymphocytes % 5.1 L %
(20.5-51.1)
Monocytes % 11.0 H %
(1.7-9.3)
ESR 99 H mm/hour
(0-20)
Sodium 134 L mmol/L
(135-145)
Carbon Dioxide 17 L mmol/L
(22-30)
Glucose 166 H mg/dl
(70-99)
Creatine Kinase 22 L U/L
(55-170)
C-Reactive Protein 256.70 H mg/L
(0.0-10.00)
Urine Ketones 2+ A
(Negative)
Urine Bacteria (Reflex) Few A
(Negative)
Urine Glucose 4+ A
(Negative)
Urine Albumin (Reflex) 1+ A
(Neg - Trace)
10/08/24 13:08
10/08/24 13:08
Vital Signs
Initial and Last Documented VS:
Initial Vital Signs
Temp Pulse Resp BP Pulse Ox
100.0 F 64 16 126/58 98
10/08/24 12:47 10/08/24 12:47 10/08/24 12:47 10/08/24 12:47 10/08/24 12:47
Last Documented Vital Signs
Temp Pulse Resp BP Pulse Ox
98.1 F 98 20 148/69 97
10/09/24 19:10 10/09/24 20:12 10/09/24 19:10 10/09/24 20:12 10/09/24 19:10
<Osmani Benoit MD - Last Filed: 10/08/24 22:20>
Orders/Labs/Results
Orders:
Orders
10/08/24 12:52
Electrocardiogram (*1) Urgent
Reason for Study: Other
Other Reason for Exam: Possible Sepsis
EKG- Treatment ONCE
10/08/24 13:08
Complete Blood Count/With Diff Urgent
Comprehensive Metabolic Panel Urgent
Creatine Phosphokinase Urgent
Comment: ADD ON
Lactic Acid Q4H
Comment: ON ICE, CANCEL 2ND ORDER IF FIRST LACTIC ACID LEVEL <2
Blood Culture Q20M
MEKHI Source: Blood/Venous
Specimen Description:
Comment: Urgent from separate sites. If patient screens positive for possible sepsis
10/08/24 14:32
Add On- LAB Urgent
Tests Added?: cpk
CT Abd/pelvis W Iv Cont Urgent
Comment:
Reason For Exam: abdominal pain, fever
STOOL [C difficile Antigen & Toxins] Urgent
MEKHI Source: Feces/Stool
Specimen Description:
Stool Culture Urgent
MEKHI Source: Feces/Stool
Specimen Description:
CR Chest - 2 Views Urgent
Comment:
Reason For Exam: fever
10/08/24 14:33
Tetanus/Diphth/Acelpertussis [Adacel] 0.5 ml IM .ONCE ONE
10/08/24 14:45
0.9% Sodium Chloride 1000 ml [Nss] 1,000 ml IV BOLUS
10/08/24 15:10
Acetaminophen [Tylenol] 1,000 mg .ROUTE .STK-MED ONE
Acetaminophen [Tylenol] 1,000 mg PO NOW STA
10/08/24 15:12
Blood Culture Q20M
MEKHI Source: Blood/Venous
Specimen Description:
Comment: Urgent from separate sites. If patient screens positive for possible sepsis
10/08/24 16:49
HYDROmorphone [Dilaudid] 0.5 mg IV NOW STA
10/08/24 16:53
COVID-19 Antigen Urgent
Source: Nasal Swab
10/08/24 18:19
CRP [C-Reactive Protein] Urgent
Ehrlichia/Anaplasma by PCR [S] Urgent
Lyme Progressive Urgent
[facility] Spotted Fever IgG&IgM [S] Urgent
Sed Rate [Erythrocyte Sed Rate] Urgent
Blood Parasites Urgent
MEKHI Source: Blood/Venous
Specimen Description:
10/08/24 19:25
HYDROmorphone [Dilaudid] 0.5 mg .ROUTE .STK-MED ONE
10/08/24 19:26
Straight cath- Treatment ONCE
HYDROmorphone [Dilaudid] 0.5 mg IV NOW STA
10/08/24 19:35
MR Cervical Spine Without & W Urgent
Comment:
Reason For Exam: upper back/neck pain, fever, urinary retention
Recent pill cam endoscopy?: No
MR Lumbar W/o & With Contrast Urgent
Comment:
Reason For Exam: back pain, fever, urinary retention
Recent pill cam endoscopy?: No
MR Thoracic Spine W/o & With Urgent
Comment:
Reason For Exam: back pain, fever, urinary retention
Recent pill cam endoscopy?: No
10/08/24 19:41
Urinalysis Reflex To Culture Urgent
Date Specimen was Collected: 10/08/24
Time Specimen was Collected: 17:32
Urine Microscopic Reflex Cult Urgent
10/08/24 23:23
Admit/Transfer Patient As Directed
Co-Sign Provider:
Level of Care: Inpatient admission
Assign to:: Telemetry
Physician / Group: Anatoly Aguilar
Diagnosis: generalized weakness, severe pain, acute urinary retention
Reason for Telemetry: Arrhythmia
Date to Stop Telemetry: 10/11/24
Time to Stop Telemetry: 11:00
Reason for Hospitalization: generalized weakness, severe pain, acute urinary retention
Expected length of stay greater than two midnights?: Yes
ELOS- Estimated Length of Stay in days: 3
I certify the patient meets the requirements for IP care: Yes
PRN Pain Medication Management As Directed
May give lesser potent ordered pain med per pt: Yes
preference::
Protocol:: Medication orders for pain may be administered in a
manner that supports deferring to patient preference
when the pt is:
- Requesting an ordered lesser potent pain medication.
Least to most potent pain medications are defined
as: acetaminophen < NSAID < tramadol < opioids
(morphine, oxycodone, hydromorphone).
- Requesting a lesser dose of the same medication IF
ORDERED.
- Requesting a less intrusive route of administration
if both routes are prescribed by the provider (PO <
IV).
10/08/24 23:25
Code Status As Directed
Resuscitation Status: Full Code
10/09/24 00:59
Acetaminophen [Tylenol] 650 mg PO Q4HPRN PRN
Cyclobenzaprine HCl [Flexeril] 10 mg PO HSPRN PRN back pain
Dextrose 50%-Water [Dextrose 50% Syringe] 12.5 grams IV [id number] PRN
Glucagon [GlucaGen] 1 mg IM PRN PRN
HYDROmorphone [Dilaudid] 0.5 mg IV Q4HPRN PRN
Lidocaine [Lidocaine 4% Patch] 1 patch TOPICAL DAILYPRN PRN lower back pain
Apply Lidocaine patch(s) to:: lower back
Pregabalin [Lyrica] 100 mg PO QPM
10/09/24 00:59
Consult Notification Routine
Specialty to Notify: Infectious Disease
Date consulting provider notified: 10/09/24
Time consulting provider notified: 08:25
Notified:: Provider
Comment: TT'd Physician On-Call(Raymond)
INFECTIOUS DISEASE CONSULT Routine
Consulting Provider: Ann-Marie Veliz
Was physician already notified: No
Reason for consult: Recent sepsis E.Coli, c. diff, now generalized weakness unknown origin
Activity As Directed
Activity Level: As Tolerated
Bedside Glucose Monitoring As Directed
Frequency: AC&HS
Additional Instructions:: Change to q6h if pt on TPN, tube feeding or not eating
Intake/ Output As Directed
Frequency: Per unit guidelines
Vital Signs As Directed
Frequency: Per unit guidelines
Weight As Directed
Frequency: Once
Comment: on admission
10/09/24 06:02
Basic Metabolic Panel IN AM
Complete Blood Count/No Diff IN AM
10/09/24 07:30
Insulin Aspart Corrective Low [Novolog Flexpen-Low Resistance] See Protocol SC AC
10/09/24 08:00
Aspirin Low Dose EC [Aspir Low (Enteric Coated)] 81 mg PO DAILY
ISOSORBIDE MONOnitrate ER [Imdur (Extended Release)] 30 mg PO DAILY
Lactobac/Bifidobac [Visbiome] 1 cap PO DAILY
Pantoprazole [Protonix] 40 mg PO DAILY
Pregabalin [Lyrica] 200 mg PO DAILY
Rivaroxaban [Xarelto] 2.5 mg PO BID
Rosuvastatin Calcium [Crestor] 40 mg PO DAILY
cilostazol 100 mg PO BID
10/09/24 09:00
Cholestyramine [Questran] 4 gram PO BID@0900,2100
10/09/24 Dinner
2200 calorie (18 carb) Diabetic
At Your Request: Full Participation
Does patient need a safe tray?: No
10/09/24 18:00
Tamsulosin [Flomax] 0.4 mg PO QPM
10/09/24 20:00
Irbesartan [Avapro] 300 mg PO DAILY@1999
10/11/24 11:00
DC Protocol for Telemetry ONCE
Abnormal Lab Results
10/08/24 10/08/24 10/08/24
13:08 18:19 19:41
WBC 13.6 H 10^3/uL
(4.8-10.8)
RBC 4.00 L 10^6/uL
(4.70-6.10)
Hgb 11.5 L g/dL
(13.0-18.0)
Hct 34.3 L %
(39.0-52.0)
RDW 14.9 H %
(11.5-14.5)
Abs Immat Gran (auto) 0.1 H 10^3/uL
(0-0.05)
Absolute Neuts (auto) 11.2 H 10^3/uL
(1.4-6.5)
Absolute Lymphs (auto) 0.7 L 10^3/uL
(1.2-3.4)
Absolute Monos (auto) 1.5 H 10^3/uL
(0.1-0.6)
Immature Gran % 0.9 H %
(0-0.5)
Neutrophils % 82.5 H %
(42.2-75.2)
Lymphocytes % 5.1 L %
(20.5-51.1)
Monocytes % 11.0 H %
(1.7-9.3)
ESR 99 H mm/hour
(0-20)
Sodium 134 L mmol/L
(135-145)
Carbon Dioxide 17 L mmol/L
(22-30)
Glucose 166 H mg/dl
(70-99)
Creatine Kinase 22 L U/L
(55-170)
C-Reactive Protein 256.70 H mg/L
(0.0-10.00)
Urine Ketones 2+ A
(Negative)
Urine Bacteria (Reflex) Few A
(Negative)
Urine Glucose 4+ A
(Negative)
Urine Albumin (Reflex) 1+ A
(Neg - Trace)
10/08/24 13:08
10/08/24 13:08
Vital Signs
Initial and Last Documented VS:
Initial Vital Signs
Temp Pulse Resp BP Pulse Ox
100.0 F 64 16 126/58 98
10/08/24 12:47 10/08/24 12:47 10/08/24 12:47 10/08/24 12:47 10/08/24 12:47
Last Documented Vital Signs
Temp Pulse Resp BP Pulse Ox
98.1 F 98 20 148/69 97
10/09/24 19:10 10/09/24 20:12 10/09/24 19:10 10/09/24 20:12 10/09/24 19:10
<Nico Kaminski PA-C - Last Filed: 10/09/24 22:36>
MDM/Problems Addressed
Differential Diagnosis Includes:
Patient with generalized weakness fever and myalgias.
He is tachycardic at triage and has a white count that is elevated. Concern for underlying sepsis. Source could be abdominal given recent colitis versus viral. Will check urinalysis chest x-ray lactic acid and blood cultures. I suspect he will
require admission
<Nico Kaminski PA-C - Last Filed: 10/09/24 22:36>
*Pulse Oximetry
SaO2: 97
Oxygen Mode of Delivery: Room air
Patient hypoxic: no
*Critical Care Note
Total Time (30-74mins, 75-104mins- exclusive of procedures): Not Applicable
<Nico Kaminski PA-C - Last Filed: 10/09/24 22:36>
Update Note
Update Note:
Patient's presentation and workup has evolved throughout his stay. He had increasing upper back neck and lower back pain. Was having trouble urinating. Bladder scan demonstrated urine of 700 mL in the bladder. Straight cath performed to obtain
urinalysis however given the back pain fever elevated inflammatory markers concern for possible discitis versus spinal infection versus abscess. Discussed with emergency room attending. MRI of the spine was ordered. Updated patient and .
Case signed out to ED attending
ED Attending Note
<Nico Kaminski PA-C - Last Filed: 10/09/24 22:36>
-
Portions of this chart may have been created with voice recognition software.� Occasional wrong word or��sound alike� substitutions may have occurred due to the inherent limitations of voice recognition software.
<Osmani Benoit MD - Last Filed: 10/08/24 22:20>
ED Attending Note
Patient seen and examined by attending physician: Yes
I performed the substantive portion of visit, reviewed & personally made and approve the management plan that is documented in note by myself or KAT.: Yes
ED Attending Note:
79-year-old male presents with general fatigue weakness diffuse back pain. Recent complicated history of sepsis secondary to a biliary stone followed by C. difficile colitis. states when he left the hospital he was still very weak and was
off. He did some heavy work around his pool 2 to 3 days ago and since then has had this diffuse back pain. They did not really had a fever until today.
On exam patient is elderly nontoxic-appearing but chronically ill-appearing. He is fully awake and alert and oriented speaking and interacting appropriately. He has significant pain with any motion of his back including lateral motion or attempted
sitting up. This is diffuse per the patient
He is in no respiratory distress. He is regular rate and rhythm no murmur. Abdomen is nontender. Extremities are unremarkable. 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 Interosseous intact. Good lower extremity strength. Light touch intact.
Impression is fever weakness recent sepsis and C. difficile colitis. Also this diffuse back pain that goes from his neck down to his lower back. Multiple potential etiologies. The back pain could be an independent process related to his recent
activity around the pool or could be related to his fever and general weakness. He however has no acute neurologic symptoms with good upper or lower extremity strength. No bladder symptoms. Will include cultures urine pending chest x-ray pending
tickborne illness. Will do ESR and CRP. Doubt spinal issue but would have to at least entertain the thought of a discitis
Patient with ongoing diffuse back pain. Low-grade fever. Appears to be in urinary retention. Motor exam intact. Significant inflammatory marker elevation. Warrants MRIs to evaluate for discitis epidural abscess etc.
MRIs show edema L1-L2 and edema of L3-S1 favored degenerative versus discitis no osteomyelitis or abscess. updated. Patient updated. He is clinically stable. States he feels slightly better and can lift his arms with less pain in his back.
2219...
Discharge Plan
Departure
Patient Disposition: Admit
Date of Disposition: 10/08/24
Time of Disposition: 22:13
Presentation/result/management discussed w/ accepting MD/DO: Hospitalist
Discharge Problem:
Fever
Interventions
Interventions:
*Risk Screen - Suicide Last Done: 10/08/24 15:28
*General Assessment Last Done: 10/08/24 15:25
*Neglect/Abuse Screening Last Done: 10/08/24 15:28
*ED- Fall Risk Assessment Last Done: 10/08/24 15:25
*ED COVID-19 Vaccine History Last Done: 10/08/24 22:44
*Nursing Disposition Last Done: 10/09/24 06:26
ED- Cardiac Assessment Last Done: 10/08/24 15:25
ED- Neurological Assessment Last Done: 10/08/24 15:25
ED- Pulmonary Assessment Last Done: 10/08/24 15:25
Discharge Date and Time
Discharge Date/Time: 10/09/24 06:27
[2024-10-08] MEDS: TYLENOL 1000 MG PO (15:12)
[2024-10-08] MEDS: NSS 1000 IV (15:13)
[2024-10-08 17:26] LABS: COVID-19 Antigen Negative (Negative)
[2024-10-08] MEDS: DILAUDID 0.5 MG IV ×2 (17:43→19:27)
[2024-10-08 19:09] LABS: C-Reactive Protein 256.70 mg/L (0.0-10.00)
[2024-10-08 19:50] LABS: Urine Character Clear (Clear)
[2024-10-08 19:56] LABS: Urine Squamous Cell 0-2 /LPF (Few)
[2024-10-08 19:57] LABS: Urine Red Blood Cell 0-2 /HPF (0-2); Urine White Cell 0-2 /HPF (0-5)
--- NOTE | 2024-10-08 22:28 | HPS.HSE ---
Addendum entered and electronically signed by Anatoly Aguilar MD 10/08/24 23:57:
This is an addendum to H&P written by Rochelle Burns on 10/08/2024. �Patient seen and examined independently with BOBBIN SORTER.
79-year-old male past medical history of diabetes with neuropathy, hypertension, CAD status post CABG, PAD status post bypass of femoral artery on Xarelto, BPH, chronic back pain, E. coli bacteremia secondary to cholangitis status post biliary
stent, CVA, GERD, hypercholesteremia, mild interstitial fibrosis, history of C. difficile, presenting with progressive weakness. �Saw primary care physician who noted he had temperature of 101 today. �He has pain in his upper neck and back between
shoulder blades for a week and can barely lift up his arm. �Has been having ongoing diarrhea 3 times a day despite being treated for C. difficile since recent discharge on 09/29 with ongoing abdominal pain. �No vomiting.
Urinary retention today.
Patient was admitted in August for septic shock secondary to E. coli bacteremia secondary to cholangitis status post biliary stent. �He was admitted again in September for C. difficile colitis.
Vital signs normal.
Labs show leukocytosis. �Stable anemia. �Elevated inflammatory markers.
Urinalysis unremarkable. �Chest x-ray unremarkable apart from mild bibasilar fibrosis. �Cervical, thoracic, lumbar MRIs show edema in the L1-L2 intervertebral disc space and mild edema in the L3-S1 intervertebral disc bases likely degenerative edema
rather than discitis. �Radiology reports not directly addressing pathology in the cervical or thoracic region. �CT abdomen pelvis shows no acute process in the abdomen or pelvis, slight nodularity of right lower lobe possibly atelectasis or mild
pneumonitis.
Patient with seemingly underlying infection unclear source. �Cervical MRI does not show any evidence of spinal abscess or disc discitis double explain upper extremity symptoms and upper back pain. �Possibly this could be musculoskeletal.
Another source of the infection could be persistent C. difficile despite treatment with oral vancomycin. 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 �Doubt that patient is having recurrent biliary obstruction as LFTs unremarkable.
Blood cultures pending. �Stool studies, C. difficile pending. �Lyme's, ehrlichiosis, blood parasites pending.
Hold off antibiotics for now. �ID consulted.
Unclear etiology of urinary retention possibly from pain. �Bladder scan protocol.
Original Note:
Family Physician
-
Family Physician: Magno Khan
Chief Complaint
-
upper body weakness
History of Present Illness
Patient is a 79-year-old male with past medical history significant for CAD, type 2 diabetes, peripheral arterial disease, hypertension, GERD and hypercholesterolemia who presented to [facility] ED for evaluation of upper body weakness, severe back pain
and recurrent diarrhea. Patient with 2 recent hospitalizations for septic shock and Escherichia coli bacteremia and then c. diff. Patient went to family doctor today and had a temp of 101 in the office. Family doctor recommended evaluation in
hospital with multiple hospitalizations with infection. Patient reports he was able to ambulate independently and now cannot, he reports being able to brush sides of pool approximately 4 days ago and now having a diffcult time raising bilateral arms
in air.
Medical History
Past Medical History
Past Medical History: Reports Other
Additional Past Medical History:
CAD status post CABG x 5
type 2 diabetes
peripheral arterial disease on Xarelto
hypertension
GERD
hypercholesterolemia
Past Surgical History: Reports Other
Additional Past Surgical History:
Cardiac (bypass, stents)
Cholecystectomy
Social History
Tobacco: Non-smoker
Alcohol: None
Drug: None
Personal:
Living: With Family
Family History
Family History: Not pertinent
Allergies / Home Medications
Allergies reflects when Allergies were last updated in [facility].
Home Medications with original date entered in [facility]
Allergy/Medication List:
Allergies
Allergy/AdvReac Type Severity Reaction Status Date / Time
No Known Allergies Allergy Verified 10/08/24 12:51
Home Medications
glimepiride 2 mg tablet 2 mg PO BID@0800,1700 Diabetes 08/20/20
rosuvastatin 40 mg tablet (Crestor) 40 mg PO DAILY High cholesterol 08/20/20
cilostazol 100 mg tablet 100 mg PO BID Blood clot prevention/tx 05/16/22
pantoprazole 40 mg tablet,delayed release 40 mg PO DAILY Gastrointestinal issue 05/16/22
tamsulosin 0.4 mg capsule 0.4 mg PO QPM Urinary Issue 09/03/23
empagliflozin 25 mg tablet (Jardiance) 12.5 mg PO DAILY Diabetes 01/07/24
irbesartan 300 mg tablet 300 mg PO DAILY@2000 Blood Pressure 01/07/24
pregabalin 100 mg capsule (Lyrica) 100 mg PO QPM Pain 01/07/24
pregabalin 100 mg capsule (Lyrica) 200 mg PO DAILY Pain 01/07/24
sitagliptin 100 mg tablet 100 mg PO DAILY Diabetes 01/07/24
isosorbide mononitrate 30 mg tablet,extended release 24 hr 30 mg PO DAILY Heart Disease/Condition 09/12/24
lidocaine 5 % topical patch 1 patch topical DAILYPRN PRN lower back pain 09/12/24
oxycodone-acetaminophen 10 mg-325 mg tablet 1 tab PO Q8HPRN PRN severe pain 09/12/24
aspirin 81 mg tablet,delayed release 81 mg PO DAILY #0 tabs 09/16/24
cholestyramine (with sugar) 4 gram powder for susp in a packet 1 ea PO BID@0900,2100 #0 ea 09/16/24
cyclobenzaprine 10 mg tablet 10 mg PO HSPRN PRN back pain #0 tabs 09/16/24
rivaroxaban 2.5 mg tablet (Xarelto) 2.5 mg PO BID Blood Clot Prevention/Tx 09/22/24
lactobacillus combination no.4 3 billion cell capsule (Probiotic) 3,000 mmu cells PO DAILY #30 caps 09/29/24
Review of Systems
-
History Source: Patient
Constitutional: Reports Fever; Denies Chills
EENT: Denies Sore Throat
Respiratory: Denies Cough or Trouble Breathing
Cardiac: Reports Chest Pain (mild discomfort with palpitations ); Denies Diaphoresis, Palpitations or Syncope
Abdomen/GI: Reports Abdominal Pain and Diarrhea; Denies Nausea or Vomiting
: Reports Difficulty Voiding; Denies Dysuria, Flank Pain or Urgency
Musculoskeletal: Reports Other (severe pain to neck and back between shoulder blades ); Denies Joint Pain or Joint Swelling
Skin: Denies Itching or Rash
Neurological: Reports Weakness (significant bilateral upper extremity weakness ); Denies Dizzy or Headache
Endocrine: Denies Polyuria or Polydipsia
Hematologic/Lymphatic: Denies Swollen Glands
Physical Exam
Vital Signs
Vital Signs
Temp Pulse Resp BP Pulse Ox
98.2 F 89 13 106/60 95
10/08/24 22:05 10/08/24 22:04 10/08/24 22:04 10/08/24 22:04 10/08/24 22:04
Physical Exam
General: Well Developed, Well Nourished, Conversant and Pain
HEENT: NormoCephalic, Moist mucous membranes and Atraumatic
Respiratory: Clear and Non Labored Respirations
Cardiac: S1/S2, Regular Rhythm and Tachycardia; No Murmur, Rub or Gallop
Breast: Deferred by me
GI: Soft, Non Tender, Non Distended and Normal Bowel Sounds
Rectal: Deferred by Provider
Genito-urinary: Other (urinary retention )
Musculoskeletal: No Clubbing, No Cyanosis and No Edema
Skin: Warm; No Rash
Neuro: Awake and Nonfocal/grossly intact
Laboratory Results
-
10/08/24 13:08
10/08/24 13:08
Laboratory Results
Lactic Acid Cancelled 10/08/24 18:45
Total Bilirubin 1.2 mg/dl (0.2-1.3) 10/08/24 13:08
AST 19 U/L (17-59) 10/08/24 13:08
ALT 14 U/L (0-50) 10/08/24 13:08
Alkaline Phosphatase 105 U/L (38-126) 10/08/24 13:08
Data Reviewed
-
CT Scan: Report Reviewed by me (Abd/Pel: No clear CT evidence for a new acute process in the abdomen or pelvis. Colonic wall thickening appears improved compared to the CT abdomen/pelvis from 09/22/2024. Slightly nodular opacity in the right lower
lobe, possibly atelectasis or a mild pneumonitis. Recommend imaging follow-up to con)
MRI: Report Reviewed by me (C-T-L spine: Edema in the L1-L2 intervertebral disc space, and mild edema in the L3 through S1 intervertebral disc spaces. Degenerative edema would be favored over discitis in the absence of adjacent endplate signal
changes or paravertebral soft tissue edema. No MRI evidence for osteomyelitis or an)
Lab Data: Labs Reviewed by me (WBC 13.6, Neut 82.5, HCO3 17, CK 22)
Impression/Plan
-
IMPRESSION/PLAN:
#upper body severe weakness with severe T-Spine pain 2/2 infectious process vs. injury
WBC 13.6, Neut 82.5
Abd/Pel CT: No clear CT evidence for a new acute process in the abdomen or pelvis. Colonic wall thickening appears improved compared to the CT abdomen/pelvis from 09/22/2024.
Slightly nodular opacity in the right lower lobe, possibly atelectasis or a mild pneumonitis. Recommend imaging follow-up to confirm resolution.
Other chronic findings, as detailed above.
CXR: No acute cardiopulmonary process. Mild bibasilar fibrosis.
C-Spine Thoracic and Lumbar MRI: Edema in the L1-L2 intervertebral disc space, and mild edema in the L3 through S1 intervertebral disc spaces. Degenerative edema would be favored over discitis in the
absence of adjacent endplate signal changes or paravertebral soft tissue edema.
No MRI evidence for osteomyelitis or an epidural abscess.
- Admit to telemetry
- Consult ID
- hold antibiotics for now
- pain regimen
- blood cultures, stool studies, blood parasites, tick born illness panel
#acute urinary retention
- bladder scan, straight cath protocol
#CAD
s/p CABG x 5
- continue aspirin
#type 2 diabetes
- AccuCheck AC & HS
- SSI
- continue glimepiride, Jardiance and Sitagliptin
#peripheral arterial disease
- continue Xarelto
#hypertension
- continue irbesartan
#GERD
- continue pantoprazole
#hypercholesterolemia
- continue rosuvastatin
Code status: full code
DVT prophylaxis: Xarelto
[2024-10-09] VITALS (12 sets, daily range): BP systolic 117–168; BP diastolic 61–86; BMI 25.7
[2024-10-09] MEDS: LYRICA PO (01:22)
[2024-10-09] MEDS: DILAUDID 0.5 MG IV ×3 (01:23→10:40)
--- NOTE | 2024-10-09 04:26 | W.PN.UPDATE ---
Update Note
Progress Note Update
Patient refused his Lyrica 100 mg PO HS dose. Asking for dose now. Asked RN to give Lyrica 200 mg PO daily dose at this time.
[2024-10-09] MEDS: LYRICA 200 MG PO (04:35)
[2024-10-09 06:22] LABS: Hematocrit 29.3 % (39.0-52.0); Hemoglobin 10.2 g/dL (13.0-18.0); Mean Corp Hgb Conc. 34.8 g/dL (33.0-37.0); Mean Corpuscular Volume 84.4 fL (80.0-94.0); Platelet Count 214 10^3/uL (130-400); Red Cell Dist. Width 14.6 % (11.5-14.5)
[2024-10-09 06:41] LABS: Blood Urea Nitrogen 16 mg/dl (9-20); Calcium 8.3 mg/dl (8.4-10.2); Carbon Dioxide 21 mmol/L (22-30); Chloride 106 mmol/L (98-107); Estimated Creatinine Clearance 103 ml/min; Glucose 88 mg/dl (70-99); Potassium 3.8 mmol/L (3.5-5.1); Sodium 134 mmol/L (135-145); eGFR > 60.00
--- NOTE | 2024-10-09 07:05 | W.PN.HOSP.TC ---
Addendum entered and electronically signed by Joshua Pérez MD 10/09/24 21:31:
Attending Addendum-
I saw and evaluated the patient. I reviewed the resident�s note and agree with findings and plan as documented in the resident�s note. Sub: Seen with present. Compalins if of neck upper back and b/l shoulder pain. Unable to lift arms up. Per
has fever in PCPs office. no fever since admission. Full 12 point ROS reviewed and negative except as documented Exam: Vitals reviewed in chart GEN-mild distress due to pain, heart RRR lungs clear abd soft LE no edema Neuro- AAO x 3 MS 4/5 UE
5/5 LE sensation intact decrease ROM b/l UE
Plan:
-B/L neck back and upper extremity weakness and pain/SIRS
-leukocytosis resolved
Abd/Pel CT: No clear CT evidence for a new acute process in the abdomen or pelvis. Colonic wall thickening appears improved compared to the CT abdomen/pelvis from 09/22/2024.
Slightly nodular opacity in the right lower lobe, possibly atelectasis or a mild pneumonitis. Recommend imaging follow-up to confirm resolution.
CXR: No acute cardiopulmonary process. Mild bibasilar fibrosis.
C-Spine Thoracic and Lumbar MRI: Edema in the L1-L2 intervertebral disc space, and mild edema in the L3 through S1 intervertebral disc spaces. Degenerative edema would be favored over discitis in the
absence of adjacent endplate signal changes or paravertebral soft tissue edema.
No MRI evidence for osteomyelitis or an epidural abscess.
- Consult ID
- hold antibiotics for now
- pain regimen
- blood cultures, stool studies, blood parasites, tick born illness panel , check VINNY CPK TSH
# Acute urinary retention
- bladder scan, straight cath protocol
# CAD
s/p CABG x 5
- continue aspirin
# Recent ESBL sepsis secondary to cholangitis- completed abx, s/p biliary stent
# Recent C diff- toxin neg- completed course of PO vanco
#type 2 diabetes
- AccuCheck AC & HS
- SSI
- continue glimepiride, Jardiance and Sitagliptin
#peripheral arterial disease
- continue Xarelto
#hypertension
- continue irbesartan
#GERD
- continue pantoprazole
#hypercholesterolemia
- continue rosuvastatin
Code status: full code
DVT prophylaxis: Xarelto
Dispo likely DC to SNF
ACP
Patient consented to discuss, was with , time spent explanation of advance directives, changes in health status, patient�s health care wishes if the patient becomes unable to make health decisions, goals of care, code status, and prognosis- 16
minutes
Time spent coordinating care, review of plan of care with resident, personally reviewed previous records in EMR, med rec, labs, radiology, d/w nursing, family total time documented is exclusive of any additional time listed that was spent in advance
care planning discussion -� 53 minutes
Original Note:
Today's Communication/Plan
-
Review pending labs
Assessment / Plan
Assessment / Plan
#Myalgia, Possible Polymyalgia Rheumatica
-Cervical, thoracic and lumbar MRI done, showed no clear etiology of current symptom
-Consider for Rheumatological disease if infectious disease has been ruled out
-Increase Dilaudid to 1mg [id number]
#Systemic inflammatory disease
-Elevated ESR- 99
-Elevated WBC (13.6) on presentation, down now (10.6).
-Pending serology
#Acute urinary retention from neurogenic bladder
-Bladder scan and straight cath
#Possible UTI
-UA shows few bacteria, review with culture result when ready
Anticipated Discharge: 24 - 48 hours
Subjective/Interval History
-
Date of Service: October 09, 2024
Patient seen.
C/o of back pain from cervical to lumber, pain present despite Dilaudid
Associated limited mobility/weakness
Objective Data
-
Labs:
Laboratory Results
10/09/24
06:02
WBC 10.6
Hgb 10.2 L
Hct 29.3 L
Plt Count 214 D
Sodium 134 L
Potassium 3.8
Chloride 106
Carbon Dioxide 21 L
BUN 16
Creatinine 0.7
Glucose 88
Calcium 8.3 L
Vital Signs:
Vital Signs
Temp Pulse Resp BP Pulse Ox
99.6 F 104 18 168/86 98
10/09/24 06:36 10/09/24 06:36 10/09/24 06:36 10/09/24 06:36 10/09/24 06:36
Review of Systems
-
History Source: Patient
Constitutional: Reports Fever (Fever)
Respiratory: Reports No Symptoms
Cardiac: Reports No Symptoms
Abdomen/GI: Reports No Symptoms
Genitourinary: Reports Difficulty Voiding
Musculoskeletal: Reports Arthralgias, Myalgias and Muscle Weakness (back pain and weakness)
Psych: Reports Other (In distress due to pain)
Physical Exam
-
General: Pain
HEENT: Normocephalic and Atraumatic
Respiratory: Clear to Auscultation
Cardiac: Regular Rhythm and S1/S2
GI: Soft (Supra-pubic mass up, distended bladder, tender to palpation)
Data Reviewed
-
Labs: Labs Reviewed by me, Discussed with Physician and Discussed with Patient
[2024-10-09] MEDS: TYLENOL 650 MG PO ×2 (09:46→17:39)
[2024-10-09] MEDS: LIDOCAINE 4% PATCH 1 PATCH TOPICAL (09:47)
[2024-10-09] MEDS: PROTONIX 40 MG PO (09:50)
[2024-10-09] MEDS: VISBIOME 1 CAP PO (09:50)
[2024-10-09] MEDS: XARELTO 2.5 MG PO ×2 (09:50→20:12)
[2024-10-09] MEDS: CRESTOR 40 MG PO (09:50)
[2024-10-09] MEDS: IMDUR (EXTENDED RELEASE) 30 MG PO (09:50)
[2024-10-09] MEDS: ASPIR LOW (ENTERIC COATED) 81 MG PO (09:50)
[2024-10-09] MEDS: QUESTRAN 4 GRAM PO ×2 (10:41→22:37)
[2024-10-09] MEDS: NOVOLOG FLEXPEN-LOW RESISTANCE SC ×2 (11:21→18:07)
[2024-10-09 12:02] LABS: Glucose - Point of Care 177 mg/dl (70-99)
[2024-10-09] MEDS: NOVOLOG FLEXPEN-LOW RESISTANCE 1 UNITS SC (13:57)
[2024-10-09 14:16] LABS: Lyme Antibody Screen, EIA Negative (Negative)
[2024-10-09] MEDS: DILAUDID 1 MG IV ×2 (14:43→20:09)
--- NOTE | 2024-10-09 14:56 | CON.ID ---
Consultation
-
Date/Time Consultation Requested: 10/09/2024 0059
Date/Time Consultation Performed: 10/09/2024 1450
Requesting Provider: Rhonda Burns
Performing Provider: Dr. Andrade
Reason for Consultation: Generalized weakness
Chief Complaint / Past History
Chief Complaint
Abdominal pain
History of Present Illness
79-year-old male with history of diabetes mellitus, CAD, PAD, remote history of cholecystectomy who was recently hospitalized from September 12 - September 16 with E. coli bacteremia from cholangitis and found to have choledocholithiasis. On September 15 he
underwent ERCP status post common bile duct stent placement. He was on IV Unasyn in the hospital then discharged on cephalexin till September 27.
On 09/20 he patient developed chills and abdominal pain located central abdomen. Also with diarrhea about 4 times a day. Stool was mucous and yellow. He came to the ER on 09/22. He was determined to have acute pancolitis of unclear etiology. He
was placed on a course of oral vancomycin, to continue through 10/01. He was discharged on 09/29.
Mr. Choi presents back to the emergency room on 10/08 secondary to overall declining performance status. His noted that he had become more weak. He had seen his PCP. In the office had a temperature of 101 degrees.
Workup in the emergency room revealed a white count of 13.6 which normalized on today's labs. The patient is not currently on any antibiotics. At present, he notes ongoing neck discomfort.
Past History
Additional Past Medical History:
NIDDM
Neuropathy
HTN
HLD
CAD s/p CABG x 5
CVA
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
GERD
DVT
hx C. difficile
Additional Past Surgical History:
E. coli cholangitis, choledocholithiasis s/p CBD stent 09/15/24
Cholecystectomy (~2004)
Allergy History:
No Known Allergies Allergy (Verified 10/08/24 12:51)
Medications Reviewed: Yes
Current Antibiotics:
Vancomycin 125 mg p.o. every 6, day 1
Cephalexin 500 mg p.o. 4 times daily
Social History
Tobacco: Former Smoker
Alcohol: None
Drug: None
Personal:
Living: With Family
Employment: Retired
Family History
Family History: Not Pertinent
Review of Systems
Vital Signs
Temp Pulse Resp BP Pulse Ox
98.2 F 110 20 117/61 96
10/09/24 11:09 10/09/24 11:09 10/09/24 11:09 10/09/24 11:09 10/09/24 11:09
Physical Exam
Physical Exam
Constitutional: Chronically Ill and Non-toxic; Negative Cachetic
Head: Normocephalic
Eyes: Pupils Equal, Pupils Round, No Conjunctival Hemorrhage and Sclera Anicteric
Oral: No Thrush and No Ulcers
Cardiovascular: Regular Rate and S1/S2; Negative S3/S4
Pulmonary: Clear; Negative Wheezes, Rales or Rhonchi
Gastrointestinal: Soft, Non Tender, Non Distended and Normal Bowel Sounds
Extremities: Negative Edema, Cyanosis or Erythema
Musculoskeletal: Other (Decreased overall neck ROM secondary to pain)
Neurological: Awake and Alert; Negative Meningeal Signs
Psychological: Calm
Lab / Diagnostic Study Results
10/09/24 07:17
10/09/24 07:17
Abs Immat Gran (auto) 0.1 10^3/uL (0-0.05) H 10/08/24 13:08
Absolute Neuts (auto) 11.2 10^3/uL (1.4-6.5) H 10/08/24 13:08
Absolute Lymphs (auto) 0.7 10^3/uL (1.2-3.4) L 10/08/24 13:08
Absolute Monos (auto) 1.5 10^3/uL (0.1-0.6) H 10/08/24 13:08
Absolute Basos (auto) 0.1 10^3/uL (0-0.2) 10/08/24 13:08
Immature Gran % 0.9 % (0-0.5) H 10/08/24 13:08
Neutrophils % 82.5 % (42.2-75.2) H 10/08/24 13:08
Lymphocytes % 5.1 % (20.5-51.1) L 10/08/24 13:08
Monocytes % 11.0 % (1.7-9.3) H 10/08/24 13:08
Eosinophils % 0.1 % (0-6) 10/08/24 13:08
Basophils % 0.4 % (0-2) 10/08/24 13:08
ESR 99 mm/hour (0-20) H 10/08/24 18:19
Lactic Acid Cancelled 10/08/24 18:45
C-Reactive Protein 256.70 mg/L (0.0-10.00) H 10/08/24 18:19
Ur Squamous Epith Cells 0-2 /LPF (Few) 10/08/24 19:41
Microbiology Results
Micro:
10/08/24 13:08 Blood Culture - Preliminary
Blood/Venous No Growth in 24 hours- Final report to follow
10/08/24 18:19 Blood Parasites Smear - Preliminary
Blood/Venous
10/08/24 15:12 Blood Culture - Pending
Blood/Venous
Imaging:
10/08/2024 MRI cervical, thoracic, lumbar spine: Edema in the L1-L2 intervertebral disc space, and mild edema in the L3 through S1 intervertebral disc spaces. Degenerative edema would be favored over discitis in the absence of adjacent endplate
signal changes or paravertebral soft tissue edema. No MRI evidence for osteomyelitis or an epidural abscess. Please see full dictation for additional detail.
10/08/2024 CT abdomen/pelvis: no clear CT evidence for new acute process in the abdomen or pelvis. Colonic wall thickening appears improved compared to CT dated 09/22/2024. Please see full dictation for additional detail.
Assessment / Plan
Neck/upper thoracic musculoskeletal pain
Leukocytosis; normalized on today's labs
Reported fever as outpatient; afebrile since admission
NIDDM
Neuropathy
HTN
HLD
CAD s/p CABG x 5
CVA
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
GERD
DVT
hx C. difficile
Recommendations:
Would continue to monitor off of antibiotics for now.
Close follow-up for the development of any fevers, leukocytosis, or other signs/symptoms of infection.
--- NOTE | 2024-10-09 16:15 | CM ---
Patient asleep. Met with patient's at the bedside; initial assessment completed
Pharmacy verified: [facility] @ [address] [facility], [place], [place]
Patient and live in multilevel home; 2 steps to enter; 12 steps to 2nd floor; railing on stairs; powder room 1st floor; his 2nd floor bath has tub w/ shower; no grab bar
PLOF: reported that patient was independent ambulation, stairs and personal care; retired; drives
DME: has a glucometer but does not use it
NO SNF utilization history; Home Health services this year but unable to provide agency name; may be from [facility]
If Rehab is recommended, 's preference is home PT; not SNF
drives and will be able to provide transport home
Discharge plan to be determined; Nurses Supervisor will monitor for needs/services
[2024-10-09] MEDS: FLOMAX 0.4 MG PO (17:39)
[2024-10-09] MEDS: LYRICA 100 MG PO (17:39)
[2024-10-09 17:46] LABS: Glucose - Point of Care 119 mg/dl (70-99)
[2024-10-09] MEDS: AVAPRO 300 MG PO (20:12)
[2024-10-09 21:40] LABS: Glucose - Point of Care 166 mg/dl (70-99)
[2024-10-09] MEDS: FLEXERIL 10 MG PO (22:43)
[2024-10-10] VITALS (8 sets, daily range): BP systolic 113–140; BP diastolic 61–85; PULSE 59–93; O2SAT 97
[2024-10-10] MEDS: DILAUDID 1 MG IV ×5 (00:43→20:28)
[2024-10-10 06:38] LABS: Hematocrit 31.4 % (39.0-52.0); Hemoglobin 10.6 g/dL (13.0-18.0); Mean Corp Hgb Conc. 33.8 g/dL (33.0-37.0); Mean Corpuscular Volume 85.8 fL (80.0-94.0); Platelet Count 255 10^3/uL (130-400); Red Cell Dist. Width 14.7 % (11.5-14.5)
[2024-10-10 06:59] LABS: Blood Urea Nitrogen 15 mg/dl (9-20); Calcium 8.9 mg/dl (8.4-10.2); Carbon Dioxide 22 mmol/L (22-30); Chloride 105 mmol/L (98-107); Estimated Creatinine Clearance 120 ml/min; Glucose 122 mg/dl (70-99); Potassium 3.8 mmol/L (3.5-5.1); Sodium 136 mmol/L (135-145); eGFR > 60.00
--- NOTE | 2024-10-10 07:00 | W.PN.HOSP.TC ---
Addendum entered and electronically signed by Joshua Pérez MD 10/10/24 20:26:
Attending Addendum-
I saw and evaluated the patient. I reviewed the resident�s note and agree with findings and plan as documented in the resident�s note. Sub: Complains if of significant neck upper back and b/l shoulder pain. Unable to lift arms up. seen while
ambulating with PT. no fever since admission. Full 12 point ROS reviewed and negative except as documented Exam: Vitals reviewed in chart GEN-mild distress due to pain, heart RRR lungs clear abd soft LE no edema Neuro- AAO x 3 MS 4/5 UE 5/5 LE
sensation intact decrease ROM b/l UE
Plan:
-B/L neck back and upper extremity weakness and pain/SIRS
-leukocytosis resolved
-Abd/Pel CT: No clear CT evidence for a new acute process in the abdomen or pelvis. Colonic wall thickening appears improved compared to the CT abdomen/pelvis from 09/22/2024.
-CXR: No acute cardiopulmonary process. Mild bibasilar fibrosis.
-C-Spine Thoracic and Lumbar MRI: Edema in the L1-L2 intervertebral disc space, and mild edema in the L3 through S1 intervertebral disc spaces. Degenerative edema would be favored over discitis in the
absence of adjacent endplate signal changes or paravertebral soft tissue edema.
No MRI evidence for osteomyelitis or an epidural abscess.
- d/w ID doubt infectious process no indication for abx
- likely rhematologic/inflammatory process
- pain control, add muscle relaxants
- start steroid burst x 5 days
- blood cultures, stool studies, blood parasites, tick born illness panel, CPK TSH- WNL
- VINNY-P
- PT OT
# Acute urinary retention
- bladder scan, straight cath protocol
# CAD
- s/p CABG x 5
- continue aspirin
#Type 2 diabetes
- monitor AccuCheck AC & HS
- SSI
- continue glimepiride, Jardiance and Sitagliptin
# Recent ESBL sepsis secondary to cholangitis- completed abx, s/p biliary stent
# Recent C diff- toxin neg- completed course of PO vanco
# PAD- continue Xarelto
# HTN- continue irbesartan
# GERD- continue pantoprazole
# HLD- continue rosuvastatin
Code status: full code
DVT prophylaxis: Xarelto
Dispo likely DC to SNF
Time spent coordinating care, review of plan of care with resident, personally reviewed records in EMR, med rec, consults, notes, labs, radiology, d/w nursing ID � 51 mins
Original Note:
Today's Communication/Plan
-
Likely inflammatory etiology as cause of neck and shoulder pain
Assessment / Plan
Assessment / Plan
#Myalgia, Possible Polymyalgia Rheumatica
-CK- L
-Cervical, thoracic and lumbar MRI done, showed no clear etiology of current symptom
-Prednisone 40mg PO X 5days
#Systemic inflammatory disease
-Elevated ESR- 99
-Elevated WBC (13.6) on presentation, down now (10.6).
-Pending VINNY Serology
#SIRS- Infectious
-No parasite
-Negative blood, stool culture
#Acute urinary retention from neurogenic bladder
-Bladder scan and straight cath
#Possible UTI
-UA shows few bacteria, no culture
#Anemia
-Hb- 10.6
#NIDDM
Glimepiride, Jardiance, Sitagliptin
-122
Anticipated Discharge: 24 - 48 hours
Subjective/Interval History
-
Date of Service: October 10, 2024
Patient seen.
No more fever
Still complains of pains (now 8/10 from 11/05)
Worse on the right shoulder
Objective Data
-
Labs:
Laboratory Results
10/10/24
05:40
WBC 10.0
Hgb 10.6 L
Hct 31.4 L
Plt Count 255
Sodium 136
Potassium 3.8
Chloride 105
Carbon Dioxide 22
BUN 15
Creatinine 0.6 L
Glucose 122 H
Calcium 8.9
Vital Signs:
Vital Signs
Temp Pulse Resp BP Pulse Ox
98.5 F 96 20 139/85 95
10/10/24 03:26 10/10/24 03:26 10/10/24 03:26 10/10/24 03:26 10/10/24 03:26
I&O
10/09/24 10/10/24 10/11/24
06:59 06:59 06:59
Intake Total 480 / 480
Output Total 2900 / 2900
Balance -2420 / -2420
Review of Systems
-
History Source: Patient and Family ()
Constitutional: Reports No Symptoms
Respiratory: Reports No Symptoms
Cardiac: Reports No Symptoms
Abdomen/GI: Reports No Symptoms
Genitourinary: Reports Difficulty Voiding
Musculoskeletal: Reports Joint Pain (Right shoulder severe pain), Arthralgias, Myalgias and Muscle Weakness (back pain and weakness)
Psych: Reports Other (In distress due to pain)
Physical Exam
-
General: Well Developed
HEENT: Normocephalic
Respiratory: Clear to Auscultation (Anterior chest)
Cardiac: Regular Rhythm and S1/S2
Musculoskeletal: Other (Activity and examination limited by pain. )
Data Reviewed
-
Labs: Labs Reviewed by me, Discussed with Physician, Discussed with Patient and Discussed with Family
[2024-10-10 09:23] LABS: Glucose - Point of Care 142 mg/dl (70-99)
[2024-10-10] MEDS: NOVOLOG FLEXPEN-LOW RESISTANCE SC ×3 (09:43→18:28)
[2024-10-10] MEDS: PROTONIX 40 MG PO (09:49)
[2024-10-10] MEDS: CRESTOR 40 MG PO (09:49)
[2024-10-10] MEDS: IMDUR (EXTENDED RELEASE) 30 MG PO (09:49)
[2024-10-10] MEDS: VISBIOME 1 CAP PO (09:49)
[2024-10-10] MEDS: ASPIR LOW (ENTERIC COATED) 81 MG PO (09:49)
[2024-10-10] MEDS: QUESTRAN 4 GRAM PO ×2 (09:49→22:08)
[2024-10-10] MEDS: LYRICA 200 MG PO (09:49)
[2024-10-10] MEDS: XARELTO 2.5 MG PO ×2 (09:50→20:25)
--- NOTE | 2024-10-10 10:35 | CM ---
Reviewed the chart notes. PT/OT evaluations pending. CM continues to be available to patient/family and is monitoring medical plan for needs at discharge.
Plan: Discharge plans will depend on the patient's progress.
[2024-10-10 12:42] LABS: Glucose - Point of Care 144 mg/dl (70-99)
--- NOTE | 2024-10-10 12:43 | W.PN.ID1 ---
Date of Service
Date of Service: October 10, 2024
Today's Communication
Sign off
Assessment / Plan
Neck/upper thoracic pain; suspect musculoskeletal in etiology.
Leukocytosis; normalized
Reported fever as outpatient; afebrile since admission
NIDDM
Neuropathy
HTN
HLD
CAD s/p CABG x 5
CVA
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
GERD
DVT
hx C. difficile
Recommendations:
Continue off antibiotics.
Close follow-up for the development of any fevers, leukocytosis, or other signs/symptoms of infection.
At present, no acute infectious process found.
Will see again at your request.
Chief Complaint
-: Fever
Subjective / Review of Systems
Patient denies fevers, but notes ongoing low cervical upper thoracic spinal pain, and between his scapula.
Vital Signs / Physical Exam
Vital Signs
Vital Signs
Temp Pulse Resp BP Pulse Ox
97.5 F 72 18 124/67 95
10/10/24 11:00 10/10/24 11:00 10/10/24 11:00 10/10/24 11:00 10/10/24 11:00
Physical Exam
Constitutional: No Acute Distress, Comfortable and Non-toxic
Cardiovascular: Regular Rate and S1/S2
Gastrointestinal: Soft, Tender (mild ) and Normal Bowel Sounds
Extremities: Negative Edema
Neurological: AO x 3; Negative Meningeal Signs
Objective Data
Lab Data
Lab Results
10/10/24 05:40
10/10/24 05:40
ESR 99 mm/hour (0-20) H 10/08/24 18:19
Estimated Creat Clear 120 ml/min 10/10/24 05:40
Lactic Acid Cancelled 10/08/24 18:45
Total Bilirubin 1.2 mg/dl (0.2-1.3) 10/08/24 13:08
AST 19 U/L (17-59) 10/08/24 13:08
ALT 14 U/L (0-50) 10/08/24 13:08
Alkaline Phosphatase 105 U/L (38-126) 10/08/24 13:08
C-Reactive Protein 256.70 mg/L (0.0-10.00) H 10/08/24 18:19
Most recent labs reviewed.
Micro Results:
10/08/24 18:19 Blood Parasites Smear - Final
Blood/Venous
10/08/24 15:12 Blood Culture - Preliminary
Blood/Venous No Growth in 24 hours- Final report to follow
10/08/24 13:08 Blood Culture - Preliminary
Blood/Venous No Growth in 24 hours- Final report to follow
Imaging:
10/08/2024 MRI cervical, thoracic, lumbar spine: Edema in the L1-L2 intervertebral disc space, and mild edema in the L3 through S1 intervertebral disc spaces. Degenerative edema would be favored over discitis in the absence of adjacent endplate
signal changes or paravertebral soft tissue edema. No MRI evidence for osteomyelitis or an epidural abscess. Please see full dictation for additional detail.
10/08/2024 CT abdomen/pelvis: no clear CT evidence for new acute process in the abdomen or pelvis. Colonic wall thickening appears improved compared to CT dated 09/22/2024. Please see full dictation for additional detail.
Care Review
Plan reviewed with: Physician (Hospitalist)
[2024-10-10] MEDS: DELTASONE 40 MG PO (17:39)
[2024-10-10] MEDS: LYRICA 100 MG PO (17:43)
[2024-10-10] MEDS: FLOMAX 0.4 MG PO (17:43)
[2024-10-10 17:53] LABS: Glucose - Point of Care 148 mg/dl (70-99)
[2024-10-10] MEDS: AVAPRO 300 MG PO (20:25)
[2024-10-10] MEDS: FLUSH (NSS) 2 FLUSH IV (20:29)
[2024-10-10 21:59] LABS: Glucose - Point of Care 158 mg/dl (70-99)
[2024-10-11] MEDS: DILAUDID 1 MG IV ×5 (00:29→22:05)
[2024-10-11] MEDS: FLUSH (NSS) 2 FLUSH IV (00:30)
[2024-10-11 03:36] VITALS: BP 138/72
[2024-10-11 07:20] VITALS: BP 147/66
[2024-10-11 08:00] LABS: Hematocrit 34.6 % (39.0-52.0); Hemoglobin 11.8 g/dL (13.0-18.0); Mean Corp Hgb Conc. 34.1 g/dL (33.0-37.0); Mean Corpuscular Volume 85.0 fL (80.0-94.0); Platelet Count 299 10^3/uL (130-400); Red Cell Dist. Width 14.3 % (11.5-14.5)
[2024-10-11] MEDS: ASPIR LOW (ENTERIC COATED) 81 MG PO (09:00)
[2024-10-11] MEDS: CRESTOR 40 MG PO (09:00)
[2024-10-11] MEDS: XARELTO 2.5 MG PO ×2 (09:00→20:01)
[2024-10-11] MEDS: DELTASONE 40 MG PO (09:00)
[2024-10-11] MEDS: PROTONIX 40 MG PO (09:00)
[2024-10-11] MEDS: LYRICA 200 MG PO (09:00)
[2024-10-11] MEDS: VISBIOME 1 CAP PO (09:00)
[2024-10-11 09:02] LABS: Glucose - Point of Care 151 mg/dl (70-99)
[2024-10-11] MEDS: NOVOLOG FLEXPEN-LOW RESISTANCE 1 UNITS SC (09:12)
[2024-10-11] MEDS: IMDUR (EXTENDED RELEASE) 30 MG PO (09:13)
[2024-10-11 09:24] LABS: Blood Urea Nitrogen 17 mg/dl (9-20); Calcium 9.0 mg/dl (8.4-10.2); Carbon Dioxide 18 mmol/L (22-30); Chloride 106 mmol/L (98-107); Estimated Creatinine Clearance 120 ml/min; Glucose 162 mg/dl (70-99); Potassium 4.6 mmol/L (3.5-5.1); Sodium 135 mmol/L (135-145); eGFR > 60.00
--- NOTE | 2024-10-11 09:36 | W.PN.HOSP.TC ---
Addendum entered and electronically signed by Zulma Corea MD 10/11/24 14:14:
I saw and evaluated the patient independently. I reviewed the resident�s note and agree with findings and plan as documented by Dr. Bishop.
GENERAL: well developed, well nourished, male in some distress--lying flat on his back c/o right shoulder pain
HEENT:NC/AT--no O2 requirements
HEART: regular rate and rhythm, +S1, +S2, tachy
LUNGS : clear to auscultation bilaterally
ABDOM: soft, nontender, nondistended, + bowel sounds
EXT: no cyanosis, clubbing, or edema
NEUROLOGIC: grossly intact
: full bladder?
-B/L neck back and upper extremity weakness and pain/SIRS--work up rules out infection (C,T,L/S spine MRIs, Lyme, blood, urine, stool, CPK, TSH all neg)--considering possibly inflammatory, rheumatologic--pain now localized to right shoulder--check
MRI right shoulder--cont pain control, steroids, consideration for a few doses of toradol--tick panel and ALYSSA pending--apprec PT/OT--recommending home health
Acute urinary retention--bladder scan, straight cath protocol
CAD-- s/p CABG x 5- continue aspirin
Type 2 diabetes-- monitor AccuCheck AC & HS-- SSI--continue glimepiride, Jardiance and Sitagliptin
# Recent ESBL sepsis secondary to cholangitis- completed abx, s/p biliary stent
# Recent C diff- toxin neg- completed course of PO vanco
# PAD- continue Xarelto
# HTN- continue irbesartan
# GERD- continue pantoprazole
# HLD- continue rosuvastatin
Code status-- full code
DVT proph--Xarelto
Original Note:
Today's Communication/Plan
-
Treatment plan discussed with patient
mri of the shoulder today
Assessment / Plan
Assessment / Plan
#Myalgia, Possible inflammatory/Rheumatoid
-Neck, shoulder and back pain with associated upper extremity weakness, Pain now worse on the right shoulder
-Creatine Kinase <20 L
-Cervical, thoracic and lumbar MRI done, showed no clear etiology of current symptom
-Infectious screen (Blood, stool, urine culture- Neg, no parasite) ruled out infectious etiology
-Leucocytosis is resolved
-Lyme is negative
-Elevated ESR- 99, CRP- 256.7
-Alyssa IgG, pending, tick borne parasite panel pending
-On Cyclobenzaprine 10mg PO PRN
-Started Prednisone 40mg PO X 5days yesterday
-On Dilaudid 1MG prn/q4hr for pain
-Continue PT, recommends home PT
-Do R Shoulder MRI to rule out structural pathology
#Acute urinary retention from neurogenic bladder
-Patient has been able to self void from yesterday
-On tamsulosin 0.4mg
-Bladder scan, straight cath protocol
# Recent ESBL sepsis secondary to cholangitis- completed abx, s/p biliary stent
# Recent C diff- toxin neg- completed course of PO vanco
-Continue Cholestyramine Resin 4gm BID
-Lactobacillus/Bifidobacterium
#NIDDM
-BG-162 on Novolog
-Pregabalin 200mg PO for neuropathy
-Home meds-Glimepiride, Jardiance, Sitagliptin
-Ct Pregabalin
#CAD
-Continue Aspirin
#Hyperlipidemia
-Rosuvastatin
#Hypertension
-Continue Ibersartan
#PAD
-Xarelto
-Cilostazole
#DVT PPX
-Xarelto
#GERD
-Pantoprazole 40mg
#Anemia
-Hb- 10.6
-Stable, monitor
Daily cbc/cmp
Anticipated Discharge: 24 - 48 hours
Subjective/Interval History
-
Date of Service: October 11, 2024
Patient is a 79-year-old male with past medical history significant for CAD, type 2 diabetes, peripheral arterial disease, hypertension, GERD and hypercholesterolemia
Pain is now more, localized to the right shoulder but is down now from an 8+ to an 8
Was able to sleep last night
Currently self voiding
Objective Data
-
Labs:
Laboratory Results
10/11/24
07:14
WBC 8.2
Hgb 11.8 L
Hct 34.6 L
Plt Count 299
Sodium 135
Potassium 4.6
Chloride 106
Carbon Dioxide 18 L
BUN 17
Creatinine 0.6 L
Glucose 162 H
Calcium 9.0
Vital Signs:
Vital Signs
Temp Pulse Resp BP Pulse Ox
97.9 F 53 16 147/66 96
10/11/24 07:20 10/11/24 07:20 10/11/24 07:20 10/11/24 07:20 10/11/24 07:20
I&O
10/10/24 10/11/24 10/12/24
06:59 06:59 06:59
Intake Total 480 / 480 480 / 480
Output Total 2900 / 2900
Balance -2420 / -2420 480 / 480
Review of Systems
-
History Source: Patient
Respiratory: Reports No Symptoms
Cardiac: Reports No Symptoms
Abdomen/GI: Reports No Symptoms and Other (Diarrhea subsided)
Musculoskeletal: Reports Joint Pain and Myalgias
Physical Exam
-
General: Well Developed
HEENT: Normocephalic
Respiratory: Clear to Auscultation
Cardiac: Regular Rhythm and S1/S2
GI: Soft and Tender (Mild)
Musculoskeletal: No Clubbing, No Cyanosis and No Edema
Data Reviewed
-
Labs: Labs Reviewed by me, Discussed with Physician and Discussed with Patient
[2024-10-11 11:10] VITALS: BP 114/67
--- NOTE | 2024-10-11 11:44 | W.PN.ID1 ---
Date of Service
Date of Service: October 11, 2024
Today's Communication
Sign off.
Assessment / Plan
Neck/upper thoracic pain; suspect musculoskeletal in etiology.
Leukocytosis; normalized
Reported fever as outpatient; afebrile since admission
NIDDM
Neuropathy
HTN
HLD
CAD s/p CABG x 5
CVA
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
GERD
DVT
hx C. difficile
Recommendations:
Continue off antibiotics.
At present, no acute infectious process found.
Will see again at your request.
Chief Complaint
-: Fever
Subjective / Review of Systems
Review of Systems: No Fever and No Chills
Vital Signs / Physical Exam
Vital Signs
Vital Signs
Temp Pulse Resp BP Pulse Ox
97.7 F 91 16 114/67 98
10/11/24 11:10 10/11/24 11:10 10/11/24 11:10 10/11/24 11:10 10/11/24 11:10
Physical Exam
Constitutional: No Acute Distress, Comfortable and Non-toxic
Eyes: Sclera Anicteric
Pulmonary: Non Labored
Gastrointestinal: Non Distended
Neurological: Awake and Alert
Psychological: Calm
Objective Data
Lab Data
Lab Results
10/11/24 07:14
10/11/24 07:14
ESR 99 mm/hour (0-20) H 10/08/24 18:19
Estimated Creat Clear 120 ml/min 10/11/24 07:14
Lactic Acid Cancelled 10/08/24 18:45
Total Bilirubin 1.2 mg/dl (0.2-1.3) 10/08/24 13:08
AST 19 U/L (17-59) 10/08/24 13:08
ALT 14 U/L (0-50) 10/08/24 13:08
Alkaline Phosphatase 105 U/L (38-126) 10/08/24 13:08
C-Reactive Protein 256.70 mg/L (0.0-10.00) H 10/08/24 18:19
Most recent labs reviewed.
Micro Results:
10/08/24 15:12 Blood Culture - Preliminary
Blood/Venous No Growth in 48 hours- Final report to follow
10/10/24 14:46 Salmonella/Shigella Culture - Pending
Feces/Stool Campylobacter Culture - Pending
Shiga Toxin Test - Pending
10/08/24 13:08 Blood Culture - Preliminary
Blood/Venous No Growth in 48 hours- Final report to follow
10/08/24 18:19 Blood Parasites Smear - Final
Blood/Venous
Imaging:
10/08/2024 MRI cervical, thoracic, lumbar spine: Edema in the L1-L2 intervertebral disc space, and mild edema in the L3 through S1 intervertebral disc spaces. Degenerative edema would be favored over discitis in the absence of adjacent endplate
signal changes or paravertebral soft tissue edema. No MRI evidence for osteomyelitis or an epidural abscess. Please see full dictation for additional detail.
10/08/2024 CT abdomen/pelvis: no clear CT evidence for new acute process in the abdomen or pelvis. Colonic wall thickening appears improved compared to CT dated 09/22/2024. Please see full dictation for additional detail.
[2024-10-11] MEDS: QUESTRAN 4 GRAM PO ×2 (11:56→22:03)
[2024-10-11 12:18] LABS: Glucose - Point of Care 327 mg/dl (70-99)
[2024-10-11 12:20] LABS: Glucose - Point of Care 329 mg/dl (70-99)
[2024-10-11] MEDS: NOVOLOG FLEXPEN-LOW RESISTANCE 4 UNITS SC ×2 (12:23→17:13)
[2024-10-11 15:10] VITALS: BP 134/83
[2024-10-11] MEDS: TYLENOL 650 MG PO (15:32)
[2024-10-11] MEDS: LIDOCAINE 4% PATCH 1 PATCH TOPICAL (15:33)
[2024-10-11 16:09] LABS: Glucose - Point of Care 337 mg/dl (70-99)
[2024-10-11] MEDS: FLOMAX 0.4 MG PO (17:14)
[2024-10-11] MEDS: LYRICA 100 MG PO (17:14)
[2024-10-11 19:35] VITALS: BP 128/70
[2024-10-11] MEDS: AVAPRO 300 MG PO (20:01)
[2024-10-11 21:15] LABS: Glucose - Point of Care 333 mg/dl (70-99)
[2024-10-11] MEDS: NOVOLOG FLEXPEN 4 UNITS SC (22:01)
[2024-10-11 23:38] VITALS: BP 126/75
[2024-10-12 00:20] LABS: Glucose - Point of Care 272 mg/dl (70-99)
[2024-10-12] MEDS: DILAUDID 1 MG IV ×2 (05:37→10:02)
[2024-10-12] MEDS: FLUSH (NSS) 2 FLUSH IV (05:37)
[2024-10-12 06:05] LABS: Hematocrit 32.8 % (39.0-52.0); Hemoglobin 11.5 g/dL (13.0-18.0); Mean Corp Hgb Conc. 35.1 g/dL (33.0-37.0); Mean Corpuscular Volume 84.1 fL (80.0-94.0); Platelet Count 326 10^3/uL (130-400); Red Cell Dist. Width 14.2 % (11.5-14.5)
[2024-10-12 06:24] LABS: Blood Urea Nitrogen 19 mg/dl (9-20); Calcium 9.4 mg/dl (8.4-10.2); Carbon Dioxide 25 mmol/L (22-30); Chloride 107 mmol/L (98-107); Estimated Creatinine Clearance 120 ml/min; Glucose 199 mg/dl (70-99); Magnesium 1.7 mg/dl (1.6-2.3); Potassium 4.0 mmol/L (3.5-5.1); Sodium 135 mmol/L (135-145); eGFR > 60.00
--- NOTE | 2024-10-12 07:07 | W.PN.HOSP.TC ---
Addendum entered and electronically signed by Zulma Corea MD 10/12/24 14:17:
I saw and evaluated the patient independently. I reviewed the resident�s note and agree with findings and plan as documented by Dr. Bishop.
GENERAL: well developed, well nourished, male in some distress--lying flat on his back then later sitting up in the chair
HEENT:NC/AT--no O2 requirements
HEART: regular rate and rhythm, +S1, +S2, tachy
LUNGS : clear to auscultation bilaterally
ABDOM: soft, nontender, nondistended, + bowel sounds
EXT: no cyanosis, clubbing, or edema
NEUROLOGIC: grossly intact
B/L neck back and upper extremity weakness and pain/SIRS--work up rules out infection (C,T,L/S spine MRIs, Lyme, blood, urine, stool, CPK, TSH all neg)--considering possibly inflammatory, rheumatologic--pain now localized to right shoulder-- MRI
right shoulder with intramuscular and fascial edema and Small posterior inferior labral tear and tiny posterior superior labral tear--cont pain control, steroids--tick panel and ALYSSA pending--apprec PT/OT--recommending home health
Acute urinary retention--bladder scan, straight cath protocol
CAD-- s/p CABG x 5- continue aspirin
Type 2 diabetes-- monitor AccuCheck AC & HS-- SSI--continue glimepiride, Jardiance and Sitagliptin
# Recent ESBL sepsis secondary to cholangitis- completed abx, s/p biliary stent
# Recent C diff- toxin neg- completed course of PO vanco
# PAD- continue Xarelto
# HTN- continue irbesartan
# GERD- continue pantoprazole
# HLD- continue rosuvastatin
Code status-- full code
DVT proph--Xarelto
Original Note:
Today's Communication/Plan
-
To continue on Oral steroids, muscle relaxant and pain management
To be discharged home for home PT and ambulation with a rolling walker
Fu with ortho and PCP
Assessment / Plan
Assessment / Plan
#Myalgia, overexertion, Possible inflammatory/Rheumatoid
Neck, shoulder and back pain with associated upper extremity weakness, Pain now worse on the right shoulder
-Creatine Kinase <20 L
-Cervical, thoracic and lumbar MRI (10/08/2024)
Edema in the L1-L2 intervertebral disc space, and mild edema in the L3 through S1 intervertebral disc spaces. Degenerative edema would be favored over discitis in the absence of adjacent endplate signal changes or paravertebral soft tissue edema.
No MRI evidence for osteomyelitis or an epidural abscess.
-R shoulder MRI 10/11/2024-
Multiple regions of intramuscular and fascial edema, as described; this may be inflammatory in nature, or suggest muscle and myofascial strain.
No rotator cuff tendon tear. No joint effusion. No evidence of bursitis.
Postsurgical changes suggesting previous labral repair. There is mild labral degeneration. Small posterior inferior labral tear and tiny posterior superior labral tear.
-Infectious screen (Blood, stool, urine culture- Neg, no parasite) ruled out infectious etiology
-Lyme is negative
-Elevated ESR- 99, CRP- 256.7
-Alyssa IgG, pending, tick borne parasite panel pending
-Consult with PT noted with thanks,
-Can be discharged home on medications
-Continue
-On Cyclobenzaprine 10mg PO PRN
-PO Prednisone 40mg PO X 3days, 20 X 3 10 X 3
-PO Dilaudid for pain
-Tylenol 650 PRN Q6HR
-Continue PT, recommends home PT
-Ambulate with a rolling walker
-Follow out patient with PCP and Ortho
#Acute urinary retention from neurogenic bladder
-Patient has been able to self void from yesterday
-On tamsulosin 0.4mg
# Recent ESBL sepsis secondary to cholangitis- completed abx, s/p biliary stent
# Recent C diff- toxin neg- completed course of PO vanco
-Continue Cholestyramine Resin 4gm BID
-Lactobacillus/Bifidobacterium
#NIDDM
-BG-162 on Novolog
-Pregabalin 200mg PO for neuropathy
-Home meds-Glimepiride, Jardiance, Sitagliptin
-Ct Pregabalin
-Poor glycemic control; Change to Moderate insulin protocol
#CAD
-Continue Aspirin
#Hyperlipidemia
-Rosuvastatin
#Hypertension
-Continue Ibersartan
#PAD
-Xarelto
-Cilostazole
#DVT PPX
-Xarelto
#GERD
-Pantoprazole 40mg
#Anemia
-Hb- 10.6
-Stable, monitor
Dispo- Home
Anticipated Discharge: Today
Subjective/Interval History
-
Date of Service: October 12, 2024
Pain is down now, still requiring Dilaudid
More localized to the right shoulder
No fever
Regular bm
Self voiding
Objective Data
-
Labs:
Laboratory Results
10/12/24
05:16
WBC 11.7 H
Hgb 11.5 L
Hct 32.8 L
Plt Count 326
Sodium 135
Potassium 4.0
Chloride 107
Carbon Dioxide 25
BUN 19
Creatinine 0.6 L
Glucose 199 H
Calcium 9.4
Vital Signs:
Vital Signs
Temp Pulse Resp BP Pulse Ox
97.4 F 66 18 126/75 97
10/11/24 23:38 10/11/24 23:38 10/11/24 23:38 10/11/24 23:38 10/11/24 23:38
I&O
10/11/24 10/12/24 10/13/24
06:59 06:59 06:59
Intake Total 480 / 480 1560 / 1560
Output Total 550 / 550
Balance 480 / 480 1010 / 1010
Review of Systems
-
History Source: Patient
Respiratory: Reports No Symptoms
Cardiac: Reports No Symptoms
Abdomen/GI: Reports No Symptoms and Other (Diarrhea subsided, regular bowel movement, 1 this morning)
Musculoskeletal: Reports Joint Pain and Myalgias
Physical Exam
-
General: Well Developed
HEENT: Normocephalic
Respiratory: Clear to Auscultation
Cardiac: Regular Rhythm and S1/S2
GI: Soft and Tender (Mild)
Musculoskeletal: No Clubbing, No Cyanosis and No Edema
Psych: Calm
Data Reviewed
-
MRI: Report Reviewed by me, Discussed with Physician, Discussed with Patient and Discussed with Family
Labs: Labs Reviewed by me, Discussed with Physician, Discussed with Patient and Discussed with Family
[2024-10-12 07:15] VITALS: BP 133/73
[2024-10-12 07:17] LABS: Glucose - Point of Care 169 mg/dl (70-99)
[2024-10-12] MEDS: CRESTOR 40 MG PO (07:55)
[2024-10-12] MEDS: VISBIOME 1 CAP PO (07:55)
[2024-10-12] MEDS: DELTASONE 40 MG PO (07:55)
[2024-10-12] MEDS: IMDUR (EXTENDED RELEASE) 30 MG PO (07:55)
[2024-10-12] MEDS: ASPIR LOW (ENTERIC COATED) 81 MG PO (07:55)
[2024-10-12] MEDS: XARELTO 2.5 MG PO (07:56)
[2024-10-12] MEDS: LYRICA 200 MG PO (07:56)
[2024-10-12] MEDS: PROTONIX 40 MG PO (07:56)
[2024-10-12] MEDS: NOVOLOG FLEXPEN-LOW RESISTANCE 1 UNITS SC (07:57)
[2024-10-12 08:03] LABS: ANA, IgG Reflex to HEp-2 None Detected (None Detected)
[2024-10-12] MEDS: QUESTRAN 4 GRAM PO (09:24)
[2024-10-12] MEDS: TYLENOL 650 MG PO (10:08)
[2024-10-12 11:56] LABS: Glucose - Point of Care 289 mg/dl (70-99)
--- NOTE | 2024-10-12 11:57 | CHAP ---
Mr Choi was resting in bed. He welcomed 'some spirituality,' and shared thoughts. Emotional and spiritual support provided, along with a prayer blanket.
[2024-10-12] MEDS: NOVOLOG FLEXPEN-LOW RESISTANCE SC (12:00)
[2024-10-12] MEDS: NOVOLOG FLEXPEN-MODERATE RESISTANCE 5 UNITS SC (12:01)
--- NOTE | 2024-10-12 12:02 | CM ---
Addendum entered by Alisson Salgado 10/12/24 14:22:
PT recommended Home Health; Referral sent to [facility] via [facility]
Plan: Discharge to home w/ home health services and rolling walker; Attending provided script for RW; family will transport home
Original Note:
Met with patient at bedside; IMM benefit explained; form signed @ 1150
PT/OT re-evaluation requested by Attending to support disposition planning; If home health is recommended; [facility]
--- NOTE | 2024-10-12 14:10 | W.DCSUMMARY ---
Addendum entered and electronically signed by Zulma Corea MD 10/12/24 16:01:
Read, reviewed, and agree. See same day progress note for additional details. Time spent coordinating care, DC planning, review of DC plan of care with resident, transition of care, review of records in EMR, med rec, consults, notes, d/w
consultants, nursing, family, and CM = 40 minutes
On October 10, therapy recommended home health. Patient was reassessed today and are still recommending home health with VN/PT/OT. Updated at bedside with plan of care. Medication sent to the pharmacy.
Original Note:
Discharge Summary
Discharge Data
Date of Admission: 10/08/24
Date of Discharge: 10/12/24
-
Pending Results: No
Hospital Course
Discharging Physician :
Disposition :
Primary care physician :
Principal Discharge diagnosis :
Chronic Discharge diagnosis :
Hospital Course :
A 79 year old male past medical history of diabetes with neuropathy, hypertension, CAD status post CABG, PAD status post bypass of femoral artery on Xarelto, BPH, chronic back pain, E. coli bacteremia secondary to cholangitis status post biliary
stent, CVA, GERD, hypercholesteremia, mild interstitial fibrosis, history of C. difficile who presented to [facility] ED on the 10/08/2024 with a weeks duration of progressively worsening upper back (neck to lumber) pain and weakness with weakness of the
upper arm. He also had fever that started same day and an abdominal pain with an episode of loose stool on presentation. There was a remote history of strenuous physical activity when he tried to scrub the pool.
On evaluation, He was in pain, afebrile, abdomen was tender and he was in Acute urinary retention
ID was consulted and Infectious pathology was ruled out (Infectious screen showed no evidence)
While on admission, the following problems where addressed
#Myalgia, Possible inflammatory/Rheumatoid
-Bilateral Neck, shoulder and back pain with associated upper extremity weakness, with progressively relative worsening on the right shoulder
-Creatine Kinase <20 L
-Cervical, thoracic and lumbar MRI done showed no clear etiology of current symptom
-Right shoulder MRi showed minimal muscle fascia edema. labral tear and degenerative changes
-Infectious screen (Blood, stool, urine culture- Neg, no parasite) ruled out infectious etiology
-Lyme is negative
-Elevated ESR- 99, CRP- 256.7
-Alyssa IgG, pending, tick borne parasite panel pending
-On Cyclobenzaprine 10mg PO PRN
-Started Prednisone 40mg PO X 5days
-On Dilaudid 1MG prn/q4hr for pain
-Continue PT, recommends home PT
#Acute urinary retention from neurogenic bladder-
-Bladder scan, straight cath protocol
-Patient has been able to self void from 10/10
-On tamsulosin 0.4mg
# Recent ESBL sepsis secondary to cholangitis- completed abx, s/p biliary stent
# Recent C diff- toxin neg- completed course of PO vanco
-Continue Cholestyramine Resin 4gm BID
-Lactobacillus/Bifidobacterium
#NIDDM
-On Novolog low to moderate insulin resistant protocol
-Pregabalin 200mg PO for neuropathy
-Home meds-Glimepiride, Jardiance, Sitagliptin
-Ct Pregabalin
#CAD
- Aspirin
#Hyperlipidemia
-Rosuvastatin
#Hypertension
- Ibersartan
#PAD
-Xarelto
-Cilostazole
#DVT PPX
-Xarelto
#GERD
-Pantoprazole 40mg
#Anemia
-Hb- 10.6
He was discharged home for home pt to follow up with results on outpatient [facility] PT
Important imaging findings :
MRI spine 10/09/2023
Multiple regions of intramuscular and fascial edema, as described; this may be inflammatory in nature, or suggest muscle and myofascial strain.
No rotator cuff tendon tear. No joint effusion. No evidence of bursitis.
Postsurgical changes suggesting previous labral repair. There is mild labral degeneration. Small posterior inferior labral tear and tiny posterior superior labral tear.
Discharge Plan
-
Patient Disposition: Home (Routine Discharge)
Discharge Diagnosis/Procedures: Myalgia, overexertion, Possible inflammatory/Rheumatoid, Systemic inflammatory disease, Acute urinary retention
Condition: Fair
Diet: Diabetic, Carb Controlled
Activity: With assistance and As tolerated
Bathing Restrictions: None
Other Services: PT and OT
Referrals:
Jamal Mata MD [Active, Orthopedics] - in less than 1 week
Referral Note: call for appointment. Follow up Shoulder/Musculoskeletal patient with doctor
Magno Khan MD [Family Provider, Internal Medicine] - in less than 1 week
Referral Note: Follow up pending investigations; ALYSSA, Tick born and Glycemic control with PCP
Additional Discharge Medication Instructions: Take Prednisolone 10mg tablets starting Sunday (10/13/2024) 3 tabs for 3 days, then 2 tabs for 3 days then 1 tablet for 3 days
Prescriptions:
New
cyclobenzaprine 10 mg Tablet
10 mg PO HSPRN PRN (Reason: back pain) Qty: 10 0RF
acetaminophen 325 mg Tablet
650 mg PO Q4HPRN PRN (Reason: mild pain/TYLER/temp> 100.4F) Qty: 0 0RF
prednisone 10 mg Tablet
See Rx Instructions .ROUTE .COMPLEX Qty: 30 0RF
Rx Instructions:
Take By Mouth:
40 mg daily x3 days, 30 mg daily x3 days,
20 mg daily x3 days, 10 mg daily x3 days.
hydromorphone 2 mg tablet
2 mg PO Q6H PRN (Reason: Pain) Qty: 14 0RF
Rx Instructions:
take 1 mg (1/2 tab) for moderate pain or 2 mg (1 tab) for severe pain
Continued
glimepiride 2 MG tablet
2 mg PO BID@0800,1700
rosuvastatin [Crestor] 40 MG tablet
40 mg PO DAILY
cilostazol 100 mg Tablet
100 mg PO BID
pantoprazole 40 MG tablet,delayed release (DR/EC)
40 mg PO DAILY
tamsulosin 0.4 mg capsule
0.4 mg PO QPM
irbesartan 300 mg Tablet
300 mg PO DAILY@1999
pregabalin [Lyrica] 100 mg Capsule
200 mg PO DAILY
pregabalin [Lyrica] 100 mg Capsule
100 mg PO QPM
Jardiance 25 mg Tablet
12.5 mg PO DAILY
sitagliptin 100 mg Tablet
100 mg PO DAILY
lidocaine 5 % Adhesive Patch,Medicated
1 patch TOPICAL DAILYPRN PRN (Reason: lower back pain)
isosorbide mononitrate 30 mg Tablet Extended Release 24 Hr
30 mg PO DAILY
Patient Comments:
[place] physician has this as stopped but patient stated he still takes this
aspirin 81 mg Tablet,Delayed Release (Dr/Ec)
81 mg PO DAILY Qty: 0 0RF
cholestyramine (with sugar) 4 gram Powder In Packet
1 ea PO BID@0900,2100 Qty: 0 0RF
rivaroxaban [Xarelto] 2.5 mg Tablet
2.5 mg PO BID
Probiotic 3 billion cell capsule
3,000 mmu cells PO DAILY Qty: 30 0RF
Discontinued
oxycodone-acetaminophen 10-325 mg Tablet
1 tab PO Q8HPRN PRN (Reason: severe pain)
cyclobenzaprine 10 mg Tablet
10 mg PO HSPRN PRN (Reason: back pain) Qty: 0 0RF
Discharge Orders:
Discharge Patient (As Directed); Ordered 10/12/24
Ordered By: Nydia Bishop
Discharge Date and Time
Print Language: HUNGARIAN
[2024-10-12 15:04] VITALS: BP 140/68
--- NOTE | 2024-10-12 15:06 | PTCARENOTE ---
Patient discharged home with VN, transported by spouse. This RN removed patient's IV, discharge vitals stable. Patient dressed and gathered belongings in room with assistance of spouse. This RN reviewed DC instructions/medications with patient and
patient's spouse at bedside, both verbalized understanding. RW provided by PT for DC. Patient taken down to spouse's car at [facility], transported via staff escort and wheelchair.
[2024-10-13 04:49] LABS: RMSF IgG Antibodies <1:64 (<1:64); RMSF IgM Antibodies <1:64 (<1:64)
== END 2024-10-12 15:36 | disposition home health service (06) | DRG 552 ==
LOC: 2 NORTH 23:32
PROVIDERS: Family Medicine; Nurse Practitioner Family; Physician Assistant; Student in an Organized Health Care Education/Training Program; ADMITTING PHYSICIAN Hospitalist; ATTENDING PHYSICIAN Internal Medicine; EMERGENCY PHYSICIAN Emergency Medicine; FAMILY PHYSICIAN Internal Medicine; OTHER PHYSICIAN Internal Medicine Infectious Disease
DX: M54.2 Cervicalgia (principal); N31.9 Neuromuscular dysfunction of bladder, unspecified; R33.8 Other retention of urine; N40.1 Benign prostatic hyperplasia with lower urinary tract symptoms; E11.40 Type 2 diabetes mellitus with diabetic neuropathy, unspecified; I25.10 Atherosclerotic heart disease of native coronary artery without angina pectoris; I10 Essential (primary) hypertension; E78.00 Pure hypercholesterolemia, unspecified; K21.9 Gastro-esophageal reflux disease without esophagitis; D64.9 Anemia, unspecified; E11.51 Type 2 diabetes mellitus with diabetic peripheral angiopathy without gangrene; Z86.73 Personal history of transient ischemic attack (TIA), and cerebral infarction without residual deficits; Z79.01 Long term (current) use of anticoagulants; Z79.84 Long term (current) use of oral hypoglycemic drugs; Z79.899 Other long term (current) drug therapy; Z87.891 Personal history of nicotine dependence; Z90.49 Acquired absence of other specified parts of digestive tract; Z95.1 Presence of aortocoronary bypass graft; Z11.52 Encounter for screening for COVID-19
CPT/HCPCS: 71046; 72156; 72157; 72158; 73221; 74177; 80048; 80053; 81003; 81015; 82550; 82962; 83605; 83735; 84443; 85025; 85027; 85652; 86038; 86140; 86618; 86757; 87015; 87040; 87045; 87046; 87207; 87427; 87468; 87484; 87798; 87811; 90715; 93005; 97116; 97162; 97166; 97530; 97535; A9575; Q9967

== ENCOUNTER 2024-10-24 11:16 | Day surgery (SDC) | payer MEDICARE, OTHER, SELFPAY ==
--- NOTE | 2024-10-22 15:00 | PTCARENOTE ---
Abnormal ECG done 10/08/[address] Israel, no further intervention requested.
[2024-10-24] VITALS (8 sets, daily range): BP systolic 97–130; BP diastolic 53–70
[2024-10-24 11:51] LABS: Hematocrit 35.8 % (39.0-52.0); Hemoglobin 12.1 g/dL (13.0-18.0); Mean Corp Hgb Conc. 33.8 g/dL (33.0-37.0); Mean Corpuscular Volume 88.0 fL (80.0-94.0); Platelet Count 350 10^3/uL (130-400); Red Cell Dist. Width 15.7 % (11.5-14.5)
[2024-10-24 12:01] LABS: INR 0.97; PT 13.2 Sec (11.4-14.6)
[2024-10-24 12:02] LABS: APTT 24.9 Sec (23.4-35.0)
[2024-10-24 12:06] LABS: Glucose - Point of Care 84 mg/dl (70-99)
[2024-10-24 12:16] LABS: Blood Urea Nitrogen 19 mg/dl (9-20); Calcium 9.3 mg/dl (8.4-10.2); Carbon Dioxide 29 mmol/L (22-30); Chloride 100 mmol/L (98-107); Glucose 82 mg/dl (70-99); Potassium 4.2 mmol/L (3.5-5.1); Sodium 132 mmol/L (135-145); eGFR > 60.00
--- NOTE | 2024-10-24 13:20 | W.SUR.PREOP ---
Pre-Operative Surgical Note
-
I have examined this patient prior to the performance of the scheduled procedure.
Patient and have concerns over potential for negative biopsy result. He reports he is having some right-sided scalp and temporal discomfort as well. Therefore I would like to perform bilateral temporal artery biopsies to achieve higher yield
for the pathologist. We discussed this modification in detail. Consent was modified and signed. Both he and his agree to bilateral temporal artery biopsies.
Panda Spence III, MD
Vascular Surgery
[facility]
--- NOTE | 2024-10-24 14:14 | OR.RPT ---
Operative Report
Operative Report
Date of Operation: 10/24/2024
Pre Op Diagnosis:
1.) Bilateral headaches
2.) Elevated inflammatory markers
3.) Suspected temporal arteritis
Post Op Diagnosis:
1.) Bilateral headaches
2.) Elevated inflammatory markers
3.) Suspected temporal arteritis
Procedure: BILATERAL temporal artery biopsies
Surgeon: Panda Spence III, MD
Car Cleaning Supervisor: Timmy Auguste MD PhD PGY-7
Anesthesia: Sedation/local
Complications: None
Estimated Blood Loss: Minimal
History and Indications for Procedure: 79-year-old male with symptom constellation concerning for temporal arteritis. We were asked to provide tissue to evaluate for temporal arteritis.
Procedure in Detail: Tadeo Choi was correctly identified and placed supine on the operating table. After adequate induction of anesthesia the hair overlying the bilateral temporal regions was shaved. The temporal pulses were palpated
bilaterally and appropriate skin incisions were marked over the temporal pulses bilaterally. The bilateral temporal regions were then prepped and draped in the usual sterile fashion. The patient received preoperative antibiotics. A time out
procedure was performed with the nursing and anesthesia staff confirming the patient's identity as well as the nature and laterality of the procedure.
Bilateral temporal artery biopsies were performed in the same manner as follows: Local anesthesia was infiltrated into the skin and subcutaneous tissue at the skin yamil. A skin incision was made over the temporal skin yamil. Electrocautery and
sharp dissection were used to expose the temporal artery. After adequate length of temporal artery had been exposed within the wound bed the proximal and distal ends were ligated with silk ties. The intervening artery segment was transected
proximally and distally and removed. The artery segment was identified according to laterality and passed off to the back table to be labeled and sent to pathology. The wound was then closely inspected for hemostasis which was achieved. The wound
was irrigated with saline solution.
Each wound was closed in layers. Skin glue was applied to each incision bilaterally.
The patient tolerated the procedure well and was taken to the recovery room in good condition.
Attestation: I was present and responsible for the entire procedure
Signed:
Panda Spence III, MD
[facility]
[phone] (cell)
[2024-10-24 15:54] LABS: Glucose - Point of Care 239 mg/dl (70-99)
[2024-10-24] MEDS: DILAUDID 2 MG PO (15:59)
--- NOTE | 2024-10-24 17:46 | W.SUR.POST ---
Surgical Immediate Post Op
Note
Pre Op Diagnosis: Giant cell arteritis
Post Op Diagnosis: Giant cell arteritis
Procedure Performed: Bilateral temporal artery biopsy
Primary Surgeon: Panda Spence MD
Secondary Surgeons: Timmy Auguste MD PhD
Anesthesia: Local per anesthesia
Estimated Blood Loss: 2 cc
Fluids: Per anesthesia
Drains/Shunts: None
Specimens/Cultures: Bilateral temporal arteries
Doppler/Duplex/Angio (Y/N): N
Complications: None
Operative Findings: Uncomplicated temporal artery biopsy
== END 2024-10-24 16:30 | disposition home or self-care (01) ==
LOC: CATH 11:16
PROVIDERS: ATTENDING PHYSICIAN Surgery Vascular Surgery; OTHER PHYSICIAN Internal Medicine Interventional Cardiology; PRIMARYCARE PHYSICIAN Internal Medicine
DX: R51.9 Headache, unspecified (principal); Z79.01 Long term (current) use of anticoagulants; Z79.899 Other long term (current) drug therapy; I25.10 Atherosclerotic heart disease of native coronary artery without angina pectoris; Z95.1 Presence of aortocoronary bypass graft; E11.9 Type 2 diabetes mellitus without complications
CPT/HCPCS: 37609; 80048; 82962; 85027; 85610; 85730; 88305; 88313

== ENCOUNTER 2024-11-11 06:14 | Day surgery (SDC) | payer MEDICARE, OTHER, SELFPAY ==
[2024-11-11 11:13] VITALS: BMI 25.7
[2024-11-11 11:14] LABS: Glucose - Point of Care 102 mg/dl (70-99)
[2024-11-11 11:15] VITALS: BMI 25.7
[2024-11-11 11:23] VITALS: BP 147/70
[2024-11-11 13:41] VITALS: BP 114/82
[2024-11-11 13:45] VITALS: BP 119/75
[2024-11-11 14:00] VITALS: BP 133/76
== END 2024-11-11 14:12 | disposition home or self-care (01) ==
LOC: SDS 06:14
PROVIDERS: ATTENDING PHYSICIAN Internal Medicine Gastroenterology
DX: Z46.89 Encounter for fitting and adjustment of other specified devices (principal); Z96.89 Presence of other specified functional implants
CPT/HCPCS: 43247; 82962

== ENCOUNTER → 2024-11-24 14:18 | Outpatient (REF) | payer MEDICARE, OTHER, SELFPAY | LOC: RAD 14:18 | PROVIDERS: ATTENDING PHYSICIAN Internal Medicine | DX: R60.0 Localized edema (principal); R22.42 Localized swelling, mass and lump, left lower limb; R22.41 Localized swelling, mass and lump, right lower limb | CPT/HCPCS: 93970 ==

== ENCOUNTER → 2024-12-16 08:31 | Outpatient (REF) | payer MEDICARE, OTHER, SELFPAY | LOC: RAD 08:31 | PROVIDERS: ATTENDING PHYSICIAN Surgery Vascular Surgery; FAMILY PHYSICIAN Internal Medicine | DX: I73.9 Peripheral vascular disease, unspecified (principal); I72.4 Aneurysm of artery of lower extremity | CPT/HCPCS: 93922; 93925 ==

== ENCOUNTER 2024-12-25 08:35 | Inpatient (IN) | payer MEDICARE, OTHER, SELFPAY ==
[2024-12-23 13:07] VITALS: BP 103/60
[2024-12-23 14:48] VITALS: BMI 21.3
--- NOTE | 2024-12-23 14:49 | EDRN ---
Received patient on stretcher with c/o back pain after he fell 5 days ago. Patient stated that he was picking up a case of water and fell backwards on a tile floor. Denies hitting his head. Patient is on Xalerto. Patient stated that he took Percocet
twice with minimal relief and Ibuprofen with no relief. Patient stated that he's unable to get OOB. Denies c/o numbness and tingling in his legs.
[2024-12-23 14:53] VITALS: BMI 25.8
--- NOTE | 2024-12-23 16:07 | ED.GENMED ---
History of Present Illness
<DARVIN Pinedo - Last Filed: 12/25/24 19:10>
General
Chief Complaint: Back Pain
Source: patient
Exam Limitations: none
Time Seen by Provider: 12/23/24 15:11
Nursing documentation reviewed up to this point in time: agreed with
History of Present Illness
History of Present Illness:
Patient is a 79-year-old male presents to the ER for low back pain. Patient fell on a tile floor 5 days ago. He also did hit his head. Since then he has had pain in his low back. reports he had difficulty getting up from a chair position
getting up off the toilet. He denies any loss of consciousness or headache however he is on Xarelto 2.5 mg a day. He has chronic pain normally in his back and has an appoint with pain management on Sunday however reports because of pain he is
having difficulty getting around. He has used lidocaine patch and has taken occasional oxycodone without relief.
Past History
<DARVIN Pinedo - Last Filed: 12/25/24 19:10>
Past History
ED Past Medical History: CAD, CVA, GERD, HTN, Hypercholesterolemia, NIDDM, IN and Other (DVT)
ED Past Surgical History: Cardiac (bypass, stents) and Cholecystectomy
Social History
Tobacco: Former smoker (quit x 22 years)
Alcohol: None
Drug: None
Personal:
Living: with family
Employment: Retired
Phy Exam
<DARVIN Pinedo - Last Filed: 12/25/24 19:10>
General Physical Exam
General Presentation: no apparent distress
General age: appears stated age
General Skin: warm and dry
General Habitus: elderly
General Mental: alert
General Hydration: appears well hydrated
Cardiovascular Exam
Cardiovascular Exam: regular rate/rhythm, no murmur and normal peripheral pulses
Pulmonary Exam
Pulmonary Exam: lungs clear and no respiratory distress
Neurological Exam
Neurological Exam: alert and oriented x3
Musculoskeletal Exam
Musculoskeletal Exam: other (normal back inspection, pt c/ o of pain with any ROM to back. neg straight leg raise )
Skin Exam
Skin Exam: normal color and warm/dry
Psychiatric Exam
Psychiatric Exam: normal mood/affect
Course
<DARVIN Pinedo - Last Filed: 12/25/24 19:10>
Orders/Labs/Results
Orders:
Orders
12/23/24 13:28
Lumbar Spine Complete, 4 View [CR Lumbar Spine Comp Min 4 Vw*] Urgent
Comment:
Reason For Exam: pain after a fall
12/23/24 Dinner
1800 calorie (15 carb) Diabetic
At Your Request: Limited Participation
Does patient need a safe tray?: No
12/23/24 16:03
CT Cervical Spine W/o Iv Contr Urgent
Comment:
Reason For Exam: trauma
CT Head W/o Iv Contrast Urgent
Comment:
Reason For Exam: trauma
12/23/24 16:04
Acetaminophen [Tylenol] 1,000 mg PO NOW STA
HYDROmorphone [Dilaudid] 1 mg IM NOW STA
12/23/24 16:16
Physical Therapy Consult [Pt Eval And Treat] Urgent
Activity Level: Ambulate
12/23/24 17:18
IV Insert/Care/Rem.- Treatment PRN
12/23/24 17:28
Complete Blood Count/With Diff Urgent
Comprehensive Metabolic Panel Urgent
12/23/24 20:21
Admit/Transfer Patient As Directed
Co-Sign Provider:
Level of Care: Observation services
Assign to:: Medical/Surgical
Physician / Group: [email or web address]
Diagnosis: Compression Fx L2 vertebral body,Recent fall
12/23/24 20:25
Code Status As Directed
Resuscitation Status: Full Code
12/23/24 21:05
Acetaminophen [Tylenol] 650 mg PO Q4HPRN PRN mild pain/TYLER/temp> 100.4F
Dextrose 50%-Water [Dextrose 50% Syringe] 12.5 grams IV [id number] PRN
Docusate Sodium [Colace] 100 mg PO BID
Glucagon [GlucaGen] 1 mg IM PRN PRN
HYDROmorphone [Dilaudid] 0.5 mg IV Q3HPRN PRN
Magnesium Hydroxide [Milk of Magnesia] 30 ml PO DAILYPRN PRN
Oxycodone [Roxicodone] 5 mg PO Q4HPRN PRN
Sennosides [Senokot] 17.2 mg PO BID
Tamsulosin [Flomax] 0.4 mg PO DAILYPRN PRN
12/23/24 21:05
Activity As Directed
Activity Level: With Assistance
Bedside Glucose Monitoring As Directed
Frequency: AC&HS
Additional Instructions:: Change to q6h if pt on TPN, tube feeding or not eating
Bladder Scan As Directed
Follow Bladder Retention/Intermittent Cath Algorithm?: Yes
PRN if no void in __ hours: 6
Comment: if not voiding 6 hrs upon arrival to floor, bladder scan & follow algorithm
Intake/ Output As Directed
Frequency: Per unit guidelines
Pneumatic Compression Sleeves As Directed
Type: Knee high
Straight Cath As Directed
Frequency: Per Retention Algorithm
Additional Instructions: straight cath as needed per acute urinary retention algorithm for 24 hrs
Additional Instructions: for bladder scan greater than 400 mL
Vital Signs As Directed
Frequency: Per unit guidelines
Ot Eval And Treat Routine
Pt Eval And Treat Routine
Activity Level: With Assistance
DX Deep Vein Thrombosis Video Routine
12/23/24 21:28
Pt Screening Request from [place] Routine
12/23/24 21:30
Pt Screening Request from [place] Routine
12/23/24 22:00
Flush (0.9% Sodium Chloride) [Flush (Nss)] See Dose Instructions IV PER PROTOCOL
12/23/24 23:21
DX DVT Prevention Inpt Video Routine
12/24/24 00:00
Acetaminophen [Tylenol] 650 mg PO Q4HWA
12/24/24 01:57
HYDROmorphone [Dilaudid] 0.25 mg IV NOW STA
12/24/24 01:58
Lidocaine [Lidocaine 4% Patch] 1 patch TOPICAL NOW STA
Apply Lidocaine patch(s) to:: back
12/24/24 06:42
Glycohemoglobin (HgbA1c) IN AM
12/24/24 07:30
Insulin Aspart Corrective Low [Novolog Flexpen-Low Resistance] See Protocol SC AC
12/24/24 08:00
Aspirin Low Dose EC [Aspir Low (Enteric Coated)] 81 mg PO DAILY
Glimepiride [Amaryl] 2 mg PO BID@0800,1700
ISOSORBIDE MONOnitrate ER [Imdur (Extended Release)] 30 mg PO DAILY
Lidocaine [Lidocaine 4% Patch] 1 patch TOPICAL DAILY
Apply Lidocaine patch(s) to:: Upper Lx region
Pantoprazole [Protonix] 40 mg PO DAILY
Rivaroxaban [Xarelto] 2.5 mg PO BID
Rosuvastatin Calcium [Crestor] 40 mg PO DAILY
Sitagliptin Phosphate [Januvia] 100 mg PO DAILY
12/24/24 10:00
Oxycodone [Roxicodone] 10 mg PO Q4HPRN PRN
12/24/24 15:05
LAWALL EQUIPMENT REQUEST Routine
[facility]:: [facility]
Equipment request: LSO brace
12/24/24 18:00
Tamsulosin [Flomax] 0.4 mg PO QPM
12/24/24 20:00
Irbesartan [Avapro] 150 mg PO DAILY@1999
Abnormal Lab Results
12/23/24 12/23/24 12/24/24
17:28 21:23 06:42
RBC 4.11 L 10^6/uL
(4.70-6.10)
Hgb 12.2 L g/dL
(13.0-18.0)
Hct 35.2 L %
(39.0-52.0)
RDW 14.9 H %
(11.5-14.5)
Abs Immat Gran (auto) 0.3 H 10^3/uL
(0-0.05)
Absolute Monos (auto) 0.8 H 10^3/uL
(0.1-0.6)
Immature Gran % 2.8 H %
(0-0.5)
Lymphocytes % 15.4 L %
(20.5-51.1)
Glucose 123 H mg/dl
(70-99)
Hemoglobin A1c 9.4 H %
(4.0-5.9)
AST 16 L U/L
(17-59)
Total Protein 6.0 L g/dl
(6.3-8.2)
Albumin 3.2 L g/dl
(3.5-5.0)
POC Glucose 106 H mg/dl
(70-99)
12/24/24 12/24/24 12/24/24
11:44 16:25 21:21
RBC
Hgb
Hct
RDW
Abs Immat Gran (auto)
Absolute Monos (auto)
Immature Gran %
Lymphocytes %
Glucose
Hemoglobin A1c
AST
Total Protein
Albumin
POC Glucose 122 H mg/dl 135 H mg/dl 135 H mg/dl
() () ()
12/25/24
07:03
RBC
Hgb
Hct
RDW
Abs Immat Gran (auto)
Absolute Monos (auto)
Immature Gran %
Lymphocytes %
Glucose
Hemoglobin A1c
AST
Total Protein
Albumin
POC Glucose 100 H mg/dl
()
12/23/24 17:28
12/23/24 17:28
Vital Signs
Initial and Last Documented VS:
Initial Vital Signs
Temp Pulse Resp BP Pulse Ox
97.6 F 104 20 103/60 95
12/23/24 13:07 12/23/24 13:07 12/23/24 13:07 12/23/24 13:07 12/23/24 13:07
Last Documented Vital Signs
Temp Pulse Resp BP Pulse Ox
97.8 F 108 20 145/93 96
12/25/24 13:39 12/25/24 13:39 12/25/24 13:39 12/25/24 13:39 12/25/24 13:39
Data Miner consulted with Physician
Data Miner consulted with physician?: Yes
Name of Physician Consulted: DR Haywood
<Marito Hayowod, DO - Last Filed: 12/23/24 17:40>
Orders/Labs/Results
Orders:
Orders
12/23/24 13:28
Lumbar Spine Complete, 4 View [CR Lumbar Spine Comp Min 4 Vw*] Urgent
Comment:
Reason For Exam: pain after a fall
12/23/24 Dinner
1800 calorie (15 carb) Diabetic
At Your Request: Limited Participation
Does patient need a safe tray?: No
12/23/24 16:03
CT Cervical Spine W/o Iv Contr Urgent
Comment:
Reason For Exam: trauma
CT Head W/o Iv Contrast Urgent
Comment:
Reason For Exam: trauma
12/23/24 16:04
Acetaminophen [Tylenol] 1,000 mg PO NOW STA
HYDROmorphone [Dilaudid] 1 mg IM NOW STA
12/23/24 16:16
Physical Therapy Consult [Pt Eval And Treat] Urgent
Activity Level: Ambulate
12/23/24 17:18
IV Insert/Care/Rem.- Treatment PRN
12/23/24 17:28
Complete Blood Count/With Diff Urgent
Comprehensive Metabolic Panel Urgent
12/23/24 20:21
Admit/Transfer Patient As Directed
Co-Sign Provider:
Level of Care: Observation services
Assign to:: Medical/Surgical
Physician / Group: [email or web address]
Diagnosis: Compression Fx L2 vertebral body,Recent fall
12/23/24 20:25
Code Status As Directed
Resuscitation Status: Full Code
12/23/24 21:05
Acetaminophen [Tylenol] 650 mg PO Q4HPRN PRN mild pain/TYLER/temp> 100.4F
Dextrose 50%-Water [Dextrose 50% Syringe] 12.5 grams IV [id number] PRN
Docusate Sodium [Colace] 100 mg PO BID
Glucagon [GlucaGen] 1 mg IM PRN PRN
HYDROmorphone [Dilaudid] 0.5 mg IV Q3HPRN PRN
Magnesium Hydroxide [Milk of Magnesia] 30 ml PO DAILYPRN PRN
Oxycodone [Roxicodone] 5 mg PO Q4HPRN PRN
Sennosides [Senokot] 17.2 mg PO BID
Tamsulosin [Flomax] 0.4 mg PO DAILYPRN PRN
12/23/24 21:05
Activity As Directed
Activity Level: With Assistance
Bedside Glucose Monitoring As Directed
Frequency: AC&HS
Additional Instructions:: Change to q6h if pt on TPN, tube feeding or not eating
Bladder Scan As Directed
Follow Bladder Retention/Intermittent Cath Algorithm?: Yes
PRN if no void in __ hours: 6
Comment: if not voiding 6 hrs upon arrival to floor, bladder scan & follow algorithm
Intake/ Output As Directed
Frequency: Per unit guidelines
Pneumatic Compression Sleeves As Directed
Type: Knee high
Straight Cath As Directed
Frequency: Per Retention Algorithm
Additional Instructions: straight cath as needed per acute urinary retention algorithm for 24 hrs
Additional Instructions: for bladder scan greater than 400 mL
Vital Signs As Directed
Frequency: Per unit guidelines
Ot Eval And Treat Routine
Pt Eval And Treat Routine
Activity Level: With Assistance
DX Deep Vein Thrombosis Video Routine
12/23/24 21:28
Pt Screening Request from [place] Routine
12/23/24 21:30
Pt Screening Request from [place] Routine
12/23/24 22:00
Flush (0.9% Sodium Chloride) [Flush (Nss)] See Dose Instructions IV PER PROTOCOL
12/23/24 23:21
DX DVT Prevention Inpt Video Routine
12/24/24 00:00
Acetaminophen [Tylenol] 650 mg PO Q4HWA
12/24/24 01:57
HYDROmorphone [Dilaudid] 0.25 mg IV NOW STA
12/24/24 01:58
Lidocaine [Lidocaine 4% Patch] 1 patch TOPICAL NOW STA
Apply Lidocaine patch(s) to:: back
12/24/24 06:42
Glycohemoglobin (HgbA1c) IN AM
12/24/24 07:30
Insulin Aspart Corrective Low [Novolog Flexpen-Low Resistance] See Protocol SC AC
12/24/24 08:00
Aspirin Low Dose EC [Aspir Low (Enteric Coated)] 81 mg PO DAILY
Glimepiride [Amaryl] 2 mg PO BID@0800,1700
ISOSORBIDE MONOnitrate ER [Imdur (Extended Release)] 30 mg PO DAILY
Lidocaine [Lidocaine 4% Patch] 1 patch TOPICAL DAILY
Apply Lidocaine patch(s) to:: Upper Lx region
Pantoprazole [Protonix] 40 mg PO DAILY
Rivaroxaban [Xarelto] 2.5 mg PO BID
Rosuvastatin Calcium [Crestor] 40 mg PO DAILY
Sitagliptin Phosphate [Januvia] 100 mg PO DAILY
12/24/24 10:00
Oxycodone [Roxicodone] 10 mg PO Q4HPRN PRN
12/24/24 15:05
LAW[facility] EQUIPMENT REQUEST Routine
[facility]:: [facility]
Equipment request: LSO brace
12/24/24 18:00
Tamsulosin [Flomax] 0.4 mg PO QPM
12/24/24 20:00
Irbesartan [Avapro] 150 mg PO DAILY@2000
Abnormal Lab Results
12/23/24 12/23/24 12/24/24
17:28 21:23 06:42
RBC 4.11 L 10^6/uL
(4.70-6.10)
Hgb 12.2 L g/dL
(13.0-18.0)
Hct 35.2 L %
(39.0-52.0)
RDW 14.9 H %
(11.5-14.5)
Abs Immat Gran (auto) 0.3 H 10^3/uL
(0-0.05)
Absolute Monos (auto) 0.8 H 10^3/uL
(0.1-0.6)
Immature Gran % 2.8 H %
(0-0.5)
Lymphocytes % 15.4 L %
(20.5-51.1)
Glucose 123 H mg/dl
(99)
Hemoglobin A1c 9.4 H %
(4.0-5.9)
AST 16 L U/L
(59)
Total Protein 6.0 L g/dl
(6.3-8.2)
Albumin 3.2 L g/dl
(3.5-5.0)
POC Glucose 106 H mg/dl
()
12/24/24 12/24/24 12/24/24
11:44 16:25 21:21
RBC
Hgb
Hct
RDW
Abs Immat Gran (auto)
Absolute Monos (auto)
Immature Gran %
Lymphocytes %
Glucose
Hemoglobin A1c
AST
Total Protein
Albumin
POC Glucose 122 H mg/dl 135 H mg/dl 135 H mg/dl
() (99) (99)
12/25/24
07:03
RBC
Hgb
Hct
RDW
Abs Immat Gran (auto)
Absolute Monos (auto)
Immature Gran %
Lymphocytes %
Glucose
Hemoglobin A1c
AST
Total Protein
Albumin
POC Glucose 100 H mg/dl
()
12/23/24 17:28
12/23/24 17:28
Vital Signs
Initial and Last Documented VS:
Initial Vital Signs
Temp Pulse Resp BP Pulse Ox
97.6 F 104 20 103/60 95
12/23/24 13:07 12/23/24 13:07 12/23/24 13:07 12/23/24 13:07 12/23/24 13:07
Last Documented Vital Signs
Temp Pulse Resp BP Pulse Ox
97.8 F 108 20 145/93 96
12/25/24 13:39 12/25/24 13:39 12/25/24 13:39 12/25/24 13:39 12/25/24 13:39
<DARVIN Pinedo - Last Filed: 12/25/24 19:10>
MDM/Problems Addressed
Differential Diagnosis Includes:
Not limited to lumbar contusion, fracture, lumbar strain
MDM/Problems Addressed:
Patient is a 79-year-old male presented with low back pain after falling 5 days ago. He hit his back as well as his head. He is on Xarelto. He denies loss of conscious or headache his primary complaint is low back pain. reports he had some
old narcotic medicine and took a dose without relief. He presents with low back pain very uncomfortable. reports he is not able to get up off the toilet get up out of bed on his own without assistance. X-ray does show a compression fracture
of L2 patient with no neurological deficit. Patient did hit his head and is anticoagulated will order CT head and cervical spine.
Patient was given IM Dilaudid and Tylenol evaluated physical therapy still unable to sit up on his own will require admission /physical therapy. Case discussed with the physician
<DARVIN Pinedo - Last Filed: 12/25/24 19:10>
*Radiology
Radiology exam reviewed: radiology read reviewed
*Pulse Oximetry
SaO2: 95
Oxygen Mode of Delivery: Room air
Patient hypoxic: no
*Critical Care Note
Total Time (30-74mins, 75-104mins- exclusive of procedures): Not Applicable
ED Attending Note
<DARVIN Pinedo - Last Filed: 12/25/24 19:10>
-
Portions of this chart may have been created with voice recognition software.� Occasional wrong word or��sound alike� substitutions may have occurred due to the inherent limitations of voice recognition software.
<Marito Haywood DO - Last Filed: 12/23/24 17:40>
ED Attending Note
Patient seen and examined by attending physician: Yes
I performed the substantive portion of visit, reviewed & personally made and approve the management plan that is documented in note by myself or KAT.: Yes
I performed a history and physical exam of patient and discussed management with resident, I reviewed resident's note and agree with documented findings and plan of care.: Yes
ED Attending Note:
79-year-old male on long-term anticoagulation with Xarelto presents to the ER for further evaluation of persistent back pain status post fall 5 days days ago. Patient was at home with his who has had increasing difficulty caring for him as she
is unable to physically help him get up and out of bed. Patient is able to ambulate once he is able to make the transition out of bed. He denies loss of consciousness. He has been feeling otherwise well. Patient was valuated by physical therapy,
please see their consultation note, they would also recommend admission for further evaluation. I reviewed patient presentation with hospitalist to accept patient for admission
Discharge Plan
Departure
Patient Disposition: Admit
Date of Disposition: 12/23/24
Time of Disposition: 17:40
Presentation/result/management discussed w/ accepting MD/DO: Hospitalist
Discharge Problem:
Closed compression fracture of L2 vertebra, Anticoagulant long-term use, Intractable back pain
Interventions
Interventions:
*Risk Screen - Suicide Last Done: 12/23/24 13:07
*Neglect/Abuse Screening Last Done: 12/23/24 13:07
*ED- Fall Risk Assessment Last Done: 12/23/24 14:48
*ED COVID-19 Vaccine History Last Done: 12/23/24 14:48
*ED Influenza Vaccine History Last Done: 12/23/24 14:48
*Nursing Disposition Last Done: 12/23/24 20:55
ED-Musculoskeletal Assessment Last Done: 12/23/24 14:48
Discharge Date and Time
Discharge Date/Time: 12/23/24 21:15
[2024-12-23] MEDS: DILAUDID 1 MG IM (16:17)
[2024-12-23] MEDS: TYLENOL 1000 MG PO (16:17)
[2024-12-23 17:36] LABS: Hematocrit 35.2 % (39.0-52.0); Hemoglobin 12.2 g/dL (13.0-18.0); Mean Corp Hgb Conc. 34.7 g/dL (33.0-37.0); Mean Corpuscular Volume 85.6 fL (80.0-94.0); Nucleated Red Blood Cells % 0 % (-); Platelet Count 201 10^3/uL (130-400); Red Cell Dist. Width 14.9 % (11.5-14.5)
[2024-12-23 18:00] LABS: ALT (SGPT) 14 U/L (0-50); AST (SGOT) 16 U/L (17-59); Albumin 3.2 g/dl (3.5-5.0); Alkaline Phosphatase 74 U/L (38-126); Blood Urea Nitrogen 17 mg/dl (9-20); Calcium 8.8 mg/dl (8.4-10.2); Carbon Dioxide 23 mmol/L (22-30); Chloride 107 mmol/L (98-107); Estimated Creatinine Clearance 90 ml/min; Glucose 123 mg/dl (70-99); Potassium 3.7 mmol/L (3.5-5.1); Sodium 135 mmol/L (135-145); Total Protein 6.0 g/dl (6.3-8.2); eGFR > 60.00
[2024-12-23 19:09] VITALS: BP 131/65
--- NOTE | 2024-12-23 19:53 | HPS.HSE ---
Family Physician
-
Family Physician: Magno Khan
Chief Complaint
-
Fall , low back pain, difficult to get OOB and chair
History of Present Illness
79M seen at ER:
- for LBP s/p fell on a tile floor 5 days ago
- report head hit , on chr Xarelto
- Since then noted LBP
- associated with acute ambulatory dysfunction especially difficulty getting OOB and chair or getting up off the toilet.
- HX chronic pain in upper maegan
- has an appoint with pain management on Sunday
- He has used lidocaine patch and has taken occasional oxycodone without relief.
ROS
- denies TYLER
- denied LoC
Medical History
Past Medical History
Past Medical History: Reports Other
Additional Past Medical History:
CAD status post CABG x 5
type 2 diabetes
peripheral arterial disease on Xarelto
hypertension
GERD
hypercholesterolemia
Past Surgical History: Reports Other
Additional Past Surgical History:
Cardiac (bypass, stents)
Cholecystectomy
Social History
Tobacco: Non-smoker
Alcohol: None
Drug: None
Personal:
Living: With Family
Family History
Family History: Not pertinent
Allergies / Home Medications
Allergies reflects when Allergies were last updated in [facility].
Home Medications with original date entered in [facility]
Allergy/Medication List:
Allergies
Allergy/AdvReac Type Severity Reaction Status Date / Time
No Known Allergies Allergy Verified 10/08/24 12:51
Home Medications
glimepiride 2 mg tablet 2 mg PO BID@0800,1700 Diabetes 08/20/20
rosuvastatin 40 mg tablet (Crestor) 40 mg PO DAILY High cholesterol 08/20/20
cilostazol 100 mg tablet 100 mg PO BID Blood clot prevention/tx 05/16/22
pantoprazole 40 mg tablet,delayed release 40 mg PO DAILY Gastrointestinal issue 05/16/22
tamsulosin 0.4 mg capsule 0.4 mg PO QPM Urinary Issue 09/03/23
empagliflozin 25 mg tablet (Jardiance) 12.5 mg PO DAILY Diabetes 01/07/24
irbesartan 300 mg tablet 300 mg PO DAILY@2000 Blood Pressure 01/07/24
pregabalin 100 mg capsule (Lyrica) 100 mg PO QPM Pain 01/07/24
pregabalin 100 mg capsule (Lyrica) 200 mg PO DAILY Pain 01/07/24
sitagliptin 100 mg tablet 100 mg PO DAILY Diabetes 01/07/24
isosorbide mononitrate 30 mg tablet,extended release 24 hr 30 mg PO DAILY Heart Disease/Condition 09/12/24
lidocaine 5 % topical patch 1 patch topical DAILYPRN PRN lower back pain 09/12/24
oxycodone-acetaminophen 10 mg-325 mg tablet 1 tab PO Q8HPRN PRN severe pain 09/12/24
aspirin 81 mg tablet,delayed release 81 mg PO DAILY #0 tabs 09/16/24
cholestyramine (with sugar) 4 gram powder for susp in a packet 1 ea PO BID@0900,2100 #0 ea 09/16/24
cyclobenzaprine 10 mg tablet 10 mg PO HSPRN PRN back pain #0 tabs 09/16/24
rivaroxaban 2.5 mg tablet (Xarelto) 2.5 mg PO BID Blood Clot Prevention/Tx 09/22/24
lactobacillus combination no.4 3 billion cell capsule (Probiotic) 3,000 mmu cells PO DAILY #30 caps 09/29/24
Review of Systems
-
Constitutional: Reports No Symptoms
EENT: Reports No Symptoms
Respiratory: Reports No Symptoms
Cardiac: Reports No Symptoms
Abdomen/GI: Reports No Symptoms
: Reports No Symptoms
Musculoskeletal: Reports See HPI
Skin: Reports No Symptoms
Neurological: Reports No Symptoms
Endocrine: Reports No Symptoms
Hematologic/Lymphatic: Reports No Symptoms
Psych: Reports No Symptoms
Physical Exam
Vital Signs
Vital Signs
Temp Pulse Resp BP Pulse Ox
97.4 F 77 18 131/65 96
12/23/24 19:09 12/23/24 19:09 12/23/24 19:09 12/23/24 19:09 12/23/24 19:09
Physical Exam
General: Well Developed, Well Nourished, Conversant and Pain
HEENT: NormoCephalic, Moist mucous membranes and Atraumatic
Respiratory: Clear and Non Labored Respirations
Cardiac: S1/S2, Regular Rhythm and Tachycardia; No Murmur, Rub or Gallop
Breast: Deferred by me
GI: Soft, Non Tender, Non Distended and Normal Bowel Sounds
Rectal: Deferred by Provider
Musculoskeletal: No Clubbing, No Cyanosis and No Edema
Skin: Warm; No Rash
Neuro: Awake and Nonfocal/grossly intact
Laboratory Results
-
12/23/24 17:28
12/23/24 17:28
Laboratory Results
Total Bilirubin 0.5 mg/dl (0.2-1.3) 12/23/24 17:28
AST 16 U/L (17-59) L 12/23/24 17:28
ALT 14 U/L (0-50) 12/23/24 17:28
Alkaline Phosphatase 74 U/L (38-126) 12/23/24 17:28
Data Reviewed
-
Diagnostic Radiology: Report Reviewed by me
CT Scan: Report Reviewed by me
Lab Data: Labs Reviewed by me
Old Records: Reviewed
Impression/Plan
-
Temp Pulse Resp BP Pulse Ox
97.4 F 77 18 131/65 96
12/23/24 19:09 12/23/24 19:09 12/23/24 19:09 12/23/24 19:09 12/23/24 19:09
Laboratory Tests
10/24/24 12/23/24
11:31 17:28
WBC 9.1
Hgb 12.1 L 12.2 L
Potassium 3.7
Creatinine 0.8
eGFR > 60.00
Albumin 3.2 L
XR Lumbar Spine
1. Compression Fx L2 vertebral body, associated with approximately 20% height loss
new compared to prior CT dated 10/08/2024.
2. Moderate degenerative change of the lumbar spine as above.
12/23/24 CT Cervical Spine W/o Iv Contr + HCT W/o Iv Contrast
1. No acute intracranial abnormality noted.
2. No acute fracture or subluxation of the cervical spine.
Multilevel degenerative changes of the cervical spine.
10/08/24 MRI C-T-L spine:
Edema in the L1-L2 intervertebral disc space
Mild edema in the L3 through S1 intervertebral disc spaces.
Degenerative edema would be favored over discitis in the absence of adjacent endplate signal changes or paravertebral soft tissue edema.
No MRI evidence for osteomyelitis o
Last hospitalist admission: 10/08/24 - 10/12/24
DC Dx: Myalgia, Possible inflammatory/Rheumatoid. Bilateral Neck, shoulder and back pain with associated upper extremity weakness
ASSESSMENT & PLAN
Pending Rx reconciliation
New acute Lx 2 compression L2 vertebral body about 20% height loss (new compared to prior CT on 10/08/2024)
- Associated acute ambulatory dysfunction
- suspect related to fall l 5 days ago
- NEG HCT
- PRN Pain control
- Lidoderm patch
- IV Dilaudid PRN
- see Fx set protocol
- BW Regime
- PT/OT
HX urinary retention
- bladder scan, straight cath protocol
CAD HX
HX CABG x 5
- on PRA ASA
T2DM
- Low SSI
- on glimepiride, Jardiance and Sitagliptin
PAD
- on Xarelto
Bn HTN
- c/w irbesartan
DLP
- on rosuvastatin
DVT Px: BUGGY LOADER Xarelto
Full code
OBS MS
[2024-12-23 21:05] VITALS: BP 153/77; BMI 26.1
[2024-12-23 21:25] LABS: Glucose - Point of Care 106 mg/dl (70-99)
[2024-12-23] MEDS: DILAUDID 0.5 MG IV (21:34)
[2024-12-23] MEDS: COLACE PO (22:07)
[2024-12-23] MEDS: SENOKOT PO (22:07)
[2024-12-23] MEDS: TYLENOL 650 MG PO (22:38)
[2024-12-23] MEDS: ROXICODONE 5 MG PO (22:39)
[2024-12-23 23:35] VITALS: BP 136/65
[2024-12-24] MEDS: DILAUDID 0.5 MG IV ×6 (00:53→20:54)
[2024-12-24] MEDS: TYLENOL PO ×2 (01:04→12:42)
--- NOTE | 2024-12-24 02:04 | PTCARENOTE ---
per pt pain mgt we are offering has not been effective - bank appraiser ordered one time dose of Dilaudid with lidocaine patch see mar
[2024-12-24] MEDS: DILAUDID 0.25 MG IV (02:07)
[2024-12-24] MEDS: LIDOCAINE 4% PATCH 1 PATCH TOPICAL (02:07)
[2024-12-24] MEDS: TYLENOL 650 MG PO ×4 (03:27→19:02)
[2024-12-24] MEDS: ROXICODONE 5 MG PO ×2 (03:27→19:01)
[2024-12-24 07:31] LABS: Glucose - Point of Care 82 mg/dl (70-99)
[2024-12-24 07:35] VITALS: BP 124/72
[2024-12-24] MEDS: CRESTOR 40 MG PO (08:14)
[2024-12-24] MEDS: AMARYL 2 MG PO ×2 (08:14→16:30)
[2024-12-24] MEDS: SENOKOT 17.2 MG PO (08:14)
[2024-12-24] MEDS: IMDUR (EXTENDED RELEASE) 30 MG PO (08:14)
[2024-12-24] MEDS: COLACE 100 MG PO (08:14)
[2024-12-24] MEDS: PROTONIX 40 MG PO (08:14)
[2024-12-24] MEDS: ASPIR LOW (ENTERIC COATED) 81 MG PO (08:14)
[2024-12-24] MEDS: JANUVIA 100 MG PO (08:15)
[2024-12-24] MEDS: LIDOCAINE 4% PATCH TOPICAL (08:29)
--- NOTE | 2024-12-24 08:44 | PTCARENOTE ---
Patient refused xarelto. OP steroid injection scheduled sunday. Patient is anticipating to make appointment and was instructed to stop xarelto three day ahead. Dr. Ceballos is aware.
[2024-12-24 09:28] LABS: Glycohemoglobin (HgbA1c) 9.4 % (4.0-5.9)
--- NOTE | 2024-12-24 09:49 | W.PN.HOSP.TC ---
Today's Communication/Plan
-
pain control
OOB/PT
bowel regimen
scds/xarelto on hold
Assessment / Plan
Assessment / Plan
General: Well Developed, Well Nourished, Conversant
HEENT: NormoCephalic, Moist mucous membranes and Atraumatic
Respiratory: Clear and Non Labored Respirations
Cardiac: S1/S2, Regular Rhythm
Breast: Deferred by me
GI: Soft, Non Tender, Non Distended and Normal Bowel Sounds
Rectal: Deferred by Provider
Musculoskeletal: No Clubbing, No Cyanosis and No Edema, TTP paraspinal lumbar region and lumbar region. no stepoff.
Skin: Warm; No Rash
Neuro: Awake and Nonfocal/grossly intact
Back pain due to Acute L2 compression fracture.
- Associated acute ambulatory dysfunction
- suspect related to fall l 5 days ago
- NEG HCT
- PRN Pain control -try po meds. IV for breakthrough meds only. d/w with pain.
- Lidoderm patch
- BW Regimen
- PT/OT
HX urinary retention
- bladder scan, straight cath protocol
CAD HX
HX CABG x 5
- on PRA ASA, imdur, crestor
T2DM uncontrolled. A1C 9.4
- Low SSI
- on glimepiride, Jardiance and Sitagliptin/
- POC am 82
PAD
- on Xarelto -on hold for psosible ANTHONY on sunday via pain meds
- On Cilostazol
HTN
- c/w irbesartan
DLP
- on rosuvastatin
DVT Px: scds
Full code
Anticipated Discharge: Within 24 hours
Subjective/Interval History
-
Date of Service: December 24, 2024
states of lower left side lumbar back pain
pain improves with IV meds
Objective Data
-
Vital Signs:
Vital Signs
Temp Pulse Resp BP Pulse Ox
97.5 F 67 16 124/72 94
12/24/24 07:35 12/24/24 07:35 12/24/24 07:35 12/24/24 07:35 12/24/24 07:35
I&O
12/23/24 12/24/24 12/25/24
06:59 06:59 06:59
Intake Total 880 / 880
Balance 880 / 880
Data Reviewed
-
Total Time Spent with Patient (in minutes): 55
[2024-12-24] MEDS: ROXICODONE 10 MG PO ×2 (10:01→14:56)
[2024-12-24 11:45] LABS: Glucose - Point of Care 122 mg/dl (70-99)
[2024-12-24 13:04] VITALS: BP 158/94; PULSE 51; O2SAT 95
[2024-12-24 13:37] VITALS: BP 158/84; PULSE 80; O2SAT 96
--- NOTE | 2024-12-24 14:18 | CM ---
Addendum entered by Sadaf Ledbetter 12/24/24 14:43:
PCP: Cisco Khan
RX: [id number]/Kt
Original Note:
IA completed. Perdomo given and placed on chart. Pt was independent in ADLs and AIDLs prior to admission. Pt lives with spouse in a 2 story home with 2 steps at the entrance and 13 steps inside Full BR is on the 2nd floor.DME: rolling walker, SPC < Hx
of HH for PT and OT, Does not remember agency name. No hx of home O2 or SNF. NO insecurities identified, Confirmed PCP, RX, insurance and drug plan.
Pain management ongoing
Plan: unable to determine at this time. Will follow for needs
[2024-12-24 15:35] VITALS: BP 127/72
[2024-12-24 16:26] LABS: Glucose - Point of Care 135 mg/dl (70-99)
[2024-12-24] MEDS: FLOMAX 0.4 MG PO (16:33)
[2024-12-24] MEDS: AVAPRO 150 MG PO (19:01)
[2024-12-24] MEDS: SENOKOT PO (19:02)
[2024-12-24] MEDS: COLACE PO (19:02)
[2024-12-24 21:22] LABS: Glucose - Point of Care 135 mg/dl (70-99)
[2024-12-24 23:09] VITALS: BP 122/66
--- NOTE | 2024-12-25 00:54 | PTCARENOTE ---
pt feels pain meds are not helping his pain-explained to him vertebral fractures are painful and plan for back brace that was ordered-
[2024-12-25] MEDS: TYLENOL PO (01:06)
[2024-12-25] MEDS: TYLENOL 650 MG PO ×3 (03:31→12:10)
[2024-12-25] MEDS: ROXICODONE 10 MG PO ×2 (03:31→10:11)
[2024-12-25 07:00] VITALS: BP 143/87
[2024-12-25 07:05] LABS: Glucose - Point of Care 100 mg/dl (70-99)
[2024-12-25] MEDS: ASPIR LOW (ENTERIC COATED) 81 MG PO (10:10)
[2024-12-25] MEDS: LIDOCAINE 4% PATCH 1 PATCH TOPICAL (10:10)
[2024-12-25] MEDS: SENOKOT 17.2 MG PO (10:11)
[2024-12-25] MEDS: IMDUR (EXTENDED RELEASE) 30 MG PO (10:11)
[2024-12-25] MEDS: COLACE 100 MG PO (10:11)
[2024-12-25] MEDS: PROTONIX 40 MG PO (10:11)
[2024-12-25] MEDS: AMARYL 2 MG PO (10:11)
[2024-12-25] MEDS: CRESTOR 40 MG PO (10:11)
[2024-12-25] MEDS: JANUVIA 100 MG PO (10:11)
[2024-12-25] MEDS: MILK OF MAGNESIA 30 ML PO (10:12)
--- NOTE | 2024-12-25 10:51 | W.PN.HOSP.TC ---
Today's Communication/Plan
-
Pain control
spine/pain f/u tomm
Assessment / Plan
Assessment / Plan
General: Well Developed, Well Nourished, Conversant
HEENT: NormoCephalic, Moist mucous membranes and Atraumatic
Respiratory: Clear and Non Labored Respirations
Cardiac: S1/S2, Regular Rhythm
Breast: Deferred by me
GI: Soft, Non Tender, Non Distended and Normal Bowel Sounds
Rectal: Deferred by Provider
Musculoskeletal: No Edema,
Skin: Warm; No Rash
Neuro: Awake and Nonfocal/grossly intact
Back pain due to Acute L2 compression fracture.
- Associated acute ambulatory dysfunction
- suspect related to fall l 5 days ago
- NEG HCT
- PRN Pain control -try po meds. IV for breakthrough meds only. d/w with pain.
- Lidoderm patch
- BW Regimen
- PT/OT
-Has OP Spine/pain management appt tomm. Back brace ordered.
HX urinary retention
- bladder scan, straight cath protocol
CAD HX
HX CABG x 5
- on PRA ASA, imdur, crestor
T2DM uncontrolled. A1C 9.4
- Low SSI
- on glimepiride, Jardiance and Sitagliptin/
- POC am 100
PAD
- on Xarelto -on hold for possible ANTHONY on sunday via pain meds
- On Cilostazol
HTN
- c/w irbesartan
DLP
- on rosuvastatin
DVT Px: scds
Full code
PT/OT-outpatient therapy
More than 30 minutes spent in discharge including
Final examination of the patient
Summarizing hospital stay
Instructions for continuing care to all relevant caregivers
Preparation of discharge records, prescriptions, and referral forms
Total time spent (in minutes): 53
Anticipated Discharge: Today
Subjective/Interval History
-
Date of Service: December 25, 2024
remains in pain but improved. Able to ambulate now
Objective Data
-
Vital Signs:
Vital Signs
Temp Pulse Resp BP Pulse Ox
98 F 87 12 143/87 97
12/25/24 07:00 12/25/24 07:00 12/25/24 07:00 12/25/24 07:00 12/24/24 23:09
I&O
12/24/24 12/25/24 12/26/24
06:59 06:59 06:59
Intake Total 880 / 880 220 / 220
Balance 880 / 880 220 / 220
--- NOTE | 2024-12-25 10:54 | W.DCSUMMARY ---
Discharge Summary
Discharge Data
Date of Admission: 12/25/24
Date of Discharge: 12/25/24
-
Pending Results: No
Hospital Course
79-year-old male past medical history of CAD status post CABG, diabetes mellitus, PAD, hypertension, hyperlipidemia who is presenting with back pain. Patient was also complaining of ambulatory dysfunction. Patient had a fall [address] of the
head was found to be negative. Lumbar spine x-ray was done and that showed acute L2 compression fracture. Pain control was started. Patient pain was managed by narcotics. Patient was by PT and OT and patient discharged to home. Patient has
appointment with outpatient spine/pain management on 12/26/2024.
Discharge Plan
-
Patient Disposition: Home (Routine Discharge)
Discharge Diagnosis/Procedures: Lumbar 2nd compression fracture
Condition: Fair
Diet: Diabetic, Carb Controlled
Activity: As tolerated
Driving Restrictions: Avoid driving while on opiates
Other Services: PT
Activity Restrictions/Additional Instructions:
Your lumbar spine Xray results
Fracture of the L2 vertebral body, associated with approximately 20% height loss predominantly involving the superior endplate, new compared to prior CT dated 10/08/2024.
Facet joints are in normal alignment. Posterior elements are within normal limits.
Osteophytes are seen throughout the lumbar spine.
Moderate disc space narrowing at L3-4. Mild narrowing at L4-5 and L5-S1.
Bilateral facet hypertrophy at L5-S1.
Instructions: Vertebral compression fracture
Referrals:
Magno Khan MD [Family Provider, Internal Medicine] - in less than 1 week
Prescriptions:
New
oxycodone 5 mg Tablet
See Rx Instructions .ROUTE .COMPLEX PRN (Reason: mod-severe pain) Qty: 15 0RF
Rx Instructions:
Take 1 tablet for moderate pain. Take 2 tablets for severe pain
Continued
glimepiride 2 MG tablet
2 mg PO BID@0800,1700
rosuvastatin [Crestor] 40 MG tablet
40 mg PO DAILY
cilostazol 100 mg Tablet
100 mg PO BID
pantoprazole 40 MG tablet,delayed release (DR/EC)
40 mg PO DAILY
tamsulosin 0.4 mg capsule
0.4 mg PO QPM
irbesartan 300 mg Tablet
150 mg PO DAILY@2000
pregabalin [Lyrica] 100 mg Capsule
200 mg PO DAILY
pregabalin [Lyrica] 100 mg Capsule
100 mg PO QPM
Jardiance 25 mg Tablet
12.5 mg PO DAILY
sitagliptin 100 mg Tablet
100 mg PO DAILY
lidocaine 5 % Adhesive Patch,Medicated
1 patch TOPICAL DAILYPRN PRN (Reason: lower back pain)
isosorbide mononitrate 30 mg Tablet Extended Release 24 Hr
30 mg PO DAILY
Patient Comments:
[place] physician has this as stopped but patient stated he still takes this
aspirin 81 mg Tablet,Delayed Release (Dr/Ec)
81 mg PO DAILY Qty: 0 0RF
cyclobenzaprine 10 mg Tablet
10 mg PO HSPRN PRN (Reason: back pain) Qty: 10 0RF
acetaminophen 325 mg Tablet
650 mg PO Q4HPRN PRN (Reason: mild pain/TYLER/temp> 100.4F) Qty: 0 0RF
cholestyramine (with sugar) 4 gram powder in packet
1 ea PO BID@0900,2100
Probiotic 3 billion cell capsule
3,000 mmu cells PO DAILY
Held
rivaroxaban [Xarelto] 2.5 mg Tablet
2.5 mg PO BID
Hold Instructions: Resume on 12/27/24. restart pending pain/spine physician clearance
Discharge Orders:
Discharge Patient (As Directed); Ordered 12/25/24
Ordered By: New Ceballos
Discharge Date and Time
Print Language: ICELANDIC
--- NOTE | 2024-12-25 11:01 | W.[place]-PDMP ---
[place]-PDMP
-
Checked the [place]- Prescription Drug Monitoring Program website, no red flags identified; safe to proceed with prescription.
[2024-12-25 11:55] LABS: Glucose - Point of Care 172 mg/dl (70-99)
--- NOTE | 2024-12-25 13:09 | CM ---
MD entered order for discharge.
Spoke with patient in room.
Pt said he was ready for discharge.
Offered VN he requested [facility] . Starr notified of referral .
ALLISON reviewed with patient copy given . Pt did not sign Allison.
Yamel will drive him home.
PLAN Home no needs
[2024-12-25 13:39] VITALS: BP 145/93
--- NOTE | 2024-12-25 13:39 | PTCARENOTE ---
Pt is discharged, While removing the IV the pt had a small tear of his skin on his left hand. The tear was cleaned with saline and dressed with adaptic and 2x2.
--- NOTE | 2024-12-25 13:58 | VNURNOTE ---
Home Health Liaison met with patient and spouse at bedside to discuss [facility] nurse/therapy, visits, schedule and homebound status. Patient is agreeable and understands that visits at home will be 2-3 x per week to assess and teach medical
management.
Patient is aware that [facility] will contact them for start of care next week. Pt and spouse have contact number for [facility] from last on service.
[facility] referral completed in [facility].
== END 2024-12-25 14:28 | disposition home health service (06) | DRG 544 ==
LOC: 4 EAST ACU 08:35
PROVIDERS: Nurse Practitioner; ADMITTING PHYSICIAN Internal Medicine; ATTENDING PHYSICIAN Hospitalist; EMERGENCY PHYSICIAN Emergency Medicine; FAMILY PHYSICIAN Internal Medicine
DX: M48.56XA Collapsed vertebra, not elsewhere classified, lumbar region, initial encounter for fracture (principal); E11.51 Type 2 diabetes mellitus with diabetic peripheral angiopathy without gangrene; I10 Essential (primary) hypertension; G89.29 Other chronic pain; Z79.01 Long term (current) use of anticoagulants; Z79.899 Other long term (current) drug therapy; W19.XXXA Unspecified fall, initial encounter; Z87.891 Personal history of nicotine dependence
CPT/HCPCS: 70450; 72110; 72125; 80053; 82962; 83036; 85025; 96372; 97116; 97167; 97535; 99285

== ENCOUNTER → 2025-01-13 10:47 | Outpatient (REF) | payer MEDICARE, OTHER, SELFPAY | LOC: PAVMRI 10:47 | PROVIDERS: ATTENDING PHYSICIAN Psychiatry & Neurology Neurology; FAMILY PHYSICIAN Internal Medicine | DX: I63.89 Other cerebral infarction (principal) | CPT/HCPCS: 70544; 70547; 70551 ==

== ENCOUNTER → 2025-01-26 10:41 | Outpatient (REF) | payer MEDICARE, OTHER, SELFPAY | LOC: PAVMRI 10:41 | PROVIDERS: ATTENDING PHYSICIAN Student in an Organized Health Care Education/Training Program; FAMILY PHYSICIAN Internal Medicine | DX: M31.6 Other giant cell arteritis (principal); M35.3 Polymyalgia rheumatica; R07.82 Intercostal pain; R07.89 Other chest pain; I72.9 Aneurysm of unspecified site | CPT/HCPCS: 71555; A9585 ==

== ENCOUNTER 2025-02-17 09:30 | Inpatient (IN) | payer MEDICARE, OTHER, SELFPAY ==
[2025-02-15] VITALS (13 sets, daily range): BP systolic 121–150; BP diastolic 62–82; BMI 24.8
[2025-02-15 14:03] LABS: Hematocrit 34.0 % (39.0-52.0); Hemoglobin 11.8 g/dL (13.0-18.0); Mean Corp Hgb Conc. 34.7 g/dL (33.0-37.0); Mean Corpuscular Volume 84.6 fL (80.0-94.0); Nucleated Red Blood Cells % 0 % (-); Platelet Count 222 10^3/uL (130-400); Red Cell Dist. Width 14.6 % (11.5-14.5)
[2025-02-15 14:16] LABS: ALT (SGPT) 15 U/L (0-50); AST (SGOT) 22 U/L (17-59); Albumin 2.8 g/dl (3.5-5.0); Alkaline Phosphatase 77 U/L (38-126); Blood Urea Nitrogen 22 mg/dl (9-20); Calcium 8.4 mg/dl (8.4-10.2); Carbon Dioxide 18 mmol/L (22-30); Chloride 109 mmol/L (98-107); Glucose 152 mg/dl (70-99); Magnesium 1.7 mg/dl (1.6-2.3); Potassium 3.5 mmol/L (3.5-5.1); Sodium 134 mmol/L (135-145); Total Protein 5.3 g/dl (6.3-8.2); eGFR > 60.00
--- NOTE | 2025-02-15 14:26 | ED.GENMED ---
History of Present Illness
General
Chief Complaint: Musculo-Skeletal Complaint
Source: patient
Time Seen by Provider: 02/15/25 14:04
History of Present Illness
History of Present Illness:
79-year-old male presents emergency department after suffering a fall in the bathroom on Sunday. He denies preceding symptoms to this fall and says that his legs just 'gave out'. His family assisted him. Since that time, he has been complaining
of difficulty walking and standing due to severe knee pain, right much greater than left. He has chronic back pain due to a history of a compression fracture and feels that that is about the same. He says he did hit his head with the fall but
denies loss of consciousness, neck pain, headache, dizziness, nausea, vomiting, chest pain, dyspnea, abdominal pain, nausea, vomiting, incontinence. Anesthesia, numbness, tingling, urinary symptoms, diarrhea, constipation. Patient has been trying
to use a walker at home with great difficulty.
Past History
Past History
ED Past Medical History: CAD, CVA, GERD, HTN, Hypercholesterolemia, NIDDM, AR and Other (DVT)
ED Past Surgical History: Cardiac (bypass, stents) and Cholecystectomy
Social History
Tobacco: Former smoker (quit x 22 years)
Alcohol: None
Drug: None
Personal:
Living: with family
Employment: Retired
Phy Exam
Physical Exam
Physical Exam:
GENERAL: Alert , in no apparent distress
EYE: pupils equal and reactive, no photophobia, EOMI
NECK: Supple, no significant adenopathy, no midline tenderness.
ENT: o/p clr, mmm, no chris, no raccoon, no signs of head or facial injury noted on exam.
CARDIAC: Regular rate and rhythm .
LUNGS: Clear breath sounds bilaterally, no acute respiratory distress, no wheezes/rales/rhonchi
ABDOMEN: Soft, mild lower abdominal tenderness, no r/g
NEUROLOGICAL: Alert and oriented, no focal neuro deficits
SKIN: Warm and dry, skin intact.
MUSCULOSKELETAL: Mild swelling noted of the soft tissue at knees bilaterally right greater than left, well perfused. There is severe tenderness to palpation noted at the right knee throughout as well as the left knee, no deformity, no break in
skin. No tenderness to palpation noted at hip, ankle, lower leg, or elsewhere
PSYCH: Normal and appropriate interaction.
Course
Orders/Labs/Results
Orders:
Orders
02/15/25 13:51
EKG [Electrocardiogram (*1)] Urgent
Reason for Study: Vertigo / Dizzy
02/15/25 13:52
EKG- Treatment ONCE
02/15/25 13:55
Complete Blood Count/With Diff Urgent
Comprehensive Metabolic Panel Urgent
Magnesium Urgent
02/15/25 14:25
0.9% Sodium Chloride 500 ml [Nss] 500 ml IV BOLUS
Morphine Sulfate 6 mg IV NOW STA
Knee, Left 4 or More Views [CR Knee - Left 4 Or More View*] Urgent
Comment:
Reason For Exam: fall
Knee, Right 4 or More Views [CR Knee- Right 4 Or More View*] Urgent
Comment:
Reason For Exam: fall
LS Spine Complete, 4 View [CR Lumbar Spine Comp Min 4 Vw*] Urgent
Comment:
Reason For Exam: fall
02/15/25 14:29
Bladder Scan- Treatment ONCE
02/15/25 14:49
Pelvis, 1 or 2 Views CR [CR Pelvis - 1 Or 2 Views ] Urgent
Comment:
Reason For Exam: fall
02/15/25 15:35
CT Lower Ext W/o Iv Cont Rt Urgent
Comment:
Reason For Exam: attn: R knee
Morphine Sulfate 6 mg IV NOW STA
02/15/25 16:23
Spence Placement- Treatment ONCE
Reason for insertion: Acute Retention
02/15/25 17:07
Urinalysis Reflex To Culture Urgent
Date Specimen was Collected: 02/15/25
Time Specimen was Collected: 14:35
Urine Microscopic Reflex Cult Urgent
02/15/25 20:49
Morphine Sulfate 4 mg .ROUTE .STK-MED ONE
02/15/25 20:50
Morphine Sulfate 4 mg IV NOW STA
02/15/25 21:33
Admit/Transfer Patient As Directed
Co-Sign Provider:
Level of Care: Observation services
Assign to:: Medical/Surgical
Physician / Group: Piero/Hospitalist
Diagnosis: right knee pain, ambulatory dysfunction, urinary retention
Reason for Hospitalization: right knee pain, ambulatory dysfunction, urinary retention
PRN Pain Medication Management As Directed
May give lesser potent ordered pain med per pt: Yes
preference::
Protocol:: Medication orders for pain may be administered in a
manner that supports deferring to patient preference
when the pt is:
- Requesting an ordered lesser potent pain medication.
Least to most potent pain medications are defined
as: acetaminophen < NSAID < tramadol < opioids
(morphine, oxycodone, hydromorphone).
- Requesting a lesser dose of the same medication IF
ORDERED.
- Requesting a less intrusive route of administration
if both routes are prescribed by the provider (PO <
IV).
02/15/25 21:59
Code Status As Directed
Resuscitation Status: Full Code
02/16/25 00:02
0.9% Sodium Chloride 1000 ml [Nss] 1,000 ml IV 75 mls/hr
Acetaminophen [Tylenol] 650 mg PO Q4HPRN PRN
Bisacodyl [Dulcolax] 10 mg RECTAL [id number] PRN
Docusate W/Senna [Senokot-S] 1 tablet PO BIDPRN PRN
HYDROmorphone [Dilaudid] 0.5 mg IV Q4HPRN PRN
Oxycodone [Roxicodone] 5 mg PO Q4HPRN PRN
Polyethylene Glycol Powder [Miralax] 17 grams PO DAILYPRN PRN
Vascular Checks Q4H
Location: DP/PD b/l LE
02/16/25 00:02
Consult Notification Routine
Specialty to Notify: Orthopedics
Date consulting provider notified: 02/16/25
Time consulting provider notified: 07:42
Notified:: Provider
ORTHOPEDIC CONSULT Routine
Consulting Provider: Landon Chicas
Was physician already notified: No
Reason for consult: Right knee pain with effusion
VTE Contraindication Routine
VTE Mechanical Device Contraindication: Sensory neuropathy
Pharmocologic Contraindication: Medical Contraindication
Activity As Directed
Activity Level: With Assistance
Vital Signs As Directed
Frequency: Per unit guidelines
02/16/25 00:08
Albuterol [ProAIR HFA INHALER] 90 puff INH R Q6HPRN PRN
02/16/25 00:15
Rivaroxaban [Xarelto] 2.5 mg PO BID
Tamsulosin [Flomax] 0.4 mg PO QPM
02/16/25 00:33
Pt Screening Request from [place] Routine
02/16/25 08:00
Aspirin Low Dose EC [Aspir Low (Enteric Coated)] 81 mg PO DAILY
Dapagliflozin [Farxiga] 10 mg PO DAILY
Pantoprazole [Protonix] 40 mg PO DAILY
Pregabalin [Lyrica] 200 mg PO DAILY
Rosuvastatin Calcium [Crestor] 40 mg PO DAILY
cilostazol See Dose Instructions PO BID
02/16/25 08:17
C-Reactive Protein Routine
Comment: ADD
Complete Blood Count/With Diff IN AM
Comprehensive Metabolic Panel IN AM
Erythrocyte Sed Rate Routine
Comment: ADD
Magnesium Routine
Comment: Add
02/16/25 08:40
Immobilizer [Braces/Immobilizers] As Directed
Type of Brace/Immobilizer: Knee immobilizer
Location for Brace/Immobilizer: right knee (22 inch)
02/16/25 08:58
OT Consult [Ot Eval And Treat] Routine
Physical Therapy Consult [Pt Eval And Treat] Routine
Activity Level: With Assistance
02/16/25 09:13
Add On- LAB Routine
Tests Added?: ESR, CRP
02/16/25 09:21
Dextrose 50%-Water [Dextrose 50% Syringe] 12.5 grams IV [id number] PRN
Glucagon [GlucaGen] 1 mg IM PRN PRN
Bedside Glucose Monitoring As Directed
Frequency: AC&HS
Additional Instructions:: Change to q6h if pt on TPN, tube feeding or not eating
02/16/25 Lunch
Cholesterol Lowering
At Your Request: Full Participation
Cholesterol Lowering: Sodium, 2 Gram
1800 quentin/15 CHO Diabetic
02/16/25 11:30
Insulin Aspart Corrective Low [Novolog Flexpen-Low Resistance] See Protocol SC AC
02/16/25 12:25
Add On- LAB Routine
Tests Added?: magnesium
02/16/25 12:26
Potassium Chloride [KCl] 40 meq PO NOW STA
Spence Catheter [Catheter- Indwelling] As Directed
Reason for insertion: Acute Retention
Discontinue Date/Time: 02/19/25 0600
02/16/25 18:00
Pregabalin [Lyrica] 100 mg PO QPM
02/16/25 20:00
Irbesartan [Avapro] 150 mg PO DAILY@1999
02/17/25 06:31
BMP [Basic Metabolic Panel] IN AM
02/17/25 08:00
Potassium Chloride [KCl] 20 meq PO DAILY
02/17/25 09:03
MR Right Knee Without Routine
Reason For Exam: pain out of proportion
Recent pill cam endoscopy?: No
02/17/25 10:00
US Renal With Bladder Routine
Reason For Exam: urinary retention
Abnormal Lab Results
02/15/25 02/15/25 02/16/25
13:55 17:07 08:17
WBC 13.9 H 10^3/uL
(4.8-10.8)
RBC 4.02 L 10^6/uL 3.65 L 10^6/uL
(4.70-6.10) (4.70-6.10)
Hgb 11.8 L g/dL 10.9 L g/dL
(13.0-18.0) (13.0-18.0)
Hct 34.0 L % 32.1 L %
(39.0-52.0) (39.0-52.0)
RDW 14.6 H % 14.6 H %
(11.5-14.5) (11.5-14.5)
Abs Immat Gran (auto) 0.1 H 10^3/uL 0.1 H 10^3/uL
(0-0.05) (0-0.05)
Absolute Neuts (auto) 11.9 H 10^3/uL 7.6 H 10^3/uL
(1.4-6.5) (1.4-6.5)
Absolute Lymphs (auto) 0.8 L 10^3/uL 0.6 L 10^3/uL
(1.2-3.4) (1.2-3.4)
Absolute Monos (auto) 1.0 H 10^3/uL 0.8 H 10^3/uL
(0.1-0.6) (0.1-0.6)
Immature Gran % 0.7 H % 0.8 H %
(0-0.5) (0-0.5)
Neutrophils % 85.9 H % 82.7 H %
(42.2-75.2) (42.2-75.2)
Lymphocytes % 6.0 L % 7.0 L %
(20.5-51.1) (20.5-51.1)
ESR 56 H mm/hour
(0-20)
Sodium 134 L mmol/L
(135-145)
Potassium 3.4 L mmol/L
(3.5-5.1)
Chloride 109 H mmol/L 109 H mmol/L
(98-107) (98-107)
Carbon Dioxide 18 L mmol/L 20 L mmol/L
(22-30) (22-30)
BUN 22 H mg/dl
(9-20)
Creatinine 0.6 L mg/dL
(0.7-1.3)
Glucose 152 H mg/dl 118 H mg/dl
(70-99) (70-99)
Calcium 8.3 L mg/dl
(8.4-10.2)
Total Bilirubin 1.7 H mg/dl
(0.2-1.3)
C-Reactive Protein 215.80 H mg/L
(0.0-10.00)
Total Protein 5.3 L g/dl 5.1 L g/dl
(6.3-8.2) (6.3-8.2)
Albumin 2.8 L g/dl 2.6 L g/dl
(3.5-5.0) (3.5-5.0)
Urine Ketones 1+ A
(Negative)
Urine Bacteria (Reflex) Few A
(Negative)
Urine Glucose 4+ A
(Negative)
Urine Albumin (Reflex) 2+ A
(Neg - Trace)
POC Glucose
02/16/25 02/16/25 02/17/25
13:24 21:38 06:31
WBC
RBC
Hgb
Hct
RDW
Abs Immat Gran (auto)
Absolute Neuts (auto)
Absolute Lymphs (auto)
Absolute Monos (auto)
Immature Gran %
Neutrophils %
Lymphocytes %
ESR
Sodium
Potassium
Chloride 108 H mmol/L
(98-107)
Carbon Dioxide 20 L mmol/L
(22-30)
BUN
Creatinine
Glucose 100 H mg/dl
(70-99)
Calcium
Total Bilirubin
C-Reactive Protein
Total Protein
Albumin
Urine Ketones
Urine Bacteria (Reflex)
Urine Glucose
Urine Albumin (Reflex)
POC Glucose 160 H mg/dl 105 H mg/dl
(70-99) (70-99)
02/17/25
07:52
WBC
RBC
Hgb
Hct
RDW
Abs Immat Gran (auto)
Absolute Neuts (auto)
Absolute Lymphs (auto)
Absolute Monos (auto)
Immature Gran %
Neutrophils %
Lymphocytes %
ESR
Sodium
Potassium
Chloride
Carbon Dioxide
BUN
Creatinine
Glucose
Calcium
Total Bilirubin
C-Reactive Protein
Total Protein
Albumin
Urine Ketones
Urine Bacteria (Reflex)
Urine Glucose
Urine Albumin (Reflex)
POC Glucose 102 H mg/dl
(70-99)
02/16/25 08:17
02/17/25 06:31
Vital Signs
Initial and Last Documented VS:
Initial Vital Signs
Temp Pulse Resp BP Pulse Ox
98.7 F 104 22 150/73 96
02/15/25 13:44 02/15/25 13:44 02/15/25 13:44 02/15/25 13:44 02/15/25 13:44
Last Documented Vital Signs
Temp Pulse Resp BP Pulse Ox
98.5 F 60 16 127/59 97
02/17/25 07:10 02/17/25 07:10 02/17/25 07:10 02/17/25 07:10 02/17/25 07:10
*Pulse Oximetry
SaO2: 96
Patient hypoxic: no
*Critical Care Note
Total Time (30-74mins, 75-104mins- exclusive of procedures): Not Applicable
Update Note
Update Note:
Patient presents to the Emergency Department with ____fall
Number and Complexity of Problems Addressed at the Encounter
� Chronic conditions affecting care:
� Acute Exacerbation and/or Progression of Chronic Illness:
� Differential Diagnosis includes: But not limited to knee fracture, pelvic fracture, compression fracture, dehydration, etc. etc.
Amount and/or Complexity of Data to be Reviewed and Analyzed
� I performed an independent evaluation of and my interpretation is:
EKG: Read by me, normal sinus rhythm with frequent PVCs, low voltage, no acute ischemia
CT:No acute fracture or dislocation. The joint alignments are maintained. Small tricompartmental marginal osteophytes. Minor medial and lateral tibiofemoral compartment joint space narrowing with a small amount of subchondral
sclerosis. Small knee joint effusion. Severe vascular calcifications. 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
Xrays: Right and left knee without acute fracture, LS-spine with L2 compression fracture which is unchanged read by me.. rads report Mild compression fracture at the superior endplate of L2, similar compared to the lumbar spine
radiographs from 12/23/2024.
Straightening of the lumbar lordosis. Severe disc space narrowing at L5-S1 with vacuum disc phenomenon. Multilevel endplate osteophytes. Lower lumbar facet arthrosis. No significant spondylolisthesis. Posterior interspinous fusion hardware at L3-L4.
Severe vascular calcifications. Cholecystectomy clips in the right upper quadrant..
Pelvis read by me pooja Knee bilat read by me pooja
Laboratory Studies:mild luekocytosis, nonspecific. Non anion gap mild metabolic acidosis
Other:
� Review of other/old records reveals:
� Clinical information was obtained by an independent historian:
� Prescriptions/Medications Considered but not given:
� Further testing considered but not performed:
Risk of Complications and/or Morbidity or Mortality of Patient Management
� Social determinants of health affecting care:
� Discussion with other providers (PCP, Hospitalists, Consultants, etc):
� Escalation of care including admission/observation vs risk of discharge considered: Of note, patient is on anticoagulation. Although he did hit his head that was 2 days ago he says it was not a hard hit, and he denies any
signs or symptoms to suggest intracranial bleed such as headache, dizziness, nausea, vomiting etc. No neck pain or tenderness to suggest risk of cervical fracture.
5:56 PM I have reassessed patient several times as he continues to complain of pain. His pain is predominantly in his right knee greater than the left knee. Workup including CAT scan of knee negative. His pulses are normal and the limb is
well-perfused. No signs to suggest cellulitis or asymmetric swelling. He has limited range of motion of the knee due to pain. Extensive neurological exam given patient's urinary retention to exclude the possibility of cauda equina. Patient had a
rectal exam which is normal, tone is normal and he is not having fecal incontinence. With encouragement, his motor function is intact. reflexes are normal. Clinically I highly doubt cauda equina at this time, marti lcontinue to observe closely.
WHen asked about n/t, he says his 'butt feels uncomfortable' from laying for so long, sensation is intact to touch.
Given retention, conintued leg pain and ambulatory dysfx will admit.
ED Attending Note
-
Portions of this chart may have been created with voice recognition software.� Occasional wrong word or��sound alike� substitutions may have occurred due to the inherent limitations of voice recognition software.
Discharge Plan
Departure
Patient Disposition: Admit
Date of Disposition: 02/15/25
Time of Disposition: 18:01
Presentation/result/management discussed w/ accepting MD/DO: Hospitalist
Condition: Fair
Discharge Problem:
Ambulatory dysfunction, Acute urinary retention, Acute leg pain
Interventions
Interventions:
*General Assessment Last Done: 02/15/25 13:44
*Neglect/Abuse Screening Last Done: 02/15/25 13:44
*ED COVID-19 Vaccine History Last Done: 02/16/25 00:15
*ED Influenza Vaccine History Last Done: 02/15/25 13:44
[facility] Risk Assessment Tool Last Done: 02/15/25 13:44
*Risk Screen - Suicide (C-SSRS) Last Done: 02/15/25 13:44
*Nursing Disposition Last Done: 02/16/25 00:01
ED-Musculoskeletal Assessment Last Done: 02/15/25 13:44
Discharge Date and Time
Discharge Date/Time: 02/16/25 00:01
[2025-02-15] MEDS: MORPHINE SULFATE 6 MG IV ×2 (14:29→15:47)
[2025-02-15] MEDS: NSS 500 IV (14:33)
[2025-02-15 17:13] LABS: Urine Character Clear (Clear)
[2025-02-15 17:53] LABS: Urine Red Blood Cell 0-2 /HPF (0-2); Urine White Cell 0-2 /HPF (0-5)
--- NOTE | 2025-02-15 20:00 | HPS.HSE ---
Family Physician
-
Family Physician: Magno Khan
Chief Complaint
-
Fall on Sunday
History of Present Illness
The patient is a 79 yo male with PMH significant for CAD status post CABG, diabetes mellitus, PAD, hypertension, hyperlipidemia, chronic low back pain, admitted here in November for a fall, found to have L2 compression fracture (admitted for pain
management/PT/OT), who presents due to fall 2 days ago (on Sunday) in the bathroom after his legs 'gave out' on him. He was assisted by his family, however since then he's experienced ambulatory difficulty with walking and standing due to severe
pain in his knees, right greater than left. He denies LOC, no neck pain, no headache, no lightheadedness, no syncope. No fever, no n/v/d, no CP, no SOB, no palpitations. In the ED, he had urinary retention, and rectal and neurological examination
were performed, with normal rectal tone and noted low suspicion for cauda equina. Spence catheter was placed in the ED due to urinary retention.
ED txt:
Morphine 6 mg IV once
IVF bolus 500 mL
Bladder scan and Spence catheter placement
Medical History
Past Medical History
Past Medical History: Reports Other
Additional Past Medical History:
CAD status post CABG x 5
type 2 diabetes
peripheral arterial disease on Xarelto
hypertension
GERD
hypercholesterolemia
Past Surgical History: Reports Orthopedic (Posterior interspinous fusion hardware at L3-L4.) and Other
Additional Past Surgical History:
Cardiac (bypass, stents)
Cholecystectomy
Social History
Tobacco: Former Smoker (quit 22 years ago)
Alcohol: None
Drug: None
Personal:
Living: With Family
Family History
Family History: Not pertinent
Allergies / Home Medications
Allergies reflects when Allergies were last updated in [employer].
Home Medications with original date entered in [employer]
Allergy/Medication List:
Allergies
Allergy/AdvReac Type Severity Reaction Status Date / Time
No Known Allergies Allergy Verified 12/23/24 13:07
Home Medications
rosuvastatin 40 mg tablet (Crestor) 40 mg PO DAILY High cholesterol 08/20/20
cilostazol 100 mg tablet 100 mg PO BID Blood clot prevention/tx 05/16/22
pantoprazole 40 mg tablet,delayed release 40 mg PO DAILY Gastrointestinal issue 05/16/22
tamsulosin 0.4 mg capsule 0.4 mg PO QPM Urinary Issue 09/03/23
empagliflozin 25 mg tablet (Jardiance) 12.5 mg PO DAILY Diabetes 01/07/24
irbesartan 300 mg tablet 150 mg PO DAILY@2000 Blood Pressure 01/07/24
pregabalin 100 mg capsule (Lyrica) 100 mg PO QPM Pain 01/07/24
pregabalin 100 mg capsule (Lyrica) 200 mg PO DAILY Pain 01/07/24
isosorbide mononitrate 30 mg tablet,extended release 24 hr 30 mg PO DAILY Heart Disease/Condition 09/12/24
aspirin 81 mg tablet,delayed release 81 mg PO DAILY #0 tabs 09/16/24
rivaroxaban 2.5 mg tablet (Xarelto) 2.5 mg PO BID Blood Clot Prevention/Tx 09/22/24
Held on 12/25/24. Instructions: Resume on 12/27/24. restart pending pain/spine physician clearance
cholestyramine (with sugar) 4 gram powder for susp in a packet 1 ea PO BID@0900,2100 Gastrointestinal Issue 12/24/24
albuterol 90 mcg/actuation aerosol inhaler 90 mcg inhalation Q6H PRN SOB 02/15/25
Review of Systems
-
A 12 point ROS was completed and negative except as noted: Yes
Physical Exam
Vital Signs
Vital Signs
Temp Pulse Resp BP Pulse Ox
98.6 F 97 18 126/82 97
02/15/25 18:11 02/15/25 18:15 02/15/25 18:15 02/15/25 18:11 02/15/25 18:15
Physical Exam
General: Well Developed and Well Nourished
HEENT: NormoCephalic and Anicteric
Respiratory: Clear
Cardiac: S1/S2 and Regular Rhythm
GI: Soft, Non Tender and Non Distended
Musculoskeletal: No Clubbing, No Cyanosis, No Edema and Other (severe pain with palpation of right knee, small effusion, no redness, no swelling, right jet dyeing machine tender to palpation)
Skin: Warm and Dry
Neuro: AO x 3 and No Motor Deficits
Psych: Calm
Laboratory Results
-
02/15/25 13:55
02/15/25 13:55
Laboratory Results
Total Bilirubin 1.7 mg/dl (0.2-1.3) H 02/15/25 13:55
AST 22 U/L (17-59) 02/15/25 13:55
ALT 15 U/L (0-50) 02/15/25 13:55
Alkaline Phosphatase 77 U/L (38-126) 02/15/25 13:55
Data Reviewed
-
Diagnostic Radiology: Report Reviewed by me (x-ray pelvis no acute findings) and Other (x-ray lumbar Severe disc space narrowing at L5-S1 with vacuum disc phenomenon. Multilevel endplate osteophytes. Lower lumbar facet arthrosis. No significant
spondylolisthesis. Posterior interspinous fusion hardware at L3-L4. old compression fx noted)
CT Scan: Report Reviewed by me (CT RLE No acute fracture or dislocation. The joint alignments are maintained. Small tricompartmental marginal osteophytes. Minor medial and lateral tibiofemoral compartment joint space narrowing with a small amount of
subchondral sclerosis. Small knee joint effusion. Severe vascular calcifications. )
Impression/Plan
-
IMPRESSION:
#Ambulatory dysfunction following mechanical fall 2 days ago, without evidence for acute fracture a/w right knee pain with effusion
-Ortho cx possible effusion tap
-PT/OT eval
-pain management
#Urinary retention
-creatinine 0.7
-US renal pending
-Spence catheter placed in ED, continue overnight and reassess tomorrow
-monitor I/O, repeat BMP in am
-continue Tamsulosin
-consider Urology consultation pending clinical course
#Right Knee pain, Right LE pain acute, pulses intact, hx of Right SFA to popliteal bypass graft
-CT imaging with effusion, no acute fracture
-consider OP MRI
-pt has had DESTINY within this year, DESTINY less than 1.0 b/l, on Xaralto for PAD
06/18/24: 1. Right ankle-brachial index 0.58, compared to 0.69 on prior study. Right toe brachial index 0.06, compared to 0.33 on prior. Right SFA to popliteal bypass graft is patent, without evidence of significant stenosis. Infrapopliteal disease
and small vessel disease is suspected.
2. Left ankle brachial index 1.24, which may be unreliable due to noncompressible arteries. Left toe brachial index 0.41, compared to 0.58 on prior.
-Consider Vascular surgery cx IP vs OP f/u
-Vascular checks b/l LE q4h
#Leukocytosis, possibly reactive, UA does not appear infectious
-monitor for signs/symptoms of infection
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
-Vascular Sx consult for outpatient
#Mild hyponatremia, possibly hypovolemic
-gentle IVF, BMP in am
#chronic back pain
-Lyrica
#CAD status post CABG x 5
-aspirin
#Type 2 diabetes
#Peripheral arterial disease , RLE graft
-cont Xarelto
# Essential hypertension
-Irbesartan, imdur
#GERD
-PPI
#Hypercholesterolemia
-Crestor
DVT proph-cont Xarelto
Full Code
[2025-02-15] MEDS: MORPHINE SULFATE 4 MG IV (20:50)
--- NOTE | 2025-02-16 00:06 | PTCARENOTE ---
Pt arrived to 2S @ 2345 from ED. Pr transferred safely from stretcher to bed. Pt A&Ox3, VSS. IVF initiated per order and pain meds given. See MAR. Pt oriented to room, call grider within reach, bed locked in lowest position, care ongoing.
[2025-02-16 00:08] VITALS: BMI 23.7
[2025-02-16] MEDS: DILAUDID 0.5 MG IV ×3 (00:10→20:37)
[2025-02-16] MEDS: NSS 1000 IV (00:13)
[2025-02-16 00:44] VITALS: BP 154/78
[2025-02-16] MEDS: XARELTO 2.5 MG PO ×3 (01:08→19:22)
[2025-02-16] MEDS: FLOMAX 0.4 MG PO ×2 (01:08→17:57)
[2025-02-16] MEDS: ROXICODONE 5 MG PO ×4 (02:51→19:22)
--- NOTE | 2025-02-16 05:35 | CON.ORTHO ---
Consultation
-
Date/Time Consultation Requested: Feb 19
Date/Time Consultation Performed: Feb 19
Requesting Provider: Piero
Performing Provider: Josy gaming Biju
Reason for Consultation: Right knee pain/swelling
Consultation - Orthopedics
History
History of Present Illness:
79 y/o male with PMH significant for CAD status post CABG, diabetes mellitus, PAD, hypertension, hyperlipidemia, chronic low back pain, admitted here in November for a fall, found to have L2 compression fracture (admitted for pain management/PT/OT),
who presents due to fall 3 days ago (on Sunday) in the bathroom after his legs 'gave out' on him. He was assisted by his family, however since then he's experienced ambulatory difficulty with walking and standing due to severe pain in his knees,
right greater than left. He denies LOC, headstrike, or prodrome. In the ED, he had urinary retention, and rectal and neurological examination were performed, with normal rectal tone and noted low suspicion for cauda equina. Spence catheter was placed
in the ED due to urinary retention. Ongoing medical work-up upon admission to Hospitalist service. We have been requested in consult given his right knee pain/swelling. Denies previous issues/injuries to the right knee.
Past Medical History:
CAD status post CABG x 5
type 2 diabetes
peripheral arterial disease on Xarelto
hypertension
GERD
hypercholesterolemia
Past Surgical History: Reports Orthopedic (Posterior interspinous fusion hardware at L3-L4.) and Other
Additional Past Surgical History:
Cardiac (bypass, stents)
Cholecystectomy
Social History:
Tobacco: Former Smoker (quit 22 years ago)
Alcohol: None
Drug: None
Personal:
Living: With Family
Family History:
Not pertinent
ROS:
12 point negative except for those mentioned in the HPI
Allergies / Home Medications
Allergy/AdvReac Type Severity Reaction Status Date / Time
No Known Allergies Allergy Verified 10/28/25 13:07
�Medication �Instructions �Recorded
rosuvastatin 40 mg tablet (Crestor) 40 mg PO DAILY High cholesterol 08/20/20
cilostazol 100 mg tablet 100 mg PO BID Blood clot 05/16/22
prevention/tx
pantoprazole 40 mg tablet,delayed 40 mg PO DAILY Gastrointestinal 05/16/22
release issue
tamsulosin 0.4 mg capsule 0.4 mg PO QPM Urinary Issue 09/03/23
empagliflozin 25 mg tablet 12.5 mg PO DAILY Diabetes 01/07/24
(Jardiance)
irbesartan 300 mg tablet 150 mg PO DAILY@2000 Blood Pressure 01/07/24
pregabalin 100 mg capsule (Lyrica) 100 mg PO QPM Pain 01/07/24
pregabalin 100 mg capsule (Lyrica) 200 mg PO DAILY Pain 01/07/24
isosorbide mononitrate 30 mg 30 mg PO DAILY Heart 09/12/24
tablet,extended release 24 hr Disease/Condition
aspirin 81 mg tablet,delayed 81 mg PO DAILY #0 tabs 09/16/24
release
rivaroxaban 2.5 mg tablet (Xarelto) 2.5 mg PO BID Blood Clot 09/22/24
Held on 12/25/24. Prevention/Tx
Instructions: Resume on
12/27/24. restart pending
pain/spine physician clearance
cholestyramine (with sugar) 4 gram 1 ea PO BID@0900,2100 12/24/24
powder for susp in a packet Gastrointestinal Issue
albuterol 90 mcg/actuation aerosol 90 mcg inhalation Q6H PRN SOB 02/15/25
inhaler
Vital Signs / Lab Results
Temp Pulse Resp BP Pulse Ox
98.7 F 95 16 154/78 98
02/16/25 00:44 02/16/25 00:44 02/16/25 00:44 02/16/25 00:44 02/16/25 00:44
Assessment / Plan
PE: Afeb. Focused exam of the right knee reveals skin intact. Mild effusion at best. Screams in pain at gentle touch of the skin. Refused ROM due to pain. No erythema. Mild warmth. TTP R everywhere around the knee. Calf soft, nontender. DNVI RLE
Diagnostics:
Xrays and CT RLE reveal mild OA changes. Reasonably well maintained joint spaces. No acute findings. Small effusion. Vascular calcifications with what apperas to be clips posteriorly
Impression: Right knee OA, possible internal derangement
Plan: Discussed with the patient bedside. He does have some mild OA of the right knee. He also has a small effusion at best. His exam is very out of proportion to the clinical picture. internal derangement of the knee cannot be excluded, however I
do not feel strongly about an inpatient MRI for that alone. However based on his exam his subjective report I think this would be best. Discussed with attending hospitalist. would not consider a steroid injection at this time. would recommend
supportive management at this time with pain control. PT/OT could be considered based on MRI. ordering a knee immobilizer. we will look for the results later today. Will follow along and make recommendations based on that
[2025-02-16 07:15] VITALS: BP 144/58
[2025-02-16] MEDS: FARXIGA 10 MG PO (09:05)
[2025-02-16] MEDS: CRESTOR 40 MG PO (09:05)
[2025-02-16] MEDS: PROTONIX 40 MG PO (09:05)
[2025-02-16] MEDS: LYRICA 200 MG PO (09:05)
[2025-02-16] MEDS: ASPIR LOW (ENTERIC COATED) 81 MG PO (09:05)
--- NOTE | 2025-02-16 09:13 | W.PN.HOSP.TC ---
Today's Communication/Plan
-
ESR, CRP
MRI
PT/OT
NovoLog low resistance scale
Assessment / Plan
Assessment / Plan
Gen-AAOx3, NAD
HEENT-NC, AT, anicteric, clear oral mm
Neck-supple
CV-reg, no M, +S1/S2
Lungs-clear B/L
Abd-soft, NT, ND
Ext-no edema
Musculoskeletal-no cyanosis, clubbing, very limited range of motion of both knees due to severe pain. Allodynia on palpation of both knees.
Skin-warm and dry
Neuro-grossly non-focal
Psych-calm, cooperative
Bilateral acute knee pain -no evidence of fracture on imaging. Knee pain started acutely after he fell on Sunday landing on both knees. No loss of consciousness. Was in bed for 2 days prior to arrival in the emergency room.
Differential diagnosis of inflammatory arthritis versus septic arthritis versus hemarthrosis versus other. Clinically doubt septic arthritis. As he is on chronic Xarelto, hemarthrosis should be considered.
Check ESR, CRP.
MRI ordered by orthopedic team. Patient states he has a history of gout many years ago, does not remember which joint was affected.
Consult PT/OT.
Acute urinary retention -Spence catheter placed on admission. Continue tamsulosin.
Hyponatremia -present on admission. Monitor for now.
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 Outpatient follow-up.
DM 2 with hyperglycemia -hemoglobin A1c 9.4% in November 2024. He is only on Jardiance for diabetes.
Currently on Farxiga in the hospital. Add low resistance NovoLog scale.
CAD/CABG -stable.
PAD -on chronic Xarelto.
GERD
L2 compression fracture -due to fall, osteoporosis.
Essential hypertension -stable.
Hyperlipidemia -rosuvastatin.
Full code
Anticipated Discharge: > 48 hours
Subjective/Interval History
-
Date of Service: February 16, 2025
Patient seen and examined. Complaining of bilateral knee pain, right worse than left.
Objective Data
-
Labs:
Laboratory Results
02/16/25
08:17
WBC Pending
Hgb Pending
Hct Pending
Plt Count Pending
Sodium Pending
Potassium Pending
Chloride Pending
Carbon Dioxide Pending
BUN Pending
Creatinine Pending
Glucose Pending
Calcium Pending
Total Bilirubin Pending
AST Pending
ALT Pending
Alkaline Phosphatase Pending
Vital Signs:
Vital Signs
Temp Pulse Resp BP Pulse Ox
97.8 F 90 16 144/58 95
02/16/25 07:15 02/16/25 07:15 02/16/25 07:15 02/16/25 07:15 02/16/25 07:15
I&O
02/15/25 02/16/25 02/17/25
06:59 06:59 06:59
Intake Total 1485 / 1485
Output Total 600 / 600
Balance 885 / 885
Review of Systems
-
History Source: Patient
All other systems: Reviewed and negative
[2025-02-16 09:42] LABS: Hematocrit 32.1 % (39.0-52.0); Hemoglobin 10.9 g/dL (13.0-18.0); Mean Corp Hgb Conc. 34.0 g/dL (33.0-37.0); Mean Corpuscular Volume 87.9 fL (80.0-94.0); Nucleated Red Blood Cells % 0 % (-); Platelet Count 196 10^3/uL (130-400); Red Cell Dist. Width 14.6 % (11.5-14.5)
[2025-02-16 10:27] LABS: ALT (SGPT) 13 U/L (0-50); AST (SGOT) 19 U/L (17-59); Albumin 2.6 g/dl (3.5-5.0); Alkaline Phosphatase 75 U/L (38-126); Blood Urea Nitrogen 14 mg/dl (9-20); Calcium 8.3 mg/dl (8.4-10.2); Carbon Dioxide 20 mmol/L (22-30); Chloride 109 mmol/L (98-107); Estimated Creatinine Clearance 120 ml/min; Glucose 118 mg/dl (70-99); Potassium 3.4 mmol/L (3.5-5.1); Sodium 137 mmol/L (135-145); Total Protein 5.1 g/dl (6.3-8.2); eGFR > 60.00
--- NOTE | 2025-02-16 10:36 | VNURNOTE ---
Chart reviewed. Patient is current with [facility]. Will continue to follow hospital course and DC plans.
[2025-02-16 13:27] LABS: Glucose - Point of Care 160 mg/dl (70-99)
[2025-02-16] MEDS: NOVOLOG FLEXPEN-LOW RESISTANCE 1 UNITS SC (13:43)
[2025-02-16] MEDS: KCL 40 MEQ PO (13:47)
[2025-02-16 14:00] LABS: Magnesium 1.6 mg/dl (1.6-2.3)
[2025-02-16 15:15] VITALS: BP 133/76
[2025-02-16 17:34] LABS: Glucose - Point of Care 94 mg/dl (70-99)
[2025-02-16] MEDS: NOVOLOG FLEXPEN-LOW RESISTANCE SC (17:46)
[2025-02-16] MEDS: LYRICA 100 MG PO (17:56)
[2025-02-16] MEDS: AVAPRO 150 MG PO (19:24)
[2025-02-16 21:40] LABS: Glucose - Point of Care 105 mg/dl (70-99)
[2025-02-16 23:03] VITALS: BP 104/63
[2025-02-17] MEDS: DILAUDID 0.5 MG IV (05:11)
--- NOTE | 2025-02-17 05:50 | PTCARENOTE ---
Pt refusing q2 turn during entire shift. Repeatedly educated pt on purpose and reasoning behind q2 turn. Pt still refusing d/t extreme pain. Plan for MRI in the am. Care ongoing.
[2025-02-17] MEDS: ROXICODONE 5 MG PO ×2 (06:13→09:59)
[2025-02-17] MEDS: TYLENOL 650 MG PO ×3 (06:13→23:16)
[2025-02-17 07:05] LABS: Blood Urea Nitrogen 13 mg/dl (9-20); Calcium 8.7 mg/dl (8.4-10.2); Carbon Dioxide 20 mmol/L (22-30); Chloride 108 mmol/L (98-107); Estimated Creatinine Clearance 103 ml/min; Glucose 100 mg/dl (70-99); Sodium 137 mmol/L (135-145); eGFR > 60.00
[2025-02-17 07:10] VITALS: BP 127/59
[2025-02-17 07:11] LABS: Potassium 3.6 mmol/L (3.5-5.1)
--- NOTE | 2025-02-17 07:37 | W.PN.UPDATE ---
Update Note
Progress Note Update
Patient endorses significant right knee pain this morning. He is afebrile and WBC in normal limits. ESR 56 and CRP 215.80. September 2024 ESR [address] Quintana from rheumatology has been following him. Popliteal artery aneurysm noted
and is being followed by Dr. Spence. Left knee small effusion noted. No significant warmth or erythema. Passive motion 0 to 40 degrees elicits significant pain over the medial joint line. Significant pain over the medial joint line--pain out of
proportion to exam. No gross instability appreciated. Positive Iván's medial joint line. Calf nontender. Distal neurovascular was intact. MRI of the right knee today did not reveal obvious fracture or dislocation. No tendon or ligament
injury. There is small to moderate effusion noted. Fluid signal within the posterior horn of the meniscus suspicious for medial meniscal tear. Moderate osteoarthritis present. At this juncture recommend treated conservatively with ice,
immobilizer and Tylenol. I am going to review MRI with Dr. Ivy and hopefully radiologist interpretation comes available this morning. Definitive recommendations afterwards.
[2025-02-17 07:53] LABS: Glucose - Point of Care 102 mg/dl (70-99)
[2025-02-17] MEDS: NOVOLOG FLEXPEN-LOW RESISTANCE SC ×3 (08:03→17:56)
[2025-02-17] MEDS: ASPIR LOW (ENTERIC COATED) 81 MG PO (08:26)
[2025-02-17] MEDS: CRESTOR 40 MG PO (08:26)
[2025-02-17] MEDS: XARELTO 2.5 MG PO (08:26)
[2025-02-17] MEDS: KCL 20 MEQ PO (08:26)
[2025-02-17] MEDS: LYRICA 200 MG PO (08:26)
[2025-02-17] MEDS: PROTONIX 40 MG PO (08:26)
[2025-02-17] MEDS: FARXIGA 10 MG PO (08:26)
--- NOTE | 2025-02-17 10:23 | W.PN.HOSP.TC ---
Addendum entered and electronically signed by Matthew Kumar, 02/17/25 15:41:
Updated patient's on the phone. All questions answered.
Addendum entered and electronically signed by Matthew Kumar, 02/17/25 13:26:
Will give a trial of steroids to see if we can improve his pain as there is probably some degree of inflammation in his knees explaining his pain and elevated inflammatory markers.
Orthopedic service wants to avoid arthrocentesis.
Will place Xarelto on temporary hold as I cannot rule out some degree of hemarthrosis.
Original Note:
Today's Communication/Plan
-
Await orthopedics input
Increase oxycodone dose
Assessment / Plan
Assessment / Plan
Gen-AAOx3, NAD
HEENT-NC, AT, anicteric, clear oral mm
Neck-supple
CV-reg, no M, +S1/S2
Lungs-clear B/L
Abd-soft, NT, ND
Ext-no edema
Musculoskeletal-no cyanosis, clubbing, very limited range of motion of both knees due to severe pain. Allodynia on palpation of both knees.
Skin-warm and dry
Neuro-grossly non-focal
Psych-calm, cooperative
Bilateral acute knee pain - Knee pain started acutely after he fell on Sunday landing on both knees. No loss of consciousness. Was in bed for 2 days prior to arrival in the emergency room.
Differential diagnosis of inflammatory arthritis versus septic arthritis versus hemarthrosis versus other. Clinically doubt septic arthritis. As he is on chronic Xarelto, hemarthrosis should be considered.
Elevated inflammatory markers, ESR 56, CRP 215.
Right knee MRI shows small acute impaction fracture of the posterior cortex of the lateral tibial plateau. Severe full-thickness cartilage wear over the lateral side of the trochlear groove. Lateral meniscal body tear, medial meniscus tear over
posterior horn�body junction. 7 mm near full-thickness cartilage defect over the lateral femoral condyle. Moderate-sized joint effusion. 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
Will increase oxycodone to 10 mg every 4 as needed. Stop IV Dilaudid. Bowel regimen.
Defer arthrocentesis to orthopedics, he may have hemarthrosis due to trauma and anticoagulation. Will hold further Xarelto for now.
Continue PT/OT. Anticipate SNF on discharge.
Acute urinary retention -Spence catheter placed on admission. Continue tamsulosin. Renal ultrasound ordered by admitting team.
Hyponatremia -present on admission. Monitor for now.
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 Outpatient follow-up.
DM 2 with hyperglycemia -hemoglobin A1c 9.4% in November 2024. He is only on Jardiance for diabetes.
Currently on Farxiga in the hospital. Add low resistance NovoLog scale.
CAD/CABG -stable.
PAD -on chronic Xarelto. Spoke with Dr. Spence vascular surgery, he is okay with temporarily holding Xarelto but recommends resuming when able.
GERD
L2 compression fracture -due to fall, osteoporosis.
Essential hypertension -stable.
Hyperlipidemia -rosuvastatin.
Chronic normocytic anemia -hemoglobin at baseline.
Full code
Dispo -anticipate SNF on discharge. Discussed with case management to initiate process to look into rehab placement.
Anticipated Discharge: 24 - 48 hours
Subjective/Interval History
-
Date of Service: February 17, 2025
Patient seen and examined. Still with significant bilateral knee pain, right greater than left.
Objective Data
-
Labs:
Laboratory Results
02/17/25
06:31
Sodium 137
Potassium 3.6
Chloride 108 H
Carbon Dioxide 20 L
BUN 13
Creatinine 0.7
Glucose 100 H
Calcium 8.7
Vital Signs:
Vital Signs
Temp Pulse Resp BP Pulse Ox
98.5 F 60 16 127/59 97
02/17/25 07:10 02/17/25 07:10 02/17/25 07:10 02/17/25 07:10 02/17/25 07:10
I&O
02/16/25 02/17/25 02/18/25
06:59 06:59 06:59
Intake Total 1485 / 1485 480 / 480
Output Total 600 / 600 950 / 950
Balance 885 / 885 -470 / -470
Review of Systems
-
History Source: Patient
All other systems: Reviewed and negative
--- NOTE | 2025-02-17 11:37 | W.PN.UPDATE ---
Update Note
Progress Note Update
MRI of the right knee reviewed by Dr. Ivy and radiologist interpretation now available. Small impaction fracture posterior lateral tibial plateau, tear lateral meniscus, tear posterior horn body junction of the medial meniscus, full-thickness
cartilage tear lateral side of trochlear groove and lateral femoral condyle. Moderate size joint effusion noted. 2.4 cm popliteal artery aneurysm and calcific arthrosclerotic disease noted with muscle atrophy.
Recommend immobilization in a knee immobilizer, ice with elevation/Tylenol as needed for pain and weightbearing as tolerated with walker. He does seem to have a good deal of pain so suggest trying tapering oral steroid to decrease inflammation.
Return to office 10 to 14 days for reevaluation.
--- NOTE | 2025-02-17 11:57 | CM ---
Met with patient at bedside
[facility] form explained; form signed before receiving notification that status changed to inpatient @ 929
Pharmacy verified: [facility] @ [address]
Lives w/ ; 2 story home; half bath first floor; steps to 2nd floor bedroom and Bath (Tub w/ shower)
PLOF: reported he was independent w/ ambulation, stairs, and ADLs; driving; retired
DME: [employer]
NO SNF utilization history; Home Health services w/ [facility] this year
Transport: Ambulance
SNF recommendation discussed; site options list provided; preferences are: [facility]; Referrals sent via [facility]
Plan: Discharge to SNF when medically stable
[2025-02-17 12:03] LABS: Glucose - Point of Care 92 mg/dl (70-99)
[2025-02-17] MEDS: DELTASONE 40 MG PO (14:12)
[2025-02-17] MEDS: ROXICODONE 10 MG PO ×3 (14:12→22:33)
[2025-02-17 15:10] VITALS: BP 140/67
[2025-02-17] MEDS: FLOMAX 0.4 MG PO (17:56)
[2025-02-17] MEDS: LYRICA 100 MG PO (17:56)
[2025-02-17] MEDS: MIRALAX 17 GRAMS PO (17:59)
[2025-02-17] MEDS: AVAPRO 150 MG PO (19:55)
[2025-02-17 21:45] LABS: Glucose - Point of Care 180 mg/dl (70-99)
[2025-02-17 23:05] VITALS: BP 136/78
[2025-02-18] MEDS: ROXICODONE 10 MG PO ×5 (06:22→22:22)
--- NOTE | 2025-02-18 06:54 | W.PN.UPDATE ---
Update Note
Progress Note Update
Mr. Choi reports that his knee is still very uncomfortable but he did see some improvement with the oral steroids he received yesterday. He is wearing knee immobilizer but it has slid down and does not look like it is on properly. Examination of
his right knee showed that the effusion seems to diminished since yesterday. No warmth or erythema about the knee. Generalized pain throughout the knee. Tenderness over both medial and lateral joint line. Passive motion 0 to 45 degrees minimal
pain. No gross instability. He is able to straight leg raise. Distal neurovascular was intact. No aspiration indicated today. I secured knee immobilizer properly. Continue with ice, elevation, Tylenol and narcotics as needed for pain. He
seems to have had some improvement with the steroids so hopefully we could continue with this. He relates that Dr. Quintana from rheumatology did have him on 80 mg of steroids at some point. Weightbearing as tolerated with walker and knee
immobilizer. Consult physical therapy. Follow-up with orthopedics 2 weeks to check his progress. Orthopedics to sign off.now.
[2025-02-18 07:23] LABS: Glucose - Point of Care 125 mg/dl (70-99)
[2025-02-18] MEDS: NOVOLOG FLEXPEN-LOW RESISTANCE SC (07:33)
[2025-02-18 07:35] VITALS: BP 132/64
--- NOTE | 2025-02-18 08:36 | W.PN.HOSP.TC ---
Today's Communication/Plan
-
Discharge planning
Bowel regimen
Assessment / Plan
Assessment / Plan
Gen-AAOx3, NAD
HEENT-NC, AT, anicteric, clear oral mm
Neck-supple
CV-reg, no M, +S1/S2
Lungs-clear B/L
Abd-soft, NT, ND
Ext-no edema
Musculoskeletal-no cyanosis, clubbing, very limited range of motion of both knees due to severe pain. Allodynia on palpation of both knees.
Skin-warm and dry
Neuro-grossly non-focal
Psych-calm, cooperative
Bilateral acute knee pain - Knee pain started acutely after he fell on Sunday landing on both knees. No loss of consciousness. Was in bed for 2 days prior to arrival in the emergency room.
Differential diagnosis of inflammatory arthritis versus septic arthritis versus hemarthrosis versus other. Clinically doubt septic arthritis. As he is on chronic Xarelto, hemarthrosis should be considered.
Elevated inflammatory markers, ESR 56, CRP 215.
Right knee MRI shows small acute impaction fracture of the posterior cortex of the lateral tibial plateau. Severe full-thickness cartilage wear over the lateral side of the trochlear groove. Lateral meniscal body tear, medial meniscus tear over
posterior horn�body junction. 7 mm near full-thickness cartilage defect over the lateral femoral condyle. Moderate-sized joint effusion. 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
Continue oxycodone to 10 mg every 4 as needed. Stopped IV Dilaudid. Bowel regimen.
Day 2 of steroids, patient states that they are helping the pain.
Defer arthrocentesis to orthopedics, he may have hemarthrosis due to trauma and anticoagulation. Xarelto on hold for 48 hours.
Continue PT/OT. Anticipate SNF on discharge.
Acute urinary retention -Spence catheter placed on admission. Continue tamsulosin. Renal ultrasound ordered by admitting team.
Outpatient urology follow-up. Anticipate discharge with Spence catheter.
Hyponatremia -present on admission. Monitor for now.
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 Outpatient follow-up.
DM 2 with hyperglycemia -hemoglobin A1c 9.4% in November 2024. He is only on Jardiance for diabetes.
Currently on Farxiga in the hospital. Add low resistance NovoLog scale.
CAD/CABG -stable.
PAD -on chronic Xarelto. Spoke with Dr. Spence vascular surgery, he is okay with temporarily holding Xarelto but recommends resuming when able.
GERD
L2 compression fracture -due to fall, osteoporosis.
Essential hypertension -stable.
Hyperlipidemia -rosuvastatin.
Chronic normocytic anemia -hemoglobin at baseline.
Full code
Dispo -anticipate SNF on discharge. Discussed with case management to initiate process to look into rehab placement.
Medically stable for discharge to SNF. Case management aware.
Anticipated Discharge: Within 24 hours
Subjective/Interval History
-
Date of Service: February 18, 2025
Patient seen and examined. Knee pain slowly improving.
Objective Data
-
Vital Signs:
Vital Signs
Temp Pulse Resp BP Pulse Ox
98 F 72 16 132/64 97
02/18/25 07:35 02/18/25 07:35 02/18/25 07:35 02/18/25 07:35 02/18/25 07:35
I&O
02/17/25 02/18/25 02/19/25
06:59 06:59 06:59
Intake Total 480 / 480
Output Total 950 / 950 1000 / 1000
Balance -470 / -470 -1000 / -1000
Review of Systems
-
History Source: Patient
All other systems: Reviewed and negative
[2025-02-18 09:05] VITALS: BP 134/79; PULSE 74
[2025-02-18 09:17] VITALS: BP 134/79; PULSE 72; O2SAT 96
[2025-02-18] MEDS: MIRALAX 17 GRAMS PO (09:20)
[2025-02-18] MEDS: KCL 20 MEQ PO (09:21)
[2025-02-18] MEDS: CRESTOR 40 MG PO (09:21)
[2025-02-18] MEDS: PROTONIX 40 MG PO (09:21)
[2025-02-18] MEDS: LYRICA 200 MG PO (09:21)
[2025-02-18] MEDS: ASPIR LOW (ENTERIC COATED) 81 MG PO (09:21)
[2025-02-18] MEDS: DELTASONE 40 MG PO (09:21)
[2025-02-18] MEDS: FARXIGA 10 MG PO (09:22)
--- NOTE | 2025-02-18 12:04 | CM ---
Plan is for skilled placement, options reviewed, [facility], [facility], and [facility], will check to see if there is a bed available, [facility] contacted and patient does not qualify for [facility] waiver program.
Plan; Skilled placement
[2025-02-18 12:27] LABS: Glucose - Point of Care 246 mg/dl (70-99)
[2025-02-18] MEDS: NOVOLOG FLEXPEN-LOW RESISTANCE 2 UNITS SC ×2 (12:39→17:15)
[2025-02-18 15:49] VITALS: BP 135/69
[2025-02-18 16:47] LABS: Glucose - Point of Care 182 mg/dl (70-99)
[2025-02-18] MEDS: FLOMAX 0.4 MG PO (17:16)
[2025-02-18] MEDS: LYRICA 100 MG PO (17:16)
[2025-02-18] MEDS: AVAPRO 150 MG PO (20:58)
[2025-02-18] MEDS: SENOKOT-S 1 TABLET PO (21:01)
[2025-02-18 22:13] LABS: Glucose - Point of Care 210 mg/dl (70-99)
[2025-02-18 23:14] VITALS: BP 141/77
--- NOTE | 2025-02-19 06:21 | PTCARENOTE ---
Spence removed per order. Placed on time and amount, urinal provided. DTV [id number]
[2025-02-19 07:10] VITALS: BP 136/71
[2025-02-19 08:08] LABS: Glucose - Point of Care 113 mg/dl (70-99)
[2025-02-19] MEDS: ROXICODONE 10 MG PO ×4 (08:20→21:00)
[2025-02-19] MEDS: ASPIR LOW (ENTERIC COATED) 81 MG PO (08:22)
[2025-02-19] MEDS: XARELTO 2.5 MG PO ×2 (08:22→20:52)
[2025-02-19] MEDS: SENOKOT-S 1 TABLET PO ×2 (08:22→20:49)
[2025-02-19] MEDS: PROTONIX 40 MG PO (08:22)
[2025-02-19] MEDS: LYRICA 200 MG PO (08:23)
[2025-02-19] MEDS: MIRALAX PO (08:23)
[2025-02-19] MEDS: FARXIGA 10 MG PO (08:23)
[2025-02-19] MEDS: DELTASONE 40 MG PO (08:23)
[2025-02-19] MEDS: CRESTOR 40 MG PO (08:23)
[2025-02-19] MEDS: NOVOLOG FLEXPEN-LOW RESISTANCE SC (08:23)
[2025-02-19] MEDS: KCL 20 MEQ PO (08:23)
[2025-02-19 09:17] VITALS: BP 128/65; PULSE 87; O2SAT 97
[2025-02-19] MEDS: TYLENOL 650 MG PO (09:34)
[2025-02-19 10:15] VITALS: BP 128/65; PULSE 87; O2SAT 97
[2025-02-19] MEDS: OXYCONTIN (CONTROLLED RELEASE) 10 MG PO ×2 (10:32→20:49)
[2025-02-19 12:04] LABS: Glucose - Point of Care 183 mg/dl (70-99)
--- NOTE | 2025-02-19 12:08 | W.PN.HOSP.TC ---
Today's Communication/Plan
-
PT/OT
Add OxyContin
Bowel regimen
Assessment / Plan
Assessment / Plan
Gen-AAOx3, NAD
HEENT-NC, AT, anicteric, clear oral mm
Neck-supple
CV-reg, no M, +S1/S2
Lungs-clear B/L
Abd-soft, NT, ND
Ext-no edema
Musculoskeletal-no cyanosis, clubbing, very limited range of motion of both knees due to severe pain. Allodynia on palpation of both knees.
Skin-warm and dry
Neuro-grossly non-focal
Psych-calm, cooperative
Intractable pain syndrome - Knee pain started acutely after he fell on Sunday landing on both knees. No loss of consciousness. Was in bed for 2 days prior to arrival in the emergency room.
Right knee MRI shows small acute impaction fracture of the posterior cortex of the lateral tibial plateau. Severe full-thickness cartilage wear over the lateral side of the trochlear groove. Lateral meniscal body tear, medial meniscus tear over
posterior horn�body junction. 7 mm near full-thickness cartilage defect over the lateral femoral condyle. Moderate-sized joint effusion. 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
Continue oxycodone to 10 mg every 4 as needed. Stopped IV Dilaudid. Bowel regimen.
Day 3/5 of steroids, patient states that they are helping the pain.
Defer arthrocentesis to orthopedics, he may have hemarthrosis due to trauma and anticoagulation. Xarelto on hold for 48 hours.
Patient requesting additional analgesics. Will add low-dose OxyContin 10 mg twice daily. Continue OxyIR for breakthrough as needed. We discussed the risks of long-term opiates including risk of physical dependence, addiction, adverse effects such
as constipation. Patient is willing to accept the risks.
Continue PT/OT. Anticipate SNF on discharge.
Acute urinary retention -Spence catheter placed on admission. Continue tamsulosin. Renal ultrasound ordered by admitting team.
Outpatient urology follow-up. Anticipate discharge with Spence catheter.
Hyponatremia -present on admission. Monitor for now.
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 Outpatient follow-up.
DM 2 with hyperglycemia -hemoglobin A1c 9.4% in November 2024. He is only on Jardiance for diabetes.
Currently on Farxiga in the hospital. Continue low resistance NovoLog scale. Steroid-induced hyperglycemia noted. Glucose 113 this morning, 210 last night.
CAD/CABG -stable.
PAD -Xarelto resumed.
GERD
L2 compression fracture -due to fall, osteoporosis.
Essential hypertension -stable.
Hyperlipidemia -rosuvastatin.
Chronic normocytic anemia -hemoglobin at baseline.
Full code
Dispo -anticipate SNF on discharge. Discussed with case management to initiate process to look into rehab placement.
Medically stable for discharge to SNF. Case management aware.
Anticipated Discharge: Within 24 hours
Subjective/Interval History
-
Date of Service: February 19, 2025
Patient seen and examined. Complaining of ongoing right knee pain. 9 out of 10. Left knee has improved. Able to ambulate with walker and immobilizer on right lower extremity.
Objective Data
-
Vital Signs:
Vital Signs
Temp Pulse Resp BP Pulse Ox
98.6 F 80 16 136/71 96
02/19/25 07:10 02/19/25 07:10 02/19/25 07:10 02/19/25 07:10 02/19/25 07:10
I&O
02/18/25 02/19/25 02/20/25
06:59 06:59 06:59
Intake Total 1560 / 1560
Output Total 1000 / 1000 4000 / 4000
Balance -1000 / -1000 -2440 / -2440
Review of Systems
-
History Source: Patient
All other systems: Reviewed and negative
[2025-02-19] MEDS: NOVOLOG FLEXPEN-LOW RESISTANCE 1 UNITS SC (12:41)
[2025-02-19 15:05] VITALS: BP 110/63
[2025-02-19 16:29] LABS: Glucose - Point of Care 244 mg/dl (70-99)
[2025-02-19] MEDS: NOVOLOG FLEXPEN-LOW RESISTANCE 2 UNITS SC (16:46)
[2025-02-19] MEDS: FLOMAX 0.4 MG PO (17:28)
[2025-02-19] MEDS: LYRICA 100 MG PO (17:28)
[2025-02-19] MEDS: AVAPRO 150 MG PO (20:49)
[2025-02-19 20:56] VITALS: BP 140/84
[2025-02-19 21:38] LABS: Glucose - Point of Care 210 mg/dl (70-99)
[2025-02-19 23:08] VITALS: BP 133/73
[2025-02-20] MEDS: ROXICODONE 10 MG PO ×4 (03:36→16:22)
[2025-02-20 07:15] VITALS: BP 104/69
[2025-02-20 08:02] LABS: Glucose - Point of Care 172 mg/dl (70-99)
[2025-02-20] MEDS: FARXIGA 10 MG PO (08:07)
[2025-02-20] MEDS: KCL 20 MEQ PO (08:07)
[2025-02-20] MEDS: PROTONIX 40 MG PO (08:07)
[2025-02-20] MEDS: DELTASONE 40 MG PO (08:07)
[2025-02-20] MEDS: ASPIR LOW (ENTERIC COATED) 81 MG PO (08:07)
[2025-02-20] MEDS: LYRICA 200 MG PO (08:08)
[2025-02-20] MEDS: SENOKOT-S 1 TABLET PO (08:08)
[2025-02-20] MEDS: XARELTO 2.5 MG PO (08:08)
[2025-02-20] MEDS: OXYCONTIN (CONTROLLED RELEASE) 10 MG PO (08:09)
[2025-02-20] MEDS: MIRALAX PO (08:09)
[2025-02-20] MEDS: NOVOLOG FLEXPEN-LOW RESISTANCE 1 UNITS SC ×2 (08:10→12:14)
[2025-02-20] MEDS: CRESTOR 40 MG PO (08:10)
--- NOTE | 2025-02-20 10:56 | CM ---
Addendum entered by Elida Adair 02/20/25 14:47:
Patient has been accepted at [facility] [place], bed is available today, patient will go by ambulance.
[facility]
Report [phone]

Original Note:
vice president and portfolio manager reviewed patient's chart and plan is for skilled placement, referrals sent to [facility], [facility], and [facility], no beds, spouse to tour [facility] today at 11am.
Plan; Skilled placement.
[2025-02-20 11:51] LABS: Glucose - Point of Care 165 mg/dl (70-99)
--- NOTE | 2025-02-20 12:11 | W.PN.HOSP.TC ---
Addendum entered and electronically signed by Matthew Kumar DO 02/20/25 12:52:
Updated patient's on the phone. All questions answered. She is actively searching for a rehab facility. Remains medically stable for discharge when bed available.
Original Note:
Today's Communication/Plan
-
Continue current care
Discharge planning
Assessment / Plan
Assessment / Plan
Gen-AAOx3, NAD
HEENT-NC, AT, anicteric, clear oral mm
Neck-supple
CV-reg, no M, +S1/S2
Lungs-clear B/L
Abd-soft, NT, ND
Ext-no edema
Musculoskeletal-no cyanosis, clubbing, very limited range of motion of both knees due to severe pain. Allodynia on palpation of both knees.
Skin-warm and dry
Neuro-grossly non-focal
Psych-calm, cooperative
Intractable pain syndrome - Knee pain started acutely after he fell on Sunday landing on both knees. No loss of consciousness. Was in bed for 2 days prior to arrival in the emergency room.
Right knee MRI shows small acute impaction fracture of the posterior cortex of the lateral tibial plateau. Severe full-thickness cartilage wear over the lateral side of the trochlear groove. Lateral meniscal body tear, medial meniscus tear over
posterior horn�body junction. 7 mm near full-thickness cartilage defect over the lateral femoral condyle. Moderate-sized joint effusion. 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
Continue oxycodone to 10 mg every 4 as needed. Stopped IV Dilaudid. Bowel regimen.
Day 4/5 of steroids, patient states that they are helping the pain.
Defer arthrocentesis to orthopedics, he may have hemarthrosis due to trauma and anticoagulation. Xarelto held for 48 hours.
Pain is now improving. Continue OxyContin 10 mg twice daily, OxyIR for breakthrough as needed. We discussed the risks of long-term opiates including risk of physical dependence, addiction, adverse effects such as constipation. Patient is willing
to accept the risks.
Continue PT/OT. Anticipate SNF on discharge.
Acute urinary retention -Spence catheter placed on admission. Continue tamsulosin. Renal ultrasound ordered by admitting team.
Outpatient urology follow-up. Anticipate discharge with Spence catheter.
Hyponatremia -present on admission. Monitor for now.
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 Outpatient follow-up.
DM 2 with hyperglycemia -hemoglobin A1c 9.4% in November 2024. He is only on Jardiance for diabetes.
Currently on Farxiga in the hospital. Continue low resistance NovoLog scale. Steroid-induced hyperglycemia noted. Glucose 172 this morning, 210 last night.
CAD/CABG -stable.
PAD -Xarelto resumed.
GERD
L2 compression fracture -due to fall, osteoporosis.
Essential hypertension -stable.
Hyperlipidemia -rosuvastatin.
Chronic normocytic anemia -hemoglobin at baseline.
Full code
Dispo -anticipate SNF on discharge. Discussed with case management to initiate process to look into rehab placement.
Medically stable for discharge to SNF. Case management aware.
Left a voicemail for patient's to call me back.
Anticipated Discharge: Within 24 hours
Subjective/Interval History
-
Date of Service: February 20, 2025
Patient seen and examined. Right knee pain is improving, down to a 7 out of 10. No new complaints.
Objective Data
-
Vital Signs:
Vital Signs
Temp Pulse Resp BP Pulse Ox
97.9 F 68 16 104/69 94
02/20/25 07:15 02/20/25 07:15 02/20/25 07:15 02/20/25 07:15 02/20/25 07:15
I&O
02/19/25 02/20/25 02/21/25
06:59 06:59 06:59
Intake Total 1560 / 1560 480 / 480
Output Total 4000 / 4000 725 / 725
Balance -2440 / -2440 -245 / -245
Review of Systems
-
History Source: Patient
All other systems: Reviewed and negative
--- NOTE | 2025-02-20 14:50 | W.DS.TRANS ---
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
-
Discharge Instructions:
Discharge Diagnosis/Procedures Right tibial plateau fracture, acute urinary
retention, intractable pain
Diet Low Cholesterol,Low Fat
Activity With assistance
Driving Restrictions No driving
Bathing Restrictions None
Instructions:
Stand-Alone Forms:
Changes to Home Medications: No
Discharge Medications:
DC Medications w/original date entered in [facility]
rosuvastatin 40 mg tablet (Crestor) 40 mg PO DAILY High cholesterol 08/20/20
cilostazol 100 mg tablet 100 mg PO BID Blood clot prevention/tx 05/16/22
pantoprazole 40 mg tablet,delayed release 40 mg PO DAILY Gastrointestinal issue 05/16/22
tamsulosin 0.4 mg capsule 0.4 mg PO QPM Urinary Issue 09/03/23
empagliflozin 25 mg tablet (Jardiance) 12.5 mg PO DAILY Diabetes 01/07/24
irbesartan 300 mg tablet 150 mg PO DAILY@2000 Blood Pressure 01/07/24
pregabalin 100 mg capsule (Lyrica) 100 mg PO QPM Pain 01/07/24
pregabalin 100 mg capsule (Lyrica) 200 mg PO DAILY Pain 01/07/24
aspirin 81 mg tablet,delayed release 81 mg PO DAILY #0 tabs 09/16/24
rivaroxaban 2.5 mg tablet (Xarelto) 2.5 mg PO BID Blood Clot Prevention/Tx 09/22/24
cholestyramine (with sugar) 4 gram powder for susp in a packet 1 ea PO BID@0900,2100 Gastrointestinal Issue 12/24/24
albuterol 90 mcg/actuation aerosol inhaler 90 mcg inhalation Q6H PRN SOB 02/15/25
oxycodone 10 mg tablet 10 mg PO Q4HPRN PRN severe pain #10 tabs 02/20/25
oxycodone 10 mg tablet,crush resistant,extended release 12 hr (OxyContin) 10 mg PO Q12 #6 tabs 02/20/25
polyethylene glycol 3350 17 gram oral powder packet 17 g PO DAILY #0 ea 02/20/25
potassium chloride 20 mEq tablet,extended release(part/cryst) (Klor-Con M) 20 meq PO DAILY #0 tabs 02/20/25
prednisone 20 mg tablet 40 mg (2 x 20 mg) PO DAILY #2 tabs 02/20/25
sennosides 8.6 mg-docusate sodium 50 mg tablet (Senna Plus) 1 tab PO BID #0 tabs 02/20/25
Home Medication Changes
Pending Results: No
[2025-02-20 15:05] VITALS: BP 119/66
[2025-02-20 16:17] LABS: Glucose - Point of Care 302 mg/dl (70-99)
[2025-02-20] MEDS: NOVOLOG FLEXPEN-LOW RESISTANCE 4 UNITS SC (16:18)
[2025-02-20] MEDS: LYRICA 100 MG PO (17:13)
[2025-02-20] MEDS: FLOMAX 0.4 MG PO (17:13)
[2025-02-20 19:15] VITALS: BP 130/68
== END 2025-02-20 19:27 | DRG 563 ==
LOC: 2 SOUTH 09:30
PROVIDERS: Emergency Medicine; ADMITTING PHYSICIAN Internal Medicine; ATTENDING PHYSICIAN Hospitalist; EMERGENCY PHYSICIAN Emergency Medicine; FAMILY PHYSICIAN Internal Medicine; OTHER PHYSICIAN Specialist
DX: S82.141A Displaced bicondylar fracture of right tibia, initial encounter for closed fracture (principal); E87.1 Hypo-osmolality and hyponatremia; G89.29 Other chronic pain; Z87.891 Personal history of nicotine dependence; M54.9 Dorsalgia, unspecified; E11.51 Type 2 diabetes mellitus with diabetic peripheral angiopathy without gangrene; E11.40 Type 2 diabetes mellitus with diabetic neuropathy, unspecified; I10 Essential (primary) hypertension; K21.9 Gastro-esophageal reflux disease without esophagitis; E78.00 Pure hypercholesterolemia, unspecified; Z79.01 Long term (current) use of anticoagulants; S83.289A Other tear of lateral meniscus, current injury, unspecified knee, initial encounter; W19.XXXA Unspecified fall, initial encounter
CPT/HCPCS: 72110; 72170; 73564; 73700; 73721; 76770; 80048; 80053; 81003; 81015; 82962; 83735; 85025; 85652; 86140; 93005; 96361; 96374; 96376; 97116; 97163; 97167; 97530; 97535; 99285